=== PATIENT | female | born 1965 | race Caucasian/White ===

== ENCOUNTER 2017-07-31 09:18 | Outpatient (CLI) | payer MEDICARE, OTHER | END 2017-07-31 09:19 | disposition home or self-care (01) | LOC: DI 09:18 | PROVIDERS: ATTEND Psychiatry & Neurology Neurology | DX: I66.01 Occlusion and stenosis of right middle cerebral artery (principal); I69.30 Unspecified sequelae of cerebral infarction; E78.01 Familial hypercholesterolemia; F17.200 Nicotine dependence, unspecified, uncomplicated | CPT/HCPCS: 93306 ==

== ENCOUNTER 2017-12-26 09:10 | Outpatient (CLI) | payer MEDICARE, OTHER | END 2017-12-26 09:11 | disposition critical access hospital (66) | LOC: EMS 09:10 | PROVIDERS: ATTEND Surgery | DX: R53.1 Weakness (principal); R51 Headache; R29.810 Facial weakness; R47.81 Slurred speech | CPT/HCPCS: A0425; A0427 ==

== ENCOUNTER 2017-12-26 09:18 | Emergency (ER) | payer MEDICARE, OTHER ==
[2017-12-26] MEDS ORDERED: IOPAMIDOL-300 100 ML VIAL IVP ONE ×2 (09:19→11:39)
--- NOTE | 2017-12-26 09:29 | ED Physician Documentation ---
PD HPI FOCAL NEURO - Stated complaint Stated Complaint: CVA - Chief complaint Chief Complaint: Neuro - History obtained from History obtained from: Patient, EMS - History of Present Illness Timing - onset: Unknown Timing - details: Abrupt onset Time of symptom onset unknown: Time of onset unknown Severity of deficit: Severe Weakness: Face, Arm, Hand, Leg, Foot, Left Associated symptoms: Headache Contributing factors: positive: Anticoagulated Baseline status: positive: A&OX3, ambulatory, indep Similar symptoms before: Diagnosis (CVA) Recently seen: Not recently seen - Additional information Additional information: 52 y/o female with prior history of CVA and CAD with [address] awoke this morning unable to use her left side. She was found with left sided facial droop, left sided motor weakness upper and lower and slurred speech. She was able to call out to her family who called 911. The patient is on blood thinners and thinks she may have hit her head on a fall this morning. It is unclear if symptoms preceded the fall. Review of Systems Constitutional: denies: Fever Eyes: denies: Decreased vision Ears: denies: Ear pain Nose: denies: Congestion Throat: denies: Sore throat Cardiac: denies: Chest pain / pressure, Palpitations Respiratory: denies: Dyspnea, Cough GI: denies: Vomiting : denies: Dysuria Skin: denies: Rash Neurologic: reports: Focal weakness. denies: Generalized weakness, Numbness PD PAST MEDICAL HISTORY - Present Medications Home Medications: Ambulatory Orders Medication Instructions Recorded Confirmed Aspirin 12/26/17 Metoprolol Succinate 12/26/17 Omeprazole Magnesium [Prilosec] 12/26/17 Ticagrelor [Brilinta] 12/26/17 - Allergies Allergies/Adverse Reactions: Allergies Allergy/AdvReac Type Severity Reaction Status Date / Time Iodinated Contrast- Oral and Allergy Rash Verified 12/26/17 09:51 IV Dye morphine Allergy Rash Verified 12/26/17 09:51 PD ED PE NORMAL - Vitals Vital signs reviewed: Yes (hypertensive mild) - General General: Alert and oriented X 3, No acute distress, Well developed/nourished, Other (The patient talks and answers questions appropriately with her head deviated to the right as well as the gaze. ) - HEENT HEENT: PERRL, Other (There is forced deviation of the eyes to the right. ) - Neck Neck: Supple, no meningeal sign, No bony TTP - Cardiac Cardiac: RRR, No murmur - Respiratory Respiratory: No respiratory distress, Clear bilaterally - Abdomen Abdomen: Soft, Non tender - Back Back: No CVA TTP, No spinal TTP - Derm Derm: Normal color, Warm and dry, No rash - Extremities Extremities: No deformity, No edema - Neuro Neuro: Alert and oriented X 3, Other (The patient is ) NIHSS - Time Time: 09:22 - Level of Consciousness Level of consciousness: (0) Alert, Keenly responsive LOC Questions: (0) Answers both Q's correct LOC Commands: (1) Performs one correctly - Gaze Best Gaze: (2) Forced deviation - Visual Visual: (1) Partial hemianopia - Facial Palsy Facial Palsy: (1) Minor paralysis - Motor Arms (both separate) Motor Arm (right): (0) No drift Motor Arm (left): (3) No effort against gravity - Motor Legs (both separate) Motor Leg (right): (0) No drift Motor Leg (left): (4) No movement - Limb Ataxia Limb Ataxia: (1) Present in 1 limb - Sensory Sensory: (1) Unwo-jw-byncrndm loss - Best Language Best Language: (0) No aphasia - Dysarthria Dysarthria: (1) Pmki-sd-cpubivus dysarthria - Extinction and Inattention (formally neg Extinction and inattention: (1) Visual,tactile,auditory,spatial, or personal inattention - Total Score/Results Total Score/Result: 16 Results - Vitals Vitals: Vital Signs - 24 hr 12/26/17 12/26/17 12/26/17 09:18 09:30 09:47 Temperature 36.6 C Heart Rate 77 75 75 Respiratory 18 20 22 Rate Blood Pressure 132/77 H 127/79 158/78 H O2 Saturation 96 97 95 12/26/17 12/26/17 10:05 10:54 Temperature Heart Rate 89 88 Respiratory 17 15 Rate Blood Pressure 155/71 H 137/67 H O2 Saturation 97 96 Oxygen O2 Source Room air - EKG (time done) 1029 Rate: Rate (enter#) (92) Intervals: Prolonged QT QRS: Low voltage Ischemia: Non specific changes Compare to prior EKG: Old EKG unavailable Computer interpretation: Disagree with computer (I am unable to see ST elevations ) - Labs Labs: Laboratory Tests 12/26/17 12/26/17 12/26/17 09:45 09:45 09:45 WBC 8.9 RBC 5.05 Hgb 15.5 Hct 45.0 MCV 89.0 MCH 30.7 MCHC 34.4 RDW 13.5 Plt Count 226 MPV 9.5 Neut # (Auto) 5.8 Lymph # (Auto) 2.4 [place] # (Auto) 0.5 Eos # (Auto) 0.1 Baso # (Auto) 0.1 Absolute Nucleated RBC 0.00 Nucleated RBC % 0.0 PT 12.6 INR 1.1 APTT 28.6 Sodium 140 Potassium 4.0 Chloride 106 Carbon Dioxide 25 Anion Gap 9.0 BUN 25 H Creatinine 0.8 Estimated GFR (MDRD) 75 L Glucose 129 H Calcium 8.8 Total Bilirubin 0.7 AST 17 ALT 13 Alkaline Phosphatase 57 Troponin I Total Protein 7.5 Albumin 4.0 Globulin 3.5 Albumin/Globulin Ratio 1.1 Lipase 40 Urine Color Urine Clarity Urine pH Ur Specific [place] Urine Protein Urine Glucose (UA) Urine Ketones Urine Occult Blood Urine Nitrite Urine Bilirubin Urine Urobilinogen Ur Leukocyte Esterase Urine RBC Urine WBC Ur Squamous Epith Cells Urine Bacteria Ur Microscopic Review Urine Culture Comments 12/26/17 12/26/17 09:45 10:20 WBC RBC Hgb Hct MCV MCH MCHC RDW Plt Count MPV Neut # (Auto) Lymph # (Auto) [place] # (Auto) Eos # (Auto) Baso # (Auto) Absolute Nucleated RBC Nucleated RBC % PT INR APTT Sodium Potassium Chloride Carbon Dioxide Anion Gap BUN Creatinine Estimated GFR (MDRD) Glucose Calcium Total Bilirubin AST ALT Alkaline Phosphatase Troponin I < 0.04 Total Protein Albumin Globulin Albumin/Globulin Ratio Lipase Urine Color YELLOW Urine Clarity CLEAR Urine pH 6.0 Ur Specific [place] 1.020 Urine Protein NEGATIVE Urine Glucose (UA) NEGATIVE Urine Ketones NEGATIVE Urine Occult Blood SMALL H Urine Nitrite NEGATIVE Urine Bilirubin NEGATIVE Urine Urobilinogen 0.2 (NORMAL) Ur Leukocyte Esterase NEGATIVE Urine RBC 0-5 Urine WBC 0-3 Ur Squamous Epith Cells RARE Squamous Urine Bacteria Rare Ur Microscopic Review INDICATED Urine Culture Comments NOT INDICATED - Rads (name of study) CT head without Radiology: Prelim report reviewed (Impression: 1. Findings suggestive of hyperdense right MCA sign, suggestive of thrombus embolic material. Recommend CTA for confirmation. 2. Findings of old right MCA territory infarct.), EMP read indepedently, See rad report Procedures - IVC sono (time) 9659 Bedside IVC sono: IVC measures (cm) (0.97), IVC collapsed c insp (cm) (complete), Dehydration (est 1-2 liter deficit) PD MEDICAL DECISION MAKING - ED course Complexity details: reviewed results, re-evaluated patient, considered differential, d/w patient, d/w family, d/w jewelry consultant (09:12 Dr. Ree Mustafa recommends CTA head and neck and will review for appropriateness of intervention .) ED course: 52 y/o female with dense left ever and neglect has unknown onset of symptoms overnight. She has RMCA hyperdensity and is a candidate for thrombectomy Dr. Ree Mustafa is consulted in the case and requests urgent transfer to [facility]. [facility] is unable to fly secondary to fog and stat ground transport is arranged. The patient is dehydrated and IV saline is administered. Departure - Departure Disposition: 02 Transfer Acute Care Hosp Clinical Impression: Cerebrovascular accident (CVA) Qualifiers: CVA mechanism: thrombosis Precerebral and cerebral artery: middle cerebral artery Laterality of affected vessel: right Qualified Code(s): I63.311 - Cerebral infarction due to thrombosis of right middle cerebral artery Condition: Serious
--- NOTE | 2017-12-26 09:43 | CT Report ---
Reason: Left ever Procedure Date: 12/26/2017 Accession Number: [id number] / [id number] Procedure: CT - Head W/O Stroke Protocol CPT Code: FULL RESULT: EXAM: CT HEAD EXAM DATE: 12/26/2017 09:33 AM. CLINICAL HISTORY: Left side weakness. COMPARISON: None. TECHNIQUE: Multiaxial CT images were obtained from the foramen magnum to the vertex. Reformats: Sagittal and coronal. IV contrast: None. In accordance with CT protocol optimization, one or more of the following dose reduction techniques were utilized for this exam: automated exposure control, adjustment of mA and/or KV based on patient size, or use of iterative reconstructive technique. FINDINGS: Parenchyma: There are areas of encephalomalacia in the right frontal, parietal, and temporal lobes, compatible with previous MCA territory infarct. Elsewhere, the castañeda-white matter differentiation appears preserved. No intracranial hemorrhage demonstrated. No evidence of mass or mass-effect. Extraaxial Spaces: Mild diffuse prominence, compatible with central atrophy. No subdural or epidural collections identified. Ventricles: Size and position are within normal limits. Basal cisterns are patent. Sinuses and Orbits: The visualized portions of the paranasal sinuses and mastoid air cells are clear. Orbits are unremarkable. Bones: No evidence of fracture or calvarial defect. Other: There appears to be increased density of the M1 segment of the right middle cerebral artery (series 3, image 13). IMPRESSION: 1. Findings suggestive of hyperdense right MCA sign, suggestive of thromboembolic material. Recommend CTA for confirmation. 2. Findings of old right MCA territory infarct. RADIA The above findings were discussed with Dr. Gonzalo Lawrence by Dr. Mychal Gongora at approximately 09:35 hrs on 12/26/17.
[2017-12-26] MEDS ORDERED: IOPAMIDOL-300 100 ML VIAL ONE (09:46)
[2017-12-26 09:50] LABS: BASOPHILS # (AUTO) 0.1 10^3/uL (0.0-0.1); BASOPHILS % (AUTO) 0.7 %; EOSINOPHILS # (AUTO) 0.1 10^3/uL (0.0-0.7); EOSINOPHILS % (AUTO) 0.6 %; HGB - HEMOGLOBIN 15.5 g/dL (12.0-16.0); LYMPHOCYTES # (AUTO) 2.4 10^3/uL (1.5-3.5); LYMPHOCYTES % (AUTO) 27.3 %; MEAN CORPUSCULAR HEMOGLOBIN 30.7 pg (27.0-31.0); MEAN CORPUSCULAR HGB CONC 34.4 g/dL (32.0-36.0); MEAN PLATELET VOLUME 9.5 fL (7.9-10.8); MONOCYTES # (AUTO) 0.5 10^3/uL (0.0-1.0); MONOCYTES % (AUTO) 6.1 %; NEUTROPHILS # (AUTO) 5.8 10^3/uL (1.5-6.6); NEUTROPHILS % (AUTO) 65.3 %; PLT - PLATELET COUNT 226 10^3/uL (130-450); RED BLOOD COUNT 5.05 10^6/uL (4.20-5.40); RED CELL DISTRIBUTION WIDTH 13.5 % (12.0-15.0); WHITE BLOOD COUNT 8.9 x10^3/uL (4.8-10.8)
[2017-12-26] MEDS ORDERED: diphenhydrAMINE INJ 50 MG/ML VIAL IVP STA (09:50)
[2017-12-26] MEDS ORDERED: SODIUM CHLORIDE 0.9% 1,000 ML IV ONE (09:50)
[2017-12-26] MEDS ORDERED: methylPREDNISolone SUCCINATE 125 MG/2 ML VIAL IVP STA (09:50)
[2017-12-26 10:03] LABS: ALBUMIN/GLOBULIN RATIO 1.1 (1.0-2.2); BILIRUBIN,TOTAL 0.7 mg/dL (0.2-1.0); CALCIUM 8.8 mg/dL (8.5-10.3); CREATININE 0.8 mg/dL (0.4-1.0); TOTAL PROTEIN 7.5 g/dL (6.7-8.2)
[2017-12-26 10:37] LABS: INR 1.1 (0.8-1.2); PT - PROTHROMBIN TIME 12.6 secs (9.9-12.6)
[2017-12-26 10:44] LABS: BILIRUBIN,URINE NEGATIVE (NEGATIVE); GLUCOSE, URINE (UA) NEGATIVE (NEGATIVE); KETONES,URINE (UA) NEGATIVE (NEGATIVE); LEUKOCYTE ESTERASE, URINE NEGATIVE (NEGATIVE); NITRITE,URINE NEGATIVE (NEGATIVE); OCCULT BLOOD,URINE SMALL (NEGATIVE); PROTEIN,URINE NEGATIVE (NEGATIVE); UROBILINOGEN,URINE 0.2 (NORMAL) E.U./dL (NORMAL)
[2017-12-26 10:47] LABS: CLARITY,URINE CLEAR (CLEAR)
[2017-12-26 11:04] LABS: BACTERIA,URINE Rare /HPF (None Seen); RBC,URINE 0-5 /HPF (0-5); SQUAMOUS EPITHELIAL CELL,UR RARE Squamous (<= Few)
[2017-12-26 11:30] VITALS: BP 138/82
--- NOTE | 2017-12-26 12:00 | CT Report ---
Reason: Left ever Procedure Date: 12/26/2017 Accession Number: [id number] / [id number] Procedure: CT - Neck Angio CPT Code: FULL RESULT: EXAM: CT ANGIOGRAM HEAD AND NECK. CT SCAN HEAD WITH CONTRAST. EXAM DATE:12/26/2017 10:13 AM. CLINICAL HISTORY:Left ever. Left-sided weakness. COMPARISON:CT scan of the head without contrast same time 12/26/2017. TECHNIQUE: Routine axial helical CTA imaging was performed from the aortic arch through the [place]. Routine axial CT imaging of the head was performed following contrast administration. Reconstructions: Routine multiplanar 3D MIP reconstructions. IV contrast: ISOVUE 300 80mL. NASCET Criteria are used for stenosis measurements. In accordance with CT protocol optimization, one or more of the following dose reduction techniques were utilized for this exam: automated exposure control, adjustment of mA and/or KV based on patient size, or use of iterative reconstructive technique. FINDINGS: CT SCAN HEAD POSTCONTRAST: (See report of noncontrast CT scan of the head performed same time.) No abnormal intracranial enhancement. Diffuse cortical hypodensity and deep nuclear hypodensity is seen in the right MCA vascular territory. No hemorrhage. On postcontrast CT images (which are after the dynamic CT angiogram images) contrast opacification of right MCA branches within the Sylvian fissure is evident. CT ANGIOGRAM EXTRACRANIAL CIRCULATION: Mild atherosclerotic calcification is seen in the aortic arch and great vessels off the arch. Normal three-vessel branching is identified. Great vessels are patent and unremarkable. Right Carotid: The CCA is patent and unremarkable. Occlusion of the ICA is seen shortly after its origin. Tapering of the proximal bulbar segment is seen. Appearance is suggestive of dissection. The ECA is patent and unremarkable. Left Carotid: The common carotid, internal carotid, and external carotid arteries are widely patent. No dissection, significant atherosclerotic plaque, or calcification identified. Vertebrals: The vertebrobasilar system shows no stenosis, dissection, aneurysm, or significant atherosclerotic disease. CT ANGIOGRAM INTRACRANIAL CIRCULATION: Right Carotid Circulation: Markedly abnormal. Nonopacification of intracranial ICA to the bifurcation is seen. Nonopacification of M1 and candelabra M2 branches within the Sylvian fissure is seen. Nonopacification of the proximal A1 segment of the EMANUEL is evident. Distal A1 segment as well as A2 and distal branches of the EMANUEL are opacified. This is consistent with collateral flow through a small caliber A-comm. Additionally, there is opacification of the right P-comm extending to the level of the posterior margin of the supracavernous ICA, without luminal opacification of the ICA appreciated. Left carotid Circulation: Patent and unremarkable. The MCA and EMANUEL are unremarkable. The left P-comm is small in caliber. Vertebrobasilar System: Patent and unremarkable. Bilateral superior cerebellar and [employer] are patent and unremarkable. The dural venous sinuses are patent. Other: Moderate interstitial bullous change is seen in the visualized upper lung zone bilaterally. No consolidation. Heterogeneous enlargement of the thyroid gland is seen, greater on the left. An irregular peripherally enhancing 20 mm nodule is seen in the left lobe. This could be further evaluated with thyroid ultrasound. No lytic or blastic bony lesions are seen. Mild spondylosis is noted in the lower cervical spine. Dextroscoliosis of the upper thoracic spine is appreciated. IMPRESSION: CT SCAN HEAD POSTCONTRAST: (See report of noncontrast CT scan of the head performed same time.) 1. No abnormal intracranial enhancement. 2. Parenchymal hypodensity is noted in right MCA vascular territory. This gives an ASPECTS score of 0-[address] ANGIOGRAM NECK: 1. Occlusion of the right ICA just after its origin. The appearance suggests dissection. Nonopacification of the cervical and intracranial segments is seen. 2. The left carotid and bilateral vertebral arteries are unremarkable. CT ANGIOGRAM HEAD: 1. Occlusion of intracranial right ICA. This extends to the ICA terminus. Nonopacification of M1 and M2 branches of the MCA is seen. Nonopacification of the proximal A1 segment of the EMANUEL is noted. -Opacification of the right P-comm is seen extending from the [employer]. This does not opacify the lumen of the ICA. -Right EMANUEL is supplied through the left EMANUEL through a patent small A-comm. 2. The left carotid and vertebrobasilar system is unremarkable. Critical Test: Findings are discussed with referring treating physician on 12/26/2017 at 1134 hours. RADIA
--- NOTE | 2017-12-26 12:00 | CT Report ---
Reason: left ever Procedure Date: 12/26/2017 Accession Number: [id number] / [id number] Procedure: CT - Head Angio CPT Code: FULL RESULT: EXAM: CT ANGIOGRAM HEAD AND NECK. CT SCAN HEAD WITH CONTRAST. EXAM DATE:12/26/2017 10:13 AM. CLINICAL HISTORY:Left ever. Left-sided weakness. COMPARISON:CT scan of the head without contrast same time 12/26/2017. TECHNIQUE: Routine axial helical CTA imaging was performed from the aortic arch through the [place]. Routine axial CT imaging of the head was performed following contrast administration. Reconstructions: Routine multiplanar 3D MIP reconstructions. IV contrast: ISOVUE 300 80mL. NASCET Criteria are used for stenosis measurements. In accordance with CT protocol optimization, one or more of the following dose reduction techniques were utilized for this exam: automated exposure control, adjustment of mA and/or KV based on patient size, or use of iterative reconstructive technique. FINDINGS: CT SCAN HEAD POSTCONTRAST: (See report of noncontrast CT scan of the head performed same time.) No abnormal intracranial enhancement. Diffuse cortical hypodensity and deep nuclear hypodensity is seen in the right MCA vascular territory. No hemorrhage. On postcontrast CT images (which are after the dynamic CT angiogram images) contrast opacification of right MCA branches within the Sylvian fissure is evident. CT ANGIOGRAM EXTRACRANIAL CIRCULATION: Mild atherosclerotic calcification is seen in the aortic arch and great vessels off the arch. Normal three-vessel branching is identified. Great vessels are patent and unremarkable. Right Carotid: The CCA is patent and unremarkable. Occlusion of the ICA is seen shortly after its origin. Tapering of the proximal bulbar segment is seen. Appearance is suggestive of dissection. The ECA is patent and unremarkable. Left Carotid: The common carotid, internal carotid, and external carotid arteries are widely patent. No dissection, significant atherosclerotic plaque, or calcification identified. Vertebrals: The vertebrobasilar system shows no stenosis, dissection, aneurysm, or significant atherosclerotic disease. CT ANGIOGRAM INTRACRANIAL CIRCULATION: Right Carotid Circulation: Markedly abnormal. Nonopacification of intracranial ICA to the bifurcation is seen. Nonopacification of M1 and candelabra M2 branches within the Sylvian fissure is seen. Nonopacification of the proximal A1 segment of the EMANUEL is evident. Distal A1 segment as well as A2 and distal branches of the EMANUEL are opacified. This is consistent with collateral flow through a small caliber A-comm. Additionally, there is opacification of the right P-comm extending to the level of the posterior margin of the supracavernous ICA, without luminal opacification of the ICA appreciated. Left carotid Circulation: Patent and unremarkable. The MCA and EMANUEL are unremarkable. The left P-comm is small in caliber. Vertebrobasilar System: Patent and unremarkable. Bilateral superior cerebellar and [employer] are patent and unremarkable. The dural venous sinuses are patent. Other: Moderate interstitial bullous change is seen in the visualized upper lung zone bilaterally. No consolidation. Heterogeneous enlargement of the thyroid gland is seen, greater on the left. An irregular peripherally enhancing 20 mm nodule is seen in the left lobe. This could be further evaluated with thyroid ultrasound. No lytic or blastic bony lesions are seen. Mild spondylosis is noted in the lower cervical spine. Dextroscoliosis of the upper thoracic spine is appreciated. IMPRESSION: CT SCAN HEAD POSTCONTRAST: (See report of noncontrast CT scan of the head performed same time.) 1. No abnormal intracranial enhancement. 2. Parenchymal hypodensity is noted in right MCA vascular territory. This gives an ASPECTS score of 0-[address] ANGIOGRAM NECK: 1. Occlusion of the right ICA just after its origin. The appearance suggests dissection. Nonopacification of the cervical and intracranial segments is seen. 2. The left carotid and bilateral vertebral arteries are unremarkable. CT ANGIOGRAM HEAD: 1. Occlusion of intracranial right ICA. This extends to the ICA terminus. Nonopacification of M1 and M2 branches of the MCA is seen. Nonopacification of the proximal A1 segment of the EMANUEL is noted. -Opacification of the right P-comm is seen extending from the [employer]. This does not opacify the lumen of the ICA. -Right EMANUEL is supplied through the left EMANUEL through a patent small A-comm. 2. The left carotid and vertebrobasilar system is unremarkable. Critical Test: Findings are discussed with referring treating physician on 12/26/2017 at 1134 hours. RADIA
== END 2017-12-26 11:34 | disposition short-term general hospital (02) ==
LOC: EDUNIT# → ED 09:18
DX: I63.311 Cerebral infarction due to thrombosis of right middle cerebral artery (principal); E86.0 Dehydration; I45.81 Long QT syndrome; I25.10 Atherosclerotic heart disease of native coronary artery without angina pectoris; Z95.5 Presence of coronary angioplasty implant and graft; R47.1 Dysarthria and anarthria
CPT/HCPCS: 36415; 51702; 70450; 70496; 70498; 80053; 81001; 83690; 84484; 85025; 85610; 85730; 93005; 96361; 96374; 99284; 99285; J1200; Q9967; 81003; 87086

== ENCOUNTER 2017-12-26 11:33 | Outpatient (CLI) | payer MEDICARE, OTHER | END 2017-12-26 11:34 | disposition short-term general hospital (02) | LOC: EMS 11:33 | PROVIDERS: ATTEND Surgery | DX: I63.9 Cerebral infarction, unspecified (principal) | CPT/HCPCS: A0425; A0426 ==

== ENCOUNTER 2018-01-17 18:31 | Outpatient (CLI) | payer MEDICARE, OTHER | END 2018-01-17 18:32 | disposition critical access hospital (66) | LOC: EMS 18:31 | PROVIDERS: ATTEND Surgery | DX: R56.9 Unspecified convulsions (principal) | CPT/HCPCS: A0425; A0429 ==

== ENCOUNTER 2018-01-17 18:35 | Emergency (ER) | payer MEDICARE, OTHER ==
[2018-01-17] MEDS ORDERED: SODIUM CHLORIDE 0.9% 1,000 ML IV ONE (20:31)
[2018-01-17 20:45] LABS: BASOPHILS # (AUTO) 0.1 10^3/uL (0.0-0.1); BASOPHILS % (AUTO) 0.9 %; EOSINOPHILS % (AUTO) 0.5 %; HGB - HEMOGLOBIN 12.3 g/dL (12.0-16.0); LYMPHOCYTES # (AUTO) 2.1 10^3/uL (1.5-3.5); LYMPHOCYTES % (AUTO) 23.3 %; MEAN CORPUSCULAR HEMOGLOBIN 30.9 pg (27.0-31.0); MEAN CORPUSCULAR HGB CONC 34.9 g/dL (32.0-36.0); MEAN CORPUSCULAR VOLUME 88.7 fL (81.0-99.0); MEAN PLATELET VOLUME 8.5 fL (7.9-10.8); MONOCYTES # (AUTO) 0.8 10^3/uL (0.0-1.0); MONOCYTES % (AUTO) 8.7 %; NEUTROPHILS # (AUTO) 5.9 10^3/uL (1.5-6.6); NEUTROPHILS % (AUTO) 66.6 %; PLT - PLATELET COUNT 429 10^3/uL (130-450); RED BLOOD COUNT 3.97 10^6/uL (4.20-5.40); RED CELL DISTRIBUTION WIDTH 14.1 % (12.0-15.0); WHITE BLOOD COUNT 8.8 x10^3/uL (4.8-10.8)
[2018-01-17 20:56] LABS: ALBUMIN 3.6 g/dL (3.2-5.5); BILIRUBIN,TOTAL 0.7 mg/dL (0.2-1.0); CALCIUM 9.1 mg/dL (8.5-10.3); CREATININE 0.8 mg/dL (0.4-1.0); TOTAL PROTEIN 7.2 g/dL (6.7-8.2)
--- NOTE | 2018-01-17 21:39 | CT Report ---
Reason: seizure, post craniotomy Procedure Date: 01/17/2018 Accession Number: [id number] / [id number] Procedure: CT - Head W/O CPT Code: FULL RESULT: EXAM: CT HEAD EXAM DATE: 01/17/2018 08:51 PM. CLINICAL HISTORY: 52-year-old female. Seizure, post craniotomy. COMPARISON: CT HEAD WITHOUT CONTRAST 01/01/2018 5:56 AM. TECHNIQUE: Multiaxial CT images were obtained from the foramen magnum to the vertex. Reformats: Sagittal and coronal. IV contrast: None. In accordance with CT protocol optimization, one or more of the following dose reduction techniques were utilized for this exam: automated exposure control, adjustment of mA and/or KV based on patient size, or use of iterative reconstructive technique. FINDINGS: The patient is again noted to be status post right frontoparietal craniectomy. Redemonstration right MCA territory infarction as evidenced by diffusely hypodense and edematous right MCA territory parenchyma, with interval decrease in edema when compared to the prior study from 01/01/2018. Interval decrease in herniation of the brain parenchyma through the craniectomy defect. No midline shift. Decreased mass-effect on the supratentorial ventricles. No CT evidence of interval development of new/increased intracranial hemorrhage. No definite CT findings of interval development of additional infarctions. The visualized orbits are unremarkable. The paranasal sinuses and mastoid air cells are clear. IMPRESSION: 1. The patient is again noted to be status post right frontoparietal craniectomy. Redemonstration large right MCA territory infarction as evidenced by diffusely hypodense and edematous right MCA territory parenchyma, with interval decrease in edema when compared to the prior study from 01/01/2018. 2. Interval decrease in herniation of the brain parenchyma through the craniectomy defect. No midline shift. Decreased mass-effect on the supratentorial ventricles. 3. No CT evidence of interval development of new/increased intracranial hemorrhage. No definite CT findings of interval development of additional infarctions. RADIA
--- NOTE | 2018-01-17 21:52 | ED Physician Documentation ---
PD HPI SEIZURE - Stated complaint Stated Complaint: SZ - Chief complaint Chief Complaint: Neuro - History obtained from History obtained from: Patient, Family () - History of Present Illness Timing - onset: How many hours ago (Just prior to arrival.) Witnessed: Witnessed (Witnessed by staff at [facility].) Number of seizures: Single, Lasted minutes Description of seizure activity: Generalized, Postictal Injury during seizure: None Recently seen: Surgery (2 weeks status post decompressive craniectomy for malignant cerebral edema following massive stroke with hemorrhagic transformation.) - Additional information Additional information: The patient is a 52-year-old female who arrives via ambulance after generalized seizure that occurred at [facility] just prior to arrival. The seizure reportedly lasted about 2 minutes before resolving spontaneously. She was postictal when medics arrived. There was no apparent injury sustained during the seizure. 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 She was discharged from [facility] 5 days ago with persistent left hemiparesis and left-sided neglect. There is no report in her medical record indicating previous seizure. She is not taking seizure medication currently. History is obtained from the patient's and from staff at [facility]. The patient was nonverbal at the time of arrival in the emergency department. Review of Systems Constitutional: denies: Fever Throat: denies: Sore throat Cardiac: denies: Chest pain / pressure Respiratory: denies: Dyspnea, Cough GI: denies: Abdominal Pain, Nausea, Vomiting : denies: Dysuria Musculoskeletal: denies: Neck pain, Extremity pain Neurologic: reports: Focal weakness (left hemiplegia), Difficulty speaking, Seizure. denies: Headache PD PAST MEDICAL HISTORY - Past Medical History Past Medical History: Yes Cardiovascular: Hypertension, High cholesterol, [place] Neuro: CVA, Other Other Past Medical History: Intracerebral hemorrhage - Past Surgical History Past Surgical History: Yes Cardiovascular: Coronary stent, Cardiac catheterization Neuro: Craniotomy - Present Medications Home Medications: Ambulatory Orders Medication Instructions Recorded Confirmed Aspirin 12/26/17 Metoprolol Succinate 12/26/17 Omeprazole Magnesium [Prilosec] 12/26/17 Ticagrelor [Brilinta] 12/26/17 Levetiracetam [Keppra] 750 mg PO BID #30 tablet 11/11/18 - Allergies Allergies/Adverse Reactions: Allergies Allergy/AdvReac Type Severity Reaction Status Date / Time Iodinated Contrast- Oral and Allergy Rash Verified 12/26/17 09:51 IV Dye morphine Allergy Rash Verified 12/26/17 09:51 - Living Situation Living Arrangement: reports: detention - Social History Does the pt smoke?: No Smoking Status: Former smoker Does the pt drink ETOH?: No Does the pt have substance abuse?: No - POLST Patient has POLST: Yes PD ED PE NORMAL - Vitals Vital signs reviewed: Yes (normal) - General General: Other (Alert but nonverbal; responds to questions and commands.) - HEENT HEENT: Other (Right craniectomy wound is intact with sutures.) - Neck Neck: Supple, no meningeal sign, No adenopathy, No JVD - Cardiac Cardiac: RRR - Respiratory Respiratory: No respiratory distress, Clear bilaterally - Abdomen Abdomen: Soft, Non tender - Back Back: No spinal TTP - Derm Derm: No rash - Extremities Extremities: No edema, No calf tenderness / cord - Neuro Neuro: Other (Alert and responds to questions and commands. Nonverbal except for a few single word responses. Right preferential gaze. Left hemiplegia.) Eye Opening: Spontaneous Motor: Obeys Commands Verbal: Oriented GCS Score: 15 Results - Vitals Vitals: Vital Signs - 24 hr 01/17/18 01/17/18 01/17/18 18:40 20:00 21:38 Temperature 36.6 C Heart Rate 82 73 79 Respiratory 20 16 16 Rate Blood Pressure 103/74 112/79 149/107 H O2 Saturation 99 100 100 01/17/18 01/17/18 01/18/18 22:19 23:05 00:10 Temperature Heart Rate 87 91 82 Respiratory 18 16 16 Rate Blood Pressure 142/77 H 120/50 L 100/85 H O2 Saturation 96 98 96 Oxygen O2 Source Room air - Labs Labs: Laboratory Tests 01/17/18 01/17/18 20:40 20:40 WBC 8.8 RBC 3.97 L Hgb 12.3 Hct 35.2 L MCV 88.7 MCH 30.9 MCHC 34.9 RDW 14.1 Plt Count 429 MPV 8.5 Neut # (Auto) 5.9 Lymph # (Auto) 2.1 [place] # (Auto) 0.8 Eos # (Auto) 0.0 Baso # (Auto) 0.1 Absolute Nucleated RBC 0.00 Nucleated RBC % 0.0 Sodium 137 Potassium 3.4 L Chloride 99 L Carbon Dioxide 29 Anion Gap 9.0 BUN 15 Creatinine 0.8 Estimated GFR (MDRD) 75 L Glucose 122 H Calcium 9.1 Total Bilirubin 0.7 AST 27 ALT 32 Alkaline Phosphatase 66 Total Protein 7.2 Albumin 3.6 Globulin 3.6 Albumin/Globulin Ratio 1.0 Lipase 39 - Rads (name of study) Head CT Radiology: Prelim report reviewed, EMP read contemporaneously, See rad report ( 1) The patient is again noted to be status post right frontoparietal craniectomy. Redemonstration of a large right MCA territory infarction as evidenced by diffusely hypodense and edematous right MCA territory parenchyma, with interval decrease in edema when compared to the prior study from 01/01/2018. 2) Interval decrease in herniation of the brain parenchyma through the craniectomy defect. No midline shift. Decrease mass-effect on the supratentorial ventricles. 3) No CT evidence of interval development of new/increased intracranial hemorrhage. No definite CT findings of interval d evelopment of additional infarctions.) PD MEDICAL DECISION MAKING - ED course Complexity details: reviewed old records, reviewed results, re-evaluated patient, considered differential, d/w patient, d/w family, d/w software developer consultant ED course: The patient's presentation is significant for seizure 2 weeks status post decompressive craniectomy. Head CT reveals improvement from her previous CT scan, showing no evidence of acute hemorrhage or recurrent cerebral edema. Other than decreased verbal ability, there is no evidence of new neurologic deficit on physical exam. While in the emergency department her ability to speak gradually improved. I discussed her condition with Dr. Shah, on-call for neurosurgery at [facility]. He advised starting her on Keppra at 750 mg twice daily. The first dose was administered while in the emergency department. I discussed with her and with staff at [facility] the results of her workup. She was discharged back to the care home via ambulance, and will follow up with neurology and neurosurgery at [facility] as planned. Departure - Departure Disposition: 01 Home, Self Care Clinical Impression: Seizure, Status post craniectomy Condition: Stable Instructions: ED Seizure New Onset Unk Cause Follow-Up: JAVID PORTER DO [Physician No Access] - Prescriptions: Levetiracetam [Keppra] 750 mg PO BID #30 tablet Comments: Take Keppra twice daily as prescribed. Follow-up with the neurology and neurosurgery services at [facility] as planned. Return to the emergency department if recurrent seizures or otherwise worsening symptoms. Discharge Date/Time: 01/18/18 00:35
[2018-01-17] MEDS ORDERED: levETIRAcetam 250 MG TABLET PO STA (23:36)
[2018-01-18 00:11] VITALS: BP 100/85
== END 2018-01-18 00:35 | disposition home or self-care (01) ==
LOC: EDUNIT# → ED 18:35
DX: R56.9 Unspecified convulsions (principal); Z98.890 Other specified postprocedural states; I10 Essential (primary) hypertension; I69.354 Hemiplegia and hemiparesis following cerebral infarction affecting left non-dominant side; I69.320 Aphasia following cerebral infarction; Z79.82 Long term (current) use of aspirin; Z87.891 Personal history of nicotine dependence
CPT/HCPCS: 36415; 70450; 80053; 83690; 85025; 99284; A9270

== ENCOUNTER 2018-01-18 00:35 | Outpatient (CLI) | payer MEDICARE, OTHER | END 2018-01-18 00:36 | disposition home or self-care (01) | LOC: EMS 00:35 | PROVIDERS: ATTEND Surgery | DX: R56.9 Unspecified convulsions (principal) ==

== ENCOUNTER 2018-01-18 19:36 | Outpatient (CLI) | payer MEDICARE, OTHER | END 2018-01-18 19:37 | disposition critical access hospital (66) | LOC: EMS 19:36 | PROVIDERS: ATTEND Surgery | DX: R13.10 Dysphagia, unspecified (principal); R56.9 Unspecified convulsions | CPT/HCPCS: A0425; A0428; A0429 ==

== ENCOUNTER 2018-01-18 19:40 | Inpatient (IN) | payer MEDICARE, OTHER ==
--- NOTE | 2018-01-18 20:05 | ED Physician Documentation ---
History of Present Illness - Stated complaint Stated Complaint: DIFF SWALLOWING - Chief complaint Chief Complaint: General - History obtained from History obtained from: Family (spouse) - History of Present Illness Timing: Today - Additonal information Additional information: LIMITED HPI/ROS DUE TO PATIENT IS APHASIC. From [facility]; she had CVA 12/26, transferred to [facility] where she had craniotomy to treat the cerebral hemorrhage. She was T+R yesterday from this ED ([facility]) for new-onset seizure; notes reflect that ED MD spoke with neurosurgery at [facility], was advised to start Keppra. She was then transferred back to [facility]. She was sent to another facility earlier today from [facility] for removal of the scalp aime, and she was then sent back to [facility] where she underwent speech therapy. Speech therapist informed the MD (Kleber Lara) that patient apparently is having difficulty swallowing and has not eaten nor drank anything all day today. Nurses' notes indicate she has not taken any of her medications today, either. Additionally, it is noted that she is aphasic (nonverbal). This started yesterday after the seizures, but ED notes reflect that it was already resolving prior to discharge from ED (she started to verbalize). 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 CEREBRAL EDEMA...ENCEPHALOPATHY UNSPECIFIED... ATHEROSCLEROTIC HEART DISEASE/CAD...CHEST PAIN... ASSISTANCE W/ MOBILITY/AMBULATION...DYSPHAGIA... - Past Surgical History Past Surgical History: Yes General: Other Cardiovascular: Coronary stent, Cardiac catheterization Neuro: Craniotomy - Present Medications Home Medications: Ambulatory Orders Medication Instructions Recorded Confirmed Aspirin 12/26/17 Metoprolol Succinate 12/26/17 Omeprazole Magnesium [Prilosec] 12/26/17 Ticagrelor [Brilinta] 12/26/17 Levetiracetam [Keppra] 750 mg PO BID #30 tablet 01/17/18 - Allergies Allergies/Adverse Reactions: Allergies Allergy/AdvReac Type Severity Reaction Status Date / Time Iodinated Contrast- Oral and Allergy Rash Verified 01/18/18 19:54 IV Dye morphine Allergy Rash Verified 01/18/18 19:54 - Social History Does the pt smoke?: No Smoking Status: Never smoker Does the pt drink ETOH?: No Does the pt have substance abuse?: No - Immunizations Immunizations are current?: Yes - POLST Patient has POLST: Yes PD ED PE NORMAL - Vitals Vital signs reviewed: Yes - General General: No acute distress, Well developed/nourished, Other (drowsy but awakens to voice; she follows most commands. answers some questions with thumbs up/down or nodding head, but not all questions. ) - HEENT HEENT: PERRL, Other (dry mucous membranes). No: EOMI (eyes do not cross left of midline) - Neck Neck: Supple, no meningeal sign - Cardiac Cardiac: RRR, No murmur - Respiratory Respiratory: No respiratory distress, Clear bilaterally - Abdomen Abdomen: Soft, Non tender - Derm Derm: No rash - Extremities Extremities: No edema - Neuro Eye Opening: To Voice Motor: Obeys Commands Verbal: None GCS Score: 10 PD ED PE EXPANDED - Neuro Neuro: LUE (1/5 ), LLE (1/5), Other (uses right leg to move LLE and, before asked, then uses right arm to move RUE (obviously used to this routine)) Results - Vitals Vitals: Vital Signs - 24 hr 01/18/18 01/18/18 01/18/18 19:42 20:05 20:36 Temperature 36.8 C Heart Rate 76 83 78 Respiratory 16 16 16 Rate Blood Pressure 134/50 H 126/77 138/55 H O2 Saturation 99 99 98 01/18/18 01/18/18 01/18/18 21:22 21:38 22:04 Temperature Heart Rate 78 86 79 Respiratory 16 16 16 Rate Blood Pressure 148/88 H 97/66 112/75 O2 Saturation 97 96 96 Oxygen O2 Source Room air - Labs Labs: Laboratory Tests 01/18/18 01/18/18 01/18/18 20:35 20:35 20:35 WBC 8.2 RBC 4.63 Hgb 13.7 Hct 41.5 MCV 89.7 MCH 29.6 MCHC 33.0 RDW 13.9 Plt Count 473 H MPV 9.5 Neut # (Auto) 4.4 Lymph # (Auto) 2.8 [place] # (Auto) 0.9 Eos # (Auto) 0.0 Baso # (Auto) 0.1 Absolute Nucleated RBC 0.00 Nucleated RBC % 0.1 PT 12.9 H INR 1.1 Sodium 140 Potassium 4.6 Chloride 103 Carbon Dioxide 28 Anion Gap 9.0 BUN 13 Creatinine 0.7 Estimated GFR (MDRD) 87 L Glucose 107 H Calcium 10.1 - Rads (name of study) CT head Radiology: Prelim report reviewed, See rad report PD MEDICAL DECISION MAKING - ED course Complexity details: reviewed old records, reviewed results, re-evaluated patient, considered differential, d/w patient, d/w family, d/w cruise consultant ED course: D/W Dr. Lara as noted in HPI. D/W Dr. Palacios (hospitalist), requests CTH before considering admit to [facility] (patient has worsened since last here; returned to nonverbal whereas she was starting to phonate last night prior to discharge). CTH shows new, small left CVA. D/W Dr. Lowery (neurology at [facility]); no specific treatment indicated for this new CVA, can admit to [facility] to address the PO issue. Departure - Departure Disposition: 66 [facility] DC/Xfer Clinical Impression: Not taking fluids Cerebrovascular accident (CVA) Qualifiers: CVA mechanism: occlusion Precerebral and cerebral artery: middle cerebral artery Laterality of affected vessel: left Qualified Code(s): I63.512 - Cerebral infarction due to unspecified occlusion or stenosis of left middle cerebral artery Condition: Stable Discharge Date/Time: 01/18/18 23:35
[2018-01-18] MEDS ORDERED: SODIUM CHLORIDE 0.9% 500 ML IV STA ×2 (20:53→22:47)
[2018-01-18 21:02] LABS: BASOPHILS # (AUTO) 0.1 10^3/uL (0.0-0.1); BASOPHILS % (AUTO) 1.3 %; EOSINOPHILS % (AUTO) 0.3 %; HGB - HEMOGLOBIN 13.7 g/dL (12.0-16.0); LYMPHOCYTES # (AUTO) 2.8 10^3/uL (1.5-3.5); LYMPHOCYTES % (AUTO) 33.9 %; MEAN CORPUSCULAR HEMOGLOBIN 29.6 pg (27.0-31.0); MEAN CORPUSCULAR VOLUME 89.7 fL (81.0-99.0); MEAN PLATELET VOLUME 9.5 fL (7.9-10.8); MONOCYTES # (AUTO) 0.9 10^3/uL (0.0-1.0); MONOCYTES % (AUTO) 10.4 %; NEUTROPHILS # (AUTO) 4.4 10^3/uL (1.5-6.6); NEUTROPHILS % (AUTO) 54.1 %; PLT - PLATELET COUNT 473 10^3/uL (130-450); RED BLOOD COUNT 4.63 10^6/uL (4.20-5.40); RED CELL DISTRIBUTION WIDTH 13.9 % (12.0-15.0); WHITE BLOOD COUNT 8.2 x10^3/uL (4.8-10.8)
[2018-01-18 21:09] LABS: INR 1.1 (0.8-1.2); PT - PROTHROMBIN TIME 12.9 secs (9.9-12.6)
[2018-01-18 21:11] LABS: CALCIUM 10.1 mg/dL (8.5-10.3); CREATININE 0.7 mg/dL (0.4-1.0)
--- NOTE | 2018-01-18 21:44 | CT Report ---
Reason: AMS (aphasia) Procedure Date: 01/18/2018 Accession Number: [id number] / [id number] Procedure: CT - Head W/O CPT Code: FULL RESULT: EXAM: CT HEAD EXAM DATE: 01/18/2018 09:10 PM. CLINICAL HISTORY: AMS (aphasia). COMPARISON: HEAD W/O 01/17/2018 8:[address] HEAD WITHOUT CONTRAST 01/01/2018 5:56 AM. TECHNIQUE: Multiaxial CT images were obtained from the foramen magnum to the vertex. Reformats: Sagittal and coronal. IV contrast: None. In accordance with CT protocol optimization, one or more of the following dose reduction techniques were utilized for this exam: automated exposure control, adjustment of mA and/or KV based on patient size, or use of iterative reconstructive technique. FINDINGS: Parenchyma: Previous large right-sided infarction is unchanged. Mass-effect upon the frontal horn of the right lateral ventricle is unchanged. There is a new focal hypodensity in the left posterior frontal subcortical white matter, compatible with a new infarction, just superior to the sylvian fissure (axial image 18). No hemorrhage is identified. Extraaxial Spaces: Normal for age. No subdural or epidural collections identified. Ventricles: Stable mass-effect upon the frontal horn of the right lateral ventricle. Sinuses and Orbits: Imaged paranasal sinuses, orbits, and mastoids show no significant abnormality. Bones: Stable craniectomy defect. Other: None. IMPRESSION: New small infarction in the left posterior frontal lobe (axial image 18). Stable large right-sided infarction, with associated craniectomy. Critical result: Results called to Dr. Garcia on 01/18/2018 at 9:40 PM. [facility]
[2018-01-18] MEDS ORDERED: ONDANSETRON 4 MG/2 ML VIAL IVP PRN (22:46)
[2018-01-18] MEDS ORDERED: DEXTROSE 5%-0.9% NACL 1,000 ML IV SCH (23:00)
--- NOTE | 2018-01-19 00:09 | HISTORY & PHYSICAL EXAMINATION ---
Chief Complaint - Chief Complaint Chief Complaint: Dysphasia, aphonia History of Present Illness - Admitted From Admitted From:: Emergency department - History Obtained From Records Reviewed: Emergency department, previous ER visit, hospital discharge summary from History obtained from: Medical records, and ED physician. Patient is nonverbal. Exam Limitations: Patient is nonverbal - History of Present Illness HPI Comment/Other: Patient is a 52-year-old female who appears older than her stated age who has a past medical history of CAD, tobacco abuse, hypertension, CVA who presents with possible new developments of seizure disorder and recent development of dysphagia and aphonia related to recent stroke. Patient was seen in this facility in December 2017 where she presented with left- sided hemiparesis and weakness who at that time had verbal capacity to provide history. Workup in our facility revealed an acute stroke and she was transferred to [facility] after having demonstrated a right M1 occl usion on a CT angiogram. She had a mechanical thrombectomy for right ICA occlusion, after which she developed malignant cerebral edema, brain compression requiring a decompressive hemicraniectomy and a prolonged hospital stay and was eventually [facility]. She was discharged to this facility on January 12, 2018 and apparently had been having a progressively improved course up until 2 days ago when she was noted to have developed new onset of seizures, and hit her head and was brought to the emergency room for evaluation. CT scan at that time did not demonstrate any acute findings, and [facility] neurology was consulted by telephone and they provided the advice of gissel Malone but did not recommend any other intervention or transfer to their facility at that time. She was also having expressive a aphasia and aphonia at the time of presentation and this was also a concern of the medical provider at the nursing facility however by the time the patient was discharged from the ER 2 days ago this had began to improve. She was brought to the emergency room today because this a aphasia has started worsening again and she has now become completely nonverbal and intolerance to any oral intake at all due to significant dysphagia. She also has intermittent ability to comprehend verbal commands. Prior to my accepting the patient on admission to our service I did request that the patient had a stat head CT to evaluate any possible evolution of stroke between the ER visit 2 days ago and this evening and unfortunately in fact the patient does now have a new infarct of the left posterior frontal lobe. Dr. Garcia did reach out to [facility] who did not recommend any further intervention at this point, recommending only medical management, observation and I was again contacted to admit the patient. At the time of this examination patient was alone, had gone home, and she is completely nonverbal and unable to provide any history and all history was obtained from medical records and speaking to Dr. Garcia. History - Past Medical History Cardiovascular: reports: Hypertension, High cholesterol, Coronary artery disease (According to medical records she has had 15 stents), MD, Other. 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 CEREBRAL EDEMA...ENCEPHALOPATHY UNSPECIFIED... ATHEROSCLEROTIC HEART DISEASE/CAD...CHEST PAIN... ASSISTANCE W/ MOBILITY/AMBULATION...DYSPHAGIA... - Past Surgical History General: reports: Other Cardiovascular: reports: Coronary stent, Cardiac catheterization Neuro: reports: Craniotomy - POLST Patient has POLST: Yes Meds/Allgy - Home Medications Home Medications: Ambulatory Orders Medication Instructions Recorded Confirmed Aspirin 12/26/17 Metoprolol Succinate 12/26/17 Omeprazole Magnesium [Prilosec] 12/26/17 Ticagrelor [Brilinta] 12/26/17 Levetiracetam [Keppra] 750 mg PO BID #30 tablet 01/17/18 - Allergies Allergies/Adverse Reactions: Allergies Allergy/AdvReac Type Severity Reaction Status Date / Time Iodinated Contrast- Oral and Allergy Rash Verified 01/18/18 19:54 IV Dye morphine Allergy Rash Verified 01/18/18 19:54 Review of Systems - Constitutional Constitutional: reports: Other (Unable to obtain review of systems due to patient's current mental status) - Neurological Neurological: reports: Other (Per history, patient has developed seizures, a fascia and aphonia as well as dysphagia which is all progressed since the last hospital visit) Prior Level of Functionality: Prior to this admission patient still had sequelae from the previous stroke that includes left-sided weakness but was able to eat and verbalize Exam - Vital Signs Reviewed Vital Signs: Yes Vital Signs: Vital Signs x48h Temp Pulse Resp BP Pulse Ox 01/18/18 23:51 36.6 C 01/18/18 23:19 63 16 131/66 H 96 01/18/18 22:04 79 16 112/75 96 01/18/18 21:38 86 16 97/66 96 01/18/18 21:22 78 16 148/88 H 97 01/18/18 20:36 78 16 138/55 H 98 01/18/18 20:05 83 16 126/77 99 01/18/18 19:42 36.8 C 76 16 134/50 H 99 Vital Signs - 24 hr 01/18/18 01/18/18 01/18/18 19:42 20:05 20:36 Temperature 36.8 C Heart Rate 76 83 78 Respiratory 16 16 16 Rate Blood Pressure 134/50 H 126/77 138/55 H O2 Saturation 99 99 98 01/18/18 01/18/18 01/18/18 21:22 21:38 22:04 Temperature Heart Rate 78 86 79 Respiratory 16 16 16 Rate Blood Pressure 148/88 H 97/66 112/75 O2 Saturation 97 96 96 01/18/18 01/18/18 23:19 23:51 Temperature 36.6 C Heart Rate 63 Respiratory 16 Rate Blood Pressure 131/66 H O2 Saturation 96 - Physical Exam General Appearance: positive: Other (Patient is lying in gurney, reaching over to the right side of the bed. She is minimally responsive to simple questions with yes and no gestures however she is unable to verbalize at all) Eyes Bilateral: positive: Other (Limited ocular exam given patient's inability to follow commands but I do not appreciate any gross obvious deficits of extraocular movement) Neck: positive: Nml inspection Respiratory: positive: Chest non-tender, No respiratory distress, Breath sounds nml. negative: Wheezes, Rales, Rhonchi Cardiovascular: positive: Regular rate & rhythm, No murmur, No gallop Peripheral Pulses: positive: 2+ Abdomen: positive: Non-tender Skin: positive: Other (She has a large laceration from the craniectomy of the right side of the scalp with aime, there is crusted yellow discharge with a foul odor) Extremities: positive: Other (Right upper and right lower extremity strength is 4 out of 5 with patient able to spontaneously raise her right leg, right arm, and give a 4 out of 5 disc inspector strength with the right hand. Left leg is a 2 out of 5 with trace movements on intention at verbal command, with 0 movement on the left upper extremity on verbal command) Neurologic/Psychiatric: positive: Facial droop, Slurred/abnml speech, Other (Patient has left-sided hemiparesis and is unable to follow most verbal commands but is able to answer some questions with a head nod or shake to yes or no such as arguing pain or are you cold) Conclusion/Plan - Problem List (1) Cerebrovascular accident (CVA) Conclusion/Plan: New infarcts demonstrated on CT scan today. Not hemorrhagic. Her blood pressure is normal, and given the extensive hospitalization she just had, there is no indication at this point to perform CT angiogram of the head and neck or echocardiogram as this information has recently been obtained. Neurology was consulted at [facility] and limited intervention can be offered at this point other than anticoagulation which would be best started after 24-48 hours to confirm that the patient does not converting to a hemorrhagic stroke. Otherwise, we will have to monitor for improvements with PT and OT and ultimately patient may have a very poor outcome and may be a candidate for palliative care consult. Of note, generous amount of medical records from [facility] were sent to be scanned into the chart Qualifiers: CVA mechanism: occlusion Precerebral and cerebral artery: middle cerebral artery Laterality of affected vessel: left Qualified Code(s): I63.512 - Cerebral infarction due to unspecified occlusion or stenosis of left middle cerebral artery (2) Dysphagia as late effect of cerebrovascular accident (CVA) Conclusion/Plan: As above, patient has a new stroke and it is unclear if this dysphagia was present prior to the stroke but in either case she is unable to tolerate anything by mouth including medications. Ultimately she may need a PEG tube if she does not pass a swallow evaluation tomorrow, and I would recommend a palliat nohemi care consult. (3) CAD (coronary artery disease) Conclusion/Plan: Patient has extensive history of coronary artery disease with more than 15 stents. He will be difficult to manage her medically if she is unable to take p.o. medications, and as above a PEG tube may eventually be necessary. Also, as above consider palliative care consult. Qualifiers: Coronary Disease-Associated Artery/Lesion type: douglas artery [place] vs. transplanted heart: douglas heart Associated angina: without angina Qualified Code(s): I25.10 - Atherosclerotic heart disease of douglas coronary artery without angina pectoris (4) Infection of scalp Conclusion/Plan: Patient has large scalp wound from the craniectomy closed with aime. Apparently the provider at the [facility] was concerned about infection and started the patient on Keflex which she cannot take now so I will switch the patient to IV Unasyn for now. (5) Seizure Conclusion/Plan: Apparently new seizures related to the strokes, neurology has recommended Keppra. I will continue her on this medication. - Lab Results Fish Bones: 01/18/18 20:35 01/18/18 20:35 - Diagnostic Imaging Results Diagnostic Imaging Results: positive: Final report reviewed
[2018-01-19 04:03] LABS: BILIRUBIN,URINE NEGATIVE (NEGATIVE); GLUCOSE, URINE (UA) NEGATIVE (NEGATIVE); KETONES,URINE (UA) TRACE mg/dL (NEGATIVE); LEUKOCYTE ESTERASE, URINE NEGATIVE (NEGATIVE); NITRITE,URINE NEGATIVE (NEGATIVE); OCCULT BLOOD,URINE TRACE-LYSE (NEGATIVE); PROTEIN,URINE NEGATIVE (NEGATIVE); UROBILINOGEN,URINE 0.2 (NORMAL) E.U./dL (NORMAL)
[2018-01-19 04:04] LABS: CLARITY,URINE CLEAR (CLEAR)
[2018-01-19] MEDS: AMPICILLIN/SULBACTAM 1.5 GM in SODIUM CHLORIDE 0.9% MINIBAG 100 ML IV SCH ×5 (04:57→23:52)
[2018-01-19] MEDS ORDERED: DEXTROSE GEL 37.5 GM TUBE PO ONE (06:20)
[2018-01-19] MEDS: SODIUM CHLORIDE FLUSH 0.9% 10 ML SYRINGE IVP SCH ×3 (07:32→18:10)
[2018-01-19] MEDS: PANTOPRAZOLE 40 MG VIAL IVP SCH (07:59)
[2018-01-19] MEDS: levETIRAcetam INJ 750 MG in SODIUM CHLORIDE 0.9% 100ML 100 ML IV SCH ×2 (09:24→21:41)
[2018-01-19] MEDS: POLYETHYLENE GLYCOL 3350 17 GM PACKET PO SCH (09:25)
[2018-01-19] MEDS ORDERED: DEXTROSE 5%-0.9% NACL 1,000 ML IV SCH (10:20)
--- NOTE | 2018-01-19 13:42 | CONSULTATION NOTE ---
Palliative Care Consultation - Referral Referring Provider: Darleen CHOE Time of Visit: 8196-5815 Referral setting: Hospitalized patient Referral Reason: Stroke/Goals of Care - Information Sources Records reviewed: RN notes reviewed, Previous records reviewed History/Review of Systems obtained from: Family ( provided history) Exam limitations: Clinical condition (patient none verbal; can "thumbs up/down" in answer to some questions; is not consistent in all answers) Medical/Surgical History - Past Medical History Cardiovascular: reports: Hypertension, High cholesterol, Coronary artery disease, Peripheral Vascular Disease, PA (times 8), Other (cardiomyopathy;) Respiratory: reports: None Neuro: CVA (previous history of stroke 2015; followed by two more without residual; now acute CVA with left heimparesis 12/26; now acutely with new infarct left posterior frontal lobe), Seizure disorder Endocrine/Autoimmune: reports: None GI: reports: GERD 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 CEREBRAL EDEMA...ENCEPHALOPATHY UNSPECIFIED... ATHEROSCLEROTIC HEART DISEASE/CAD...CHEST PAIN... ASSISTANCE W/ MOBILITY/AMBULATION...DYSPHAGIA... - Past Surgical History General: reports: Other Cardiovascular: reports: Coronary stent (reported 15 stents), Cardiac catheterization Neuro: reports: Craniotomy - Substance History Use: Uses substance without health or social issues: Tobacco (was smoking few cigerettes a day previous to indecember admit) Social History - Living Situation Living arrangement: At home Living Situation: With spouse/s.o., With family (son and 11 year old grand daughter live with them) Support System: patient has been on SSI disabililty for cardiac dx. She has been to [place] for 28 years; she was in the [place] for 6 years; they have 5 children between them; describes her as head strong; they have a little dog Family History - Family History Family History: Mother: , CAD, Father: , CAD, Sister: Alive and Well, Brother: Alive and Well Medications/Allergies - Medications Active Medication List: Active Medications Levetiracetam 750 mg/ Sodium (Chloride) 107.5 mls @ 400 mls/hr IV BID TANYA Last Infusion: 01/19/18 09:59 Dose: Infused Ampicillin Sodium/Sulbactam (Sodium 1.5 gm/ Sodium Chloride) 100 mls @ 200 mls/hr IV Q6HR [facility] Stop: 01/26/18 00:00 Last Infusion: 01/19/18 12:34 Dose: Infused Dextrose/Sodium Chloride (D5ns) 1,000 mls @ 85 mls/hr IV .[id number] [facility] Last Admin: 01/19/18 11:38 Dose: 85 mls/hr Ondansetron HCl (Zofran Inj) 4 mg IVP Q6HR PRN PRN Reason: Nausea / Vomiting Pantoprazole Sodium (Protonix) 40 mg IVP QDAC [facility] Last Admin: 01/19/18 07:59 Dose: 40 mg Polyethylene Glycol (Miralax) 17 gm PO DAILY [facility] Last Admin: 01/19/18 09:25 Dose: Not Given Sodium Chloride (Normal Saline Flush 0.9%) 10 ml IVP PRN PRN PRN Reason: NEEDED PER PROVIDER ORDERS Sodium Chloride (Normal Saline Flush 0.9%) 10 ml IVP 0100,0900,1700 [facility] Last Admin: 01/19/18 09:24 Dose: Not Given Aspirin 12/26/17 Metoprolol Succinate 12/26/17 Omeprazole Magnesium [Prilosec] 12/26/17 Ticagrelor [Brilinta] 12/26/17 - Allergies Allergies/Adverse Reactions: Allergies Allergy/AdvReac Type Severity Reaction Status Date / Time Iodinated Contrast- Oral and Allergy Rash Verified 01/18/18 19:54 IV Dye morphine Allergy Rash Verified 01/18/18 19:54 Review of Systems - Constitutional Constitutional: reports: Weight loss (patient on arrival at [facility] was 124.8;) - Ears, Nose & Throat Ears, Nose & Throat: reports: Other (poor dentition) - Respiratory Respiratory: reports: Cough (with acute stroke has developed cough; difficulty managing oral secretions needing to use suction) - Musculoskeletal Musculoskeletal: reports: Other (left sided weakness; tapping and fidgeting of right side of arm and leg) - Integumentary Integumentary: reports: Dryness - Neurological Neurological: reports: Seizures - All Other Systems All Other Systems: reports: Other (limited) Physical Exam - Vital Signs Vital Signs: Vital Signs x48h Temp Pulse Resp BP BP Pulse Ox 01/19/18 13:17 36.4 C L 65 18 116/97 H 99 01/19/18 08:00 36.8 C 74 18 130/101 H 92 - Physical Exam General Appearance: positive: Mild distress (with cough and managing secretions;), Anxious (appears anxious; frustrated with communication) Eyes Bilateral: positive: Normal inspection ENT: positive: Other (poor dentition) Neck: positive: Trachea midline Cardiovascular: positive: Regular rate & rhythm Respiratory: positive: Rhonchi (upper airway; clear some with cough effort) Abdomen: positive: Soft Skin: positive: Pallor, Dryness Extremities: positive: No pedal edema Neurologic/Psychiatric: positive: Other (unable to evaluate baseline understanding of current situation; does not appear to have decision making capacity though does engage when spoken to; makes eye contact; holds / squeezes hand but difficult to assess understanding of TF question) Palliative Care Pain: No pain (patient denies) - Palliative Care Discussion: Attempted to engage patient in acknowledging difficult situation, asked if she is worried, difficult to put intake yes/no questions regarding understanding of current situation. She does understand her stroke is worsened, has been has made the decision to move forward with tube feedings, reassured her there was no tube down her nose that came through her stomach. And able to read an emotional response regarding this or understanding. Met with separately, he is of course devastated as the situation was already overwhelming. The goal originally had been to return back home, thinking they could have managed with the wheelchair and patient previous level of functioning. He does not see that as a possibility at this point, does recognize loss of her swallow, her choking, and high risk for pneumonia is impacting her overall ability to survive this latest insult. He reports to have had situations in the past, where they have talked over goals, not specific to the situation as this came on fairly acutely but does feel given her current situation and decline she would not want to be resuscitated. He does understand she does not present at this time with being able to weigh benefits and burdens of this decision, he feels it is in alignment with what she would have wanted. This was communicated to the hospitalist. We did discuss in the context of the tube feeding, this too comes with great risk, does not take the risk away as far as her choking, risk for pneumonia, and risk for ongoing decline. Reports he had 22 years in the , his experience with end of life is mostly informed by his experience with his father whom he saw for the last couple weeks of his life. He does recognize that she is in a very precarious situation.We discussed who else might be of support to him in this difficult time, he has been talking with his various children, but has not really shared the emotional journey regarding this, and is finding it quite difficult. He has multiple responsibilities, has struggled particularly in stay at [facility] finding a balance of support and attending to these. Results - Lab Results Lab results reviewed: Yes Fish Bones: 01/18/18 20:35 01/18/18 20:35 Lab and Imaging Results: Lab Results x24hrs 01/19/18 01/18/18 01/18/18 Range/Units 03:45 20:35 20:35 WBC (4.8-10.8) x10^3/uL RBC (4.20-5.40) 10^6/uL Hgb (12.0-16.0) g/dL Hct (37.0-47.0) % MCV (81.0-99.0) fL MCH (27.0-31.0) pg MCHC (32.0-36.0) g/dL RDW (12.0-15.0) % Plt Count (130-450) 10^3/uL MPV (7.9-10.8) fL Neut # (Auto) (1.5-6.6) 10^3/uL Lymph # (Auto) (1.5-3.5) 10^3/uL [place] # (Auto) (0.0-1.0) 10^3/uL Eos # (Auto) (0.0-0.7) 10^3/uL Baso # (Auto) (0.0-0.1) 10^3/uL Absolute Nucleated RBC x10^3/uL Nucleated RBC % /100WBC PT 12.9 H (9.9-12.6) secs INR 1.1 (0.8-1.2) Sodium 140 (135-145) mmol/L Potassium 4.6 (3.5-5.0) mmol/L Chloride 103 (101-111) mmol/L Carbon Dioxide 28 (21-32) mmol/L Anion Gap 9.0 (6-13) BUN 13 (6-20) mg/dL Creatinine 0.7 (0.4-1.0) mg/dL Estimated GFR (MDRD) 87 L (>89) Glucose 107 H (70-100) mg/dL Calcium 10.1 (8.5-10.3) mg/dL Urine Color YELLOW Urine Clarity CLEAR (CLEAR) Urine pH 6.0 (5.0-7.5) PH Ur Specific [place] 1.025 (1.002-1.030) Urine Protein NEGATIVE (NEGATIVE) mg/dL Urine Glucose (UA) NEGATIVE (NEGATIVE) mg/dL Urine Ketones TRACE (NEGATIVE) mg/dL Urine Occult Blood TRACE-LYSE (NEGATIVE) Urine Nitrite NEGATIVE (NEGATIVE) Urine Bilirubin NEGATIVE (NEGATIVE) Urine Urobilinogen 0.2 (NORMAL) (NORMAL) E.U./dL Ur Leukocyte Esterase NEGATIVE (NEGATIVE) Ur Microscopic Review NOT INDICATED Urine Culture Comments NOT INDICATED 01/18/18 Range/Units 20:35 WBC 8.2 (4.8-10.8) x10^3/uL RBC 4.63 (4.20-5.40) 10^6/uL Hgb 13.7 (12.0-16.0) g/dL Hct 41.5 (37.0-47.0) % MCV 89.7 (81.0-99.0) fL MCH 29.6 (27.0-31.0) pg MCHC 33.0 (32.0-36.0) g/dL RDW 13.9 (12.0-15.0) % Plt Count 473 H (130-450) 10^3/uL MPV 9.5 (7.9-10.8) fL Neut # (Auto) 4.4 (1.5-6.6) 10^3/uL Lymph # (Auto) 2.8 (1.5-3.5) 10^3/uL [place] # (Auto) 0.9 (0.0-1.0) 10^3/uL Eos # (Auto) 0.0 (0.0-0.7) 10^3/uL Baso # (Auto) 0.1 (0.0-0.1) 10^3/uL Absolute Nucleated RBC 0.00 x10^3/uL Nucleated RBC % 0.1 /100WBC PT (9.9-12.6) secs INR (0.8-1.2) Sodium (135-145) mmol/L Potassium (3.5-5.0) mmol/L Chloride (101-111) mmol/L Carbon Dioxide (21-32) mmol/L Anion Gap (6-13) BUN (6-20) mg/dL Creatinine (0.4-1.0) mg/dL Estimated GFR (MDRD) (>89) Glucose (70-100) mg/dL Calcium (8.5-10.3) mg/dL Urine Color Urine Clarity (CLEAR) Urine pH (5.0-7.5) PH Ur Specific [place] (1.002-1.030) Urine Protein (NEGATIVE) mg/dL Urine Glucose (UA) (NEGATIVE) mg/dL Urine Ketones (NEGATIVE) mg/dL Urine Occult Blood (NEGATIVE) Urine Nitrite (NEGATIVE) Urine Bilirubin (NEGATIVE) Urine Urobilinogen (NORMAL) E.U./dL Ur Leukocyte Esterase (NEGATIVE) Ur Microscopic Review Urine Culture Comments Impression and Recommendations - Palliative Care Impression: This is an unfortunate 52-year-old woman who originally presented with left hemiparesis, underwent a mechanical thrombectomy for her right ICA occlusion, and a right decompression hemicraniotomy related to malignant cerebral edema. She now presents with a history of a seizure, and progressive stroke with a new infarct of her left posterior frontal lobe, severe disc fascia, expressive aphasia and aphonia, faced with decision for need for nutritional support. Given patient's severe deficits, decision making does fall to the , at this point in time though he recognizes the seriousness of her illness, is proceeding with PEG tube feeding option. Is still awaiting to meet with a surgeon. Recommendations/Counseling Done: 1. Dysphagia. Patient unable to take oral intake, this is a sequela of her most recently acute stroke. Patient and able to communicate weighing benefits and b urdens of decision making regarding this, has decided to proceed with PEG tube, though does understand in the context of does not take away aspiration risk, patient will continue to struggle with oral secretions, and remains at high risk for pneumonia. 2. Advanced care planning. Patient and have no documents in the context of advanced care planning., Reports they have talked over the years regarding resuscitation, feels like in current situation she would choose do not attempt resuscitation. We did discuss as she moves forward and prior to discharge, we would complete a SUSAN as T. Provided "hard choices for loving People", given patient's expected ongoing decline and challenges in the future. He does not perceive he is going to be able to care for her long-term, but is currently the plan to return back to group home facility care on discharge. He is able to acknowledge his concern for her ongoing decline. Counseling provided regarding the role of palliative care versus hospice, the continuum of care, and difficulty with decision-making given patient's difficulty in participating at this point. Time Spent: 60 minutes spent rater than 50% of this in counseling regarding goals of care, exploration of continuum of care, counseling regarding benefits and burdens of tube feedings in the face of acute stroke, as well as anticipatory guidance. Plan to continue to follow
--- NOTE | 2018-01-19 15:22 | CONSULTATION NOTE ---
Referring Provider Consult Date: 01/19/18 Chief Complaint - Chief Complaint Chief Complaint: Stroke History of Present Illness - History of Present Illness HPI Comment/Other: 52 yo woman who was admitted after suffering a major stroke. She has not been able to eat and failed a swallow study. Her primary team is requesting feeding tube evaluation. 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 CEREBRAL EDEMA...ENCEPHALOPATHY UNSPECIFIED... ATHEROSCLEROTIC HEART DISEASE/CAD...CHEST PAIN... ASSISTANCE W/ MOBILITY/AMBULATION...DYSPHAGIA... - Past Surgical History General: reports: Other Cardiovascular: reports: Coronary stent (reported 15 stents), Cardiac catheterization Neuro: reports: Craniotomy - Family & Social History Family History: Mother: , CAD, Father: , CAD, Sister: Alive and Well, Brother: Alive and Well Living Situation: With spouse/s.o., With family (son and 11 year old granddaughter live with them) - Substance History Use: Uses substance without health or social issues: Tobacco (was smoking few cigerettes a day previous to indecember admit) - POLST Patient has POLST: Yes Meds/Allgy - Home Medications Home Medications: Ambulatory Orders Medication Instructions Recorded Confirmed Aspirin 12/26/17 Metoprolol Succinate 12/26/17 Omeprazole Magnesium [Prilosec] 12/26/17 Ticagrelor [Brilinta] 12/26/17 Levetiracetam [Keppra] 750 mg PO BID #30 tablet 01/17/18 - Allergies Allergies/Adverse Reactions: Allergies Allergy/AdvReac Type Severity Reaction Status Date / Time Iodinated Contrast- Oral and Allergy Rash Verified 01/18/18 19:54 IV Dye morphine Allergy Rash Verified 01/18/18 19:54 Review of Systems - Other Findings Other Findings: unable to assess Exam - Vital Signs Vital Signs: Vital Signs x48h Temp Pulse Pulse Resp BP BP BP 01/19/18 13:17 36.4 C L 65 18 116/97 H 01/19/18 13:05 65 116/97 H 01/19/18 08:00 36.8 C 74 18 130/101 H Pulse Ox 01/19/18 13:17 99 01/19/18 13:05 01/19/18 08:00 92 - Physical Exam General Appearance: positive: No acute distress Eyes Bilateral: positive: Normal inspection ENT: positive: ENT inspection nml Neck: positive: Nml inspection Respiratory: positive: Chest non-tender Cardiovascular: positive: Regular rate & rhythm Abdomen: positive: Non-tender Back: positive: Nml inspection Skin: positive: Color nml Extremities: positive: Non-tender Conclusion/Plan - Diagnosis Diagnosis: stroke - Plan Plan: Generally, I do not place PEGs in acute CVAs because their is usually some functional return over the ensuing weeks. She may not need the tube, ultimately. Pt is not able to converse. I will track down the family to determine their wishes. - Lab Results Lab results reviewed: Yes Fish Bones: 01/18/18 20:35 01/18/18 20:35
--- NOTE | 2018-01-19 16:41 | PROVIDER PROGRESS NOTE ---
Subjective - Prog Note Date Prog Note Date: 01/19/18 - Subjective Pt reports feeling: No change Subjective: unfortunately pt is aphasia now. Pt did understand and followup the command. ST report pt fail the ST study. pt's requested PEG tube. Surgeon was consulted for PEG tube. Current Medications - Current Medications Current Medications: Active Medications Levetiracetam 750 mg/ Sodium (Chloride) 107.5 mls @ 400 mls/hr IV BID [facility] Last Infusion: 01/19/18 09:59 Dose: Infused Ampicillin Sodium/Sulbactam (Sodium 1.5 gm/ Sodium Chloride) 100 mls @ 200 mls/hr IV Q6HR [facility] Stop: 01/26/18 00:00 Last Infusion: 01/19/18 12:34 Dose: Infused Dextrose/Sodium Chloride (D5ns) 1,000 mls @ 100 mls/hr IV .Q10H TANYA Ondansetron HCl (Zofran Inj) 4 mg IVP Q6HR PRN PRN Reason: Nausea / Vomiting Pantoprazole Sodium (Protonix) 40 mg IVP QDAC [facility] Last Admin: 01/19/18 07:59 Dose: 40 mg Polyethylene Glycol (Miralax) 17 gm PO DAILY [facility] Last Admin: 01/19/18 09:25 Dose: Not Given Sodium Chloride (Normal Saline Flush 0.9%) 10 ml IVP PRN PRN PRN Reason: NEEDED PER PROVIDER ORDERS Sodium Chloride (Normal Saline Flush 0.9%) 10 ml IVP 0100,0900,1700 [facility] Last Admin: 01/19/18 09:24 Dose: Not Given Aspirin 12/26/17 Metoprolol Succinate 12/26/17 Omeprazole Magnesium [Prilosec] 12/26/17 Ticagrelor [Brilinta] 12/26/17 Objective - Vital Signs/Intake & Output Reviewed Vital Signs: Yes Vital Signs: Vital Signs x48h Temp Pulse Pulse Resp BP BP BP 01/19/18 15:43 67 18 114/44 L 01/19/18 13:17 36.4 C L 65 18 116/97 H 01/19/18 13:05 65 116/97 H Pulse Ox 01/19/18 15:43 100 01/19/18 13:17 99 01/19/18 13:05 Intake & Output: Intake & Output 01/16/18 01/17/18 01/18/18 01/19/18 23:59 23:59 23:59 23:59 Intake Total 500 1195.50 Balance 500 1195.50 - Objective General Appearance: positive: Alert, Mild distress. negative: Lethargic Eyes Bilateral: positive: Normal inspection, PERRL, No lid inflammation, Conjunctivae nml ENT: positive: ENT inspection nml, Pharynx nml, No signs of dehydration. negative: Purulent nasal drainage, Pharyngeal erythema, Oral lesions Neck: positive: Nml inspection, Thyroid nml, No JVD, Trachea midline. negative: Thyromegaly, Lymphadenopathy (R), Lymphadenopathy (L), Stiff neck, Swelling/bruising, Tracheal deviation Respiratory: positive: Chest non-tender, No respiratory distress, Breath sounds nml. negative: Wheezes, Rales, Rhonchi Cardiovascular: positive: Regular rate & rhythm, No murmur, No gallop. negative: Irregularly irregular, Extrasystoles, Tachycardia, Bradycardia, JVD present, Systolic murmur, Diastolic murmur Peripheral Pulses: 2+ Radial (R), 2+ Radial (L), 2+ Dorsalis pedis (R), 2+ Dorsalis pedis (L) Abdomen: positive: Non-tender, No organomegaly, Nml bowel sounds, No distention. negative: Tenderness, Guarding, Rebound Back: positive: Nml inspection. negative: CVA tenderness (R), CVA tenderness (L) Skin: positive: Color nml, No rash, Warm, Dry. negative: Cyanosis, Diaphoresis, Pallor Extremities: positive: Non-tender, Nml appearance. negative: Calf tenderness, Joint swelling, Gregory's sign/cords Neurologic/Psychiatric: positive: Weakness, Sensory loss, Slurred/abnml speech. negative: Facial droop - Lab Results Fish Bones: 01/18/18 20:35 01/18/18 20:35 Other Labs: Lab Results x24hrs 01/19/18 01/18/18 01/18/18 Range/Units 03:45 20:35 20:35 WBC (4.8-10.8) x10^3/uL RBC (4.20-5.40) 10^6/uL Hgb (12.0-16.0) g/dL Hct (37.0-47.0) % MCV (81.0-99.0) fL MCH (27.0-31.0) pg MCHC (32.0-36.0) g/dL RDW (12.0-15.0) % Plt Count (130-450) 10^3/uL MPV (7.9-10.8) fL Neut # (Auto) (1.5-6.6) 10^3/uL Lymph # (Auto) (1.5-3.5) 10^3/uL [place] # (Auto) (0.0-1.0) 10^3/uL Eos # (Auto) (0.0-0.7) 10^3/uL Baso # (Auto) (0.0-0.1) 10^3/uL Absolute Nucleated RBC x10^3/uL Nucleated RBC % /100WBC PT 12.9 H (9.9-12.6) secs INR 1.1 (0.8-1.2) Sodium 140 (135-145) mmol/L Potassium 4.6 (3.5-5.0) mmol/L Chloride 103 (101-111) mmol/L Carbon Dioxide 28 (21-32) mmol/L Anion Gap 9.0 (6-13) BUN 13 (6-20) mg/dL Creatinine 0.7 (0.4-1.0) mg/dL Estimated GFR (MDRD) 87 L (>89) Glucose 107 H (70-100) mg/dL Calcium 10.1 (8.5-10.3) mg/dL Urine Color YELLOW Urine Clarity CLEAR (CLEAR) Urine pH 6.0 (5.0-7.5) PH Ur Specific [place] 1.025 (1.002-1.030) Urine Protein NEGATIVE (NEGATIVE) mg/dL Urine Glucose (UA) NEGATIVE (NEGATIVE) mg/dL Urine Ketones TRACE (NEGATIVE) mg/dL Urine Occult Blood TRACE-LYSE (NEGATIVE) Urine Nitrite NEGATIVE (NEGATIVE) Urine Bilirubin NEGATIVE (NEGATIVE) Urine Urobilinogen 0.2 (NORMAL) (NORMAL) E.U./dL Ur Leukocyte Esterase NEGATIVE (NEGATIVE) Ur Microscopic Review NOT INDICATED Urine Culture Comments NOT INDICATED 01/18/18 Range/Units 20:35 WBC 8.2 (4.8-10.8) x10^3/uL RBC 4.63 (4.20-5.40) 10^6/uL Hgb 13.7 (12.0-16.0) g/dL Hct 41.5 (37.0-47.0) % MCV 89.7 (81.0-99.0) fL MCH 29.6 (27.0-31.0) pg MCHC 33.0 (32.0-36.0) g/dL RDW 13.9 (12.0-15.0) % Plt Count 473 H (130-450) 10^3/uL MPV 9.5 (7.9-10.8) fL Neut # (Auto) 4.4 (1.5-6.6) 10^3/uL Lymph # (Auto) 2.8 (1.5-3.5) 10^3/uL [place] # (Auto) 0.9 (0.0-1.0) 10^3/uL Eos # (Auto) 0.0 (0.0-0.7) 10^3/uL Baso # (Auto) 0.1 (0.0-0.1) 10^3/uL Absolute Nucleated RBC 0.00 x10^3/uL Nucleated RBC % 0.1 /100WBC PT (9.9-12.6) secs INR (0.8-1.2) Sodium (135-145) mmol/L Potassium (3.5-5.0) mmol/L Chloride (101-111) mmol/L Carbon Dioxide (21-32) mmol/L Anion Gap (6-13) BUN (6-20) mg/dL Creatinine (0.4-1.0) mg/dL Estimated GFR (MDRD) (>89) Glucose (70-100) mg/dL Calcium (8.5-10.3) mg/dL Urine Color Urine Clarity (CLEAR) Urine pH (5.0-7.5) PH Ur Specific [place] (1.002-1.030) Urine Protein (NEGATIVE) mg/dL Urine Glucose (UA) (NEGATIVE) mg/dL Urine Ketones (NEGATIVE) mg/dL Urine Occult Blood (NEGATIVE) Urine Nitrite (NEGATIVE) Urine Bilirubin (NEGATIVE) Urine Urobilinogen (NORMAL) E.U./dL Ur Leukocyte Esterase (NEGATIVE) Ur Microscopic Review Urine Culture Comments ABX Reporting Has patient been on IV antibiotics over the past 48 hours?: Yes Sepsis Event Note (H) - Evaluation Current Stage of Sepsis: Ruled out Assessment/Plan - Problem List (1) Cerebrovascular accident (CVA) Impression: (1) Cerebrovascular accident (CVA) per recommendation from neurologist from [facility], limited intervention can be offered to pt. anticoagulation/anti-platlet which would be best started after 24-48 hours to confirm that the patient does not converting to a hemorrhagic stroke. will order CT of brain tomorrow. consult with palliative care continue neuro check continue IVF with D5 NS. pt failed ST evaluation. continue NPO consult with surgeon for PEG tube, will follow up. will reconcile home meds after PEG continue PT/OT continue tele and vital monitor (2) Dysphagia as late effect of cerebrovascular accident (CVA) pt failed ST evaluation, will remain NPO now consult with surgeon for PEG tube, will followup IVF of D5 (3) CAD (coronary artery disease) Conclusion/Plan: Pt's vital is stable. Patient has extensive history of coronary artery disease with more than 15 stents. will reconcile home meds after pt had PEG, it is difficult without PEG tube continue tele and vital, EKG PRN (4) Infection of scalp No fever, WBC is normal now. Patient has large scalp wound from the craniectomy. concerned about infection continue IV Unasyn order Lactic acid vital monitor (5) Seizure Apparently new seizures related to the strokes, [facility] neurology recommended Keppra. continue this medication. Seizure precaution. (6) advance care discuss with pt's about palliative care. The agree to have palliative, possible hospice care if pt continue to deteriorate. at this stage, her recognize the limitation of intervention, but still request PEG tube to continue support pt consult with palliative care, will follow up Qualifiers: CVA mechanism: occlusion Precerebral and cerebral artery: middle cerebral artery Laterality of affected vessel: left Qualified Code(s): I63.512 - Cerebral infarction due to unspecified occlusion or stenosis of left middle cerebral artery
[2018-01-19] MEDS: DEXTROSE 5%-0.9% NACL 1,000 ML IV SCH (19:25)
[2018-01-20] MEDS ORDERED: BISACODYL 10 MG SUPP PR SCH (03:06)
[2018-01-20] MEDS: SODIUM CHLORIDE FLUSH 0.9% 10 ML SYRINGE IVP SCH ×3 (03:07→17:35)
[2018-01-20 05:37] LABS: BASOPHILS # (AUTO) 0.1 10^3/uL (0.0-0.1); BASOPHILS % (AUTO) 1.2 %; EOSINOPHILS # (AUTO) 0.1 10^3/uL (0.0-0.7); HGB - HEMOGLOBIN 12.5 g/dL (12.0-16.0); LYMPHOCYTES # (AUTO) 2.6 10^3/uL (1.5-3.5); LYMPHOCYTES % (AUTO) 29.9 %; MEAN CORPUSCULAR HEMOGLOBIN 29.8 pg (27.0-31.0); MEAN CORPUSCULAR HGB CONC 32.3 g/dL (32.0-36.0); MEAN CORPUSCULAR VOLUME 92.1 fL (81.0-99.0); MEAN PLATELET VOLUME 9.9 fL (7.9-10.8); MONOCYTES # (AUTO) 0.8 10^3/uL (0.0-1.0); MONOCYTES % (AUTO) 9.2 %; NEUTROPHILS % (AUTO) 58.7 %; PLT - PLATELET COUNT 326 10^3/uL (130-450); RED CELL DISTRIBUTION WIDTH 13.7 % (12.0-15.0); WHITE BLOOD COUNT 8.5 x10^3/uL (4.8-10.8)
[2018-01-20 05:41] LABS: ALBUMIN 3.4 g/dL (3.2-5.5); ALBUMIN/GLOBULIN RATIO 1.1 (1.0-2.2); CALCIUM 8.8 mg/dL (8.5-10.3); CREATININE 0.6 mg/dL (0.4-1.0); MAGNESIUM 1.8 mg/dL (1.7-2.8); TOTAL PROTEIN 6.4 g/dL (6.7-8.2)
[2018-01-20] MEDS: SODIUM CHLORIDE FLUSH 0.9% 10 ML SYRINGE IVP PRN (06:12)
[2018-01-20] MEDS: PANTOPRAZOLE 40 MG VIAL IVP SCH (06:13)
[2018-01-20] MEDS: AMPICILLIN/SULBACTAM 1.5 GM in SODIUM CHLORIDE 0.9% MINIBAG 100 ML IV SCH ×3 (06:13→19:41)
[2018-01-20 06:23] LABS: PLATELET ESTIMATE, MANUAL NORMAL (130-450,000) (NORMAL); PLATELET MORPHOLOGY 1+ GIANT PLATELETS (NORMAL)
[2018-01-20] MEDS: DEXTROSE 5%-0.9% NACL 1,000 ML IV SCH ×3 (06:58→21:07)
[2018-01-20] MEDS ORDERED: POTASSIUM CHLOR 10 MEQ/100 ML 10 MEQ/100 ML BAG IV ONE (08:41)
--- NOTE | 2018-01-20 09:16 | PROVIDER PROGRESS NOTE ---
Subjective - Prog Note Date Prog Note Date: 01/20/18 Prog Note Time: 09:12 - Subjective Pt reports feeling: Improved ( at bedside. Pt much more alert and responsive today.) Objective - Vital Signs/Intake & Output Vital Signs: Vital Signs x48h Temp Pulse Resp BP Pulse Ox 01/20/18 08:02 37.1 C 62 18 148/58 H 100 01/20/18 05:00 36.3 C L 70 18 151/71 H 100 Intake & Output: Intake & Output 01/17/18 01/18/18 01/19/18 01/20/18 23:59 23:59 23:59 23:59 Intake Total 500 2552.500 753.333 Balance 500 2552.500 753.333 - Objective General Appearance: positive: No acute distress Eyes Bilateral: positive: Normal inspection ENT: positive: ENT inspection nml Neck: positive: Nml inspection Respiratory: positive: Chest non-tender Cardiovascular: positive: Regular rate & rhythm Abdomen: positive: Non-tender Back: positive: Nml inspection Skin: positive: Color nml Extremities: positive: Non-tender Neurologic/Psychiatric: positive: Oriented x3 - Lab Results Fish Bones: 01/20/18 04:42 01/20/18 04:42 Other Labs: Lab Results x24hrs 01/20/18 01/20/18 01/19/18 Range/Units 04:42 04:42 16:55 WBC 8.5 (4.8-10.8) x10^3/uL RBC 4.20 (4.20-5.40) 10^6/uL Hgb 12.5 (12.0-16.0) g/dL Hct 38.7 (37.0-47.0) % MCV 92.1 (81.0-99.0) fL MCH 29.8 (27.0-31.0) pg MCHC 32.3 (32.0-36.0) g/dL RDW 13.7 (12.0-15.0) % Plt Count 326 (130-450) 10^3/uL MPV 9.9 (7.9-10.8) fL Neut # (Auto) 5.0 (1.5-6.6) 10^3/uL Lymph # (Auto) 2.6 (1.5-3.5) 10^3/uL [place] # (Auto) 0.8 (0.0-1.0) 10^3/uL Eos # (Auto) 0.1 (0.0-0.7) 10^3/uL Baso # (Auto) 0.1 (0.0-0.1) 10^3/uL Absolute Nucleated RBC 0.01 x10^3/uL Nucleated RBC % 0.1 /100WBC Platelet Estimate NORMAL (130-450,000) (NORMAL) Platelet Morphology 1+ GIANT PLATELETS (NORMAL) Sodium 138 (135-145) mmol/L Potassium 3.4 L (3.5-5.0) mmol/L Chloride 108 (101-111) mmol/L Carbon Dioxide 24 (21-32) mmol/L Anion Gap 6.0 (6-13) BUN 7 (6-20) mg/dL Creatinine 0.6 (0.4-1.0) mg/dL Estimated GFR (MDRD) 104 (>89) Glucose 120 H (70-100) mg/dL Lactic Acid 0.6 (0.5-2.2) mmol/L Calcium 8.8 (8.5-10.3) mg/dL Magnesium 1.8 (1.7-2.8) mg/dL Total Bilirubin 1.0 (0.2-1.0) mg/dL AST 32 (10-42) IU/L ALT 30 (10-60) IU/L Alkaline Phosphatase 59 (42-121) IU/L Total Protein 6.4 L (6.7-8.2) g/dL Albumin 3.4 (3.2-5.5) g/dL Globulin 3.0 (2.1-4.2) g/dL Albumin/Globulin Ratio 1.1 (1.0-2.2) Sepsis Event Note (H) - Evaluation Current Stage of Sepsis: Ruled out Assessment/Plan - Problem List (1) Not taking fluids Impression: Discussed the pt and her options at length with the . Since the stroke is very recent and she already has improved so much, it is very likely she will not need skilled nursing feeding access. The would like to wait a this point and simply give her IVF or place a nasal feeding tube if necessary. Can re-evaluate in 2-3 weeks for a PEG, if desired, although at her current pace of improvement, I do not think it will be necessary.
[2018-01-20] MEDS: levETIRAcetam INJ 750 MG in SODIUM CHLORIDE 0.9% 100ML 100 ML IV SCH (10:33)
[2018-01-20] MEDS: POLYETHYLENE GLYCOL 3350 17 GM PACKET PO SCH (10:39)
--- NOTE | 2018-01-20 11:36 | ADVANCE CARE PLANNING NOTE ---
Advance Care Planning - Date/Time Date: 01/19/18 Time: 09:30 - Purpose of encounter Text: advance care for pt - Parties in attendance Parties in attendance: pt, pt's - Decisional capacity Decisional capacity of: pt is aphasia, pt's made the decision - Subjective/Patient's story Subjective/Patient's story: pt's request advance care for pt - Objective/Medical story Objective/Medical Story: pt develop new stroke after pt had status post of craniotomy with major mariana, and extensive CAD with 14 stents. pt became aphasia and dysphagia now. - Goals of Care Goals of care determinations: advance care for pt - Plan Plan: pt and her agree to have DNR and palliative care for pt. - Code Status Code Status: Do Not Attempt Resuscitation - Time Spent on Advance Care Planning Time spent on advance care plannin
[2018-01-20] MEDS ORDERED: ACETAMINOPHEN 650 MG SUPP PR PRN (12:32)
--- NOTE | 2018-01-20 12:53 | CONSULTATION NOTE ---
Palliative Care Follow Up - Referral Referring Provider: Al CHOE Time of Visit: [phone] Referral setting: Hospitalized patient Referral Reason: Stroke - Information Sources Records reviewed: Previous records reviewed History/Review of Systems obtained from: Patient, Family ( at bedside) Exam limitations: Clinical condition (patient with improved communication few sentences/yes no) - History of Present Illness Update Brief HPI Update: This is a 52-year-old woman who has a significant past history of CAD, multiple MIs, and upwards of 15 stents. She had an acute stroke December, with left-sided hemiparesis and weakness, was transferred to [facility] where she had a [place] a right ICA occlusion. She did have malignant cerebral edema and required a craniotomy. She was transitioned to carrier clinic, where she was being seen by rehab, was making some process, but had dense left hemiplegia. She presented with a seizure, and 2 days later presented with an extended stroke of left posterior frontal lobe, with presentation of aphasia and dysphonia. Patient was difficulty responding yesterday, increasing difficulty with choking and secretions, and unable to swallow. Today she presents is much more clear, she was able to say a few words, she is able to write when asked questions, she does admit to confusion. She does point to her head when asked if she understands her current situation. She is coughing less, but is he still using suction for her oral secretions. She is able to follow commands, she is quite tearful. Met with , his understanding from surgeon, plan is to wait and see since patient is already improved fairly dramatically, if will need alternative feedings. The current plan is to rechallenge her with speech therapy, the patient unable to meet caloric needs, consider NG tube and placement for short- term, and if needs permanently revisit the question of PEG tube feedings. Patient did have NG tube during hospitalization at [facility], has reports she did not like that, but I suspect as patient is improving may be able to participate in that conversation. He still is aware of her situation is precarious. He is feeling better and less overwhelmed today. Social History - Living Situation Living arrangement: At home Living Situation: With spouse/s.o., With family (son and grandaughter live with them; has other children from previous marrige;) Medications/Allergies - Medications Active Medication List: Active Medications Acetaminophen (Tylenol) 650 mg MS Q6HR PRN PRN Reason: Pain or Fever > 38C (100.4F) Levetiracetam 750 mg/ Sodium (Chloride) 107.5 mls @ 400 mls/hr IV BID [facility] Last Infusion: 01/20/18 11:51 Dose: Infused Ampicillin Sodium/Sulbactam (Sodium 1.5 gm/ Sodium Chloride) 100 mls @ 200 mls/hr IV Q6HR [facility] Stop: 01/26/18 00:00 Last Admin: 01/20/18 12:34 Dose: 200 mls/hr Dextrose/Sodium Chloride (D5ns) 1,000 mls @ 100 mls/hr IV .Q10H [facility] Last Admin: 01/20/18 11:03 Dose: 100 mls/hr Ondansetron HCl (Zofran Inj) 4 mg IVP Q6HR PRN PRN Reason: Nausea / Vomiting Pantoprazole Sodium (Protonix) 40 mg IVP QDAC [facility] Last Admin: 01/20/18 06:13 Dose: 40 mg Polyethylene Glycol (Miralax) 17 gm PO DAILY [facility] Last Admin: 01/20/18 10:39 Dose: Not Given Sodium Chloride (Normal Saline Flush 0.9%) 10 ml IVP PRN PRN PRN Reason: NEEDED PER PROVIDER ORDERS Last Admin: 01/20/18 06:12 Dose: 10 ml Sodium Chloride (Normal Saline Flush 0.9%) 10 ml IVP 0100,0900,1700 [facility] Last Admin: 01/20/18 10:39 Dose: 10 ml Aspirin 81 mg PO DAILY 12/26/17 Acetaminophen [Tylenol] 650 mg PO Q4H PRN 01/20/18 Bisacodyl Supp [Dulcolax Supp] 10 mg MS DAILY PRN 01/20/18 Ergocalciferol [Vitamin D2] 50,000 unit PO Q7D 01/20/18 Melatonin 5 mg PO QPM PRN 01/20/18 Metoprolol Tartrate [Lopressor] 12.5 mg PO BID 01/20/18 Nitroglycerin [Nitrostat] 0.4 mg SL Q5MIN PRN 01/20/18 Omeprazole 20 mg PO BID 01/20/18 Ondansetron [Zofran Odt] 4 mg PO Q8H PRN 01/20/18 Polyethylene Glycol 3350 [Miralax] 17 gm PO DAILY PRN 01/20/18 Scopolamine 1 patch TD Q3D 01/20/18 Senna [Senokot] 17.2 mg PO QPM PRN 01/20/18 oxyCODONE [Roxicodone] 5 mg PO Q4H PRN 01/20/18 - Allergies Allergies/Adverse Reactions: Allergies Allergy/AdvReac Type Severity Reaction Status Date / Time Iodinated Contrast- Oral and Allergy Rash Verified 01/18/18 19:54 IV Dye morphine Allergy Rash Verified 01/18/18 19:54 Review of Systems - Eyes Eyes: reports: Vision loss, Corrective lenses ( to waste picker glasses), Othe r (patient with left field cut; need to approach from right) - Ears, Nose & Throat Ears, Nose & Throat: reports: Dry mouth - Cardiovascular Cardiovascular: denies: Chest pain - Respiratory Respiratory: reports: Cough (less distress with coughing) - Gastrointestinal Gastrointestinal: denies: Constipation (bowels moved), Nausea - Musculoskeletal Musculoskeletal: reports: Limited range of motion (left hemiplegia), Muscle weakness, Other (has been in bed since admit; anxious to get up) - Integumentary Integumentary: reports: Dryness - Neurological Neurological: reports: General weakness, Memory problems (patient admits to c onfusion; difficulty with questions) - Psychiatric Psychiatric: reports: Depression (tearful through visit) - Endocrine Endocrine: reports: Intolerance to cold - All Other Systems All Other Systems: reports: Reviewed and negative Physical Exam - Vital Signs Vital Signs: Vital Signs x48h Temp Pulse Resp BP Pulse Ox 01/20/18 08:02 37.1 C 62 18 148/58 H 100 01/20/18 05:00 36.3 C L 70 18 151/71 H 100 - Physical Exam General Appearance: positive: Moderate distress, Anxious ENT: positive: Other (poor dental). negative: Oral lesions Neck: positive: Trachea midline Cardiovascular: positive: Regular rate & rhythm Respiratory: positive: Diminished in bases, Rhonchi (scattered upper airway) Abdomen: positive: Soft, Nml bowel sounds Skin: positive: Pallor, Bruising Extremities: positive: No pedal edema Neurologic/Psychiatric: positive: Disoriented to place, Disoriented to time, Unintelligible speech (few sentences were discernable; unable to initiate questions) Palliative Care - POLST Patient has POLST: No Pain: No pain Constipation: Intermittent constipation - Palliative Care Discussion: Patient expressed that when she has "had her heart attacks, she is always b ounced back". She is quite tearful recognizing that though she is improved, and this is reinforced, she does nod when asked if she is worried about how much better she is going to get. She was part of the original conversation with the surgeon, at this point in time things are a [id number], but would be recommended to include her in further conversations regarding tube feedings. Patient anxious to get "going" and admits to being bored. Unable to express current questions or concerns, nods when asked if frustrating. feeling much better today, continues to see her as quite fragile, they are better able to communicate at this time. Grateful to have been able to meet with surgeon, worrying about custodial implications overall. Plan at this time to return to SNF for ongoing rehab. Results - Lab Results Lab results reviewed: Yes Fish Bones: 01/20/18 04:42 01/20/18 04:42 Lab and Imaging Results: Lab Results x24hrs 01/20/18 01/20/18 01/19/18 Range/Units 04:42 04:42 16:55 WBC 8.5 (4.8-10.8) x10^3/uL RBC 4.20 (4.20-5.40) 10^6/uL Hgb 12.5 (12.0-16.0) g/dL Hct 38.7 (37.0-47.0) % MCV 92.1 (81.0-99.0) fL MCH 29.8 (27.0-31.0) pg MCHC 32.3 (32.0-36.0) g/dL RDW 13.7 (12.0-15.0) % Plt Count 326 (130-450) 10^3/uL MPV 9.9 (7.9-10.8) fL Neut # (Auto) 5.0 (1.5-6.6) 10^3/uL Lymph # (Auto) 2.6 (1.5-3.5) 10^3/uL [place] # (Auto) 0.8 (0.0-1.0) 10^3/uL Eos # (Auto) 0.1 (0.0-0.7) 10^3/uL Baso # (Auto) 0.1 (0.0-0.1) 10^3/uL Absolute Nucleated RBC 0.01 x10^3/uL Nucleated RBC % 0.1 /100WBC Platelet Estimate NORMAL (130-450,000) (NORMAL) Platelet Morphology 1+ GIANT PLATELETS (NORMAL) Sodium 138 (135-145) mmol/L Potassium 3.4 L (3.5-5.0) mmol/L Chloride 108 (101-111) mmol/L Carbon Dioxide 24 (21-32) mmol/L Anion Gap 6.0 (6-13) BUN 7 (6-20) mg/dL Creatinine 0.6 (0.4-1.0) mg/dL Estimated GFR (MDRD) 104 (>89) Glucose 120 H (70-100) mg/dL Lactic Acid 0.6 (0.5-2.2) mmol/L Calcium 8.8 (8.5-10.3) mg/dL Magnesium 1.8 (1.7-2.8) mg/dL Total Bilirubin 1.0 (0.2-1.0) mg/dL AST 32 (10-42) IU/L ALT 30 (10-60) IU/L Alkaline Phosphatase 59 (42-121) IU/L Total Protein 6.4 L (6.7-8.2) g/dL Albumin 3.4 (3.2-5.5) g/dL Globulin 3.0 (2.1-4.2) g/dL Albumin/Globulin Ratio 1.1 (1.0-2.2) Impression and Recommendations - Palliative Care Impression: This is a 52-year-old woman with left hemiparesis, recent seizure, and now with a new infarct of her left posterior frontal lobe. She presents with severe dysphagia, expressive aphasia, and concern regarding long-term implications regarding nutritional support. Patient is more interactive today, though does admit confusion, can participate at some level and communication. Palliative care to provide ongoing support regarding goals of care. Recommendations/Counseling Done: 1. Dysphagia. Patient still having some concerns regarding management of oral secretions, though is able to independently manipulate suction at this point. Her cough is stronger, she does have some scattered rhonchi. She is to get a re-eval by speech therapy. They have met with the surgeon, with recommendation to continue to wait and reevaluate regarding function, as she is continuing to improve, if patient unable to meet her nutritional needs consider NG tube for temporary, and in 2-3 weeks reevaluate if peg tube appropriate and/or meets g oals. Complexity regarding this decision, regarding unknown if SNF will accept nasogastric tube for feeding, may impact timing. 2. Acute CVA. This is in addition to stroke back in December, with increased deficits. Patient expressing tearfulness regarding her current deficits, and lack of ability to communicate. Patient does show some improvement with able to verbalize some words, following cueing and commands, as well as more appropriate answers yes and no and able to write a few responses. Patient anxious to get "going", recommend continue rehab therapies in current setting. 3. Advanced care planning. Will need to revisit [facility], does have one at [facility] [facility]. Given her new situation, will need to evaluate if patient has decision- making capacity, and complete and to define goals of care. Will revisit tomorrow with information available from therapies. Time Spent: 45 minutes with greater than 50% of this done in counseling regarding goals of care, and anticipatory guidance
--- NOTE | 2018-01-20 13:53 | CT Report ---
Reason: CVA, [place] RECOMMENDATION Procedure Date: 01/20/2018 Accession Number: [id number] / [id number] Procedure: CT - Head W/O CPT Code: FULL RESULT: EXAM: CT HEAD EXAM DATE: 01/20/2018 12:15 PM. CLINICAL HISTORY: CVA, [place] RECOMMENDATION. COMPARISON: Head CT 12/26/2017. TECHNIQUE: Multiaxial CT images were obtained from the foramen magnum to the vertex. Reformats: Sagittal and coronal. IV contrast: None. In accordance with CT protocol optimization, one or more of the following dose reduction techniques were utilized for this exam: automated exposure control, adjustment of mA and/or KV based on patient size, or use of iterative reconstructive technique. FINDINGS: Parenchyma: There is extensive right frontotemporoparietal edema and gross loss of the castañeda-white differentiation in this large regional right MCA area.There is involvement of the right lentiform nuclei as well as part of the right caudate head. The right thalamus appears spared. There is a small amount of associated subarachnoid hemorrhage A right frontotemporal decompression craniectomy has been performed. There is mild to moderate mass-effect upon the right lateral ventricular system. No appreciable midline shift. Sinuses and Orbits: Imaged paranasal sinuses, orbits, and mastoids show no significant abnormality. Bones: No evidence of fracture or calvarial defect. Other: None. IMPRESSION: Extensive right frontotemporoparietal ischemia and edema with a small amount of hemorrhagic transformation. Decompression craniectomy has been performed. Follow-up is recommended. Note: These findings were discussed with the ordering provider Dr. Barry on the day of the examination 01/20/2018 at 1:40 PM, who expressed understanding. RADIA
--- NOTE | 2018-01-20 15:38 | PROVIDER PROGRESS NOTE ---
Subjective - Prog Note Date Prog Note Date: 01/20/18 - Subjective Pt reports feeling: Worse Subjective: pt complain of headache. Pt is still aphasia, and dysphagia. St is on the way to evaluate pt, According to [place] neurologist recommended to have follow up CT in 24-[address] reveals extensive right frontotemporopariental ischemia and edema with as small amount of associated subarachnoid hemorrhage. CT of two days ago, which revealed new small infarction in the left posterior frontal lobe, Stable large right-sided infarction, with associated craniectomy. I called Dr. Collins, Neurologist in [place]. He asked push the image study, and he will call me back. Dr. Collins actually call me back and tells me pt's new image study today show it is better than before. pt had multiple small amount hemorrhage showed in the [place] image study before. he recommend it is reasonable pt can have NG tube or PEG tube at this point. Pt still fail ST study. NG order for pt now. Current Medications - Current Medications Current Medications: Active Medications Acetaminophen (Tylenol) [address] Q6HR PRN PRN Reason: Pain or Fever > 38C (100.4F) Last Admin: 01/20/18 12:45 Dose: 650 mg Levetiracetam 750 mg/ Sodium (Chloride) 107.5 mls @ 400 mls/hr IV BID [facility] Last Infusion: 01/20/18 11:51 Dose: Infused Ampicillin Sodium/Sulbactam (Sodium 1.5 gm/ Sodium Chloride) 100 mls @ 200 mls/hr IV Q6HR [facility] Stop: 01/26/18 00:00 Last Infusion: 01/20/18 14:13 Dose: Infused Dextrose/Sodium Chloride (D5ns) 1,000 mls @ 100 mls/hr IV .Q10H [facility] Last Admin: 01/20/18 11:03 Dose: 100 mls/hr Ondansetron HCl (Zofran Inj) 4 mg IVP Q6HR PRN PRN Reason: Nausea / Vomiting Pantoprazole Sodium (Protonix) 40 mg IVP QDAC [facility] Last Admin: 01/20/18 06:13 Dose: 40 mg Polyethylene Glycol (Miralax) 17 gm PO DAILY [facility] Last Admin: 01/20/18 10:39 Dose: Not Given Sodium Chloride (Normal Saline Flush 0.9%) 10 ml IVP PRN PRN PRN Reason: NEEDED PER PROVIDER ORDERS Last Admin: 01/20/18 06:12 Dose: 10 ml Sodium Chloride (Normal Saline Flush 0.9%) 10 ml IVP 0100,0900,1700 [facility] Last Admin: 01/20/18 10:39 Dose: 10 ml Aspirin 81 mg PO DAILY 12/26/17 Acetaminophen [Tylenol] 650 mg PO Q4H PRN 01/20/18 Bisacodyl Supp [Dulcolax Supp] [address] DAILY PRN 01/20/18 Ergocalciferol [Vitamin D2] 50,000 unit PO Q7D 01/20/18 Melatonin 5 mg PO QPM PRN 01/20/18 Metoprolol Tartrate [Lopressor] 12.5 mg PO BID 01/20/18 Nitroglycerin [Nitrostat] 0.4 mg SL Q5MIN PRN 01/20/18 Omeprazole 20 mg PO BID 01/20/18 Ondansetron [Zofran Odt] 4 mg PO Q8H PRN 01/20/18 Polyethylene Glycol 3350 [Miralax] 17 gm PO DAILY PRN 01/20/18 Scopolamine 1 patch TD Q3D 01/20/18 Senna [Senokot] 17.2 mg PO QPM PRN 01/20/18 oxyCODONE [Roxicodone] 5 mg PO Q4H PRN 01/20/18 Objective - Vital Signs/Intake & Output Reviewed Vital Signs: Yes Vital Signs: Vital Signs x48h Temp Pulse Resp BP BP Pulse Ox 01/20/18 13:00 36.3 C L 60 18 92/77 95 01/20/18 08:02 37.1 C 62 18 148/58 H 100 Intake & Output: Intake & Output 01/17/18 01/18/18 01/19/18 01/20/18 23:59 23:59 23:59 23:59 Intake Total 500 2552.500 1766.333 Balance 500 2552.500 1766.333 - Objective General Appearance: positive: No acute distress, Mild distress. negative: Lethargic Eyes Bilateral: positive: Normal inspection, PERRL, No lid inflammation, Conjunctivae nml ENT: positive: ENT inspection nml, Pharynx nml, No signs of dehydration. negative: Purulent nasal drainage, Pharyngeal erythema, Oral lesions Neck: positive: Nml inspection, Thyroid nml, No JVD, Trachea midline. negative: Thyromegaly, Lymphadenopathy (R), Lymphadenopathy (L), Stiff neck, Swelling/bruising, Tracheal deviation Respiratory: positive: Chest non-tender, No respiratory distress, Breath sounds nml. negative: Wheezes, Rales, Rhonchi Cardiovascular: positive: Regular rate & rhythm, No murmur, No gallop. negative: Irregularly irregular, Extrasystoles, Tachycardia, Bradycardia, JVD present, Systolic murmur, Diastolic murmur Peripheral Pulses: 2+ Radial (R), 2+ Radial (L), 2+ Dorsalis pedis (R), 2+ Dorsalis pedis (L) Abdomen: positive: Non-tender, No organomegaly, Nml bowel sounds, No distention. negative: Tenderness, Guarding, Rebound Back: positive: Nml inspection. negative: CVA tenderness (R), CVA tenderness (L) Skin: positive: Color nml, No rash, Warm, Dry. negative: Cyanosis, Diaphoresis, Pallor Extremities: positive: Non-tender. negative: Calf tenderness, Joint swelling, Gregory's sign/cords Neurologic/Psychiatric: positive: Weakness, Sensory loss, Facial droop, Slurred/abnml speech - Lab Results Fish Bones: 01/20/18 04:42 01/20/18 04:42 Other Labs: Lab Results x24hrs 01/20/18 01/20/18 01/19/18 Range/Units 04:42 04:42 16:55 WBC 8.5 (4.8-10.8) x10^3/uL RBC 4.20 (4.20-5.40) 10^6/uL Hgb 12.5 (12.0-16.0) g/dL Hct 38.7 (37.0-47.0) % MCV 92.1 (81.0-99.0) fL MCH 29.8 (27.0-31.0) pg MCHC 32.3 (32.0-36.0) g/dL RDW 13.7 (12.0-15.0) % Plt Count 326 (130-450) 10^3/uL MPV 9.9 (7.9-10.8) fL Neut # (Auto) 5.0 (1.5-6.6) 10^3/uL Lymph # (Auto) 2.6 (1.5-3.5) 10^3/uL [place] # (Auto) 0.8 (0.0-1.0) 10^3/uL Eos # (Auto) 0.1 (0.0-0.7) 10^3/uL Baso # (Auto) 0.1 (0.0-0.1) 10^3/uL Absolute Nucleated RBC 0.01 x10^3/uL Nucleated RBC % 0.1 /100WBC Platelet Estimate NORMAL (130-450,000) (NORMAL) Platelet Morphology 1+ GIANT PLATELETS (NORMAL) Sodium 138 (135-145) mmol/L Potassium 3.4 L (3.5-5.0) mmol/L Chloride 108 (101-111) mmol/L Carbon Dioxide 24 (21-32) mmol/L Anion Gap 6.0 (6-13) BUN 7 (6-20) mg/dL Creatinine 0.6 (0.4-1.0) mg/dL Estimated GFR (MDRD) 104 (>89) Glucose 120 H (70-100) mg/dL Lactic Acid 0.6 (0.5-2.2) mmol/L Calcium 8.8 (8.5-10.3) mg/dL Magnesium 1.8 (1.7-2.8) mg/dL Total Bilirubin 1.0 (0.2-1.0) mg/dL AST 32 (10-42) IU/L ALT 30 (10-60) IU/L Alkaline Phosphatase 59 (42-121) IU/L Total Protein 6.4 L (6.7-8.2) g/dL Albumin 3.4 (3.2-5.5) g/dL Globulin 3.0 (2.1-4.2) g/dL Albumin/Globulin Ratio 1.1 (1.0-2.2) ABX Reporting Has patient been on IV antibiotics over the past 48 hours?: Yes Sepsis Event Note (H) - Evaluation Current Stage of Sepsis: Ruled out Assessment/Plan - Problem List (1) Status post craniectomy Impression: 01/20 I called neurologist in [place] for pt's new CT of head study, as document in the front. 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 pt failed ST evaluation today. continue NPO consult with surgeon continue PT/OT continue tele and vital monitor according to "Dr. Garcia did reach out to [place] neurology who did not recommend any further intervention at this point, recommending only medical management", will reconcile home meds per recommendation from neurologist from [place], limited intervention can be offered to pt. anticoagulation/anti-platlet which would be best started after 24-48 hours to confirm that the patient does not converting to a hemorrhagic stroke. will order CT of brain tomorrow. consult with palliative care continue neuro check continue IVF with D5 NS. pt failed ST evaluation. continue NPO consult with surgeon for PEG tube, will follow up. will reconcile home meds after PEG continue PT/OT continue tele and vital monitor (2) Dysphagia as late effect of cerebrovascular accident (CVA) 01/[address] evaluation, will remain NPO start NG, consult with grain oilseed or pasture farm manager, start nutrition. pt failed ST evaluation, will remain NPO now consult with surgeon for PEG tube, will followup IVF of D5 (3) CAD (coronary artery disease) Conclusion/Plan: 01/20 will continue home meds continue tele, vital Pt's vital is stable. Patient has extensive history of coronary artery disease with more than 15 stents. will reconcile home meds after pt had PEG, it is difficult without PEG tube continue tele and vital, EKG PRN (4) Infection of scalp stable, continue IV Unasyn No fever, WBC is normal now. Patient has large scalp wound from the craniectomy. concerned about infection continue IV Unasyn order Lactic acid vital monitor (5) Seizure 01/20 stable, no seizure, will continue home meds Apparently new seizures related to the strokes, [place] neurology recommended Keppra. continue this medication. Seizure precaution. (6) advance care 01/20 continue support pt and her family, continue inform pt and her , discuss with them next step care for pt continue palliative care discuss with pt's about palliative care. The agree to have palliative, possible hospice care if pt continue to deteriorate. at this stage, her recognize the limitation of intervention, but still request PEG tube to continue support pt consult with palliative care, will follow up (2) Cerebrovascular accident (CVA) Qualifiers: CVA mechanism: occlusion Precerebral and cerebral artery: middle cerebral artery Laterality of affected vessel: left Qualified Code(s): I63.512 - Cerebral infarction due to unspecified occlusion or stenosis of left middle cerebral artery (4) CAD (coronary artery disease) Qualifiers: Coronary Disease-Associated Artery/Lesion type: [place] artery [place] vs. transplanted heart: [place] heart Associated angina: without angina Qualified Code(s): I25.10 - Atherosclerotic heart disease of [place] coronary artery without angina pectoris
[2018-01-20] MEDS ORDERED: NITROGLYCERIN SL 0.4 MG TABLET SL PRN (16:19)
[2018-01-20] MEDS ORDERED: ACETAMINOPHEN 325 MG TABLET PO PRN (16:19)
[2018-01-20] MEDS ORDERED: levETIRAcetam 250 MG TABLET PO SCH (21:00)
[2018-01-20] MEDS ORDERED: METOPROLOL TARTRATE 25 MG TABLET PO SCH (21:00)
[2018-01-20] MEDS ORDERED: SODIUM CHLORIDE 0.9% 100ML 100 ML IV ONE (21:01)
[2018-01-20] MEDS: levETIRAcetam INJ 500 MG in SODIUM CHLORIDE 0.9% 100ML 100 ML IV SCH (21:22)
[2018-01-21] MEDS: AMPICILLIN/SULBACTAM 1.5 GM in SODIUM CHLORIDE 0.9% MINIBAG 100 ML IV SCH ×4 (00:45→18:38)
[2018-01-21] MEDS: ACETAMINOPHEN 1,000 MG/100 ML 100 ML IV PRN ×2 (00:53→19:44)
[2018-01-21] MEDS: SODIUM CHLORIDE FLUSH 0.9% 10 ML SYRINGE IVP SCH ×3 (04:13→15:55)
[2018-01-21 04:46] LABS: BASOPHILS # (AUTO) 0.1 10^3/uL (0.0-0.1); EOSINOPHILS # (AUTO) 0.1 10^3/uL (0.0-0.7); EOSINOPHILS % (AUTO) 0.6 %; HGB - HEMOGLOBIN 12.4 g/dL (12.0-16.0); LYMPHOCYTES % (AUTO) 30.4 %; MEAN CORPUSCULAR HEMOGLOBIN 29.3 pg (27.0-31.0); MEAN CORPUSCULAR HGB CONC 32.5 g/dL (32.0-36.0); MEAN CORPUSCULAR VOLUME 90.3 fL (81.0-99.0); MEAN PLATELET VOLUME 9.6 fL (7.9-10.8); MONOCYTES # (AUTO) 0.9 10^3/uL (0.0-1.0); MONOCYTES % (AUTO) 8.7 %; NEUTROPHILS # (AUTO) 5.9 10^3/uL (1.5-6.6); NEUTROPHILS % (AUTO) 59.3 %; PLT - PLATELET COUNT 328 10^3/uL (130-450); RED BLOOD COUNT 4.23 10^6/uL (4.20-5.40)
[2018-01-21 05:18] LABS: ALBUMIN 3.3 g/dL (3.2-5.5); ALKALINE PHOSPHATASE 59 IU/L (42-121); ALT ALANINE AMINOTRANSFERASE 25 IU/L (10-60); AST ASPARTATE AMINOTRANSFERASE 23 IU/L (10-42); BILIRUBIN,TOTAL 0.8 mg/dL (0.2-1.0); BUN - BLOOD UREA NITROGEN < 5 mg/dL (6-20); CARBON DIOXIDE - CO2 25 mmol/L (21-32); CHLORIDE 108 mmol/L (101-111); CREATININE 0.5 mg/dL (0.4-1.0); GFR - MDRD 129 (>89); GLUCOSE 116 mg/dL (70-100); SODIUM 142 mmol/L (135-145); TOTAL PROTEIN 6.6 g/dL (6.7-8.2)
[2018-01-21] MEDS: PANTOPRAZOLE 40 MG VIAL IVP SCH (06:01)
[2018-01-21] MEDS: SODIUM CHLORIDE FLUSH 0.9% 10 ML SYRINGE IVP PRN (06:01)
[2018-01-21] MEDS: DEXTROSE 5%-0.9% NACL 1,000 ML IV SCH ×2 (06:40→15:54)
[2018-01-21] MEDS: POLYETHYLENE GLYCOL 3350 17 GM PACKET PO SCH (07:22)
[2018-01-21] MEDS ORDERED: POTASSIUM CHLOR 20 MEQ/100 ML 20 MEQ/100 ML BAG IV ONE (07:38)
[2018-01-21] MEDS: levETIRAcetam INJ 500 MG in SODIUM CHLORIDE 0.9% 100ML 100 ML IV SCH ×2 (08:39→20:16)
[2018-01-21] MEDS ORDERED: ASPIRIN CHEW 81 MG TABLET PO SCH (09:00)
[2018-01-21] MEDS ORDERED: BENZOCAINE/TETRACAINE/BUTAMBEN 20 GM ONE (13:07)
--- NOTE | 2018-01-21 13:48 | ANESTHESIA ---
Pre-Anesthesia VS, & Labs - Diagnosis Diagnosis stroke - Procedure PEG tube placement Vital Signs: Temp Pulse Resp BP Pulse Ox 36.9 C 85 18 120/41 L 96 01/21/18 13:00 01/21/18 13:00 01/21/18 13:00 01/21/18 13:00 01/21/18 13:00 Height 5 ft 7 in Weight (kg) 54 kg Body Mass Index 18.6 - NPO >8 hours - Is Patient ?: No - Lab Results Current Lab Results: Laboratory Tests 01/21/18 04:15: Sodium 142, Potassium 3.4 L, Chloride 108, Carbon Dioxide 25, Anion Gap 9.0, BUN < 5 L, Creatinine 0.5, Estimated GFR (MDRD) 129, Glucose 116 H, Calcium 9.0, Total Bilirubin 0.8, AST 23, ALT 25, Alkaline Phosphatase 59, Total Protein 6.6 L, Albumin 3.3, Globulin 3.3, Albumin/Globulin Ratio 1.0 01/21/18 04:15: WBC 10.0, RBC 4.23, Hgb 12.4, Hct 38.2, MCV 90.3, MCH 29.3, MCHC 32.5, RDW 14.0, Plt Count 328, MPV 9.6, Neut # (Auto) 5.9, Lymph # (Auto) 3.0, [place] # (Auto) 0.9, Eos # (Auto) 0.1, Baso # (Auto) 0.1, Absolute Nucleated RBC 0.00, Nucleated RBC % 0.0 01/20/18 04:42: WBC 8.5, RBC 4.20, Hgb 12.5, Hct 38.7, MCV 92.1, MCH 29.8, MCHC 32.3, RDW 13.7, Plt Count 326, MPV 9.9, Neut # (Auto) 5.0, Lymph # (Auto) 2.6, [place] # (Auto) 0.8, Eos # (Auto) 0.1, Baso # (Auto) 0.1, Absolute Nucleated RBC 0.01, Nucleated RBC % 0.1, Platelet Estimate NORMAL (130-450,000), Platelet Morphology 1+ GIANT PLATELETS 01/20/18 04:42: Sodium 138, Potassium 3.4 L, Chloride 108, Carbon Dioxide 24, Anion Gap 6.0, BUN 7, Creatinine 0.6, Estimated GFR (MDRD) 104, Glucose 120 H, Calcium 8.8, Magnesium 1.8, Total Bilirubin 1.0, AST 32, ALT 30, Alkaline Phosphatase 59, Total Protein 6.4 L, Albumin 3.4, Globulin 3.0, Albumin/Globulin Ratio 1.1 01/19/18 16:55: Lactic Acid 0.6 01/18/18 20:35: Sodium 140, Potassium 4.6, Chloride 103, Carbon Dioxide 28, Anion Gap 9.0, BUN 13, Creatinine 0.7, Estimated GFR (MDRD) 87 L, Glucose 107 H, Calcium 10.1 01/18/18 20:35: PT 12.9 H, INR 1.1 01/18/18 20:35: WBC 8.2, RBC 4.63, Hgb 13.7, Hct 41.5, MCV 89.7, MCH 29.6, MCHC 33.0, RDW 13.9, Plt Count 473 H, MPV 9.5, Neut # (Auto) 4.4, Lymph # (Auto) 2.8, [place] # (Auto) 0.9, Eos # (Auto) 0.0, Baso # (Auto) 0.1, Absolute Nucleated RBC 0.00, Nucleated RBC % 0.1 Lab results reviewed: Yes Fish Bones: 01/21/18 04:15 01/21/18 04:15 Home Medications and Allergies Home Medications: Ambulatory Orders Acetaminophen [Tylenol] 650 mg PO Q4H PRN 01/20/18 Bisacodyl Supp [Dulcolax Supp] [address] DAILY PRN 01/20/18 Ergocalciferol [Vitamin D2] 50,000 unit PO Q7D 01/20/18 Melatonin 5 mg PO QPM PRN 01/20/18 Metoprolol Tartrate [Lopressor] 12.5 mg PO BID 01/20/18 Nitroglycerin [Nitrostat] 0.4 mg SL Q5MIN PRN 01/20/18 Omeprazole 20 mg PO BID 01/20/18 Ondansetron [Zofran Odt] 4 mg PO Q8H PRN 01/20/18 Polyethylene Glycol 3350 [Miralax] 17 gm PO DAILY PRN 01/20/18 Scopolamine 1 patch TD Q3D 01/20/18 Senna [Senokot] 17.2 mg PO QPM PRN 01/20/18 oxyCODONE [Roxicodone] 5 mg PO Q4H PRN 01/20/18 Active Medications Acetaminophen (Tylenol) [address] Q6HR PRN PRN Reason: Pain or Fever > 38C (100.4F) Last Admin: 01/20/18 12:45 Dose: 650 mg Acetaminophen (Tylenol) 650 mg PO Q4H PRN PRN Reason: PRN PAIN &/OR FEVER Ampicillin Sodium/Sulbactam (Sodium 1.5 gm/ Sodium Chloride) 100 mls @ 200 mls/hr IV Q6HR [facility] Stop: 01/26/18 00:00 Last Infusion: 01/21/18 13:25 Dose: Infused Dextrose/Sodium Chloride (D5ns) 1,000 mls @ 100 mls/hr IV .Q10H [facility] Last Infusion: 01/21/18 12:55 Dose: 100 mls/hr Levetiracetam 500 mg/ Sodium (Chloride) 105 mls @ 400 mls/hr IV BID [facility] Last Infusion: 01/21/18 09:24 Dose: Infused Acetaminophen (Ofirmev) 100 mls @ 400 mls/hr IV Q6HR PRN PRN Reason: PAIN Last Infusion: 01/21/18 01:28 Dose: Infused Nitroglycerin (Nitrostat) 0.4 mg SL Q5MIN PRN PRN Reason: Chest Pain Ondansetron HCl (Zofran Inj) 4 mg IVP Q6HR PRN PRN Reason: Nausea / Vomiting Oxycodone HCl (Roxicodone) 5 mg PO Q4H PRN PRN Reason: PAIN Pantoprazole Sodium (Protonix) 40 mg IVP QDAC [facility] Last Admin: 01/21/18 06:01 Dose: 40 mg Sodium Chloride (Normal Saline Flush 0.9%) 10 ml IVP PRN PRN PRN Reason: NEEDED PER PROVIDER ORDERS Last Admin: 01/21/18 06:01 Dose: 10 ml Sodium Chloride (Normal Saline Flush 0.9%) 10 ml IVP 0100,0900,1700 [facility] Last Admin: 01/21/18 08:27 Dose: Not Given Aspirin 81 mg PO DAILY 12/26/17 Acetaminophen [Tylenol] 650 mg PO Q4H PRN 01/20/18 Bisacodyl Supp [Dulcolax Supp] [address] DAILY PRN 01/20/18 Ergocalciferol [Vitamin D2] 50,000 unit PO Q7D 01/20/18 Melatonin 5 mg PO QPM PRN 01/20/18 Metoprolol Tartrate [Lopressor] 12.5 mg PO BID 01/20/18 Nitroglycerin [Nitrostat] 0.4 mg SL Q5MIN PRN 01/20/18 Omeprazole 20 mg PO BID 01/20/18 Ondansetron [Zofran Odt] 4 mg PO Q8H PRN 01/20/18 Polyethylene Glycol 3350 [Miralax] 17 gm PO DAILY PRN 01/20/18 Scopolamine 1 patch TD Q3D 01/20/18 Senna [Senokot] 17.2 mg PO QPM PRN 01/20/18 oxyCODONE [Roxicodone] 5 mg PO Q4H PRN 01/20/18 Allergies/Adverse Reactions: Allergies Allergy/AdvReac Type Severity Reaction Status Date / Time Iodinated Contrast- Oral and Allergy Rash Verified 01/18/18 19:54 IV Dye morphine Allergy Rash Verified 01/18/18 19:54 Anes History & Medical History - Medical History Cardiovascular: reports: High cholesterol, Coronary artery disease, [place] Pulmonary: reports: None Gastrointestinal: reports: GERD Urinary: reports: None Neuro: reports: CVA (previous history of stroke 2015; followed by two more without residual; 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 CEREBRAL EDEMA...ENCEPHALOPATHY UNSPECIFIED... ATHEROSCLEROTIC HEART DISEASE/CAD...CHEST PAIN... ASSISTANCE W/ MOBILITY/AMBULATION...DYSPHAGIA... - Surgical History General: Other Cardiothoracic: Coronary stent Neurologic: Craniotomy Exam General: Alert, Oriented x3, Cooperative Dental: Loose/Frag Mouth Openin Fingerbreadth Neck Mobility: Normal Mallampati classification: III Thyromental Distance: 4-6 cm Respiratory: Lungs clear Cardiovascular: Regular rate Mental/Cognitive Status: Alert/Oriented X3 Plan Anesthesia Type: MAC Consent for Procedure(s) Verified and Reviewed: Yes Code Status: Attempt Resuscitation ASA classification: 3-Severe systemic disease Is this case an emergency?: No
[2018-01-21] MEDS ORDERED: SODIUM CHLORIDE 0.9% 1,000 ML IV ONE (13:53)
[2018-01-21] MEDS ORDERED: BENZOCAINE/TETRACAINE/BUTAMBEN 20 GM TOP ONE (14:20)
[2018-01-21] MEDS ORDERED: LIDOCAINE-MPF 1% 2 ML AMP SUBQ ONE (14:27)
[2018-01-21] MEDS ORDERED: MIDAZOLAM 2 MG/2 ML VIAL IVP ONE (14:40)
[2018-01-21] MEDS ORDERED: KETAMINE 500 MG/10 ML VIAL IVP ONE (14:40)
[2018-01-21] MEDS ORDERED: GLYCOPYRROLATE 1 MG/5 ML VIAL IVP ONE (14:40)
[2018-01-21] MEDS ORDERED: NEOSTIGMINE 1 MG/1 ML 10 ML MDV IVP ONE (14:40)
[2018-01-21] MEDS ORDERED: ONDANSETRON 4 MG/2 ML VIAL IVP ONE (14:40)
[2018-01-21] MEDS ORDERED: ROCURONIUM 50 MG/5 ML VIAL IVP ONE (14:40)
[2018-01-21] MEDS ORDERED: LACTATED RINGERS 1,000 ML IV ONE (14:42)
--- NOTE | 2018-01-21 14:49 | IMMEDIATE POSTOPERATIVE NOTE ---
Immediate Postoperative Note - Procedure Note Procedure Date: 01/21/18 Pre-Op Diagnosis: dysphagia Procedure: PEG placement Post-Op Diagnosis: same Primary Surgeon: phan Anesthesia Type: General ET tube Complications: No complications Plan of Care: leave PEG clamped for 24 hours before initiating feeds.
--- NOTE | 2018-01-21 16:49 | PROVIDER PROGRESS NOTE ---
Subjective - Prog Note Date Prog Note Date: 01/21/18 - Subjective Pt reports feeling: No change Subjective: pt is still aphasia. ST reported pt still failed swallow study. Pt refused to have NG Called neurologist Dr. Caicedo in [place] today. He state pt could never recovery from dysphagia, or recovery some in 6 months, or a few weeks, it is difficult to predicate. per forensic social worker report, as far no SN[facility] will [facility]. Discussed with , he state he will put PEG tube for pt. Current Medications - Current Medications Current Medications: Active Medications Acetaminophen (Tylenol) 650 mg CA Q6HR PRN PRN Reason: Pain or Fever > 38C (100.4F) Last Admin: 01/20/18 12:45 Dose: 650 mg Acetaminophen (Tylenol) 650 mg PO Q4H PRN PRN Reason: PRN PAIN &/OR FEVER Ampicillin Sodium/Sulbactam (Sodium 1.5 gm/ Sodium Chloride) 100 mls @ 200 mls/hr IV Q6HR [facility] Stop: 01/26/18 00:00 Last Infusion: 01/21/18 13:25 Dose: Infused Dextrose/Sodium Chloride (D5ns) 1,000 mls @ 100 mls/hr IV .Q10H [facility] Last Admin: 01/21/18 15:54 Dose: 100 mls/hr Levetiracetam 500 mg/ Sodium (Chloride) 105 mls @ 400 mls/hr IV BID [facility] Last Infusion: 01/21/18 09:24 Dose: Infused Acetaminophen (Ofirmev) 100 mls @ 400 mls/hr IV Q6HR PRN PRN Reason: PAIN Last Infusion: 01/21/18 01:28 Dose: Infused Nitroglycerin (Nitrostat) 0.4 mg SL Q5MIN PRN PRN Reason: Chest Pain Ondansetron HCl (Zofran Inj) 4 mg IVP Q6HR PRN PRN Reason: Nausea / Vomiting Oxycodone HCl (Roxicodone) 5 mg PO Q4H PRN PRN Reason: PAIN Pantoprazole Sodium (Protonix) 40 mg IVP QDAC [facility] Last Admin: 01/21/18 06:01 Dose: 40 mg Sodium Chloride (Normal Saline Flush 0.9%) 10 ml IVP PRN PRN PRN Reason: NEEDED PER PROVIDER ORDERS Last Admin: 01/21/18 06:01 Dose: 10 ml Sodium Chloride (Normal Saline Flush 0.9%) 10 ml IVP 0100,0900,1700 [facility] Last Admin: 01/21/18 15:55 Dose: Not Given Aspirin 81 mg PO DAILY 12/26/17 Acetaminophen [Tylenol] 650 mg PO Q4H PRN 01/20/18 Bisacodyl Supp [Dulcolax Supp] 10 mg [place] DAILY PRN 01/20/18 Ergocalciferol [Vitamin D2] 50,000 unit PO Q7D 01/20/18 Melatonin 5 mg PO QPM PRN 01/20/18 Metoprolol Tartrate [Lopressor] 12.5 mg PO BID 01/20/18 Nitroglycerin [Nitrostat] 0.4 mg SL Q5MIN PRN 01/20/18 Omeprazole 20 mg PO BID 01/20/18 Ondansetron [Zofran Odt] 4 mg PO Q8H PRN 01/20/18 Polyethylene Glycol 3350 [Miralax] 17 gm PO DAILY PRN 01/20/18 Scopolamine 1 patch TD Q3D 01/20/18 Senna [Senokot] 17.2 mg PO QPM PRN 01/20/18 oxyCODONE [Roxicodone] 5 mg PO Q4H PRN 01/20/18 Objective - Vital Signs/Intake & Output Reviewed Vital Signs: Yes Vital Signs: Vital Signs x48h Temp Pulse Pulse Resp BP BP BP 01/21/18 16:19 36.9 C 74 16 121/54 L 01/21/18 15:49 36.4 C L 86 14 132/66 H 01/21/18 15:30 36.2 C L 82 14 123/82 H 01/21/18 15:25 36.4 C L 87 12 123/72 01/21/18 15:20 36.5 C 87 14 128/81 H 01/21/18 15:15 36.6 C 99 19 130/72 01/21/18 15:10 36.5 C 95 15 131/105 H 01/21/18 15:05 36.4 C L 96 18 128/94 H 01/21/18 15:00 36.4 C L 98 18 123/84 H 01/21/18 13:00 36.9 C 85 18 120/41 L Pulse Ox 01/21/18 16:19 100 01/21/18 15:49 100 01/21/18 15:30 98 01/21/18 15:25 100 01/21/18 15:20 99 01/21/18 15:15 98 01/21/18 15:10 99 01/21/18 15:05 99 01/21/18 15:00 99 01/21/18 13:00 96 Intake & Output: Intake & Output 01/18/18 01/19/18 01/20/18 01/21/18 23:59 23:59 23:59 23:59 Intake Total 500 2552.500 3071.333 2066.666 Output Total 540 Balance 500 2552.500 2531.333 2066.666 - Objective General Appearance: positive: No acute distress, Alert. negative: Lethargic Eyes Bilateral: positive: Normal inspection, PERRL, No lid inflammation, Conjunctivae nml ENT: positive: ENT inspection nml, Pharynx nml, No signs of dehydration. negative: Purulent nasal drainage, Pharyngeal erythema, Oral lesions Neck: positive: Nml inspection, Thyroid nml, No JVD, Trachea midline. negative: Thyromegaly, Lymphadenopathy (R), Lymphadenopathy (L), Stiff neck, Swelling/bruising, Tracheal deviation Respiratory: positive: Chest non-tender, No respiratory distress, Breath sounds nml. negative: Wheezes, Rales, Rhonchi Cardiovascular: positive: Regular rate & rhythm, No murmur, No gallop. negative: Irregularly irregular, Extrasystoles, Tachycardia, Bradycardia, JVD present, Systolic murmur, Diastolic murmur Peripheral Pulses: 2+ Radial (R), 2+ Radial (L), 2+ Dorsalis pedis (R), 2+ Dorsalis pedis (L) Abdomen: positive: Non-tender, No organomegaly, Nml bowel sounds, No distention. negative: Tenderness, Guarding, Rebound Back: positive: Nml inspection. negative: CVA tenderness (R), CVA tenderness (L) Skin: positive: Color nml, No rash, Warm, Dry. negative: Cyanosis, Diaphoresis, Pallor Extremities: positive: Non-tender, Nml appearance. negative: Calf tenderness, Joint swelling, Gregory's sign/cords Neurologic/Psychiatric: positive: Mood/affect nml, Weakness, Sensory loss, Facial droop, Slurred/abnml speech - Lab Results Fish Bones: 01/21/18 04:15 01/21/18 04:15 Other Labs: Lab Results x24hrs 01/21/18 01/21/18 Range/Units 04:15 04:15 WBC 10.0 (4.8-10.8) x10^3/uL RBC 4.23 (4.20-5.40) 10^6/uL Hgb 12.4 (12.0-16.0) g/dL Hct 38.2 (37.0-47.0) % MCV 90.3 (81.0-99.0) fL MCH 29.3 (27.0-31.0) pg MCHC 32.5 (32.0-36.0) g/dL RDW 14.0 (12.0-15.0) % Plt Count 328 (130-450) 10^3/uL MPV 9.6 (7.9-10.8) fL Neut # (Auto) 5.9 (1.5-6.6) 10^3/uL Lymph # (Auto) 3.0 (1.5-3.5) 10^3/uL [place] # (Auto) 0.9 (0.0-1.0) 10^3/uL Eos # (Auto) 0.1 (0.0-0.7) 10^3/uL Baso # (Auto) 0.1 (0.0-0.1) 10^3/uL Absolute Nucleated RBC 0.00 x10^3/uL Nucleated RBC % 0.0 /100WBC Sodium 142 (135-145) mmol/L Potassium 3.4 L (3.5-5.0) mmol/L Chloride 108 (101-111) mmol/L Carbon Dioxide 25 (21-32) mmol/L Anion Gap 9.0 (6-13) BUN < 5 L (6-20) mg/dL Creatinine 0.5 (0.4-1.0) mg/dL Estimated GFR (MDRD) 129 (>89) Glucose 116 H (70-100) mg/dL Calcium 9.0 (8.5-10.3) mg/dL Total Bilirubin 0.8 (0.2-1.0) mg/dL AST 23 (10-42) IU/L ALT 25 (10-60) IU/L Alkaline Phosphatase 59 (42-121) IU/L Total Protein 6.6 L (6.7-8.2) g/dL Albumin 3.3 (3.2-5.5) g/dL Globulin 3.3 (2.1-4.2) g/dL Albumin/Globulin Ratio 1.0 (1.0-2.2) ABX Reporting Has patient been on IV antibiotics over the past 48 hours?: Yes Sepsis Event Note (H) - Evaluation Current Stage of Sepsis: Ruled out Assessment/Plan - Problem List (1) Status post craniectomy Impression: (1) Status post craniectomy Impression: 01/21, surgeon will put NG tube for pt, will followup Neurologist in [place] agree hold Aspirin at least for one week, continue to have seizure medication 01/20 I called neurologist in [place] for pt's new CT of head study, as document in the front. according to neurologist recommendation, start NG tube, eye dropper assembler consulted continue neuro check continue IVF with D5 NS. pt failed ST evaluation today. continue NPO consult with surgeon continue PT/OT continue tele and vital monitor according to "Dr. Garcia did reach out to [place] neurology who did not recommend any further intervention at this point, recommending only medical man agement", will reconcile home meds per recommendation from neurologist from [place], limited intervention can be offered to pt. anticoagulation/anti-platlet which would be best started after 24-48 hours to confirm that the patient does not converting to a hemorrhagic stroke. will order CT of brain tomorrow. consult with palliative care continue neuro check continue IVF with D5 NS. pt failed ST evaluation. continue NPO consult with surgeon for PEG tube, will follow up. will reconcile home meds a fter PEG continue PT/OT continue tele and vital monitor (2) Dysphagia as late effect of cerebrovascular accident (CVA) 01/21, surgeon will put NG tube for pt, will followup 01/[address] evaluation, will remain NPO start NG, consult with eye dropper assembler, start nutrition. pt failed ST evaluation, will remain NPO now consult with surgeon for PEG tube, will followup IVF of D5 (3) CAD (coronary artery disease) Conclusion/Plan: 01/21 stable, continue tele, vital monitor, and home meds 01/20 will continue home meds continue tele, vital Pt's vital is stable. Patient has extensive history of coronary artery disease with more than 15 stents. will reconcile home meds after pt had PEG, it is diffi cult without PEG tube continue tele and vital, EKG PRN (4) Infection of scalp stable, continue IV Unasyn No fever, WBC is normal now. Patient has large scalp wound from the craniectomy. concerned about infection continue IV Unasyn order Lactic acid vital monitor (5) Seizure 01/21, no seizure, continue keppra 01/20 stable, no seizure, will continue home meds Apparently new seizures related to the strokes, [place] neurology recommended Keppra. continue this medication. Seizure precaution. (6) advance care 01/21 continue palliative care, continue support 01/20 continue support pt and her family, continue inform pt and her , discuss with them next step care for pt continue palliative care discuss with pt's about palliative care. The agree to have palliative, possible hospice care if pt continue to deteriorate. at this stage, her recognize the limitation of intervention, but still request PEG tube to continue support pt consult with palliative care, will follow up (2) Cerebrovascular accident (CVA) Qualifiers: CVA mechanism: occlusion Precerebral and cerebral artery: middle cerebral artery Laterality of affected vessel: left Qualified Code(s): I63.512 - Cerebral infarction due to unspecified occlusion or stenosis of left middle cerebral artery (4) CAD (coronary artery disease) Qualifiers: Coronary Disease-Associated Artery/Lesion type: [place] artery [place] vs. transplanted heart: [place] heart Associated angina: without angina Qualified Code(s): I25.10 - Atherosclerotic heart disease of [place] coronary artery without angina pectoris
--- NOTE | 2018-01-21 17:27 | PROCEDURE REPORT ---
DATE OF SERVICE: 01/21/2018 Physician: Mychal Lopez MD PREOPERATIVE DIAGNOSIS: Dysphagia. POSTOPERATIVE DIAGNOSIS: Dysphagia. SURGEON: Mychal Lopez MD PROCEDURE PERFORMED: Percutaneous endoscopic gastrostomy tube placement. INDICATIONS FOR PROCEDURE: The patient is a 52-year-old woman who has had multiple strokes and has been unable to swallow since her latest one. The family is requesting a feeding tube as well as the patient. PROCEDURE IN DETAIL: The risks and benefits were explained to the patient and her , they agreed to the procedure. She was taken to the operating room, given sedation and a bite block was inserted and secured in place. An attempt was made to pass the endoscope into the stomach; however, it appeared to occlude her airway whenever it was passed into the pharynx. Therefore, she was converted to a general anesthetic and she was intubated. At that point, the endoscope was passed through the oral cavity down into the stomach, the head of the bed was raised 30 degrees and the lights were turned off in the room to allow for easy visualization and transillumination along the fundus of the stomach. An excellent point of transillumination was seen approximately 3 fingerbreadths below the left costal margin. Palpation of that spot showed easy 1:1 indention suggestive of no tissue between the stomach and the anterior abdominal wall. Lidocaine was infused in that spot and the needle was inserted in that spot and into the stomach. A wire was inserted through the needle into the stomach, and a wire loop was inserted through the endoscope and used to grasp the wire from the skin. Then the scope was pulled out with the wire. The needle hole on the anterior abdomen was opened approximately 1-2 cm using a knife and then the gastrostomy was inserted over the wire coming out of the mouth and brought out through the opening the anterior abdominal wall. The endoscope was then passed down through the mouth back in the stomach and placement was confirmed with the tube flush against the stomach wall. The tube was then constructed outside the body and a stitch was used to secure it to the skin. This was the end of the procedure, the patient was extubated in the operating room and was taken to recovery stable condition. She tolerated it well. BLOOD LOSS: 5 mL COMPLICATIONS: None. SPECIMENS: None. Plan for this patient is to wait 24 hours and then begin using the tube. TD: 01/21/2018 15:01 MTDD
[2018-01-22] MEDS: AMPICILLIN/SULBACTAM 1.5 GM in SODIUM CHLORIDE 0.9% MINIBAG 100 ML IV SCH ×5 (01:25→23:44)
[2018-01-22] MEDS: SODIUM CHLORIDE FLUSH 0.9% 10 ML SYRINGE IVP SCH ×4 (01:28→23:55)
[2018-01-22] MEDS: SODIUM CHLORIDE FLUSH 0.9% 10 ML SYRINGE IVP PRN ×9 (02:09→21:16)
[2018-01-22] MEDS: DEXTROSE 5%-0.9% NACL 1,000 ML IV SCH ×2 (03:16→15:42)
[2018-01-22 05:10] LABS: BASOPHILS % (AUTO) 0.3 %; HGB - HEMOGLOBIN 11.9 g/dL (12.0-16.0); LYMPHOCYTES # (AUTO) 2.2 10^3/uL (1.5-3.5); LYMPHOCYTES % (AUTO) 17.2 %; MEAN CORPUSCULAR HEMOGLOBIN 29.2 pg (27.0-31.0); MEAN CORPUSCULAR VOLUME 91.4 fL (81.0-99.0); MEAN PLATELET VOLUME 9.5 fL (7.9-10.8); MONOCYTES # (AUTO) 0.9 10^3/uL (0.0-1.0); MONOCYTES % (AUTO) 6.8 %; NEUTROPHILS # (AUTO) 9.6 10^3/uL (1.5-6.6); NEUTROPHILS % (AUTO) 75.7 %; PLT - PLATELET COUNT 280 10^3/uL (130-450); RED BLOOD COUNT 4.06 10^6/uL (4.20-5.40); RED CELL DISTRIBUTION WIDTH 13.6 % (12.0-15.0); WHITE BLOOD COUNT 12.6 x10^3/uL (4.8-10.8)
[2018-01-22 05:19] LABS: ALBUMIN 2.8 g/dL (3.2-5.5); ALBUMIN/GLOBULIN RATIO 0.8 (1.0-2.2); BILIRUBIN,TOTAL 0.7 mg/dL (0.2-1.0); CALCIUM 8.6 mg/dL (8.5-10.3); CREATININE 0.6 mg/dL (0.4-1.0); TOTAL PROTEIN 6.1 g/dL (6.7-8.2)
[2018-01-22] MEDS: ACETAMINOPHEN 1,000 MG/100 ML 100 ML IV PRN ×3 (05:51→20:25)
[2018-01-22] MEDS: PANTOPRAZOLE 40 MG VIAL IVP SCH (06:46)
[2018-01-22] MEDS: levETIRAcetam INJ 500 MG in SODIUM CHLORIDE 0.9% 100ML 100 ML IV SCH ×2 (09:17→20:57)
[2018-01-22] MEDS ORDERED: METOCLOPRAMIDE 10 MG/2 ML VIAL IVP PRN (12:19)
--- NOTE | 2018-01-22 12:46 | PROVIDER PROGRESS NOTE ---
Subjective - Prog Note Date Prog Note Date: 01/22/18 Prog Note Time: 12:43 - Subjective Pt reports feeling: Improved (Sitting in bed alert. Denies pain when asked.) Objective - Vital Signs/Intake & Output Vital Signs: Vital Signs x48h Temp Pulse Resp BP BP Pulse Ox 01/22/18 07:44 36.2 C L 69 19 89/61 L 98 01/22/18 05:56 73 18 127/60 99 Intake & Output: Intake & Output 01/19/18 01/20/18 01/21/18 01/22/18 23:59 23:59 23:59 23:59 Intake Total 2552.500 3071.333 2754.999 855.000 Output Total 540 Balance 2552.500 2531.333 2754.999 855.000 - Objective General Appearance: positive: No acute distress Eyes Bilateral: positive: Normal inspection ENT: positive: ENT inspection nml Neck: positive: Nml inspection Respiratory: positive: Chest non-tender Cardiovascular: positive: Regular rate & rhythm Abdomen: positive: Non-tender Back: positive: Nml inspection Skin: positive: Color nml Extremities: positive: Non-tender Neurologic/Psychiatric: positive: Oriented x3 - Lab Results Fish Bones: 01/22/18 04:25 01/22/18 04:25 Other Labs: Lab Results x24hrs 01/22/18 01/22/18 Range/Units 04:25 04:25 WBC 12.6 H (4.8-10.8) x10^3/uL RBC 4.06 L (4.20-5.40) 10^6/uL Hgb 11.9 L (12.0-16.0) g/dL Hct 37.1 (37.0-47.0) % MCV 91.4 (81.0-99.0) fL MCH 29.2 (27.0-31.0) pg MCHC 32.0 (32.0-36.0) g/dL RDW 13.6 (12.0-15.0) % Plt Count 280 (130-450) 10^3/uL MPV 9.5 (7.9-10.8) fL Neut # (Auto) 9.6 H (1.5-6.6) 10^3/uL Lymph # (Auto) 2.2 (1.5-3.5) 10^3/uL [place] # (Auto) 0.9 (0.0-1.0) 10^3/uL Eos # (Auto) 0.0 (0.0-0.7) 10^3/uL Baso # (Auto) 0.0 (0.0-0.1) 10^3/uL Absolute Nucleated RBC 0.00 x10^3/uL Nucleated RBC % 0.0 /100WBC Sodium 141 (135-145) mmol/L Potassium 3.6 (3.5-5.0) mmol/L Chloride 107 (101-111) mmol/L Carbon Dioxide 24 (21-32) mmol/L Anion Gap 10.0 (6-13) BUN 5 L (6-20) mg/dL Creatinine 0.6 (0.4-1.0) mg/dL Estimated GFR (MDRD) 104 (>89) Glucose 154 H (70-100) mg/dL Calcium 8.6 (8.5-10.3) mg/dL Total Bilirubin 0.7 (0.2-1.0) mg/dL AST 17 (10-42) IU/L ALT 19 (10-60) IU/L Alkaline Phosphatase 54 (42-121) IU/L Total Protein 6.1 L (6.7-8.2) g/dL Albumin 2.8 L (3.2-5.5) g/dL Globulin 3.3 (2.1-4.2) g/dL Albumin/Globulin Ratio 0.8 L (1.0-2.2) Sepsis Event Note (H) - Evaluation Current Stage of Sepsis: Ruled out Assessment/Plan - Problem List (2) Cerebrovascular accident (CVA) Qualifiers: CVA mechanism: occlusion Precerebral and cerebral artery: middle cerebral a rtery Laterality of affected vessel: left Qualified Code(s): I63.512 - Cerebral infarction due to unspecified occlusion or stenosis of left middle cerebral artery (3) Dysphagia as late effect of cerebrovascular accident (CVA) Impression: Pt has recovered from PEG placement. Tube feedings were initiated earlier today and she had a coughing episode. Recommend waiting the full 24 hrs prior to initiating feeds and starting at a low rate.
--- NOTE | 2018-01-22 13:57 | XRAY Report ---
Reason: new PEG in location? Procedure Date: 01/22/2018 Accession Number: [id number] / [id number] Procedure: XR - Abdomen 1 View X-Ray CPT Code: 70375 FULL RESULT: EXAM: ABDOMEN RADIOGRAPHY EXAM DATE: 01/22/2018 01:40 PM. CLINICAL HISTORY: New PEG in location?. COMPARISON: ABDOMEN PORT ([facility]) 01/03/2018 7:25 PM. TECHNIQUE: 1 view. FINDINGS: Bowel Gas Pattern: Overall paucity of bowel gas. Other: A percutaneous enteric tube is seen projecting over the left midabdomen. IMPRESSION: Enteric tube over the left midabdomen. If this film is to confirm the location of the enteric tube, recommend injection of contrast. RADIA
--- NOTE | 2018-01-22 14:56 | PROVIDER PROGRESS NOTE ---
Subjective - Prog Note Date Prog Note Date: 01/22/18 - Subjective Pt reports feeling: No change Subjective: pt has PEG tube, consulted with stopperer assembler, will feed pt per surgeon. pt is still aphasia, and hemodynamic stable. Still hold Aspirin per neurologist's recommendation from [place] because of small hemorrhagic in brain Current Medications - Current Medications Current Medications: Active Medications Acetaminophen (Tylenol) 650 mg UT Q6HR PRN PRN Reason: Pain or Fever > 38C (100.4F) Last Admin: 01/20/18 12:45 Dose: 650 mg Acetaminophen (Tylenol) 650 mg PO Q4H PRN PRN Reason: PRN PAIN &/OR FEVER Ampicillin Sodium/Sulbactam (Sodium 1.5 gm/ Sodium Chloride) 100 mls @ 200 mls/hr IV Q6HR [facility] Stop: 01/26/18 00:00 Last Infusion: 01/22/18 18:40 Dose: Infused Dextrose/Sodium Chloride (D5ns) 1,000 mls @ 100 mls/hr IV .Q10H [facility] Last Admin: 01/22/18 15:42 Dose: 100 mls/hr Levetiracetam 500 mg/ Sodium (Chloride) 105 mls @ 400 mls/hr IV BID [facility] Last Infusion: 01/22/18 09:47 Dose: Infused Acetaminophen (Ofirmev) 100 mls @ 400 mls/hr IV Q6HR PRN PRN Reason: PAIN Last Infusion: 01/22/18 13:28 Dose: Infused Metoclopramide HCl (Reglan Inj) 5 mg IVP Q6HR PRN PRN Reason: Nausea / Vomiting Last Admin: 01/22/18 13:13 Dose: 5 mg Nitroglycerin (Nitrostat) 0.4 mg SL Q5MIN PRN PRN Reason: Chest Pain Ondansetron HCl (Zofran Inj) 4 mg IVP Q6HR PRN PRN Reason: Nausea / Vomiting Oxycodone HCl (Roxicodone) 5 mg PO Q4H PRN PRN Reason: PAIN Pantoprazole Sodium (Protonix) 40 mg IVP QDAC [facility] Last Admin: 01/22/18 06:46 Dose: 40 mg Sodium Chloride (Normal Saline Flush 0.9%) 10 ml IVP PRN PRN PRN Reason: NEEDED PER PROVIDER ORDERS Last Admin: 01/22/18 18:38 Dose: 10 ml Sodium Chloride (Normal Saline Flush 0.9%) 10 ml IVP 0100,0900,1700 TANYA Last Admin: 01/22/18 18:02 Dose: 10 ml Aspirin 81 mg PO DAILY 12/26/17 Acetaminophen [Tylenol] 650 mg PO Q4H PRN 01/20/18 Bisacodyl Supp [Dulcolax Supp] 10 mg UT DAILY PRN 01/20/18 Ergocalciferol [Vitamin D2] 50,000 unit PO Q7D 01/20/18 Melatonin 5 mg PO QPM PRN 01/20/18 Metoprolol Tartrate [Lopressor] 12.5 mg PO BID 01/20/18 Nitroglycerin [Nitrostat] 0.4 mg SL Q5MIN PRN 01/20/18 Omeprazole 20 mg PO BID 01/20/18 Ondansetron [Zofran Odt] 4 mg PO Q8H PRN 01/20/18 Polyethylene Glycol 3350 [Miralax] 17 gm PO DAILY PRN 01/20/18 Scopolamine 1 patch TD Q3D 01/20/18 Senna [Senokot] 17.2 mg PO QPM PRN 01/20/18 oxyCODONE [Roxicodone] 5 mg PO Q4H PRN 01/20/18 Objective - Vital Signs/Intake & Output Reviewed Vital Signs: Yes Vital Signs: Vital Signs x48h Temp Pulse Resp BP Pulse Ox 01/22/18 07:44 36.2 C L 69 19 89/61 L 98 Intake & Output: Intake & Output 01/19/18 01/20/18 01/21/18 01/22/18 23:59 23:59 23:59 23:59 Intake Total 2552.500 3071.333 2754.999 2145.000 Output Total 540 Balance 2552.500 2531.333 2754.999 2145.000 - Objective General Appearance: positive: No acute distress, Alert. negative: Lethargic Eyes Bilateral: positive: Normal inspection, PERRL, No lid inflammation, Conjunctivae nml ENT: positive: ENT inspection nml, Pharynx nml, No signs of dehydration. negative: Purulent nasal drainage, Pharyngeal erythema, Oral lesions Neck: positive: Nml inspection, Thyroid nml, No JVD, Trachea midline. negative: Thyromegaly, Lymphadenopathy (R), Lymphadenopathy (L), Stiff neck, Swelling/bruising, Tracheal deviation Respiratory: positive: Chest non-tender, No respiratory distress, Breath sounds nml. negative: Wheezes, Rales, Rhonchi Cardiovascular: positive: Regular rate & rhythm, No murmur, No gallop. negative: Irregularly irregular, Extrasystoles, Tachycardia, Bradycardia, JVD present, Systolic murmur, Diastolic murmur Peripheral Pulses: 2+ Radial (R), 2+ Radial (L), 2+ Dorsalis pedis (R), 2+ Dorsalis pedis (L) Abdomen: positive: Non-tender, No organomegaly, Nml bowel sounds, No distention. negative: Tenderness, Guarding, Rebound Back: positive: Nml inspection. negative: CVA tenderness (R), CVA tenderness (L) Skin: positive: Color nml, No rash, Warm, Dry. negative: Cyanosis, Diaphoresis, Pallor Extremities: positive: Non-tender, Nml appearance. negative: Calf tenderness, Gregory's sign/cords Neurologic/Psychiatric: positive: Mood/affect nml, Weakness, Sensory loss, Facial droop, Slurred/abnml speech - Lab Results Fish Bones: 01/23/18 04:50 01/23/18 04:50 Other Labs: Lab Results x24hrs 01/22/18 01/22/18 Range/Units 04:25 04:25 WBC 12.6 H (4.8-10.8) x10^3/uL RBC 4.06 L (4.20-5.40) 10^6/uL Hgb 11.9 L (12.0-16.0) g/dL Hct 37.1 (37.0-47.0) % MCV 91.4 (81.0-99.0) fL MCH 29.2 (27.0-31.0) pg MCHC 32.0 (32.0-36.0) g/dL RDW 13.6 (12.0-15.0) % Plt Count 280 (130-450) 10^3/uL MPV 9.5 (7.9-10.8) fL Neut # (Auto) 9.6 H (1.5-6.6) 10^3/uL Lymph # (Auto) 2.2 (1.5-3.5) 10^3/uL Cross # (Auto) 0.9 (0.0-1.0) 10^3/uL Eos # (Auto) 0.0 (0.0-0.7) 10^3/uL Baso # (Auto) 0.0 (0.0-0.1) 10^3/uL Absolute Nucleated RBC 0.00 x10^3/uL Nucleated RBC % 0.0 /100WBC Sodium 141 (135-145) mmol/L Potassium 3.6 (3.5-5.0) mmol/L Chloride 107 (101-111) mmol/L Carbon Dioxide 24 (21-32) mmol/L Anion Gap 10.0 (6-13) BUN 5 L (6-20) mg/dL Creatinine 0.6 (0.4-1.0) mg/dL Estimated GFR (MDRD) 104 (>89) Glucose 154 H (70-100) mg/dL Calcium 8.6 (8.5-10.3) mg/dL Total Bilirubin 0.7 (0.2-1.0) mg/dL AST 17 (10-42) IU/L ALT 19 (10-60) IU/L Alkaline Phosphatase 54 (42-121) IU/L Total Protein 6.1 L (6.7-8.2) g/dL Albumin 2.8 L (3.2-5.5) g/dL Globulin 3.3 (2.1-4.2) g/dL Albumin/Globulin Ratio 0.8 L (1.0-2.2) ABX Reporting Has patient been on IV antibiotics over the past 48 hours?: Yes Sepsis Event Note (H) - Evaluation Current Stage of Sepsis: Ruled out Assessment/Plan - Problem List (1) Status post craniectomy Impression: 01/22 pt has PEG, will order KUB, start tube feeding per surgeon 01/21, surgeon will put NG tube for pt, will followup Neurologist in [place] agree hold Aspirin at least for one week, continue to have seizure medication 01/20 I called neurologist in [place] for pt's new CT of head study, as document in the front. according to neurologist recommendation, start NG tube, stopperer assembler consulted continue neuro check continue IVF with D5 NS. pt failed ST evaluation today. continue NPO consult with surgeon continue PT/OT continue tele and vital monitor according to "Dr. Garcia did reach out to [place] neurology who did not recommend any further intervention at this point, recommending only medical management", will reconcile home meds per recommendation from neurologist from [place], limited intervention can be offered to pt. anticoagulation/anti-platlet which would be best started after 24-48 hours to confirm that the patient does not converting to a hemorrhagic stroke. will order CT of brain tomorrow. consult with palliative care continue neuro check continue IVF with D5 NS. pt failed ST evaluation. continue NPO consult with surgeon for PEG tube, will follow up. will reconcile home meds after PEG continue PT/OT continue tele and vital monitor (2) Dysphagia as late effect of cerebrovascular accident (CVA) 01/22, pt still can not eat, will start tube feeding per surgeon 01/21, surgeon will put NG tube for pt, will followup 01/[address] evaluation, will remain NPO start NG, consult with stopperer assembler, start nutrition. pt failed ST evaluation, will remain NPO now consult with surgeon for PEG tube, will followup IVF of D5 (3) CAD (coronary artery disease) Conclusion/Plan: 01/22 stable, continue tele, vital monitor 01/21 stable, continue tele, vital monitor, and home meds 01/20 will continue home meds continue tele, vital Pt's vital is stable. Patient has extensive history of coronary artery disease with more than 15 stents. will reconcile home meds after pt had PEG, it is difficult without PEG tube continue tele and vital, EKG PRN (4) Infection of scalp 01/22, pt has slight elevated WBC but no fever, chill. unknown etiology but pt has scalp infection from previous surgery, will order CXR and UA, continue antibiotics. continue lab and vital monitor stable, continue IV Unasyn No fever, WBC is normal now. Patient has large scalp wound from the craniectomy. concerned about infection continue IV Unasyn order Lactic acid vital monitor (5) Seizure 01/22 stable, no seizure 01/21, no seizure, continue keppra 01/20 stable, no seizure, will continue home meds Apparently new seizures related to the strokes, [place] neurology recommended Keppra. continue this medication. Seizure precaution. (6) advance care 01/22 continue support and palliative care. 01/21 continue palliative care, continue support 01/20 continue support pt and her family, continue inform pt and her , discuss with them next step care for pt continue palliative care discuss with pt's about palliative care. The agree to have pa lliative, possible hospice care if pt continue to deteriorate. at this stage, her recognize the limitation of intervention, but still request PEG tube to continue support pt consult with palliative care, will follow up (2) Cerebrovascular accident (CVA) Qualifiers: CVA mechanism: occlusion Precerebral and cerebral artery: middle cerebral artery Laterality of affected vessel: left Qualified Code(s): I63.512 - Cerebral infarction due to unspecified occlusion or stenosis of left middle cerebral artery (4) CAD (coronary artery disease) Qualifiers: Coronary Disease-Associated Artery/Lesion type: [place] artery [place] vs. transplanted heart: [place] heart Associated angina: without angina Qualified Code(s): I25.10 - Atherosclerotic heart disease of [place] coronary artery without angina pectoris
--- NOTE | 2018-01-22 19:43 | XRAY Report ---
Reason: SOB Procedure Date: 01/22/2018 Accession Number: [id number] / [id number] Procedure: XR - Chest 1 View X-Ray CPT Code: 55430 FULL RESULT: EXAM: CHEST RADIOGRAPHY EXAM DATE: 01/22/2018 07:18 PM. CLINICAL HISTORY: SOB. COMPARISON: CHEST AP () 01/10/2018 9:55 PM from [facility]. TECHNIQUE: 1 view. FINDINGS: Lungs/Pleura: No focal opacities evident. No pleural effusion. No pneumothorax. Mediastinum: No cardiomegaly. Stable coronary stents. Other: None. IMPRESSION: No evidence of acute cardiopulmonary disease. RADIA
[2018-01-22] MEDS ORDERED: SCOPOLAMINE PATCH TOP SCH (21:00)
[2018-01-22 21:58] LABS: BILIRUBIN,URINE NEGATIVE (NEGATIVE); GLUCOSE, URINE (UA) NEGATIVE (NEGATIVE); KETONES,URINE (UA) NEGATIVE (NEGATIVE); LEUKOCYTE ESTERASE, URINE NEGATIVE (NEGATIVE); NITRITE,URINE NEGATIVE (NEGATIVE); OCCULT BLOOD,URINE NEGATIVE (NEGATIVE); PH,URINE 6.5 PH (5.0-7.5); PROTEIN,URINE NEGATIVE (NEGATIVE); UROBILINOGEN,URINE 0.2 (NORMAL) E.U./dL (NORMAL)
[2018-01-22 22:07] LABS: BACTERIA,URINE None Seen /HPF (None Seen); CLARITY,URINE CLOUDY (CLEAR); RBC,URINE 0-5 /HPF (0-5); SQUAMOUS EPITHELIAL CELL,UR FEW Squamous (<= Few)
[2018-01-23] MEDS: oxyCODONE 5 MG TABLET PO PRN ×3 (02:55→21:31)
[2018-01-23] MEDS: DEXTROSE 5%-0.9% NACL 1,000 ML IV SCH (03:22)
[2018-01-23 05:21] LABS: BASOPHILS # (AUTO) 0.1 10^3/uL (0.0-0.1); BASOPHILS % (AUTO) 0.5 %; EOSINOPHILS # (AUTO) 0.1 10^3/uL (0.0-0.7); EOSINOPHILS % (AUTO) 0.5 %; LYMPHOCYTES % (AUTO) 26.5 %; MEAN CORPUSCULAR HEMOGLOBIN 29.3 pg (27.0-31.0); MEAN CORPUSCULAR HGB CONC 32.6 g/dL (32.0-36.0); MEAN CORPUSCULAR VOLUME 89.9 fL (81.0-99.0); MEAN PLATELET VOLUME 9.6 fL (7.9-10.8); MONOCYTES # (AUTO) 0.8 10^3/uL (0.0-1.0); MONOCYTES % (AUTO) 6.9 %; NEUTROPHILS # (AUTO) 7.4 10^3/uL (1.5-6.6); NEUTROPHILS % (AUTO) 65.6 %; PLT - PLATELET COUNT 275 10^3/uL (130-450); RED CELL DISTRIBUTION WIDTH 13.7 % (12.0-15.0); WHITE BLOOD COUNT 11.3 x10^3/uL (4.8-10.8)
[2018-01-23] MEDS: AMPICILLIN/SULBACTAM 1.5 GM in SODIUM CHLORIDE 0.9% MINIBAG 100 ML IV SCH ×3 (05:23→18:27)
[2018-01-23] MEDS: PANTOPRAZOLE 40 MG VIAL IVP SCH (05:24)
[2018-01-23] MEDS: SODIUM CHLORIDE FLUSH 0.9% 10 ML SYRINGE IVP SCH ×3 (05:24→18:28)
[2018-01-23 05:32] LABS: ALBUMIN 3.1 g/dL (3.2-5.5); ALBUMIN/GLOBULIN RATIO 0.9 (1.0-2.2); ALKALINE PHOSPHATASE 58 IU/L (42-121); ALT ALANINE AMINOTRANSFERASE 17 IU/L (10-60); AST ASPARTATE AMINOTRANSFERASE 17 IU/L (10-42); BILIRUBIN,TOTAL 0.6 mg/dL (0.2-1.0); BUN - BLOOD UREA NITROGEN < 5 mg/dL (6-20); CALCIUM 8.6 mg/dL (8.5-10.3); CARBON DIOXIDE - CO2 25 mmol/L (21-32); CHLORIDE 109 mmol/L (101-111); CREATININE 0.4 mg/dL (0.4-1.0); GFR - MDRD 166 (>89); GLUCOSE 117 mg/dL (70-100); MAGNESIUM 1.8 mg/dL (1.7-2.8); PHOSPHORUS 3.6 mg/dL (2.5-4.6); SODIUM 144 mmol/L (135-145); TOTAL PROTEIN 6.6 g/dL (6.7-8.2)
[2018-01-23] MEDS ORDERED: POTASSIUM CHLORIDE INJ 40 MEQ in SODIUM CHLORIDE 0.9% 480 ML IV ONE (07:19)
[2018-01-23] MEDS ORDERED: POTASSIUM CHLORIDE INJ 40 MEQ in DEXTROSE 5%-0.45% NACL 980 ML IV SCH (08:00)
[2018-01-23] MEDS: levETIRAcetam INJ 500 MG in SODIUM CHLORIDE 0.9% 100ML 100 ML IV SCH ×2 (08:20→21:31)
--- NOTE | 2018-01-23 08:37 | PROVIDER PROGRESS NOTE ---
Subjective - Prog Note Date Prog Note Date: 01/23/18 Prog Note Time: 08:34 - Subjective Pt reports feeling: Improved Objective - Vital Signs/Intake & Output Vital Signs: Vital Signs x48h Temp Pulse Resp BP Pulse Ox 01/23/18 05:20 36.1 C L 83 20 142/67 H 97 Intake & Output: Intake & Output 01/20/18 01/21/18 01/22/18 01/23/18 23:59 23:59 23:59 23:59 Intake Total 3071.333 2754.999 3296.667 796.249 Output Total 540 310 Balance 2531.333 2754.999 2986.667 796.249 - Objective General Appearance: positive: No acute distress Eyes Bilateral: positive: Normal inspection ENT: positive: ENT inspection nml Neck: positive: Nml inspection Respiratory: positive: Chest non-tender Cardiovascular: positive: Regular rate & rhythm Abdomen: positive: Non-tender Back: positive: Nml inspection Skin: positive: Color nml Extremities: positive: Non-tender Neurologic/Psychiatric: positive: Slurred/abnml speech - Lab Results Fish Bones: 01/23/18 04:50 01/23/18 04:50 Other Labs: Lab Results x24hrs 01/23/18 01/23/18 01/23/18 Range/Units 04:50 04:50 04:50 WBC 11.3 H (4.8-10.8) x10^3/uL RBC 4.10 L (4.20-5.40) 10^6/uL Hgb 12.0 (12.0-16.0) g/dL Hct 36.9 L (37.0-47.0) % MCV 89.9 (81.0-99.0) fL MCH 29.3 (27.0-31.0) pg MCHC 32.6 (32.0-36.0) g/dL RDW 13.7 (12.0-15.0) % Plt Count 275 (130-450) 10^3/uL MPV 9.6 (7.9-10.8) fL Neut # (Auto) 7.4 H (1.5-6.6) 10^3/uL Lymph # (Auto) 3.0 (1.5-3.5) 10^3/uL [place] # (Auto) 0.8 (0.0-1.0) 10^3/uL Eos # (Auto) 0.1 (0.0-0.7) 10^3/uL Baso # (Auto) 0.1 (0.0-0.1) 10^3/uL Absolute Nucleated RBC 0.00 x10^3/uL Nucleated RBC % 0.0 /100WBC Sodium 144 (135-145) mmol/L Potassium 2.9 L (3.5-5.0) mmol/L Chloride 109 (101-111) mmol/L Carbon Dioxide 25 (21-32) mmol/L Anion Gap 10.0 (6-13) BUN < 5 L (6-20) mg/dL Creatinine 0.4 (0.4-1.0) mg/dL Estimated GFR (MDRD) 166 (>89) Glucose 117 H (70-100) mg/dL Calcium 8.6 (8.5-10.3) mg/dL Phosphorus 3.6 (2.5-4.6) mg/dL Magnesium 1.8 (1.7-2.8) mg/dL Total Bilirubin 0.6 (0.2-1.0) mg/dL AST 17 (10-42) IU/L ALT 17 (10-60) IU/L Alkaline Phosphatase 58 (42-121) IU/L Total Protein 6.6 L (6.7-8.2) g/dL Albumin 3.1 L (3.2-5.5) g/dL Globulin 3.5 (2.1-4.2) g/dL Albumin/Globulin Ratio 0.9 L (1.0-2.2) Prealbumin 13 L (18-45) mg/dL Urine Color Urine Clarity (CLEAR) Urine pH (5.0-7.5) PH Ur Specific [place] (1.002-1.030) Urine Protein (NEGATIVE) mg/dL Urine Glucose (UA) (NEGATIVE) mg/dL Urine Ketones (NEGATIVE) mg/dL Urine Occult Blood (NEGATIVE) Urine Nitrite (NEGATIVE) Urine Bilirubin (NEGATIVE) Urine Urobilinogen (NORMAL) E.U./dL Ur Leukocyte Esterase (NEGATIVE) Urine RBC (0-5) /HPF Urine WBC (0-5) /HPF Ur Squamous Epith Cells (<= Few) Urine Bacteria (None Seen) /HPF Urine Culture Comments 01/22/18 Range/Units 21:45 WBC (4.8-10.8) x10^3/uL RBC (4.20-5.40) 10^6/uL Hgb (12.0-16.0) g/dL Hct (37.0-47.0) % MCV (81.0-99.0) fL MCH (27.0-31.0) pg MCHC (32.0-36.0) g/dL RDW (12.0-15.0) % Plt Count (130-450) 10^3/uL MPV (7.9-10.8) fL Neut # (Auto) (1.5-6.6) 10^3/uL Lymph # (Auto) (1.5-3.5) 10^3/uL [place] # (Auto) (0.0-1.0) 10^3/uL Eos # (Auto) (0.0-0.7) 10^3/uL Baso # (Auto) (0.0-0.1) 10^3/uL Absolute Nucleated RBC x10^3/uL Nucleated RBC % /100WBC Sodium (135-145) mmol/L Potassium (3.5-5.0) mmol/L Chloride (101-111) mmol/L Carbon Dioxide (21-32) mmol/L Anion Gap (6-13) BUN (6-20) mg/dL Creatinine (0.4-1.0) mg/dL Estimated GFR (MDRD) (>89) Glucose (70-100) mg/dL Calcium (8.5-10.3) mg/dL Phosphorus (2.5-4.6) mg/dL Magnesium (1.7-2.8) mg/dL Total Bilirubin (0.2-1.0) mg/dL AST (10-42) IU/L ALT (10-60) IU/L Alkaline Phosphatase (42-121) IU/L Total Protein (6.7-8.2) g/dL Albumin (3.2-5.5) g/dL Globulin (2.1-4.2) g/dL Albumin/Globulin Ratio (1.0-2.2) Prealbumin (18-45) mg/dL Urine Color YELLOW Urine Clarity CLOUDY (CLEAR) Urine pH 6.5 (5.0-7.5) PH Ur Specific [place] 1.015 (1.002-1.030) Urine Protein NEGATIVE (NEGATIVE) mg/dL Urine Glucose (UA) NEGATIVE (NEGATIVE) mg/dL Urine Ketones NEGATIVE (NEGATIVE) mg/dL Urine Occult Blood NEGATIVE (NEGATIVE) Urine Nitrite NEGATIVE (NEGATIVE) Urine Bilirubin NEGATIVE (NEGATIVE) Urine Urobilinogen 0.2 (NORMAL) (NORMAL) E.U./dL Ur Leukocyte Esterase NEGATIVE (NEGATIVE) Urine RBC 0-5 (0-5) /HPF Urine WBC 0-3 (0-5) /HPF Ur Squamous Epith Cells FEW Squamous (<= Few) Urine Bacteria None Seen (None Seen) /HPF Urine Culture Comments NOT INDICATED Sepsis Event Note (H) - Evaluation Current Stage of Sepsis: Ruled out Assessment/Plan - Problem List (2) Cerebrovascular accident (CVA) Qualifiers: CVA mechanism: occlusion Precerebral and cerebral artery: middle cerebral artery Laterality of affected vessel: left Qualified Code(s): I63.512 - Ce rebral infarction due to unspecified occlusion or stenosis of left middle cerebral artery (3) Dysphagia as late effect of cerebrovascular accident (CVA) Impression: PEG tube in place with no abdominal complaint or distension. Recommend initiating feeds on a pump at low rate - 10-20 ml/hr and increasing to goal from there before transitioning to bolus feeds.
--- NOTE | 2018-01-23 11:42 | PROVIDER PROGRESS NOTE ---
Subjective - Prog Note Date Prog Note Date: 01/23/18 - Subjective Pt reports feeling: No change Subjective: pt still has aphasia, dysphagia. pt also complain mild to moderate left lower quadrant abdominal pain, order CT to check for. start PEG tube feeding for pt, no complaint for PEG feeding as far. Current Medications - Current Medications Current Medications: Active Medications Acetaminophen (Tylenol) 650 mg NC Q6HR PRN PRN Reason: Pain or Fever > 38C (100.4F) Last Admin: 01/20/18 12:45 Dose: 650 mg Acetaminophen (Tylenol) 650 mg PO Q4H PRN PRN Reason: PRN PAIN &/OR FEVER Ampicillin Sodium/Sulbactam (Sodium 1.5 gm/ Sodium Chloride) 100 mls @ 200 mls/hr IV Q6HR TANYA Stop: 01/26/18 00:00 Last Infusion: 01/23/18 06:00 Dose: Infused Levetiracetam 500 mg/ Sodium (Chloride) 105 mls @ 400 mls/hr IV BID TANYA Last Infusion: 01/23/18 08:36 Dose: Infused Acetaminophen (Ofirmev) 100 mls @ 400 mls/hr IV Q6HR PRN PRN Reason: PAIN Last Infusion: 01/22/18 20:45 Dose: Infused Potassium Chloride 40 meq/ (Dextrose/Sodium Chloride) 1,000 mls @ 100 mls/hr IV .Q10H TANYA Stop: 01/23/18 17:59 Metoclopramide HCl (Reglan Inj) 5 mg IVP Q6HR PRN PRN Reason: Nausea / Vomiting Last Admin: 01/22/18 13:13 Dose: 5 mg Nitroglycerin (Nitrostat) 0.4 mg SL Q5MIN PRN PRN Reason: Chest Pain Ondansetron HCl (Zofran Inj) 4 mg IVP Q6HR PRN PRN Reason: Nausea / Vomiting Oxycodone HCl (Roxicodone) 5 mg PO Q4H PRN PRN Reason: PAIN Last Admin: 01/23/18 02:55 Dose: 5 mg Pantoprazole Sodium (Protonix) 40 mg IVP QDAC TANYA Last Admin: 01/23/18 05:24 Dose: 40 mg Scopolamine HBr (Transderm-Scop) 1 patch TOP Q3D TANYA Last Admin: 01/22/18 21:54 Dose: 1 patch Sodium Chloride (Normal Saline Flush 0.9%) 10 ml IVP PRN PRN PRN Reason: NEEDED PER PROVIDER ORDERS Last Admin: 01/22/18 21:16 Dose: 10 ml Sodium Chloride (Normal Saline Flush 0.9%) 10 ml IVP 0100,0900,1700 TANYA Last Admin: 01/23/18 08:23 Dose: 10 ml Aspirin 81 mg PO DAILY 12/26/17 Acetaminophen [Tylenol] 650 mg PO Q4H PRN 01/20/18 Bisacodyl Supp [Dulcolax Supp] 10 mg NC DAILY PRN 01/20/18 Ergocalciferol [Vitamin D2] 50,000 unit PO Q7D 01/20/18 Melatonin 5 mg PO QPM PRN 01/20/18 Metoprolol Tartrate [Lopressor] 12.5 mg PO BID 01/20/18 Nitroglycerin [Nitrostat] 0.4 mg SL Q5MIN PRN 01/20/18 Omeprazole 20 mg PO BID 01/20/18 Ondansetron [Zofran Odt] 4 mg PO Q8H PRN 01/20/18 Polyethylene Glycol 3350 [Miralax] 17 gm PO DAILY PRN 01/20/18 Scopolamine 1 patch TD Q3D 01/20/18 Senna [Senokot] 17.2 mg PO QPM PRN 01/20/18 oxyCODONE [Roxicodone] 5 mg PO Q4H PRN 01/20/18 Objective - Vital Signs/Intake & Output Reviewed Vital Signs: Yes Vital Signs: Vital Signs x48h Temp Pulse Resp BP Pulse Ox 01/23/18 08:49 36.7 C 72 22 124/77 100 01/23/18 05:20 36.1 C L 83 20 142/67 H 97 Intake & Output: Intake & Output 01/20/18 01/21/18 01/22/18 01/23/18 23:59 23:59 23:59 23:59 Intake Total 3071.333 2754.999 3296.667 956.249 Output Total 540 310 5 Balance 2531.333 2754.999 2986.667 951.249 - Objective General Appearance: positive: No acute distress, Alert. negative: Lethargic Eyes Bilateral: positive: Normal inspection, PERRL, No lid inflammation, Conjunctivae nml ENT: positive: ENT inspection nml, Pharynx nml, No signs of dehydration. negative: Purulent nasal drainage, Pharyngeal erythema, Oral lesions Neck: positive: Nml inspection, Thyroid nml, No JVD, Trachea midline. negative: Thyromegaly, Lymphadenopathy (R), Lymphadenopathy (L), Stiff neck, Swelling/bruising, Tracheal deviation Respiratory: positive: Chest non-tender, No respiratory distress, Breath sounds nml. negative: Wheezes, Rales, Rhonchi Cardiovascular: positive: Regular rate & rhythm, No murmur, No gallop. negative: Irregularly irregular, Extrasystoles, Tachycardia, Bradycardia, JVD present, Systolic murmur, Diastolic murmur Peripheral Pulses: 2+ Radial (R), 2+ Radial (L), 2+ Dorsalis pedis (R), 2+ Dorsalis pedis (L) Abdomen: positive: Non-tender, No organomegaly, Nml bowel sounds, No distention. negative: Tenderness, Guarding, Rebound Back: positive: Nml inspection. negative: CVA tenderness (R), CVA tenderness (L) Skin: positive: Color nml, No rash, Warm, Dry. negative: Cyanosis, Diaphoresis, Pallor Extremities: positive: Non-tender, Nml appearance. negative: Full ROM, Calf tenderness, Joint swelling, Gregory's sign/cords Neurologic/Psychiatric: positive: Weakness, Sensory loss, Facial droop, [place] d/abnml speech. negative: Motor nml, Sensation nml - Lab Results Fish Bones: 01/23/18 04:50 01/23/18 04:50 Other Labs: Lab Results x24hrs 01/23/18 01/23/18 01/23/18 Range/Units 04:50 04:50 04:50 WBC 11.3 H (4.8-10.8) x10^3/uL RBC 4.10 L (4.20-5.40) 10^6/uL Hgb 12.0 (12.0-16.0) g/dL Hct 36.9 L (37.0-47.0) % MCV 89.9 (81.0-99.0) fL MCH 29.3 (27.0-31.0) pg MCHC 32.6 (32.0-36.0) g/dL RDW 13.7 (12.0-15.0) % Plt Count 275 (130-450) 10^3/uL MPV 9.6 (7.9-10.8) fL Neut # (Auto) 7.4 H (1.5-6.6) 10^3/uL Lymph # (Auto) 3.0 (1.5-3.5) 10^3/uL [place] # (Auto) 0.8 (0.0-1.0) 10^3/uL Eos # (Auto) 0.1 (0.0-0.7) 10^3/uL Baso # (Auto) 0.1 (0.0-0.1) 10^3/uL Absolute Nucleated RBC 0.00 x10^3/uL Nucleated RBC % 0.0 /100WBC Sodium 144 (135-145) mmol/L Potassium 2.9 L (3.5-5.0) mmol/L Chloride 109 (101-111) mmol/L Carbon Dioxide 25 (21-32) mmol/L Anion Gap 10.0 (6-13) BUN < 5 L (6-20) mg/dL Creatinine 0.4 (0.4-1.0) mg/dL Estimated GFR (MDRD) 166 (>89) Glucose 117 H (70-100) mg/dL Calcium 8.6 (8.5-10.3) mg/dL Phosphorus 3.6 (2.5-4.6) mg/dL Magnesium 1.8 (1.7-2.8) mg/dL Total Bilirubin 0.6 (0.2-1.0) mg/dL AST 17 (10-42) IU/L ALT 17 (10-60) IU/L Alkaline Phosphatase 58 (42-121) IU/L Total Protein 6.6 L (6.7-8.2) g/dL Albumin 3.1 L (3.2-5.5) g/dL Globulin 3.5 (2.1-4.2) g/dL Albumin/Globulin Ratio 0.9 L (1.0-2.2) Prealbumin 13 L (18-45) mg/dL Urine Color Urine Clarity (CLEAR) Urine pH (5.0-7.5) PH Ur Specific [place] (1.002-1.030) Urine Protein (NEGATIVE) mg/dL Urine Glucose (UA) (NEGATIVE) mg/dL Urine Ketones (NEGATIVE) mg/dL Urine Occult Blood (NEGATIVE) Urine Nitrite (NEGATIVE) Urine Bilirubin (NEGATIVE) Urine Urobilinogen (NORMAL) E.U./dL Ur Leukocyte Esterase (NEGATIVE) Urine RBC (0-5) /HPF Urine WBC (0-5) /HPF Ur Squamous Epith Cells (<= Few) Urine Bacteria (None Seen) /HPF Urine Culture Comments 01/22/18 Range/Units 21:45 WBC (4.8-10.8) x10^3/uL RBC (4.20-5.40) 10^6/uL Hgb (12.0-16.0) g/dL Hct (37.0-47.0) % MCV (81.0-99.0) fL MCH (27.0-31.0) pg MCHC (32.0-36.0) g/dL RDW (12.0-15.0) % Plt Count (130-450) 10^3/uL MPV (7.9-10.8) fL Neut # (Auto) (1.5-6.6) 10^3/uL Lymph # (Auto) (1.5-3.5) 10^3/uL [place] # (Auto) (0.0-1.0) 10^3/uL Eos # (Auto) (0.0-0.7) 10^3/uL Baso # (Auto) (0.0-0.1) 10^3/uL Absolute Nucleated RBC x10^3/uL Nucleated RBC % /100WBC Sodium (135-145) mmol/L Potassium (3.5-5.0) mmol/L Chloride (101-111) mmol/L Carbon Dioxide (21-32) mmol/L Anion Gap (6-13) BUN (6-20) mg/dL Creatinine (0.4-1.0) mg/dL Estimated GFR (MDRD) (>89) Glucose (70-100) mg/dL Calcium (8.5-10.3) mg/dL Phosphorus (2.5-4.6) mg/dL Magnesium (1.7-2.8) mg/dL Total Bilirubin (0.2-1.0) mg/dL AST (10-42) IU/L ALT (10-60) IU/L Alkaline Phosphatase (42-121) IU/L Total Protein (6.7-8.2) g/dL Albumin (3.2-5.5) g/dL Globulin (2.1-4.2) g/dL Albumin/Globulin Ratio (1.0-2.2) Prealbumin (18-45) mg/dL Urine Color YELLOW Urine Clarity CLOUDY (CLEAR) Urine pH 6.5 (5.0-7.5) PH Ur Specific [place] 1.015 (1.002-1.030) Urine Protein NEGATIVE (NEGATIVE) mg/dL Urine Glucose (UA) NEGATIVE (NEGATIVE) mg/dL Urine Ketones NEGATIVE (NEGATIVE) mg/dL Urine Occult Blood NEGATIVE (NEGATIVE) Urine Nitrite NEGATIVE (NEGATIVE) Urine Bilirubin NEGATIVE (NEGATIVE) Urine Urobilinogen 0.2 (NORMAL) (NORMAL) E.U./dL Ur Leukocyte Esterase NEGATIVE (NEGATIVE) Urine RBC 0-5 (0-5) /HPF Urine WBC 0-3 (0-5) /HPF Ur Squamous Epith Cells FEW Squamous (<= Few) Urine Bacteria None Seen (None Seen) /HPF Urine Culture Comments NOT INDICATED ABX Reporting Has patient been on IV antibiotics over the past 48 hours?: Yes Sepsis Event Note (H) - Evaluation Current Stage of Sepsis: Ruled out Assessment/Plan - Problem List (1) Status post craniectomy Impression: Impression: 01/23 left side still is paralysis, still aphasia, and dysphagia start PEG at low rate per surgeon and body shop manager today, keep hydration, will hold IVF after replaced potassium 01/22 pt has PEG, will order KUB, start tube feeding per surgeon 01/21, surgeon will put NG tube for pt, will followup Neurologist in [place] agree hold Aspirin at least for one week, continue to have seizure medication 01/20 I called neurologist in [place] for pt's new CT of head study, as document in the front. according to neurologist recommendation, start NG tube, body shop manager consulted continue neuro check continue IVF with D5 NS. pt failed ST evaluation today. continue NPO consult with surgeon continue PT/OT continue tele and vital monitor according to "Dr. Garcia did reach out to [place] neurology who did not recommend any further intervention at this point, recommending only medical management", will reconcile home meds per recommendation from neurologist from [place], limited intervention can be offered to pt. anticoagulation/anti-platlet which would be best started after 24-48 hours to confirm that the patient does not converting to a hemorrhagic stroke. will order CT of brain tomorrow. consult with palliative care continue neuro check continue IVF with D5 NS. pt failed ST evaluation. continue NPO consult with surgeon for PEG tube, will follow up. will reconcile home meds after PEG continue PT/OT continue tele and vital monitor (2) Dysphagia as late effect of cerebrovascular accident (CVA) 01/23 start PEG at low rate per surgeon and body shop manager today, keep hydration lab monitor 01/22, pt still can not eat, will start tube feeding per surgeon 01/21, surgeon will put NG tube for pt, will followup 01/[address] evaluation, will remain NPO start NG, consult with body shop manager, start nutrition. pt failed ST evaluation, will remain NPO now consult with surgeon for PEG tube, will followup IVF of D5 (3) CAD (coronary artery disease) Conclusion/Plan: 01/22 stable, continue tele, vital monitor 01/21 stable, continue tele, vital monitor, and home meds 01/20 will continue home meds continue tele, vital Pt's vital is stable. Patient has extensive history of coronary artery disease with more than 15 stents. will reconcile home meds after pt had PEG, it is difficult without PEG tube continue tele and vital, EKG PRN (4) Infection of scalp 01/22, pt has slight elevated WBC but no fever, chill. unknown etiology but pt has scalp infection from previous surgery, will order CXR and UA, continue antibiotics. continue lab and vital monitor stable, continue IV Unasyn No fever, WBC is normal now. Patient has large scalp wound from the craniectomy. concerned about infection continue IV Unasyn order Lactic acid vital monitor (5) Seizure 01/22 stable, no seizure 01/21, no seizure, continue keppra 01/20 stable, no seizure, will continue home meds Apparently new seizures related to the strokes, [place] neurology recommended Keppra. continue this medication. Seizure precaution. (6) advance care 01/22 continue support and palliative care. 01/21 continue palliative care, continue support 01/20 continue support pt and her family, continue inform pt and her , discuss with them next step care for pt continue palliative care discuss with pt's about palliative care. The agree to have palliative, possible hospice care if pt continue to deteriorate. at this stage, her recognize the limitation of intervention, but still request PEG tube to continue support pt consult with palliative care, will follow up (7) abdominal pain pt complain mild right lower quadrant pain, CT of abdomen, will followup (8) hypokalemia K is 2.9, no chest pain, palpitation. replace with IV of potassium lab monitor (2) Cerebrovascular accident (CVA) Qualifiers: CVA mechanism: occlusion Precerebral and cerebral artery: middle cerebral artery Laterality of affected vessel: left Qualified Code(s): I63.512 - Cerebral infarction due to unspecified occlusion or stenosis of left middle cerebral artery (4) CAD (coronary artery disease) Qualifiers: Coronary Disease-Associated Artery/Lesion type: [place] artery [place] vs. transplanted heart: [place] heart Associated angina: without angina Qualified Code(s): I25.10 - Atherosclerotic heart disease of [place] coronary artery without angina pectoris
--- NOTE | 2018-01-23 16:43 | CT Report ---
Reason: abdominal pain Procedure Date: 01/23/2018 Accession Number: [id number] / [id number] Procedure: CT - Abdomen/Pelvis W/O CPT Code: FULL RESULT: EXAM: CT ABDOMEN AND PELVIS EXAM DATE: 01/23/2018 12:24 PM. CLINICAL HISTORY: Right lower quadrant pain. 2. COMPARISONS: None. TECHNIQUE: Routine helical CT imaging was performed through the abdomen and pelvis. IV contrast: None. Enteric contrast: No. Reconstructions: Coronal and sagittal. In accordance with CT protocol optimization, one or more of the following dose reduction techniques were utilized for this exam: automated exposure control, adjustment of mA and/or KV based on patient size, or use of iterative reconstructive technique. FINDINGS: Lung bases: Emphysema. Dependent atelectasis on the left. Mild aortic and coronary artery calcification. Liver: Normal. No masses. Gallbladder/Bile Ducts: Unremarkable. Spleen: Normal. Pancreas: Normal. Adrenal Glands: Normal. Kidneys: Normal. No masses or hydronephrosis. Peritoneal Cavity/Bowel: PEG tube in place, with mild associated fat stranding. No associated fluid collections or air. No free fluid, free air or adenopathy. No masses or acute inflammatory process. Nonvisualized appendix. Pelvic Organs: Hysterectomy. Unremarkable bladder. Vasculature: No aortic aneurysm. Mild atherosclerotic calcification. Bones: No significant abnormality. Other: None. IMPRESSION: 1. No bowel abnormality, with nonvisualized appendix and no secondary signs. 2. PEG tube in place without complication. 3. Hysterectomy noted. RADIA
[2018-01-23] MEDS: ACETAMINOPHEN 1,000 MG/100 ML 100 ML IV PRN (17:04)
[2018-01-23] MEDS: SODIUM CHLORIDE FLUSH 0.9% 10 ML SYRINGE IVP PRN (18:28)
[2018-01-23] MEDS ORDERED: TEMAZEPAM 7.5 MG CAPSULE PO PRN (20:39)
[2018-01-24] MEDS: AMPICILLIN/SULBACTAM 1.5 GM in SODIUM CHLORIDE 0.9% MINIBAG 100 ML IV SCH ×4 (00:33→18:20)
[2018-01-24] MEDS: SODIUM CHLORIDE FLUSH 0.9% 10 ML SYRINGE IVP SCH ×3 (01:12→19:24)
[2018-01-24 05:30] LABS: BASOPHILS # (AUTO) 0.1 10^3/uL (0.0-0.1); BASOPHILS % (AUTO) 0.9 %; EOSINOPHILS # (AUTO) 0.2 10^3/uL (0.0-0.7); EOSINOPHILS % (AUTO) 2.4 %; HGB - HEMOGLOBIN 11.6 g/dL (12.0-16.0); LYMPHOCYTES % (AUTO) 39.9 %; MEAN CORPUSCULAR HEMOGLOBIN 29.1 pg (27.0-31.0); MEAN CORPUSCULAR HGB CONC 31.9 g/dL (32.0-36.0); MEAN CORPUSCULAR VOLUME 91.1 fL (81.0-99.0); MEAN PLATELET VOLUME 9.3 fL (7.9-10.8); MONOCYTES # (AUTO) 0.6 10^3/uL (0.0-1.0); MONOCYTES % (AUTO) 8.6 %; NEUTROPHILS # (AUTO) 3.6 10^3/uL (1.5-6.6); NEUTROPHILS % (AUTO) 48.2 %; PLT - PLATELET COUNT 234 10^3/uL (130-450); RED CELL DISTRIBUTION WIDTH 13.9 % (12.0-15.0); WHITE BLOOD COUNT 7.4 x10^3/uL (4.8-10.8)
[2018-01-24 05:45] LABS: ALBUMIN 2.9 g/dL (3.2-5.5); BILIRUBIN,TOTAL 0.6 mg/dL (0.2-1.0); CALCIUM 8.8 mg/dL (8.5-10.3); CREATININE 0.5 mg/dL (0.4-1.0); TOTAL PROTEIN 5.8 g/dL (6.7-8.2)
[2018-01-24] MEDS: SODIUM CHLORIDE FLUSH 0.9% 10 ML SYRINGE IVP PRN (06:38)
[2018-01-24] MEDS: PANTOPRAZOLE 40 MG VIAL IVP SCH (06:44)
[2018-01-24] MEDS: levETIRAcetam INJ 500 MG in SODIUM CHLORIDE 0.9% 100ML 100 ML IV SCH ×2 (09:17→21:44)
[2018-01-24] MEDS ORDERED: SODIUM CHLORIDE 0.9% 1,000 ML IV SCH (10:00)
[2018-01-24] MEDS: SODIUM CHLORIDE 0.9% 1,000 ML IV SCH ×2 (10:19→23:59)
--- NOTE | 2018-01-24 14:13 | PROVIDER PROGRESS NOTE ---
Subjective - Prog Note Date Prog Note Date: 01/24/18 - Subjective Pt reports feeling: Improved Subjective: pt has great improvement. she can speak! pt state she feel better, abdominal pain is better. discuss pt about her CT of abdomen is unremarkable PT recommend pt has inpt acute rehab, notified with social media content specialist about inpt acute rehab needs for pt by PT Current Medications - Current Medications Current Medications: Active Medications Acetaminophen (Tylenol) 650 mg WI Q6HR PRN PRN Reason: Pain or Fever > 38C (100.4F) Last Admin: 01/20/18 12:45 Dose: 650 mg Acetaminophen (Tylenol) 650 mg PO Q4H PRN PRN Reason: PRN PAIN &/OR FEVER Ampicillin Sodium/Sulbactam (Sodium 1.5 gm/ Sodium Chloride) 100 mls @ 200 mls/hr IV Q6HR [facility] Stop: 01/26/18 00:00 Last Admin: 01/24/18 13:06 Dose: 200 mls/hr Levetiracetam 500 mg/ Sodium (Chloride) 105 mls @ 400 mls/hr IV BID TANYA Last Infusion: 01/24/18 09:33 Dose: Infused Acetaminophen (Ofirmev) 100 mls @ 400 mls/hr IV Q6HR PRN PRN Reason: PAIN Last Infusion: 01/23/18 17:20 Dose: Infused Sodium Chloride (Normal Saline 0.9%) 1,000 mls @ 75 mls/hr IV .[id number] [facility] Last Admin: 01/24/18 10:19 Dose: 75 mls/hr Metoclopramide HCl (Reglan Inj) 5 mg IVP Q6HR PRN PRN Reason: Nausea / Vomiting Last Admin: 01/22/18 13:13 Dose: 5 mg Nitroglycerin (Nitrostat) 0.4 mg SL Q5MIN PRN PRN Reason: Chest Pain Ondansetron HCl (Zofran Inj) 4 mg IVP Q6HR PRN PRN Reason: Nausea / Vomiting Oxycodone HCl (Roxicodone) 5 mg PO Q4H PRN PRN Reason: PAIN Last Admin: 01/23/18 21:31 Dose: 5 mg Pantoprazole Sodium (Protonix) 40 mg IVP QDAC TANYA Last Admin: 01/24/18 06:44 Dose: 40 mg Scopolamine HBr (Transderm-Scop) 1 patch TOP Q3D [facility] Last Admin: 01/22/18 21:54 Dose: 1 patch Sodium Chloride (Normal Saline Flush 0.9%) 10 ml IVP PRN PRN PRN Reason: NEEDED PER PROVIDER ORDERS Last Admin: 01/24/18 06:38 Dose: 10 ml Sodium Chloride (Normal Saline Flush 0.9%) 10 ml IVP 0100,0900,1700 [facility] Last Admin: 01/24/18 06:44 Dose: 10 ml Temazepam (Restoril) 7.5 mg PO QPM PRN PRN Reason: Insomnia Aspirin 81 mg PO DAILY 12/26/17 Acetaminophen [Tylenol] 650 mg PO Q4H PRN 01/20/18 Bisacodyl Supp [Dulcolax Supp] 10 mg [place] DAILY PRN 01/20/18 Ergocalciferol [Vitamin D2] 50,000 unit PO Q7D 01/20/18 Melatonin 5 mg PO QPM PRN 01/20/18 Metoprolol Tartrate [Lopressor] 12.5 mg PO BID 01/20/18 Nitroglycerin [Nitrostat] 0.4 mg SL Q5MIN PRN 01/20/18 Omeprazole 20 mg PO BID 01/20/18 Ondansetron [Zofran Odt] 4 mg PO Q8H PRN 01/20/18 Polyethylene Glycol 3350 [Miralax] 17 gm PO DAILY PRN 01/20/18 Scopolamine 1 patch TD Q3D 01/20/18 Senna [Senokot] 17.2 mg PO QPM PRN 01/20/18 oxyCODONE [Roxicodone] 5 mg PO Q4H PRN 01/20/18 Objective - Vital Signs/Intake & Output Reviewed Vital Signs: Yes Vital Signs: Vital Signs x48h Temp Pulse Resp BP BP Pulse Ox 01/24/18 07:36 36.2 C L 79 18 86/66 L 99/73 99 Intake & Output: Intake & Output 01/21/18 01/22/18 01/23/18 01/24/18 23:59 23:59 23:59 23:59 Intake Total 2754.999 3296.667 4028.327 881.666 Output Total 310 15 0 Balance 2754.999 2986.667 4013.327 881.666 - Objective General Appearance: positive: No acute distress, Alert. negative: Lethargic Eyes Bilateral: positive: Normal inspection, PERRL, No lid inflammation, Conjunctivae nml ENT: positive: ENT inspection nml, Pharynx nml, No signs of dehydration. negative: Purulent nasal drainage, Pharyngeal erythema, Oral lesions Neck: positive: Nml inspection, Thyroid nml, No JVD, Trachea midline. negative: Thyromegaly, Lymphadenopathy (R), Lymphadenopathy (L), Stiff neck, Swelling/bruising, Tracheal deviation Respiratory: positive: Chest non-tender, No respiratory distress, Breath sounds nml. negative: Wheezes, Rales, Rhonchi Cardiovascular: positive: Regular rate & rhythm, No murmur, No gallop. negative: Irregularly irregular, Extrasystoles, Tachycardia, Bradycardia, JVD present, Systolic murmur, Diastolic murmur Peripheral Pulses: 2+ Radial (R), 2+ Radial (L), 2+ Dorsalis pedis (R), 2+ Dorsalis pedis (L) Abdomen: positive: Non-tender, No organomegaly, Nml bowel sounds, No distention. negative: Tenderness, Guarding, Rebound Back: positive: Nml inspection. negative: CVA tenderness (R), CVA tenderness (L) Skin: positive: Color nml, No rash, Warm, Dry. negative: Cyanosis, Diaphoresis, Pallor Extremities: positive: Non-tender, Nml appearance. negative: Calf tenderness, Joint swelling, Gregory's sign/cords Neurologic/Psychiatric: positive: Mood/affect nml, Weakness, Sensory loss, Facial droop. negative: Slurred/abnml speech - Lab Results Fish Bones: 01/24/18 05:15 01/24/18 05:15 Other Labs: Lab Results x24hrs 01/24/18 01/24/18 Range/Units 05:15 05:15 WBC 7.4 (4.8-10.8) x10^3/uL RBC 4.00 L (4.20-5.40) 10^6/uL Hgb 11.6 L (12.0-16.0) g/dL Hct 36.5 L (37.0-47.0) % MCV 91.1 (81.0-99.0) fL MCH 29.1 (27.0-31.0) pg MCHC 31.9 L (32.0-36.0) g/dL RDW 13.9 (12.0-15.0) % Plt Count 234 (130-450) 10^3/uL MPV 9.3 (7.9-10.8) fL Neut # (Auto) 3.6 (1.5-6.6) 10^3/uL Lymph # (Auto) 3.0 (1.5-3.5) 10^3/uL Swisher # (Auto) 0.6 (0.0-1.0) 10^3/uL Eos # (Auto) 0.2 (0.0-0.7) 10^3/uL Baso # (Auto) 0.1 (0.0-0.1) 10^3/uL Absolute Nucleated RBC 0.00 x10^3/uL Nucleated RBC % 0.1 /100WBC Sodium 139 (135-145) mmol/L Potassium 3.8 (3.5-5.0) mmol/L Chloride 107 (101-111) mmol/L Carbon Dioxide 27 (21-32) mmol/L Anion Gap 5.0 L (6-13) BUN 5 L (6-20) mg/dL Creatinine 0.5 (0.4-1.0) mg/dL Estimated GFR (MDRD) 129 (>89) Glucose 105 H (70-100) mg/dL Calcium 8.8 (8.5-10.3) mg/dL Total Bilirubin 0.6 (0.2-1.0) mg/dL AST 17 (10-42) IU/L ALT 14 (10-60) IU/L Alkaline Phosphatase 56 (42-121) IU/L Total Protein 5.8 L (6.7-8.2) g/dL Albumin 2.9 L (3.2-5.5) g/dL Globulin 2.9 (2.1-4.2) g/dL Albumin/Globulin Ratio 1.0 (1.0-2.2) ABX Reporting Has patient been on IV antibiotics over the past 48 hours?: Yes Sepsis Event Note (H) - Evaluation Current Stage of Sepsis: Ruled out Assessment/Plan - Problem List (1) Status post craniectomy Impression: 01/24, great improvement, pt can speak! continue PEG tube, increase 40cc/h, hydration continue PT/OT, recommend to inpt acute rehab 01/23 left side still is paralysis, still aphasia, and dysphagia start PEG at low rate per surgeon and foil cutter today, keep hydration, will hold IVF after replaced potassium 01/22 pt has PEG, will order KUB, start tube feeding per surgeon 01/21, surgeon will put NG tube for pt, will followup Neurologist in [place] agree hold Aspirin at least for one week, continue to hav e seizure medication 01/20 I called neurologist in [place] for pt's new CT of head study, as document in the front. according to neurologist recommendation, start NG tube, foil cutter consulted continue neuro check continue IVF with D5 NS. pt failed ST evaluation today. continue NPO consult with surgeon continue PT/OT continue tele and vital monitor according to "Dr. Garcia did reach out to [place] neurology who did not recommend any further intervention at this point, recommending only medical management", will reconcile home meds per recommendation from neurologist from [place], limited intervention can be offered to pt. anticoagulation/anti-platlet which would be best started after 24-48 hours to confirm that the patient does not converting to a hemorrhagic stroke. will order CT of brain tomorrow. consult with palliative care continue neuro check continue IVF with D5 NS. pt failed ST evaluation. continue NPO consult with surgeon for PEG tube, will follow up. will reconcile home meds after PEG continue PT/OT continue tele and vital monitor (2) Dysphagia as late effect of cerebrovascular accident (CVA) 01/23 still dysphagia will request ST evaluation again to improvement 01/23 start PEG at low rate per surgeon and foil cutter today, keep hydration lab monitor 01/22, pt still can not eat, will start tube feeding per surgeon 01/21, surgeon will put NG tube for pt, will followup 01/[address] evaluation, will remain NPO start NG, consult with foil cutter, start nutrition. pt failed ST evaluation, will remain NPO now consult with surgeon for PEG tube, will followup IVF of D5 (3) CAD (coronary artery disease) Conclusion/Plan: 01/23 stable, continue tele, vital monitor, and home meds 01/22 stable, continue tele, vital monitor 01/21 stable, continue tele, vital monitor, and home meds 01/20 will continue home meds continue tele, vital Pt's vital is stable. Patient has extensive history of coronary artery disease with more than 15 stents. will reconcile home meds after pt had PEG, it is difficult without PEG tube continue tele and vital, EKG PRN (4) Infection of scalp will finish 7 days Unysn 01/22, pt has slight elevated WBC but no fever, chill. unknown etiology but pt has scalp infection from previous surgery, will order CXR and UA, continue antibiotics. continue lab and vital monitor stable, continue IV Unasyn No fever, WBC is normal now. Patient has large scalp wound from the craniectomy. concerned about infection continue IV Unasyn order Lactic acid vital monitor (5) Seizure 01/22 stable, no seizure 01/21, no seizure, continue keppra 01/20 stable, no seizure, will continue home meds Apparently new seizures related to the strokes, [place] neurology recommended Keppra. continue this medication. Seizure precaution. (6) advance care 01/22 continue support and palliative care. 01/21 continue palliative care, continue support 01/20 continue support pt and her family, continue inform pt and her , discuss with them next step care for pt continue palliative care discuss with pt's about palliative care. The agree to have palliative, possible hospice care if pt continue to deteriorate. at this stage, her recognize the limitation of intervention, but still request PEG tube to continue support pt consult with palliative care, will follow up (7) abdominal pain 01/24, better, CT of abdomen is unremarkable pt complain mild right lower quadrant pain, CT of abdomen, will followup (8) hypokalemia 01/24 resolved K is 2.9, no chest pain, palpitation. replace with IV of potassium lab monitor (2) Cerebrovascular accident (CVA) Qualifiers: CVA mechanism: occlusion Precerebral and cerebral artery: middle cerebral artery Laterality of affected vessel: left Qualified Code(s): I63.512 - Cerebral infarction due to unspecified occlusion or stenosis of left middle cerebral artery (4) CAD (coronary artery disease) Qualifiers: Coronary Disease-Associated Artery/Lesion type: [place] artery [place] vs. transplanted heart: [place] heart Associated angina: without angina Qualified Code(s): I25.10 - Atherosclerotic heart disease of [place] coronary artery without angina pectoris
[2018-01-24] MEDS ORDERED: BISACODYL 10 MG SUPP PR ONE (22:44)
[2018-01-25] MEDS: AMPICILLIN/SULBACTAM 1.5 GM in SODIUM CHLORIDE 0.9% MINIBAG 100 ML IV SCH ×3 (00:10→12:09)
[2018-01-25] MEDS: SODIUM CHLORIDE FLUSH 0.9% 10 ML SYRINGE IVP SCH ×2 (00:18→06:39)
[2018-01-25 05:07] LABS: BASOPHILS % (AUTO) 0.5 %; EOSINOPHILS # (AUTO) 0.2 10^3/uL (0.0-0.7); EOSINOPHILS % (AUTO) 2.3 %; HGB - HEMOGLOBIN 12.3 g/dL (12.0-16.0); LYMPHOCYTES # (AUTO) 2.7 10^3/uL (1.5-3.5); LYMPHOCYTES % (AUTO) 32.7 %; MEAN CORPUSCULAR HEMOGLOBIN 29.4 pg (27.0-31.0); MEAN CORPUSCULAR HGB CONC 32.2 g/dL (32.0-36.0); MEAN CORPUSCULAR VOLUME 91.4 fL (81.0-99.0); MEAN PLATELET VOLUME 9.7 fL (7.9-10.8); MONOCYTES # (AUTO) 0.6 10^3/uL (0.0-1.0); MONOCYTES % (AUTO) 6.8 %; NEUTROPHILS # (AUTO) 4.8 10^3/uL (1.5-6.6); NEUTROPHILS % (AUTO) 57.7 %; PLT - PLATELET COUNT 220 10^3/uL (130-450); RED BLOOD COUNT 4.17 10^6/uL (4.20-5.40); RED CELL DISTRIBUTION WIDTH 14.1 % (12.0-15.0); WHITE BLOOD COUNT 8.2 x10^3/uL (4.8-10.8)
[2018-01-25 05:21] LABS: ALBUMIN/GLOBULIN RATIO 0.9 (1.0-2.2); BILIRUBIN,TOTAL 0.5 mg/dL (0.2-1.0); CALCIUM 8.5 mg/dL (8.5-10.3); CREATININE 0.5 mg/dL (0.4-1.0); MAGNESIUM 1.9 mg/dL (1.7-2.8); PHOSPHORUS 4.2 mg/dL (2.5-4.6); TOTAL PROTEIN 6.2 g/dL (6.7-8.2)
[2018-01-25] MEDS: PANTOPRAZOLE 40 MG VIAL IVP SCH (06:39)
[2018-01-25 07:01] VITALS: BP 121/49
[2018-01-25] MEDS: levETIRAcetam INJ 500 MG in SODIUM CHLORIDE 0.9% 100ML 100 ML IV SCH (07:48)
[2018-01-25] MEDS ORDERED: POLYETHYLENE GLYCOL 3350 17 GM PACKET PO SCH (09:00)
[2018-01-25] MEDS ORDERED: SODIUM CHLORIDE 0.9% 1,000 ML IV SCH (09:05)
--- NOTE | 2018-01-25 12:08 | Discharge Plan ---
"Discharge Plan for SNF / [facility] - Discharge Plan And Transition Orders Disposition: 03 SNF DC/Xfer Condition: Poor Allergies and Adverse Reactions: Allergies Allergy/AdvReac Type Severity Reaction Status Date / Time Iodinated Contrast- Oral and Allergy Rash Verified 01/18/18 19:54 IV Dye morphine Allergy Rash Verified 01/18/18 19:54 - SNF / [facility] Transition Orders Admit to (Facility): [facility] Under the care of (Name): Kiersten Patricio Discharge Diagnosis: CVA, dysphagia, aphasia improved, hx of CAD Medicare Certification Statement: I certify that Post Hospital detention care is medically necessary on a continuing basis for any of the conditions for which she/he is receiving care during hospitalization. Notify PCP of admission and forward orders to primary provider for signature. Weight on admission and: Daily Call PCP immediately if weight increases by: 2 kg Other Notification Orders: Call PCP immediately if patient develops dyspnea, chest pain/tightness or edema. House Bowel Program: Yes Additional Bowel Program Orders: If no BM after 2 days, nurse may give M.O.M. 30ml PO PRN and/or ducolax Supp 1 NJ and/or ARNOLDO 250mg P.O., and/or senna 1-2 tabs PO. On day 3 nurse may give repeat above order until residents constipation is resolved. Annual Influenza Vaccine (between Nov 07 and June 06): Yes Two-step PPD per [facility] [phone] or approved exception documents: Yes Treatments & Other Orders: Pt may followup PCP, Kiersten Patricio, as pt is arrival to [facility], continue tube feeding 55ml/h of Jevit 1.2, 1584 kcal 71 grams protein 1102 ml free water 480 ml free water 1582 ml total water, adjust as SNF needs, may continue PT/OT/ST. Medication Orders: PLEASE REFER TO THE DISCHARGE MEDICATION LIST. Insulin Orders?: No - Therapies | Activity Therapy: Evaluation | Treat if indicated: Speech, PT, OT, Swallowing / ST Rehabilitation Potential: Maximize functional status Activity: Activity as Tolerated"
--- NOTE | 2018-01-25 12:29 | DISCHARGE SUMMARY ---
Discharge Summary Discharge Date: 01/25/18 Discharging Provider: WHITE Primary Care Provider: Kiersten Patricio Condition at Discharge: Poor Discharge Disposition: 03 SNF DC/Xfer Discharge Facility Name: [facility] - DIAGNOSES Admission Diagnoses: (1) Cerebrovascular accident (CVA) (2) Dysphagia as late effect of cerebrovascular accident (CVA) (3) CAD (coronary artery disease) (4) Infection of scalp (5) Seizure Discharge Diagnoses with Status of Each Condition: (1) new CVA with Status post craniectomy Impression: great improvement, pt can speak. continue PEG tube, adjust feed rate as SNF needs. Pt and her request to d/c to [facility]. continue PT/OT. Consulted with neurologist in , and keep pt's home medication regimen. followup PCP and neurologist (2) Dysphagia as late effect of cerebrovascular accident (CVA) pt has PEG tube done by surgeon. pt tolerate tube feeding. consulted with Light Rail Signal Technician for tube feeding. Feed rate is 55cc/h with Jevit 1.2. adjust feed rate is as SNF needs (3) CAD (coronary artery disease) stable, continue home meds regimen, follow up PCP and her plan checker (4) Infection of scalp stable, healing with scar tissue. pt finished the antibiotics course, no further antibiotics is indicated at this point. followup PCP (5) Seizure no seizure in hospital. continue home Keppra, followup neurologist (6) advance care pt and her request palliative care, followup palliative care provider (7) abdominal pain resolved. CT of abdomen is unremarkable (8) hypokalemia resolved - HPI History of Present Illness: refer from Dr. Palacios's HPI on 01/19 for pt as the following: Patient is a 52-year-old female who appears older than her stated age who has a past medical history of CAD, tobacco abuse, hypertension, CVA who presents with possible new developments of seizure disorder and recent development of dysphagia and aphonia related to recent stroke. Patient was seen in this facility in December 2017 where she presented with left- sided hemiparesis and weakness who at that time had verbal capacity to provide history. Workup in our facility revealed an acute stroke and she was transferred to [facility] after having demonstrated a right M1 occlusion on a CT angiogram. She had a mechanical thrombectomy for right ICA occlusion, after which she developed malignant cerebral edema, brain compression requiring a decompressive hemicraniectomy and a prolonged hospital stay and [facility]. She was discharged to this facility on January 12, 2018 and apparently had been having a progressively improved course up until 2 days ago when she was noted to have developed new onset of seizures, and hit her head and was brought to the emergency room for evaluation. CT scan at that time did not demonstrate any acute findings, and [facility] neurology was consulted by telephone and they provided the advice of starting Keppra but did not recommend any other intervention or transfer to their facility at that time. She was also having expressive a aphasia and aphonia at the time of presentation and this was also a concern of the medical provider at the nursing facility however by the time the patient was discharged from the ER 2 days ago this had began to improve. She was brought to the emergency room today because this a aphasia has started worsening again and she has now become completely nonverbal and intolerance to any oral intake at all due to significant dysphagia. She also has intermittent ability to comprehend verbal commands. Prior to my accepting the patient on admission to our service I did request that the patient had a stat head CT to ev aluate any possible evolution of stroke between the ER visit 2 days ago and this evening and unfortunately in fact the patient does now have a new infarct of the left posterior frontal lobe. Dr. Garcia did reach out to [facility] neurology who did not recommend any further intervention at this point, recommending only medical management, observation and I was again contacted to admit the patient. At the time of this examination patient was alone, had gone home, and she is completely nonverbal and unable to provide any history and all history was obtained from medical records and speaking to Dr. Garcia. - HOSPITAL COURSE Hospital Course: pt was admitted for new onset CVA. Pt had major complicate CVA around 3 weeks. pt developed dysphagia, aphasia. Pt had PEG feeding tube done by surgeon. Light Rail Signal Technician was consulted. pt tolerated the tube feeding. Neurologist in was consulted. According to the consult of neurologist, pt is d/c to [facility] with home medication regimen. pt request to be d/c to [facility]. Pt is advised to follow up PCP and neurologist. - ALLERGIES Allergies/Adverse Reactions: Allergies Allergy/AdvReac Type Severity Reaction Status Date / Time Iodinated Contrast- Oral and Allergy Rash Verified 01/18/18 19:54 IV Dye morphine Allergy Rash Verified 01/18/18 19:54 - MEDICATIONS Home Medications: Ambulatory Orders Medication Instructions Recorded Confirmed Aspirin 81 mg PO DAILY 12/26/17 01/20/18 Levetiracetam [Keppra] 750 mg PO BID #30 tablet 01/17/18 01/20/18 Acetaminophen [Tylenol] 650 mg PO Q4H PRN 01/20/18 01/20/18 Bisacodyl Supp [Dulcolax Supp] 10 mg [place] DAILY PRN 01/20/18 01/20/18 Ergocalciferol [Vitamin D2] 50,000 unit PO Q7D 01/20/18 01/20/18 Melatonin 5 mg PO QPM PRN 01/20/18 01/20/18 Metoprolol Tartrate [Lopressor] 12.5 mg PO BID 01/20/18 01/20/18 Nitroglycerin [Nitrostat] 0.4 mg SL Q5MIN PRN 01/20/18 01/20/18 Omeprazole 20 mg PO BID 01/20/18 01/20/18 Ondansetron [Zofran Odt] 4 mg PO Q8H PRN 01/20/18 01/20/18 Polyethylene Glycol 3350 [Miralax] 17 gm PO DAILY PRN 01/20/18 01/20/18 Scopolamine 1 patch TD Q3D 01/20/18 01/20/18 Senna [Senokot] 17.2 mg PO QPM PRN 01/20/18 01/20/18 oxyCODONE [Roxicodone] 5 mg PO Q4H PRN 01/20/18 01/20/18 - PHYSICAL EXAM AT DISCHARGE General Appearance: positive: No acute distress, Alert. negative: Lethargic Eyes Bilateral: positive: Normal inspection, PERRL, No lid inflammation, Conjunctivae nml ENT: positive: ENT inspection nml, Pharynx nml, No signs of dehydration. negative: Purulent nasal drainage, Pharyngeal erythema, Oral lesions Neck: positive: Nml inspection, Thyroid nml, No JVD, Trachea midline. negative: Thyromegaly, Lymphadenopathy (R), Lymphadenopathy (L), Stiff neck, Swelling/bruising, Tracheal deviation Respiratory: positive: Chest non-tender, No respiratory distress, Breath sounds nml. negative: Wheezes, Rales, Rhonchi Cardiovascular: positive: Regular rate & rhythm, No murmur, No gallop. negative: Irregularly irregular, Extrasystoles, Tachycardia, Bradycardia, JVD present, Systolic murmur, Diastolic murmur Peripheral Pulses: positive: 2+ Abdomen: positive: Non-tender, No organomegaly, Nml bowel sounds, No distention. negative: Tenderness, Guarding, Rebound Back: positive: Nml inspection. negative: CVA tenderness (R), CVA tenderness (L) Skin: positive: Color nml, No rash, Warm, Dry. negative: Cyanosis, Diaphoresis, Pallor Extremities: positive: Non-tender, Nml appearance. negative: Full ROM, Pedal edema, Calf tenderness, Gregory's sign/cords Neurologic/Psychiatric: positive: Oriented x3, Mood/affect nml, Weakness, Sensory loss, Facial droop, Slurred/abnml speech. negative: Depressed mood/affect - LABS Result Diagrams: 01/25/18 04:37 01/25/18 04:37 - SEPSIS Current Stage of Sepsis: Ruled out - FOLLOW UP Follow Up: Pt may followup PCP, Kiersten Patricio, as pt is arrival to [facility], continue tube feeding 55ml/h of Jevit 1.2, 1584 kcal 71 grams protein 1102 ml free water 480 ml free water 1582 ml total water, adjust as SNF needs, may continue PT/OT/ST, may followup your neurologist as your schedule. - TIME SPENT Time Spent in Discharge (Minutes): 60
== END 2018-01-25 14:00 | DRG 64 ==
LOC: EDUNIT# → ED 19:40 → MS3 22:46
PROVIDERS: ADMIT Family Medicine Sports Medicine; ATTEND Nurse Practitioner Gerontology
PROC: 0DH64UZ Insertion of Feeding Device into Stomach, Percutaneous Endoscopic Approach (ICD-10-PCS; principal; 2018-01-21 13:30)
DX: I63.9 Cerebral infarction, unspecified (principal); G93.6 Cerebral edema; I60.9 Nontraumatic subarachnoid hemorrhage, unspecified; T81.49XA Infection following a procedure, other surgical site, initial encounter; I69.354 Hemiplegia and hemiparesis following cerebral infarction affecting left non-dominant side; R13.11 Dysphagia, oral phase; R47.01 Aphasia; R56.9 Unspecified convulsions; Z98.890 Other specified postprocedural states; R49.1 Aphonia; I10 Essential (primary) hypertension; L08.9 Local infection of the skin and subcutaneous tissue, unspecified; Y83.8 Other surgical procedures as the cause of abnormal reaction of the patient, or of later complication, without mention of misadventure at the time of the procedure; I25.10 Atherosclerotic heart disease of native coronary artery without angina pectoris; R10.32 Left lower quadrant pain; R10.31 Right lower quadrant pain; E87.6 Hypokalemia; I67.82 Cerebral ischemia; I73.9 Peripheral vascular disease, unspecified; K21.9 Gastro-esophageal reflux disease without esophagitis; E78.00 Pure hypercholesterolemia, unspecified; Z51.5 Encounter for palliative care; Z66 Do not resuscitate; I25.2 Old myocardial infarction; Z95.5 Presence of coronary angioplasty implant and graft; Z79.899 Other long term (current) drug therapy; Z79.82 Long term (current) use of aspirin; Z87.891 Personal history of nicotine dependence
CPT/HCPCS: 36415; 70450; 71045; 74018; 74176; 80048; 80053; 81001; 81003; 82040; 83605; 83690; 83735; 84100; 84134; 85025; 85610; 87086; 96360; 99222; 99233; 99284; 99285

== ENCOUNTER 2018-01-25 14:13 | Outpatient (CLI) | payer MEDICARE, OTHER | END 2018-01-25 14:14 | disposition home or self-care (01) | LOC: EMS 14:13 | PROVIDERS: ATTEND Surgery | DX: I63.9 Cerebral infarction, unspecified (principal); Z74.01 Bed confinement status ==

== ENCOUNTER 2018-01-27 21:45 | Outpatient (CLI) | payer MEDICARE, OTHER | END 2018-01-27 21:46 | disposition home or self-care (01) | LOC: LAB.R 21:45 | DX: E55.9 Vitamin D deficiency, unspecified (principal) | CPT/HCPCS: 82306 ==

== ENCOUNTER 2018-02-04 08:00 | Outpatient (CLI) | payer MEDICARE, OTHER ==
[2018-02-04 16:54] LABS: BASOPHILS # (AUTO) 0.1 10^3/uL (0.0-0.1); BASOPHILS % (AUTO) 0.7 %; EOSINOPHILS # (AUTO) 0.1 10^3/uL (0.0-0.7); EOSINOPHILS % (AUTO) 0.7 %; HGB - HEMOGLOBIN 13.7 g/dL (12.0-16.0); LYMPHOCYTES # (AUTO) 2.8 10^3/uL (1.5-3.5); LYMPHOCYTES % (AUTO) 31.8 %; MEAN CORPUSCULAR HEMOGLOBIN 29.6 pg (27.0-31.0); MEAN CORPUSCULAR HGB CONC 33.2 g/dL (32.0-36.0); MEAN CORPUSCULAR VOLUME 89.2 fL (81.0-99.0); MEAN PLATELET VOLUME 10.8 fL (7.9-10.8); MONOCYTES # (AUTO) 0.6 10^3/uL (0.0-1.0); MONOCYTES % (AUTO) 6.3 %; NEUTROPHILS # (AUTO) 5.3 10^3/uL (1.5-6.6); NEUTROPHILS % (AUTO) 60.5 %; PLT - PLATELET COUNT 363 10^3/uL (130-450); RED BLOOD COUNT 4.62 10^6/uL (4.20-5.40); RED CELL DISTRIBUTION WIDTH 14.6 % (12.0-15.0); WHITE BLOOD COUNT 8.7 x10^3/uL (4.8-10.8)
[2018-02-04 17:07] LABS: BILIRUBIN,TOTAL 0.6 mg/dL (0.2-1.0); CALCIUM 9.9 mg/dL (8.5-10.3); CREATININE 0.5 mg/dL (0.4-1.0); TOTAL PROTEIN 7.9 g/dL (6.7-8.2)
[2018-02-04 17:19] LABS: INR 1.1 (0.8-1.2); PT - PROTHROMBIN TIME 12.8 secs (9.9-12.6)
== END 2018-02-04 23:59 | disposition home or self-care (01) ==
LOC: LAB.R 08:00
PROVIDERS: ATTEND Family Medicine
DX: I63.511 Cerebral infarction due to unspecified occlusion or stenosis of right middle cerebral artery (principal); I25.10 Atherosclerotic heart disease of native coronary artery without angina pectoris; G93.40 Encephalopathy, unspecified
CPT/HCPCS: 80053; 85025; 85610; 85730

== ENCOUNTER 2018-02-05 08:00 | Outpatient (CLI) | payer MEDICARE, OTHER ==
[2018-02-05 00:34] LABS: BILIRUBIN,URINE NEGATIVE (NEGATIVE); CLARITY,URINE CLEAR (CLEAR); GLUCOSE, URINE (UA) NEGATIVE (NEGATIVE); KETONES,URINE (UA) NEGATIVE (NEGATIVE); LEUKOCYTE ESTERASE, URINE TRACE (NEGATIVE); NITRITE,URINE NEGATIVE (NEGATIVE); OCCULT BLOOD,URINE NEGATIVE (NEGATIVE); PH,URINE 6.5 PH (5.0-7.5); PROTEIN,URINE NEGATIVE (NEGATIVE); UROBILINOGEN,URINE 0.2 (NORMAL) E.U./dL (NORMAL)
[2018-02-05 00:45] LABS: BACTERIA,URINE Few /HPF (None Seen); RBC,URINE 0-5 /HPF (0-5); SQUAMOUS EPITHELIAL CELL,UR MOD Squamous (<= Few)
== END 2018-02-05 23:59 | disposition home or self-care (01) ==
LOC: LAB.R 08:00
DX: N39.0 Urinary tract infection, site not specified (principal)
CPT/HCPCS: 81001; 81003; 87086

== ENCOUNTER 2018-02-14 22:20 | Outpatient (CLI) | payer MEDICARE, OTHER | END 2018-02-14 22:21 | disposition critical access hospital (66) | LOC: EMS 22:20 | PROVIDERS: ATTEND Surgery | DX: R07.9 Chest pain, unspecified (principal) | CPT/HCPCS: A0425; A0427 ==

== ENCOUNTER 2018-02-14 22:24 | Emergency (ER) | payer MEDICARE, OTHER ==
[2018-02-14] MEDS ORDERED: MAG HYDROX/AL HYDROX/SIMETH 30 ML UDC PO STA (22:57)
[2018-02-14 23:14] LABS: BASOPHILS # (AUTO) 0.1 10^3/uL (0.0-0.1); EOSINOPHILS # (AUTO) 0.1 10^3/uL (0.0-0.7); EOSINOPHILS % (AUTO) 0.9 %; HGB - HEMOGLOBIN 12.6 g/dL (12.0-16.0); LYMPHOCYTES # (AUTO) 2.4 10^3/uL (1.5-3.5); LYMPHOCYTES % (AUTO) 29.3 %; MEAN CORPUSCULAR HEMOGLOBIN 30.1 pg (27.0-31.0); MEAN CORPUSCULAR HGB CONC 34.1 g/dL (32.0-36.0); MEAN CORPUSCULAR VOLUME 88.4 fL (81.0-99.0); MEAN PLATELET VOLUME 10.2 fL (7.9-10.8); MONOCYTES # (AUTO) 0.7 10^3/uL (0.0-1.0); MONOCYTES % (AUTO) 8.9 %; NEUTROPHILS # (AUTO) 4.8 10^3/uL (1.5-6.6); NEUTROPHILS % (AUTO) 59.9 %; PLT - PLATELET COUNT 281 10^3/uL (130-450); RED BLOOD COUNT 4.18 10^6/uL (4.20-5.40); RED CELL DISTRIBUTION WIDTH 14.1 % (12.0-15.0)
[2018-02-14 23:27] LABS: ALBUMIN 3.6 g/dL (3.2-5.5); ALBUMIN/GLOBULIN RATIO 1.1 (1.0-2.2); BILIRUBIN,TOTAL 0.5 mg/dL (0.2-1.0); CALCIUM 9.2 mg/dL (8.5-10.3); CREATININE 0.6 mg/dL (0.4-1.0); TOTAL PROTEIN 6.8 g/dL (6.7-8.2)
--- NOTE | 2018-02-14 23:43 | XRAY Report ---
Reason: chest pain Procedure Date: 02/14/2018 Accession Number: [id number] / [id number] Procedure: XR - Chest 1 View X-Ray CPT Code: 86691 FULL RESULT: EXAM: CHEST RADIOGRAPHY EXAM DATE: 02/14/2018 11:33 PM. CLINICAL HISTORY: Chest pain. COMPARISON: CHEST 1 VIEW 01/22/2018 7:18 PM ABDOMEN/PELVIS W/O 01/23/2018 12:25 PM. TECHNIQUE: 1 view. FINDINGS: Lungs/Pleura: No focal opacities evident. No pleural effusion. No pneumothorax. Mediastinum: Given rotation, heart size normal limits. Coronary stent noted. Other: None. IMPRESSION: No acute process seen in the chest. RADIA
--- NOTE | 2018-02-14 23:48 | ED Physician Documentation ---
PD HPI CHEST PAIN - Stated complaint Stated Complaint: CP - Chief complaint Chief Complaint: Cardiac - History obtained from History obtained from: Patient, Family - History of Present Illness Timing - onset: How many minutes ago (45) Timing - onset during: Rest Timing - details: Still present Quality: Pain Location: Substernal Similar symptoms before: Diagnosis (Has history of both coronary artery disease and gastroesophageal reflux disease.) - Treatment prior to arrival Treatment prior to arrival: Prior to arrival the paramedics administered 3 sublingual nitroglycerin and 4 baby aspirin, without relief. - Additional information Additional information: The patient is a 52-year-old female who arrives via ambulance from [facility] with substernal chest pain that started about 45 minutes prior to arrival. While en route, paramedics administered 3 sublingual nitroglycerin and 4 baby aspirin, without relief of the patient's symptoms. She denies shortness of breath, nausea, vomiting, or diaphoresis. She does have history of similar symptoms in the past. She has history of coronary artery disease with previous IL and coronary stent placements, and also has history of gastroesophageal reflux disease, with similar symptoms. More recently she suffered massive CVA in December 2017, and underwent right ever-craniectomy. Review of Systems Constitutional: denies: Fever Nose: denies: Congestion Throat: denies: Sore throat Cardiac: reports: Chest pain / pressure Respiratory: denies: Dyspnea, Cough GI: denies: Abdominal Pain, Nausea, Vomiting : denies: Dysuria Skin: denies: Rash Musculoskeletal: denies: Back pain, Extremity swelling Neurologic: reports: Focal weakness (Left hemiparesis.). 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 : None Psych: None Musculoskeletal: None Derm: None - Past Surgical History Past Surgical History: Yes General: Other Cardiovascular: Coronary stent Neuro: Craniotomy - Present Medications Home Medications: Ambulatory Orders Medication Instructions Recorded Confirmed Aspirin 81 mg PO DAILY 12/26/17 01/20/18 Levetiracetam [Keppra] 750 mg PO BID #30 tablet 01/17/18 01/20/18 Acetaminophen [Tylenol] 650 mg PO Q4H PRN 01/20/18 01/20/18 Bisacodyl Supp [Dulcolax Supp] 10 mg [place] DAILY PRN 01/20/18 01/20/18 Ergocalciferol [Vitamin D2] 50,000 unit PO Q7D 01/20/18 01/20/18 Melatonin 5 mg PO QPM PRN 01/20/18 01/20/18 Metoprolol Tartrate [Lopressor] 12.5 mg PO BID 01/20/18 01/20/18 Nitroglycerin [Nitrostat] 0.4 mg SL Q5MIN PRN 01/20/18 01/20/18 Omeprazole 20 mg PO BID 01/20/18 01/20/18 Ondansetron [Zofran Odt] 4 mg PO Q8H PRN 01/20/18 01/20/18 Polyethylene Glycol 3350 [Miralax] 17 gm PO DAILY PRN 01/20/18 01/20/18 Scopolamine 1 patch TD Q3D 01/20/18 01/20/18 Senna [Senokot] 17.2 mg PO QPM PRN 01/20/18 01/20/18 oxyCODONE [Roxicodone] 5 mg PO Q4H PRN 01/20/18 01/20/18 - Allergies Allergies/Adverse Reactions: Allergies Allergy/AdvReac Type Severity Reaction Status Date / Time Iodinated Contrast- Oral and Allergy Rash Verified 01/18/18 19:54 IV Dye morphine Allergy Rash Verified 01/18/18 19:54 - Social History Does the pt smoke?: No Smoking Status: Never smoker Does the pt drink ETOH?: No Does the pt have substance abuse?: No - Immunizations Immunizations are current?: Yes - POLST Patient has POLST: No PD ED PE NORMAL - Vitals Vital signs reviewed: Yes (Borderline hypertension.) - General General: Alert and oriented X 3, Other (Wears a helmet to protect the right hemicraniectomy site.) - HEENT HEENT: EOMI, Other (Dry oral membranes.) - Neck Neck: No JVD - Cardiac Cardiac: RRR - Respiratory Respiratory: No respiratory distress, Clear bilaterally - Abdomen Abdomen: Normal bowel sounds, Soft, Non tender, Other (Gastric feeding tube in p lace.) - Back Back: No CVA TTP - Derm Derm: No rash - Extremities Extremities: No edema, No calf tenderness / cord - Neuro Neuro: Alert and oriented X 3, Other (Left hemiparesis.) Results - Vitals Vitals: Vital Signs - 24 hr 02/15/18 02/15/18 00:05 01:09 Heart Rate 80 84 Respiratory 18 20 Rate Blood Pressure 106/53 L 127/59 L O2 Saturation 96 95 Oxygen O2 Source Room air - EKG (time done) 22:33 Rate: Rate (enter#) (91) Rhythm: NSR, Other (PVC's) [place]: Normal Intervals: Normal [place] Ischemia: Q waves (in leads III and aVF, consistent with old inferior IL.) Compare to prior EKG: Unchanged from prior EKG (except for PVC's.) Computer interpretation: Agree with computer - Labs Labs: Laboratory Tests 02/14/18 02/14/18 02/14/18 23:08 23:08 23:08 WBC 8.0 RBC 4.18 L Hgb 12.6 Hct 36.9 L MCV 88.4 MCH 30.1 MCHC 34.1 RDW 14.1 Plt Count 281 MPV 10.2 Neut # (Auto) 4.8 Lymph # (Auto) 2.4 [place] # (Auto) 0.7 Eos # (Auto) 0.1 Baso # (Auto) 0.1 Absolute Nucleated RBC 0.00 Nucleated RBC % 0.0 Sodium 137 Potassium 3.7 Chloride 101 Carbon Dioxide 29 Anion Gap 7.0 BUN 17 Creatinine 0.6 Estimated GFR (MDRD) 104 Glucose 111 H Calcium 9.2 Total Bilirubin 0.5 AST 25 ALT 31 Alkaline Phosphatase 51 Troponin I < 0.04 Total Protein 6.8 Albumin 3.6 Globulin 3.2 Albumin/Globulin Ratio 1.1 Lipase 49 - Rads (name of study) 1-view CXR Radiology: Prelim report reviewed, EMP read contemporaneously, See rad report PD MEDICAL DECISION MAKING - ED course Complexity details: reviewed old records, reviewed results, re-evaluated patient, considered differential, d/w patient, d/w family ED course: The patient's presentation is most consistent with gastroesophageal reflux. Cardiac ischemia was considered, but is less likely. Her electrocardiogram reveals no ischemic abnormalities, and her troponin level is normal. Sublingual nitroglycerin has not relieved her symptoms. Treatment in the emergency department included administration of Maalox 60 mL through the gastric tube. Her symptoms resolved with the above treatment. Famotidine was ordered, but the patient declined having IV placed for administration of IV famotidine. I discussed with her and her the diagnosis, symptomatic treatment and outpatient follow-up, as well as potentially worrisome signs or symptoms that should prompt reevaluation in the emergency department. Departure - Departure Disposition: 01 Home, Self Care Clinical Impression: Status post craniectomy Gastroesophageal reflux disease Qualifiers: Esophagitis presence: esophagitis presence not specified Qualified Code(s): K21.9 - Gastro-esophageal reflux disease without esophagitis Condition: Stable Instructions: ED GERD Follow-Up: JAVID PORTER DO [Primary Care Provider] - Comments: Continue taking omeprazole as previously prescribed. You can use liquid antacid such as Maalox or Mylanta, via the gastric tube if you develop recurrent symptoms. Follow-up with your primary physician within 1-2 weeks. Call to schedule an appointment. Return to the emergency department if increasing pain, shortness of breath, or otherwise worsening symptoms. Discharge Date/Time: 02/15/18 01:35
[2018-02-15] MEDS ORDERED: FAMOTIDINE 20 MG/50 ML 50 ML IV ONE
[2018-02-15 01:11] VITALS: BP 127/59
== END 2018-02-15 01:35 | disposition home or self-care (01) ==
LOC: EDUNIT# → ED 22:24
DX: K21.9 Gastro-esophageal reflux disease without esophagitis (principal); Z98.890 Other specified postprocedural states; I25.10 Atherosclerotic heart disease of native coronary artery without angina pectoris; Z93.1 Gastrostomy status; Z79.82 Long term (current) use of aspirin; I25.2 Old myocardial infarction; I69.354 Hemiplegia and hemiparesis following cerebral infarction affecting left non-dominant side
CPT/HCPCS: 36415; 71045; 80053; 83690; 84484; 85025; 93005; 99283; 99284; A9270

== ENCOUNTER 2018-03-05 15:30 | Outpatient (CLI) | payer MEDICARE, OTHER ==
[2018-03-05 16:34] LABS: BILIRUBIN,URINE NEGATIVE (NEGATIVE); GLUCOSE, URINE (UA) NEGATIVE (NEGATIVE); KETONES,URINE (UA) NEGATIVE (NEGATIVE); LEUKOCYTE ESTERASE, URINE NEGATIVE (NEGATIVE); NITRITE,URINE NEGATIVE (NEGATIVE); OCCULT BLOOD,URINE NEGATIVE (NEGATIVE); PROTEIN,URINE NEGATIVE (NEGATIVE); UROBILINOGEN,URINE 0.2 (NORMAL) E.U./dL (NORMAL)
[2018-03-05 16:37] LABS: CLARITY,URINE CLOUDY (CLEAR)
[2018-03-05 16:55] LABS: AMORPHOUS SEDIMENT,UR Moderate /LPF; BACTERIA,URINE Few /HPF (None Seen); RBC,URINE 0-5 /HPF (0-5); SQUAMOUS EPITHELIAL CELL,UR FEW Squamous (<= Few)
== END 2018-03-05 23:59 | disposition home or self-care (01) ==
LOC: LAB.R 15:30
DX: N39.0 Urinary tract infection, site not specified (principal)
CPT/HCPCS: 81001; 87086

== ENCOUNTER 2018-03-05 16:00 | Outpatient (CLI) | payer MEDICARE, OTHER | END 2018-03-05 23:59 | disposition home or self-care (01) | LOC: LAB.R 16:00 | DX: I61.2 Nontraumatic intracerebral hemorrhage in hemisphere, unspecified (principal); T81.40XD Infection following a procedure, unspecified, subsequent encounter | CPT/HCPCS: 81001; 87070; 87205 ==

== ENCOUNTER 2018-03-08 08:00 | Outpatient (CLI) | payer MEDICARE, OTHER ==
[2018-03-08 16:42] LABS: BASOPHILS # (AUTO) 0.1 10^3/uL (0.0-0.1); BASOPHILS % (AUTO) 0.6 %; EOSINOPHILS # (AUTO) 0.1 10^3/uL (0.0-0.7); HGB - HEMOGLOBIN 13.2 g/dL (12.0-16.0); LYMPHOCYTES # (AUTO) 2.3 10^3/uL (1.5-3.5); LYMPHOCYTES % (AUTO) 26.3 %; MEAN CORPUSCULAR HEMOGLOBIN 28.6 pg (27.0-31.0); MEAN CORPUSCULAR HGB CONC 32.3 g/dL (32.0-36.0); MEAN CORPUSCULAR VOLUME 88.7 fL (81.0-99.0); MEAN PLATELET VOLUME 11.5 fL (7.9-10.8); MONOCYTES # (AUTO) 0.9 10^3/uL (0.0-1.0); MONOCYTES % (AUTO) 10.2 %; NEUTROPHILS # (AUTO) 5.4 10^3/uL (1.5-6.6); NEUTROPHILS % (AUTO) 61.9 %; PLT - PLATELET COUNT 251 10^3/uL (130-450); RED BLOOD COUNT 4.62 10^6/uL (4.20-5.40); WHITE BLOOD COUNT 8.8 x10^3/uL (4.8-10.8)
== END 2018-03-08 23:59 | disposition home or self-care (01) ==
LOC: LAB.R 08:00
DX: D64.9 Anemia, unspecified (principal)
CPT/HCPCS: 85025

== ENCOUNTER 2018-04-14 21:00 | Outpatient (CLI) | payer MEDICARE, OTHER ==
[2018-04-14 22:32] LABS: CALCIUM 9.3 mg/dL (8.5-10.3); CREATININE 0.5 mg/dL (0.4-1.0)
== END 2018-04-14 23:59 | disposition home or self-care (01) ==
LOC: LAB.R 21:00
DX: I10 Essential (primary) hypertension (principal)
CPT/HCPCS: 80048

== ENCOUNTER 2018-10-13 13:04 | Emergency (ER) | payer MEDICARE, OTHER ==
[2018-10-13] MEDS ORDERED: HEPARIN 25000UNITS/500ML (D5W) 25,000 UNIT/500 ML BAG IV STA (14:17)
--- NOTE | 2018-10-13 14:20 | ED Physician Documentation ---
History of Present Illness - Stated complaint Stated Complaint: LT FOOT SWELLING - Chief complaint Chief Complaint: Ext Problem - History obtained from History obtained from: Patient, Family - History of Present Illness Timing: How many days ago (several days) Pain level max: 6 Pain level now: 5 - Additonal information Additional information: 53-year-old female with left lower extremity swelling for the past few days. Noted the foot becoming purple last few days as well. Saw her PCP yesterday and an ultrasound was ordered. They came for the ultrasound today but it was not yet scheduled. They came here for increasing pain and discoloration. No chest pain. No shortness of breath. Nothing makes it better or worse. 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 : None Psych: None Musculoskeletal: None Derm: None - Past Surgical History Past Surgical History: Yes General: Other Cardiovascular: Coronary stent Neuro: Craniotomy - Present Medications Home Medications: Ambulatory Orders Medication Instructions Recorded Confirmed Aspirin 81 mg PO DAILY 12/26/17 01/20/18 Levetiracetam [Keppra] 750 mg PO BID #30 tablet 01/17/18 01/20/18 Acetaminophen [Tylenol] 650 mg PO Q4H PRN 01/20/18 01/20/18 Bisacodyl Supp [Dulcolax Supp] 10 mg OR DAILY PRN 01/20/18 01/20/18 Ergocalciferol [Vitamin D2] 50,000 unit PO Q7D 01/20/18 01/20/18 Melatonin 5 mg PO QPM PRN 01/20/18 01/20/18 Metoprolol Tartrate [Lopressor] 12.5 mg PO BID 01/20/18 01/20/18 Nitroglycerin [Nitrostat] 0.4 mg SL Q5MIN PRN 01/20/18 01/20/18 Omeprazole 20 mg PO BID 01/20/18 01/20/18 Ondansetron [Zofran Odt] 4 mg PO Q8H PRN 01/20/18 01/20/18 Polyethylene Glycol 3350 [Miralax] 17 gm PO DAILY PRN 01/20/18 01/20/18 Scopolamine 1 patch TD Q3D 01/20/18 01/20/18 Senna [Senokot] 17.2 mg PO QPM PRN 01/20/18 01/20/18 oxyCODONE [Roxicodone] 5 mg PO Q4H PRN 01/20/18 01/20/18 - Allergies Allergies/Adverse Reactions: Allergies Allergy/AdvReac Type Severity Reaction Status Date / Time Iodinated Contrast Media Allergy Rash Verified 01/18/18 19:54 [Iodinated Contrast- Oral and IV Dye] morphine Allergy Rash Verified 10/13/18 13:12 - Social History Does the pt smoke?: No Smoking Status: Never smoker Does the pt drink ETOH?: No Does the pt have substance abuse?: No - Immunizations Immunizations are current?: Yes - POLST Patient has POLST: No PD ED PE NORMAL - Vitals Vital signs reviewed: Yes - General General: Alert and oriented X 3, No acute distress, Well developed/nourished - HEENT HEENT: Moist mucous membranes - Neck Neck: Supple, no meningeal sign - Cardiac Cardiac: RRR, Strong equal pulses - Respiratory Respiratory: No respiratory distress, Clear bilaterally - Abdomen Abdomen: Soft, Non tender, Non distended - Derm Derm: Warm and dry - Extremities Extremities: Other (Cool left leg with a purple foot. Delayed cap refill. No palpable pulses.) - Neuro Neuro: Alert and oriented X 3 - Psych Psych: Normal mood, Normal affect Results - Vitals Vitals: Vital Signs - 24 hr 10/13/18 10/13/18 10/13/18 13:10 15:36 16:05 Temperature 36 C L Heart Rate 66 65 95 Respiratory 18 17 16 Rate Blood Pressure 128/77 133/75 H 122/76 O2 Saturation 100 100 98 10/13/18 19:49 Temperature Heart Rate 66 Respiratory 14 Rate Blood Pressure 142/64 H O2 Saturation 100 Oxygen O2 Source Room air - Labs Labs: Laboratory Tests 10/13/18 10/13/18 10/13/18 15:40 15:40 15:40 WBC 10.1 RBC 4.33 Hgb 12.2 Hct 40.3 MCV 93.1 MCH 28.2 MCHC 30.3 L RDW 13.3 Plt Count 253 MPV 11.6 H Neut # (Auto) 5.8 Lymph # (Auto) 3.2 [place] # (Auto) 1.0 Eos # (Auto) 0.1 Baso # (Auto) 0.1 Absolute Nucleated RBC 0.00 Nucleated RBC % 0.0 PT 12.9 H INR 1.1 APTT 217.0 H* Anti-Xa Level Sodium 138 Potassium 4.4 Chloride 102 Carbon Dioxide 26 Anion Gap 10.0 BUN 18 Creatinine 0.7 Estimated GFR (MDRD) 87 L Glucose 77 Calcium 9.2 Total Bilirubin 0.4 AST 20 ALT 22 Alkaline Phosphatase 63 Total Protein 7.1 Albumin 3.4 Globulin 3.7 Albumin/Globulin Ratio 0.9 L Lipase 44 10/13/18 15:40 WBC RBC Hgb Hct MCV MCH MCHC RDW Plt Count MPV Neut # (Auto) Lymph # (Auto) [place] # (Auto) Eos # (Auto) Baso # (Auto) Absolute Nucleated RBC Nucleated RBC % PT INR APTT Anti-Xa Level 0.9 H Sodium Potassium Chloride Carbon Dioxide Anion Gap BUN Creatinine Estimated GFR (MDRD) Glucose Calcium Total Bilirubin AST ALT Alkaline Phosphatase Total Protein Albumin Globulin Albumin/Globulin Ratio Lipase - Rads (name of study) Duplex ultrasound left lower extremity Radiology: Prelim report reviewed, EMP read contemporaneously, See rad report (no dvt) Arterial ultrasound left lower extremity Radiology: Prelim report reviewed, EMP read contemporaneously, See rad report PD MEDICAL DECISION MAKING - ED course Complexity details: reviewed results, re-evaluated patient, considered differential, d/w patient, d/w family ED course: 53-year-old female presents to the emergency department with what appears to be an ischemic left leg. Started on a heparin drip and ultrasounds were ordered. No DVT on venous ultrasound. Monophasic flow throughout the left leg on arterial ultrasound. The purple discoloration of the foot improved on the heparin drip. Discussed the case with Dr. Meyers, vascular surgery at [facility] in [place] who recommends admission to the hospitalist. Discussed the case with Dr. Abdi, hospitalist who graciously accepts in transfer. COBRA forms completed. This document was made in part using voice recognition software. While efforts are made to proofread this document, sound alike and grammatical errors may occur. FINDINGS: LEFT: PHYSICAL EDUCATION PROFESSOR: 92 cm/sec. Monophasic waveform. SFA Proximal: 37 cm/sec. Monophasic waveform. SFA Mid: 35 cm/sec. Monophasic waveform. SFA Distal: 43 cm/sec. Monophasic waveform. PFA: 57 cm/sec. Monophasic waveform. Pop: 24 cm/sec. Monophasic waveform. SUZETTE: 6.0 cm/sec. Monophasic waveform. OUTBOARD MOTOR TESTER: 9.8 cm/sec. Limited, monophasic waveform. Peroneal: 5 cm/sec. Monophasic waveform. IMPRESSION: No stenoses identified. Low velocity flow to the ankle, with no dorsalis pedis flow identified. Departure - Departure Disposition: 02 Transfer Acute Care Hosp Clinical Impression: Ischemic leg Condition: Stable
[2018-10-13 15:50] LABS: BASOPHILS # (AUTO) 0.1 10^3/uL (0.0-0.1); BASOPHILS % (AUTO) 0.5 %; EOSINOPHILS # (AUTO) 0.1 10^3/uL (0.0-0.7); EOSINOPHILS % (AUTO) 0.8 %; HGB - HEMOGLOBIN 12.2 g/dL (12.0-16.0); LYMPHOCYTES # (AUTO) 3.2 10^3/uL (1.5-3.5); LYMPHOCYTES % (AUTO) 31.7 %; MEAN CORPUSCULAR HEMOGLOBIN 28.2 pg (27.0-31.0); MEAN CORPUSCULAR HGB CONC 30.3 g/dL (32.0-36.0); MEAN CORPUSCULAR VOLUME 93.1 fL (81.0-99.0); MEAN PLATELET VOLUME 11.6 fL (7.9-10.8); MONOCYTES % (AUTO) 9.9 %; NEUTROPHILS # (AUTO) 5.8 10^3/uL (1.5-6.6); NEUTROPHILS % (AUTO) 56.8 %; PLT - PLATELET COUNT 253 10^3/uL (130-450); RED BLOOD COUNT 4.33 10^6/uL (4.20-5.40); RED CELL DISTRIBUTION WIDTH 13.3 % (12.0-15.0); WHITE BLOOD COUNT 10.1 x10^3/uL (4.8-10.8)
[2018-10-13 15:55] LABS: INR 1.1 (0.8-1.2); PT - PROTHROMBIN TIME 12.9 secs (9.9-12.6)
[2018-10-13 15:59] LABS: ALBUMIN 3.4 g/dL (3.2-5.5); ALBUMIN/GLOBULIN RATIO 0.9 (1.0-2.2); BILIRUBIN,TOTAL 0.4 mg/dL (0.2-1.0); CALCIUM 9.2 mg/dL (8.5-10.3); CREATININE 0.7 mg/dL (0.4-1.0); TOTAL PROTEIN 7.1 g/dL (6.7-8.2)
--- NOTE | 2018-10-13 16:20 | Ultrasound Report ---
Reason: LLE swelling, purple leg Procedure Date: 10/13/2018 Accession Number: [id number] / [id number] Procedure: US - Duplex Ext Veins Left CPT Code: FULL RESULT: EXAM: LEFT LOWER EXTREMITY VENOUS ULTRASOUND EXAM DATE: 10/13/2018 03:14 PM. CLINICAL HISTORY: LLE swelling, purple leg. COMPARISON: None. TECHNIQUE: Real-time sonographic vascular imaging was performed by the coding file clerk through the lower extremity utilizing both color-flow and Doppler spectral analysis. Multiple community relations representative static images were saved for review. FINDINGS: Common Femoral Vein (CFV): Normal. CFV-GSV Junction: Normal. Profunda Femoral Vein (PFV): Normal. Femoral Vein (FV) Prox: Normal. Femoral Vein (FV) Mid: Normal. Femoral Vein (FV) Dist: Normal. Popliteal Vein: Normal. Posterior Tibial Veins: Normal. Peroneal Veins: Normal. Contralateral Side CFV: Normal. Other: None. IMPRESSION: No evidence for deep venous thrombosis. RADIA
--- NOTE | 2018-10-13 17:54 | Ultrasound Report ---
Reason: LLE swelling, purple leg Procedure Date: 10/13/2018 Accession Number: [id number] / [id number] Procedure: US - Duplex Lwr Ext Arterial LT CPT Code: FULL RESULT: EXAM: LEFT LOWER EXTREMITY ARTERIAL DOPPLER ULTRASOUND EXAM DATE: 10/13/2018 03:35 PM. CLINICAL HISTORY: Left lower extremity swelling. Purple leg. COMPARISON: None. TECHNIQUE: Real-time sonographic vascular imaging was performed by the service center technician, utilizing color-flow, Doppler flow, and spectral analysis. Multiple artist's representative static images were saved for review. FINDINGS: LEFT: ROLLED HAM LACER: 92 cm/sec. Monophasic waveform. SFA Proximal: 37 cm/sec. Monophasic waveform. SFA Mid: 35 cm/sec. Monophasic waveform. SFA Distal: 43 cm/sec. Monophasic waveform. PFA: 57 cm/sec. Monophasic waveform. Pop: 24 cm/sec. Monophasic waveform. SUZETTE: 6.0 cm/sec. Monophasic waveform. GROMMET WORKER: 9.8 cm/sec. Limited, monophasic waveform. Peroneal: 5 cm/sec. Monophasic waveform. IMPRESSION: No stenoses identified. Low velocity flow to the ankle, with no dorsalis pedis flow identified. RADIA
[2018-10-13 19:50] VITALS: BP 142/64
== END 2018-10-13 23:03 | disposition short-term general hospital (02) ==
LOC: ED 13:04
DX: I99.8 Other disorder of circulatory system (principal)
CPT/HCPCS: 36415; 80053; 83690; 85025; 85520; 85610; 85730; 93005; 96365; 96366; 96375; 99284

== ENCOUNTER 2020-04-26 15:00 | Outpatient (CLI) | payer MEDICARE, OTHER | END 2020-04-26 15:01 | disposition short-term general hospital (02) | LOC: EMS 15:00 | DX: S40.022A Contusion of left upper arm, initial encounter (principal); W18.30XA Fall on same level, unspecified, initial encounter; Y93.89 Activity, other specified; Y92.003 Bedroom of unspecified non-institutional (private) residence as the place of occurrence of the external cause; M79.602 Pain in left arm | CPT/HCPCS: A0425; A0429; A0888 ==

== ENCOUNTER 2020-04-30 18:41 | Emergency (ER) | payer MEDICARE, OTHER ==
[2020-04-30 18:57] VITALS: BP 116/54
--- NOTE | 2020-04-30 19:18 | ED Physician Documentation ---
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 At that time declined analgesics except APAP. Presents to this ED at this time for ongoing pain that is no longer controlled with the APAP, and wants the area of injury reevaluated. Review of Systems Constitutional: denies: Fever Skin: reports: Other (LUE bruising, anterior aspect upper arm) Musculoskeletal: reports: Joint pain (left shoulder) Neurologic: reports: Focal weakness (left-sided (since CVA 2017; no new weakness)). 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 Psych: None Musculoskeletal: None Derm: None - Past Surgical History Past Surgical History: Yes General: Other Cardiovascular: Coronary stent Neuro: Craniotomy - Present Medications Home Medications: Ambulatory Orders Medication Instructions Recorded Confirmed Aspirin 81 mg PO DAILY 12/26/17 01/20/18 Acetaminophen [Tylenol] 650 mg PO Q4H PRN 01/20/18 01/20/18 Metoprolol Tartrate [Lopressor] 12.5 mg PO DAILY 01/20/18 01/20/18 Nitroglycerin [Nitrostat] 0.4 mg SL Q5MIN PRN 01/20/18 01/20/18 Alirocumab [Praluent Pen] 75 mg SQ ONCE 04/30/20 04/30/20 Amitriptyline [Elavil] 25 mg PO QPM 04/30/20 04/30/20 Atorvastatin Calcium [Lipitor] 80 mg PO DAILY 04/30/20 04/30/20 Clopidogrel [Plavix] 75 mg PO DAILY 04/30/20 04/30/20 Gabapentin [Neurontin] 100 mg PO 04/30/20 HYDROcod/ACETAM 5/325 [[place] 5/325] 1 - 2 ea PO Q6H PRN #15 04/30/20 Levothyroxine Sodium [Synthroid] 50 mcg PO DAILY 04/30/20 04/30/20 Mirtazapine [Remeron] 15 mg PO DAILY 04/30/20 04/30/20 Pantoprazole [Protonix] 40 mg PO DAILY 04/30/20 04/30/20 - Allergies Allergies/Adverse Reactions: Allergies Allergy/AdvReac Type Severity Reaction Status Date / Time Iodinated Contrast Media Allergy Rash Verified 04/30/20 18:52 [Iodinated Contrast- Oral and IV Dye] morphine Allergy Rash Verified 04/30/20 18:52 - Social History Does the pt smoke?: No Smoking Status: Never smoker Does the pt drink ETOH?: No Does the pt have substance abuse?: No - Immunizations Immunizations are current?: Yes - POLST Patient has POLST: No PD ED PE NORMAL - Vitals Vital signs reviewed: Yes - General General: Alert and oriented X 3, No acute distress, Well developed/nourished - Neck Neck: Supple, no meningeal sign, No bony TTP - Derm Derm: Warm and dry - Extremities Extremities: Other (echymosis LUE from proximal elbow to mid/upper bicep (anterior aspect of upper arm, left). The tissue is soft: there is no firm area of the entire LUE. the left fingers are warm and have brisk capillary refill. normal left radial pulse) - Neuro Neuro: Other (LUE weakness at fingers, wrist, elbow, shoulder (not new; these are same since CVA 2018 per patient)) Results - Vitals Vitals: Vital Signs - 24 hr 04/30/20 18:52 Temperature 36.6 C Heart Rate 83 Respiratory 16 Rate Blood Pressure 116/54 L O2 Saturation 94 Oxygen O2 Source Room air - Rads (name of study) left shoulder xrays Radiology: Prelim report reviewed, See rad report PD MEDICAL DECISION MAKING - ED course Complexity details: reviewed results, re-evaluated patient, considered different ial, d/w patient Departure - Departure Disposition: 01 Home, Self Care Clinical Impression: Fracture of humerus Condition: Good Instructions: ED Fx Upper Ext Follow-Up: Pernell Hawthorne MD [Provider Admit Priv/Credential] - JAVID PORTER DO [Primary Care Provider] - Prescriptions: HYDROcod/ACETAM 325 [[place] ] 1 - 2 ea PO Q6H PRN #15 PRN Reason: Pain
[2020-04-30] MEDS ORDERED: HYDROcod/ACET 5/325 Prepack 4 PO STA (19:44)
--- NOTE | 2020-04-30 19:53 | XRAY Report ---
PROCEDURE: Shoulder 3 View LT INDICATIONS: RECENT FRACTURE; REASSESS POSITION TECHNIQUE: 3 views of the shoulder were acquired. COMPARISON: None. FINDINGS: Bones: No fractures or dislocations. No suspicious bony lesions. Visualized ribs appear intact. Soft tissues: No suspicious soft tissue calcifications. IMPRESSION: Humeral head fracture, only faintly visible, in virtual anatomic alignment. Reviewed by: Nicolas Way MD on 04/30/2020 7:52 PM PST Approved by: Nicolas Way MD on 04/30/2020 7:52 PM PST Station ID: [id number]
== END 2020-04-30 20:16 | disposition home or self-care (01) ==
LOC: ED 18:41
DX: S42.292A Other displaced fracture of upper end of left humerus, initial encounter for closed fracture (principal); W01.0XXA Fall on same level from slipping, tripping and stumbling without subsequent striking against object, initial encounter; Y92.009 Unspecified place in unspecified non-institutional (private) residence as the place of occurrence of the external cause; I69.354 Hemiplegia and hemiparesis following cerebral infarction affecting left non-dominant side
CPT/HCPCS: 99283; 99284

== ENCOUNTER 2020-05-01 17:16 | Emergency (ER) | payer MEDICARE, OTHER ==
--- NOTE | 2020-05-01 17:52 | ED Physician Documentation ---
PD HPI UPPER EXT INJURY - Stated complaint Stated Complaint: LT ARM BLEEDING - Chief complaint Chief Complaint: Wound - History obtained from History obtained from: Patient - History of Present Illness Location: Left, Forearm Type of injury: Fall (she had fallen about 5 days ago with pain in shoulder and bruising /swelling forearm. Seen in ER overnight with xray showing humeral head fx and placed in sling. She states she has had abrasion/lac of forearm start bleeding this afternoon with dark blood out. No pus.), Other (she had lump on forearm open and drain dark blood and clot today.) Timing - onset: How many days ago (5) Associated symptoms: Swelling (had area of abrasion with local swelling of proximal forearm after the fall/injury that had persisted, and opened today with dark blood out.). 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 : None Psych: None Musculoskeletal: None Derm: None - Past Surgical History Past Surgical History: Yes General: Other Cardiovascular: Coronary stent Neuro: Craniotomy - Present Medications Home Medications: Ambulatory Orders Medication Instructions Recorded Confirmed Aspirin 81 mg PO DAILY 12/26/17 01/20/18 Acetaminophen [Tylenol] 650 mg PO Q4H PRN 01/20/18 01/20/18 Metoprolol Tartrate [Lopressor] 12.5 mg PO DAILY 01/20/18 01/20/18 Nitroglycerin [Nitrostat] 0.4 mg SL Q5MIN PRN 01/20/18 01/20/18 Alirocumab [Praluent Pen] 75 mg SQ ONCE 04/30/20 04/30/20 Amitriptyline [Elavil] 25 mg PO QPM 04/30/20 04/30/20 Atorvastatin Calcium [Lipitor] 80 mg PO DAILY 04/30/20 04/30/20 Clopidogrel [Plavix] 75 mg PO DAILY 04/30/20 04/30/20 Gabapentin [Neurontin] 100 mg PO 04/30/20 HYDROcod/ACETAM 5/325 [Sharon 5/325] 1 - 2 ea PO Q6H PRN #15 04/30/20 Levothyroxine Sodium [Synthroid] 50 mcg PO DAILY 04/30/20 04/30/20 Mirtazapine [Remeron] 15 mg PO DAILY 04/30/20 04/30/20 Pantoprazole [Protonix] 40 mg PO DAILY 04/30/20 04/30/20 - Allergies Allergies/Adverse Reactions: Allergies Allergy/AdvReac Type Severity Reaction Status Date / Time Iodinated Contrast Media Allergy Rash Verified 05/01/20 17:25 [Iodinated Contrast- Oral and IV Dye] morphine Allergy Rash Verified 05/01/20 17:25 - Social History Does the pt smoke?: No Smoking Status: Never smoker Does the pt drink ETOH?: No Does the pt have substance abuse?: No - Immunizations Immunizations are current?: Yes - POLST Patient has POLST: No PD ED PE NORMAL - Vitals Vital signs reviewed: Yes - General General: Alert and oriented X 3, Well developed/nourished - Derm Derm: Normal color, Warm and dry - Extremities Extremities: Other (arm in sling, limited ROM of the shoulder. left proximal forearm on ulnar side with bruising, small abrasion that is open about 1/2 cm, and some drainage of dark purple blood and I can squeeze out some dark clot. No purulence. ) - Neuro Neuro: No motor deficit, No sensory deficit Results - Vitals Vitals: Vital Signs - 24 hr 05/01/20 05/01/20 17:27 18:39 Temperature 36.1 C L 36.3 C L Heart Rate 76 78 Respiratory 18 16 Rate Blood Pressure 105/61 113/68 O2 Saturation 99 99 Oxygen O2 Source Room air PD MEDICAL DECISION MAKING - ED course Complexity details: considered differential (seems prior hematoma now opened and draining as blood is dark/purple with clots. It might have rubbed and opened more easily due to pressure of the sling placed overnight.), d/w patient Departure - Departure Disposition: 01 Home, Self Care Clinical Impression: Traumatic hematoma of left forearm Qualifiers: Encounter type: initial encounter Qualified Code(s): S50.12XA - Contusion of left forearm, initial encounter Condition: Stable Record reviewed to determine appropriate education?: Yes Instructions: ED Hematoma Follow-Up: JAVID PORTER, [Primary Care Provider] - Comments: This appears that there was a hematoma under the skin that came through the surface at the area of the abrasion. It is good that this is now draining the clots and blood. You can use some absorbent gauze with a wrap over it to contain the drainage. I would anticipate a little bit more drainage though it seems like most of it is out at this point. The wound itself should heal up in close over the next week or so. I would leave the wound open at this point to allow further drainage which would be the least likelihood that of infection. Suturing it closed would actually increase your chance of infection. Continue other care for the shoulder as previously directed. Discharge Date/Time: 05/01/20 18:39
[2020-05-01] MEDS ORDERED: ONDANSETRON 4 MG/2 ML VIAL IM STA (18:21)
[2020-05-01 18:40] VITALS: BP 113/68
== END 2020-05-01 18:39 | disposition home or self-care (01) ==
LOC: ED 17:16
DX: S50.12XA Contusion of left forearm, initial encounter (principal); S50.812A Abrasion of left forearm, initial encounter; W19.XXXA Unspecified fall, initial encounter; I25.10 Atherosclerotic heart disease of native coronary artery without angina pectoris; Z79.02 Long term (current) use of antithrombotics/antiplatelets; Z79.82 Long term (current) use of aspirin
CPT/HCPCS: 96372; 99283

== ENCOUNTER 2021-04-13 12:54 | Outpatient (CLI) | payer MEDICARE, OTHER | END 2021-04-13 12:55 | disposition critical access hospital (66) | LOC: EMS 12:54 | DX: S01.81XA Laceration without foreign body of other part of head, initial encounter (principal); W18.39XA Other fall on same level, initial encounter; Y93.01 Activity, walking, marching and hiking; Y92.009 Unspecified place in unspecified non-institutional (private) residence as the place of occurrence of the external cause; Z79.02 Long term (current) use of antithrombotics/antiplatelets; I69.354 Hemiplegia and hemiparesis following cerebral infarction affecting left non-dominant side | CPT/HCPCS: A0425; A0429 ==

== ENCOUNTER 2021-04-13 13:05 | Emergency (ER) | payer MEDICARE, OTHER ==
--- NOTE | 2021-04-13 13:32 | ED Physician Documentation ---
History of Present Illness - Stated complaint Stated Complaint: GLF/HEAD INJURY - Chief complaint Chief Complaint: Trauma Hd/Nk - History obtained from History obtained from: Patient, EMS - History of Present Illness Timing: Today Pain level max: 2 Pain level now: 1 - Additonal information Additional information: 55 year old female, residual L sided weakness from a hemorrhagic stroke, states that she had a ground level fall. Patient struck her head reportedly on a table. No loss of consciousness. She is on Plavix. No neck or back pain. No vomiting. Complains of a mild headache. Review of Systems Constitutional: denies: Fever Respiratory: denies: Cough GI: denies: Vomiting, Diarrhea Skin: denies: Rash Musculoskeletal: denies: Neck pain, Back pain Neurologic: reports: Focal weakness (Left-sided, chronic and unchanged). denies: Numbness, Confused, Altered mental status PD PAST MEDICAL HISTORY - Past Medical History Cardiovascular: High cholesterol, Coronary artery disease, [place] Respiratory: None Neuro: CVA, Seizure disorder Endocrine/Autoimmune: None GI: GERD [place] CONSTABLE: None : None Psych: None Musculoskeletal: None Derm: None - Past Surgical History Past Surgical History: Yes General: Other Cardiovascular: Coronary stent Neuro: Craniotomy - Present Medications Home Medications: Ambulatory Orders Medication Instructions Recorded Confirmed Aspirin 81 mg PO DAILY 12/26/17 04/13/21 Acetaminophen [Tylenol] 650 mg PO Q4H PRN 01/20/18 04/13/21 Nitroglycerin [Nitrostat] 0.4 mg SL Q5MIN PRN 01/20/18 04/13/21 Alirocumab [Praluent Pen] 75 mg SQ ONCE 04/30/20 04/13/21 Amitriptyline [Elavil] 25 mg PO QPM 04/30/20 04/13/21 Atorvastatin Calcium [Lipitor] 80 mg PO DAILY 04/30/20 04/13/21 Clopidogrel [Plavix] 75 mg PO DAILY 04/30/20 04/13/21 Gabapentin [Neurontin] 100 mg PO PRN PRN 04/30/20 04/13/21 Levothyroxine Sodium [Synthroid] 50 mcg PO DAILY 04/30/20 04/13/21 Mirtazapine [Remeron] 15 mg PO DAILY 04/30/20 04/13/21 Pantoprazole [Protonix] 40 mg PO DAILY 04/30/20 04/13/21 Metoprolol Succinate [Toprol Xl] 12.5 mg PO DAILY 04/13/21 04/13/21 - Allergies Allergies/Adverse Reactions: Allergies Allergy/AdvReac Type Severity Reaction Status Date / Time Iodinated Contrast Media Allergy Rash Verified 04/13/21 13:12 [Iodinated Contrast- Oral and IV Dye] morphine Allergy Rash Verified 04/13/21 13:12 - Social History Does the pt smoke?: No Smoking Status: Never smoker Does the pt drink ETOH?: No Does the pt have substance abuse?: No - Immunizations Immunizations are current?: Yes - POLST Patient has POLST: No PD ED PE NORMAL - Vitals Vital signs reviewed: Yes - General General: Alert and oriented X 3, No acute distress - HEENT HEENT: PERRL, Moist mucous membranes, Other (Left parieto-occipital hematoma with a small 1 cm V shaped laceration. No palpable skull fractures. Otherwise atraumatic skull exam) - Neck Neck: Supple, no meningeal sign, No bony TTP, C-Spine cleared by NEXUS criteria - Cardiac Cardiac: RRR, Strong equal pulses - Respiratory Respiratory: No respiratory distress, Clear bilaterally - Abdomen Abdomen: Soft, Non tender, Non distended - Derm Derm: Warm and dry - Neuro Neuro: Alert and oriented X 3 - Psych Psych: Normal mood, Normal affect Results - Vitals Vitals: Vital Signs - 24 hr 04/13/21 04/13/21 04/13/21 13:12 13:45 14:15 Temperature 36.0 C L Heart Rate 80 75 72 Respiratory 26 H 13 17 Rate Blood Pressure 107/64 113/59 L 101/59 L O2 Saturation 99 94 100 Oxygen O2 Source Room air - Rads (name of study) head CT Radiology: Final report received, EMP read contemporaneously, See rad report Procedures - Laceration (location) L parietooccipital area Length in cm: 1 Wound type: Curved Neurovascular status: Sensory intact, Motor intact, Vascular intact Wound preparation: Irrigated copiously NS Skin layer closure: [place] (2) Other: Patient tolerated well, No complications, Neurovascular intact, Dressing applied, Tetanus UTD PD MEDICAL DECISION MAKING - ED course Complexity details: reviewed results, re-evaluated patient, considered differential, d/w patient ED course: 55-year-old female status post ground-level fall. No acute findings on head CT. Laceration repaired with aime. Tolerated well. Tetanus up-to-date. No new neurological deficits. We will have her follow-up with her doctor for further care. Patient counseled regarding signs and symptoms for which I believe and urgent re-evaluation would be necessary. Patient with good understanding of and agreement to plan and is comfortable going home at this time This document was made in part using voice recognition software. While efforts are made to proofread this document, sound alike and grammatical errors may o ccur. Departure - Departure Disposition: 01 Home, Self Care Clinical Impression: Fall Qualifiers: Encounter type: initial encounter Qualified Code(s): W19.XXXA - Unspecified fall, initial encounter Head injury Qualifiers: Encounter type: initial encounter Qualified Code(s): S09.90XA - Unspecified injury of head, initial encounter Laceration of scalp Qualifiers: Encounter type: initial encounter Qualified Code(s): S01.01XA - Laceration without foreign body of scalp, initial encounter Condition: Good Instructions: ED Head Injury Closed, ED Laceration Scalp Stitch Or Stap Follow-Up: JAVID PORTER DO [Primary Care Provider] - Within 1 week Comments: Your head CT does not show any acute abnormalities. The aime can be removed by your doctor in about 10 days. You can use Tylenol as needed for pain.
--- NOTE | 2021-04-13 13:52 | CT Report ---
PROCEDURE: HEAD WO INDICATIONS: fall, head injury TECHNIQUE: Noncontrast 4.5 mm thick angled axial sections acquired from the foramen magnum to the vertex. For r adiation dose reduction, the following was used: automated exposure control, adjustment of mA and/or kV according to patient size. COMPARISON: CT abdomen 01/20/2018. FINDINGS: Image quality: Excellent. CSF spaces: Basal cisterns are patent. No extra-axial fluid collections. Ex vacuo dilatation of the right lateral ventricle is seen. Brain: Postsurgical changes are seen from right pterional craniotomy. Extensive encephalitis changes are seen in a right MCA territory distribution, consistent with old infarct. There is ex vacuo dilat ation of the right lateral ventricle. No midline shift. No no acute intracranial hemorrhage. No gambino stentorial or transforaminal herniation. Skull and face: Calvarium and visualized facial bones are intact, without suspicious lesions. Sinuses: Visualized sinuses and mastoids are clear. IMPRESSION: 1.No acute intracranial hemorrhage or mass effect. 2.Remote prior large right MCA territory infarct with chronic encephalomalacic changes. 3.Postsurgical changes from right sided craniotomy. Reviewed by: Peyman Luong MD on 04/13/2021 1:51 PM PST Approved by: Peyman Luong MD on 04/13/2021 1:51 PM PST Station ID: [id number]
[2021-04-13] MEDS ORDERED: ACETAMINOPHEN 325 MG TABLET PO STA (14:22)
[2021-04-13 14:44] VITALS: BP 102/60
== END 2021-04-13 14:50 | disposition home or self-care (01) ==
LOC: EDUNIT# → ED 13:05
DX: S09.90XA Unspecified injury of head, initial encounter (principal); S01.01XA Laceration without foreign body of scalp, initial encounter; W18.30XA Fall on same level, unspecified, initial encounter; W22.03XA Walked into furniture, initial encounter
CPT/HCPCS: 12011; 70450; 99283; A9270

== ENCOUNTER 2021-07-04 17:43 | Emergency (ER) | payer MEDICARE, OTHER ==
[2021-07-04 18:23] LABS: BASOPHILS % (AUTO) 0.5 %; EOSINOPHILS # (AUTO) 0.1 10^3/uL (0.0-0.7); EOSINOPHILS % (AUTO) 1.4 %; HCT - HEMATOCRIT 34.2 % (37.0-47.0); HGB - HEMOGLOBIN 10.5 g/dL (12.0-16.0); LYMPHOCYTES # (AUTO) 3.3 10^3/uL (1.5-3.5); LYMPHOCYTES % (AUTO) 41.1 %; MEAN CORPUSCULAR HEMOGLOBIN 25.7 pg (27.0-31.0); MEAN CORPUSCULAR HGB CONC 30.7 g/dL (32.0-36.0); MEAN CORPUSCULAR VOLUME 83.6 fL (81.0-99.0); MEAN PLATELET VOLUME 12.2 fL (7.9-10.8); MONOCYTES # (AUTO) 0.6 10^3/uL (0.0-1.0); MONOCYTES % (AUTO) 7.5 %; NEUTROPHILS % (AUTO) 49.4 %; PLT - PLATELET COUNT 269 10^3/uL (130-450); RED BLOOD COUNT 4.09 10^6/uL (4.20-5.40); RED CELL DISTRIBUTION WIDTH 16.2 % (12.0-15.0); WHITE BLOOD COUNT 8.1 x10^3/uL (4.8-10.8)
[2021-07-04 18:42] LABS: ALBUMIN 3.6 g/dL (3.2-5.5); ALBUMIN/GLOBULIN RATIO 0.9 (1.0-2.2); BILIRUBIN,TOTAL 0.5 mg/dL (0.2-1.0); CALCIUM 8.8 mg/dL (8.5-10.3); CREATININE 0.8 mg/dL (0.4-1.0); POTASSIUM 3.9 mmol/L (3.5-5.0); TOTAL PROTEIN 7.5 g/dL (6.7-8.2)
--- NOTE | 2021-07-04 18:47 | XRAY Report ---
PROCEDURE: Chest 1 View X-Ray INDICATIONS: Chest pain TECHNIQUE: One view of the chest was acquired. COMPARISON: FINDINGS: Surgical changes and devices: Coronary stent is stable. Lungs and pleura: No pleural effusions or pneumothorax. Lungs are clear. Mediastinum: Mediastinal contours appear normal. Heart size is normal. Bones and chest wall: No suspicious bony lesions. Overlying soft tissues appear unremarkable. IMPRESSION: No acute cardiopulmonary disease process. Reviewed by: Keisha Raines MD, PhD on 07/04/2021 6:46 PM PDT Approved by: Keisha Raines MD, PhD on 07/04/2021 6:46 PM PDT Station ID: [id number]
[2021-07-04] MEDS ORDERED: MAG HYDROX/AL HYDROX/SIMETH 30 ML UDC PO STA (18:53)
[2021-07-04] MEDS ORDERED: SUCRALFATE 1 GM/10 ML UDC PO STA (18:53)
--- NOTE | 2021-07-04 19:22 | ED Physician Documentation ---
PD HPI CHEST PAIN - Stated complaint Stated Complaint: CP - Chief complaint Chief Complaint: Cardiac - History obtained from History obtained from: Patient - History of Present Illness Timing - onset: Today, Yesterday Timing - onset during: Rest Timing - duration: Hours (24) Timing - details: Gradual onset, Constant Pain level max: 5 Pain level now: 5 Quality: Other (burning). No: Pressure, Tightness, Aching, Sharp, Tearing, Dull, Stabbing, Throbbing Location: Substernal Radiation: No: Jaw, Neck, Back, Abdominal, Left upper extremity, Right upper extremity Improved by: Nothing Worsened by: No: Exertion, Inspiration, Eating, Movement, Palpation, Position Associated symptoms: No: Shortness of air, Diaphoresis, Nausea, Vomiting, Feeling faint / dizzy, General Weakness, Palpitations, Cough Review of Systems Constitutional: denies: Fever, Chills Nose: denies: Rhinorrhea / runny nose, Congestion Throat: denies: Sore throat Cardiac: denies: Palpitations, Calf pain Respiratory: denies: Dyspnea, Cough, Wheezing GI: denies: Vomiting, Diarrhea Skin: denies: Rash Musculoskeletal: denies: Neck pain, Back pain Neurologic: denies: Headache PD PAST MEDICAL HISTORY - Past Medical History Cardiovascular: High cholesterol, Coronary artery disease, [place] Respiratory: None Neuro: CVA, Seizure disorder Endocrine/Autoimmune: None GI: 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 Psych: None Musculoskeletal: None Derm: None - Past Surgical History Past Surgical History: Yes General: Other Cardiovascular: Coronary stent Neuro: Craniotomy - Present Medications Home Medications: Ambulatory Orders Medication Instructions Recorded Confirmed Aspirin 81 mg PO DAILY 12/26/17 04/13/21 Acetaminophen [Tylenol] 650 mg PO Q4H PRN 01/20/18 04/13/21 Nitroglycerin [Nitrostat] 0.4 mg SL Q5MIN PRN 01/20/18 04/13/21 Alirocumab [Praluent Pen] 75 mg SQ ONCE 04/30/20 04/13/21 Amitriptyline [Elavil] 25 mg PO QPM 04/30/20 04/13/21 Atorvastatin Calcium [Lipitor] 80 mg PO DAILY 04/30/20 04/13/21 Clopidogrel [Plavix] 75 mg PO DAILY 04/30/20 04/13/21 Gabapentin [Neurontin] 100 mg PO PRN PRN 04/30/20 04/13/21 Levothyroxine Sodium [Synthroid] 50 mcg PO DAILY 04/30/20 04/13/21 Mirtazapine [Remeron] 15 mg PO DAILY 04/30/20 04/13/21 Pantoprazole [Protonix] 40 mg PO DAILY 04/30/20 04/13/21 Metoprolol Succinate [Toprol Xl] 12.5 mg PO DAILY 04/13/21 04/13/21 - Allergies Allergies/Adverse Reactions: Allergies Allergy/AdvReac Type Severity Reaction Status Date / Time Iodinated Contrast Media Allergy Rash Verified 07/04/21 17:53 [Iodinated Contrast- Oral and IV Dye] morphine Allergy Rash Verified 07/04/21 17:53 - Social History Does the pt smoke?: No Smoking Status: Never smoker Does the pt drink ETOH?: No Does the pt have substance abuse?: No - Immunizations Immunizations are current?: Yes - POLST Patient has POLST: No PD ED PE NORMAL - Vitals Vital signs reviewed: Yes - General General: Alert and oriented X 3, No acute distress, Well developed/nourished - HEENT HEENT: PERRL, Moist mucous membranes - Neck Neck: Supple, no meningeal sign - Cardiac Cardiac: RRR, Strong equal pulses - Respiratory Respiratory: No respiratory distress, Clear bilaterally - Abdomen Abdomen: Soft, Non tender, Non distended - Back Back: No CVA TTP, No spinal TTP - Derm Derm: Warm and dry - Extremities Extremities: No edema, No calf tenderness / cord - Neuro Neuro: Alert and oriented X 3 - Psych Psych: Normal mood, Normal affect Results - Vitals Vitals: Vital Signs - 24 hr 07/04/21 07/04/21 07/04/21 17:53 18:30 19:25 Temperature 36.5 C Heart Rate 64 72 69 Respiratory 16 22 19 Rate Blood Pressure 126/59 L 123/75 O2 Saturation 96 100 100 07/04/21 19:45 Temperature 37.2 C Heart Rate 62 Respiratory 15 Rate Blood Pressure 137/69 H O2 Saturation 100 Oxygen O2 Source Room air - EKG (time done) 1808 Rate: Rate (enter#) (66) Rhythm: NSR [place]: Normal Intervals: Normal [place] QRS: Normal Ischemia: Normal ST segments, Q waves (II, III, aVF) - Labs Labs: Laboratory Tests 07/04/21 07/04/21 07/04/21 18:17 18:17 18:17 WBC 8.1 RBC 4.09 L Hgb 10.5 L Hct 34.2 L MCV 83.6 MCH 25.7 L MCHC 30.7 L RDW 16.2 H Plt Count 269 MPV 12.2 H Neut # (Auto) 4.0 Lymph # (Auto) 3.3 [place] # (Auto) 0.6 Eos # (Auto) 0.1 Baso # (Auto) 0.0 Absolute Nucleated RBC 0.00 Nucleated RBC % 0.0 Sodium 137 Potassium 3.9 Chloride 103 Carbon Dioxide 25 Anion Gap 9.0 BUN 20 Creatinine 0.8 Estimated GFR (MDRD) 74 L Glucose 92 Calcium 8.8 Total Bilirubin 0.5 AST 26 ALT 24 Alkaline Phosphatase 61 Troponin I High Sens 3.4 Total Protein 7.5 Albumin 3.6 Globulin 3.9 Albumin/Globulin Ratio 0.9 L Lipase 73 H - Rads (name of study) Chest x-ray Radiology: Final report received, EMP read contemporaneously, See rad report (No acute abnormality) PD MEDICAL DECISION MAKING - ED course Complexity details: reviewed results, re-evaluated patient, considered differential (No ST elevation [place], no aortic dissection, no PE, no tension pneumothorax, no aortic aneurysm), d/w patient, d/w family ED course: Patient is a 55-year-old female with chest pain for the past 24 hours. This has been constant. Symptoms fully resolved with a GI cocktail. Negative high- sensitivity troponin. No acute findings on EKG, chest x-ray. Patient is currently asymptomatic. We will have her follow-up with her doctor for further care. Patient does have a history of GERD. Patient counseled regarding signs and symptoms for which I believe and urgent re-evaluation would be necessary. Patient with good understanding of and agreement to plan and is comfortable going home at this time This document was made in part using voice recognition software. While efforts are made to proofread this document, sound alike and grammatical errors may occur. Departure - Departure Disposition: 01 Home, Self Care Clinical Impression: Chest pain Qualifiers: Chest pain type: unspecified Qualified Code(s): R07.9 - Chest pain, unspecified Condition: Good Instructions: ED Chest Pain Atypical Unkn Cause Follow-Up: PORTER,JAVID M, [Primary Care Provider] - Within 1 week Comments: The cause of your pain is unclear today. Please follow-up with your doctor for further care. Return if you worsen. Your EKG and troponin do not show any acute abnormalities today. Please continue your current medications at home. Discharge Date/Time: 07/04/21 19:50
[2021-07-04 20:00] VITALS: BP 137/69
== END 2021-07-04 19:50 | disposition home or self-care (01) ==
LOC: ED 17:43
DX: R07.9 Chest pain, unspecified (principal)
CPT/HCPCS: 36415; 71045; 80053; 83690; 84484; 85025; 93005; 99284; A9270

== ENCOUNTER 2021-11-05 19:54 | Emergency (ER) | payer MEDICARE, OTHER ==
--- NOTE | 2021-11-05 20:06 | ED Physician Documentation ---
PD HPI CHEST PAIN - Stated complaint Stated Complaint: CHEST PX - Chief complaint Chief Complaint: Cardiac - History obtained from History obtained from: Patient - History of Present Illness Timing - onset: Enter time (18:00), Today Timing - onset during: Rest Timing - details: Abrupt onset Quality: Pain Location: Substernal Radiation: Other (no radiation) Improved by: Nothing Worsened by: Other (no exacerbating factors) Associated symptoms: No: Shortness of air, Diaphoresis, Nausea, Vomiting Recently seen: Not recently seen (most recent [facility] ED visit was 4 months ago for CP ,T+R) - Additional information Additional information: c/o chest pain , onset at home at rest at approximately 6 PM today. She took one SLNTG without improvement and driven to ED by family. h/o multiple coronary artery stents, SC, CVA, LLE vascular bypass. Review of Systems Constitutional: reports: Reviewed and negative Cardiac: reports: Chest pain / pressure. 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 : None Psych: None Musculoskeletal: None Derm: None - Past Surgical History Past Surgical History: Yes General: Other Cardiovascular: Coronary stent Neuro: Craniotomy - Present Medications Home Medications: Ambulatory Orders Medication Instructions Recorded Confirmed Aspirin 81 mg PO DAILY 12/26/17 04/13/21 Acetaminophen [Tylenol] 650 mg PO Q4H PRN 01/20/18 04/13/21 Nitroglycerin [Nitrostat] 0.4 mg SL Q5MIN PRN 01/20/18 04/13/21 Alirocumab [Praluent Pen] 75 mg SQ ONCE 04/30/20 04/13/21 Amitriptyline [Elavil] 25 mg PO QPM 04/30/20 04/13/21 Atorvastatin Calcium [Lipitor] 80 mg PO DAILY 04/30/20 04/13/21 Clopidogrel [Plavix] 75 mg PO DAILY 04/30/20 04/13/21 Gabapentin [Neurontin] 100 mg PO PRN PRN 04/30/20 04/13/21 Levothyroxine Sodium [Synthroid] 50 mcg PO DAILY 04/30/20 04/13/21 Mirtazapine [Remeron] 15 mg PO DAILY 04/30/20 04/13/21 Pantoprazole [Protonix] 40 mg PO DAILY 04/30/20 04/13/21 Metoprolol Succinate [Toprol Xl] 12.5 mg PO DAILY 04/13/21 04/13/21 - Allergies Allergies/Adverse Reactions: Allergies Allergy/AdvReac Type Severity Reaction Status Date / Time Iodinated Contrast Media Allergy Rash Verified 11/05/21 20:02 [Iodinated Contrast- Oral and IV Dye] morphine Allergy Rash Verified 11/05/21 20:02 - Social History Does the pt smoke?: No Smoking Status: Never smoker Does the pt drink ETOH?: No Does the pt have substance abuse?: No - Immunizations Immunizations are current?: Yes - POLST Patient has POLST: No PD ED PE NORMAL - Vitals Vital signs reviewed: Yes - General General: Alert and oriented X 3, No acute distress, Well developed/nourished - Cardiac Cardiac: RRR, No murmur - Respiratory Respiratory: No respiratory distress, Clear bilaterally - Abdomen Abdomen: Soft, Non tender - Derm Derm: Normal color, Warm and dry - Extremities Extremities: No edema PD ED PE EXPANDED - Neuro Neuro: Other (left hemiplegia (not new; due to previous CVA)) Results - Vitals Vitals: Oxygen O2 Source Room air - EKG (time done) No standard instances Rate: Rate (enter#) (80) Rhythm: NSR [place]: Normal Intervals: Normal [place] QRS: Normal Ischemia: Normal ST segments, T wave inversion (flat II, inverted III ,aVF) Compare to prior EKG: Unchanged from prior EKG (07/04/21) - Labs Labs: Laboratory Tests 11/05/21 11/05/21 11/05/21 20:23 20:23 20:23 WBC 8.7 RBC 3.79 L Hgb 9.6 L Hct 31.4 L MCV 82.8 MCH 25.3 L MCHC 30.6 L RDW 15.7 H Plt Count 290 MPV 11.9 H Neut # (Auto) 4.3 Lymph # (Auto) 3.6 H [place] # (Auto) 0.7 Eos # (Auto) 0.1 Baso # (Auto) 0.0 Absolute Nucleated RBC 0.00 Nucleated RBC % 0.0 Sodium 139 Potassium 2.9 L Chloride 103 Carbon Dioxide 28 Anion Gap 8.0 BUN 24 H Creatinine 0.9 Estimated GFR (MDRD) 64 L Glucose 109 H Calcium 8.9 Total Bilirubin 0.5 AST 21 ALT 18 Alkaline Phosphatase 60 Troponin I High Sens 4.8 Total Protein 7.5 Albumin 3.6 Globulin 3.9 Albumin/Globulin Ratio 0.9 L Lipase 51 - Rads (name of study) chest xray Radiology: Prelim report reviewed, See rad report PD MEDICAL DECISION MAKING - ED course Complexity details: reviewed old records, reviewed results, re-evaluated patient, considered differential, d/w patient Departure - Departure Disposition: 01 Home, Self Care Clinical Impression: Chest pain, Hypokalemia, Anemia Condition: Good Instructions: ED Chest Pain Atypical Unkn Cause, ED Potassium Deficiency Follow-Up: JAVID PORTER DO [Primary Care Provider] - Comments: The results of your tests tonight do not reveal or suggest a cause of your chest pain. The EKG , chest xray, and cardiac blood test were unremarkable. Incidentally noted are mildly low potassium and mildly low red blood cell level. These are not at dangerous/concerning levels, but you should follow up with your primary care provider regarding both of these findings as well as for reevaluation of the chest pain. Discharge Date/Time: 11/05/21 22:00
[2021-11-05 20:28] LABS: BASOPHILS % (AUTO) 0.5 %; EOSINOPHILS # (AUTO) 0.1 10^3/uL (0.0-0.7); EOSINOPHILS % (AUTO) 1.2 %; HCT - HEMATOCRIT 31.4 % (37.0-47.0); HGB - HEMOGLOBIN 9.6 g/dL (12.0-16.0); LYMPHOCYTES # (AUTO) 3.6 10^3/uL (1.5-3.5); MEAN CORPUSCULAR HEMOGLOBIN 25.3 pg (27.0-31.0); MEAN CORPUSCULAR HGB CONC 30.6 g/dL (32.0-36.0); MEAN CORPUSCULAR VOLUME 82.8 fL (81.0-99.0); MEAN PLATELET VOLUME 11.9 fL (7.9-10.8); MONOCYTES # (AUTO) 0.7 10^3/uL (0.0-1.0); MONOCYTES % (AUTO) 7.9 %; NEUTROPHILS # (AUTO) 4.3 10^3/uL (1.5-6.6); NEUTROPHILS % (AUTO) 49.2 %; PLT - PLATELET COUNT 290 10^3/uL (130-450); RED BLOOD COUNT 3.79 10^6/uL (4.20-5.40); RED CELL DISTRIBUTION WIDTH 15.7 % (12.0-15.0); WHITE BLOOD COUNT 8.7 x10^3/uL (4.8-10.8)
[2021-11-05 20:43] LABS: ALBUMIN 3.6 g/dL (3.2-5.5); ALBUMIN/GLOBULIN RATIO 0.9 (1.0-2.2); BILIRUBIN,TOTAL 0.5 mg/dL (0.2-1.0); CALCIUM 8.9 mg/dL (8.5-10.3); CREATININE 0.9 mg/dL (0.4-1.0); POTASSIUM 2.9 mmol/L (3.5-5.0); TOTAL PROTEIN 7.5 g/dL (6.7-8.2)
[2021-11-05] MEDS ORDERED: POTASSIUM CHLORIDE 20 MEQ TABLET PO STA (21:31)
[2021-11-05 21:45] VITALS: BP 124/82
--- NOTE | 2021-11-05 21:59 | XRAY Report ---
PROCEDURE: Chest 1 View X-Ray INDICATIONS: Chest pain TECHNIQUE: One view of the chest was acquired. COMPARISON: 07/04/2021. FINDINGS: Surgical changes and devices: None. Lungs and pleura: No pleural effusions or pneumothorax. Lungs are clear. There is increased asymmet juan elevation of the left hemidiaphragm. Mediastinum: Mediastinal contours appear normal. Heart size is normal. Bones and chest wall: No suspicious bony lesions. Overlying soft tissues appear unremarkable. IMPRESSION: 1. No acute cardiopulmonary disease. 2. Increased asymmetric elevation of the left hemidiaphragm is nonspecific but may reflect possible p hrenic nerve palsy. Reviewed by: Giacomo Wheeler MD on 11/05/2021 9:57 PM PDT Approved by: Giacomo Wheeler MD on 11/05/2021 9:57 PM PDT Station ID: [id number]
== END 2021-11-05 22:00 | disposition home or self-care (01) ==
LOC: ED 19:54
DX: R07.9 Chest pain, unspecified (principal); E87.6 Hypokalemia; D64.9 Anemia, unspecified
CPT/HCPCS: 36415; 71045; 80053; 83690; 84484; 85025; 93005; 99284; A9270

== ENCOUNTER 2022-02-12 14:44 | Outpatient (CLI) | payer MEDICARE, OTHER | END 2022-02-12 14:45 | disposition home or self-care (01) | LOC: DI 14:44 | PROVIDERS: ATTEND Family Medicine | DX: I25.10 Atherosclerotic heart disease of native coronary artery without angina pectoris (principal); I25.2 Old myocardial infarction; E78.5 Hyperlipidemia, unspecified; I73.9 Peripheral vascular disease, unspecified; I51.7 Cardiomegaly; I25.3 Aneurysm of heart; I51.89 Other ill-defined heart diseases; R93.1 Abnormal findings on diagnostic imaging of heart and coronary circulation | CPT/HCPCS: 93306 ==

== ENCOUNTER 2022-12-21 11:43 | Emergency (ER) | payer MEDICARE, OTHER ==
--- NOTE | 2022-12-21 12:34 | ED Physician Documentation ---
PD HPI FOCAL NEURO - Stated complaint Stated Complaint: DIZZINESS, CONFUSION - Chief complaint Chief Complaint: Neuro - History obtained from History obtained from: Patient, Family - Additional information Additional information: 57-year-old woman presents by private vehicle with family. She has a history of stroke causing left hemiplegia with craniectomy about 5 or 6 years ago. She did have seizures then. She was seen by me last week for cough, runny nose, feeling weak. Found to be positive for rhinovirus/enterovirus, and had a leukocytosis and mild hypotension. She was sent home on doxycycline after IV fluids and Rocephin here. She feels like that issue has resolved. She was in her usual state of health this morning when she got up but then she was walking to the bathroom and family says she went unresponsive but maintained postural tone. She was moving her left hand around. Then she developed a significant headache. States she is allergic to morphine but can take "the D drug." She feels back to normal now but family feels like she is weaker than normal. 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 : None Psych: None Musculoskeletal: None Derm: None - Past Surgical History Past Surgical History: Yes General: Other Cardiovascular: Coronary stent Neuro: Craniotomy - Present Medications Home Medications: Ambulatory Orders Medication Instructions Recorded Confirmed Aspirin 81 mg PO DAILY 12/26/17 04/13/21 Acetaminophen [Tylenol] 650 mg PO Q4H PRN 01/20/18 04/13/21 Nitroglycerin [Nitrostat] 0.4 mg SL Q5MIN PRN 01/20/18 04/13/21 Alirocumab [Praluent Pen] 75 mg SQ ONCE 04/30/20 04/13/21 Amitriptyline [Elavil] 25 mg PO QPM 04/30/20 04/13/21 Atorvastatin Calcium [Lipitor] 80 mg PO DAILY 04/30/20 04/13/21 Clopidogrel [Plavix] 75 mg PO DAILY 04/30/20 04/13/21 Gabapentin [Neurontin] 100 mg PO PRN PRN 04/30/20 04/13/21 Levothyroxine Sodium [Synthroid] 50 mcg PO DAILY 04/30/20 04/13/21 Mirtazapine [Remeron] 15 mg PO DAILY 04/30/20 04/13/21 Pantoprazole [Protonix] 40 mg PO DAILY 04/30/20 04/13/21 Metoprolol Succinate [Toprol Xl] 12.5 mg PO DAILY 04/13/21 04/13/21 Doxycycline [Vibramycin] 100 mg PO BID #14 tablet 12/03/22 Levetiracetam [Keppra] 500 mg PO BID #120 tablet 12/21/22 - Allergies Allergies/Adverse Reactions: Allergies Allergy/AdvReac Type Severity Reaction Status Date / Time Iodinated Contrast Media Allergy Rash Verified 12/03/22 12:12 [Iodinated Contrast- Oral and IV Dye] morphine Allergy Rash Verified 12/03/22 12:12 - Social History Does the pt smoke?: No Smoking Status: Never smoker Does the pt drink ETOH?: No Does the pt have substance abuse?: No - Immunizations Immunizations are current?: Yes - POLST Patient has POLST: No PD ED PE NORMAL - Vitals Vital signs reviewed: Yes - General General: Alert and oriented X 3, No acute distress - HEENT HEENT: PERRL, EOMI - Neck Neck: Supple, no meningeal sign, No bony TTP - Cardiac Cardiac: RRR, No murmur - Respiratory Respiratory: No respiratory distress, Clear bilaterally - Abdomen Abdomen: Normal bowel sounds, Soft, Non tender - Back Back: No CVA TTP, No spinal TTP - Derm Derm: Normal color, Warm and dry - Neuro Neuro: Alert and oriented X 3, Normal speech, Other (No motion of the left hand, chronic she has some effort against gravity with the left leg but family stating it is worse than usual.) Eye Opening: Spontaneous Motor: Obeys Commands Verbal: Oriented GCS Score: 15 NIHSS - Time Time: 12:25 - Level of Consciousness Level of consciousness: (0) Alert, Keenly responsive LOC Questions: (0) Answers both Q's correct LOC Commands: (0) Performs both correctly - Gaze Best Gaze: (0) Normal - Visual Visual: (0) No loss - Facial Palsy Facial Palsy: (0) Normal, symmetrical movement - Motor Arms (both separate) Motor Arm (right): (0) No drift Motor Arm (left): (4) No movement - Motor Legs (both separate) Motor Leg (right): (0) No drift Motor Leg (left): (2) Some effort against gravity - Limb Ataxia Limb Ataxia: (0) Absent - Sensory Sensory: (0) Normal - Best Language Best Language: (0) No aphasia - Dysarthria Dysarthria: (0) Normal - Extinction and Inattention (formally neg Extinction and inattention: (0) No abnormality - Total Score/Results Total Score/Result: 6 Results - Vitals Vitals: Vital Signs - 24 hr 12/21/22 12/21/22 12/21/22 12:21 14:08 14:47 Temperature 36 C L Heart Rate 87 56 L 66 Respiratory 16 16 17 Rate Blood Pressure 109/58 L 113/66 101/70 O2 Saturation 100 99 98 Oxygen O2 Source Room air - EKG (time done) 1341 EKG releavant findings:: EKG personally interpreted by author of this note. Relevant findings are: Rate: Rate (enter#) (61) Rhythm: NSR, LAE [place]: Normal Intervals: Normal [place] QRS: Normal Ischemia: Q waves (inferior). No: ST elevation c/w ischemia Computer interpretation: Agree with computer - Labs Labs: Laboratory Tests 12/21/22 12/21/22 12/21/22 12:45 12:45 12:45 WBC 7.4 RBC 4.78 Hgb 13.2 Hct 42.1 MCV 88.1 MCH 27.6 MCHC 31.4 L RDW 15.3 H Plt Count 424 MPV 11.4 H Neut # (Auto) 4.8 Lymph # (Auto) 1.9 Iron # (Auto) 0.5 Eos # (Auto) 0.0 Baso # (Auto) 0.1 Absolute Nucleated RBC 0.00 Nucleated RBC % 0.0 Sodium 136 Potassium 4.4 Chloride 101 Carbon Dioxide 29 Anion Gap 6.0 BUN 21 H Creatinine 0.9 Estimated GFR (MDRD) 64 L Glucose 89 Calcium 9.7 Magnesium 1.8 Total Bilirubin 0.7 AST 12 ALT 12 Alkaline Phosphatase 57 Total Protein 7.5 Albumin 4.2 Globulin 3.3 Albumin/Globulin Ratio 1.3 Prolactin 5.54 - Rads (name of study) CT of the head showing previous completed right MCA stroke, and craniotomy, no acute changes. Relevant Findings:: Final report received, EMP independent interpretation of test PD Medical Decision Making - ED course ED course: 57-year-old woman had an unresponsive episode and now has increased over normal left lower extremity weakness in the setting of prior right MCA stroke. Did not sound like syncope as she maintained postural tone during the episode. CT of the head is unremarkable. After a time her weakness in her left leg resolved back to her baseline. I presume this was a partial seizure activity with Saji's paralysis. We will start her on a low-dose of Keppra pending follow-up with her neurologist. Departure - Departure Disposition: 01 Home, Self Care Clinical Impression: Seizure Condition: Good Record reviewed to determine appropriate education?: Yes Instructions: ED Seizure New Onset Unk Cause Prescriptions: Levetiracetam [Keppra] 500 mg PO BID #120 tablet Comments: You were seen today for an episode of decreased responsiveness and left leg weakness over your baseline which resolved after a time. I presume this was a seizure related to your prior stroke and I am starting you on a low-dose of Keppra, I seizure medication. You should follow-up with your neurologist in [place], call tomorrow for the next available appointment. I am prescribing enough medication for 2 months just in case there is a delay getting in. I sent that prescription electronically to [facility] in [place]. Return if worse. Forms: PCP List Discharge Date/Time: 12/21/22 14:49
[2022-12-21 12:52] LABS: BASOPHILS # (AUTO) 0.1 10^3/uL (0.0-0.1); BASOPHILS % (AUTO) 0.8 %; EOSINOPHILS % (AUTO) 0.5 %; HCT - HEMATOCRIT 42.1 % (37.0-47.0); HGB - HEMOGLOBIN 13.2 g/dL (12.0-16.0); LYMPHOCYTES # (AUTO) 1.9 10^3/uL (1.5-3.5); LYMPHOCYTES % (AUTO) 25.8 %; MEAN CORPUSCULAR HEMOGLOBIN 27.6 pg (27.0-31.0); MEAN CORPUSCULAR HGB CONC 31.4 g/dL (32.0-36.0); MEAN CORPUSCULAR VOLUME 88.1 fL (81.0-99.0); MEAN PLATELET VOLUME 11.4 fL (7.9-10.8); MONOCYTES # (AUTO) 0.5 10^3/uL (0.0-1.0); MONOCYTES % (AUTO) 7.3 %; NEUTROPHILS # (AUTO) 4.8 10^3/uL (1.5-6.6); NEUTROPHILS % (AUTO) 65.3 %; PLT - PLATELET COUNT 424 10^3/uL (130-450); RED BLOOD COUNT 4.78 10^6/uL (4.20-5.40); RED CELL DISTRIBUTION WIDTH 15.3 % (12.0-15.0); WHITE BLOOD COUNT 7.4 x10^3/uL (4.8-10.8)
[2022-12-21 13:08] LABS: ALBUMIN 4.2 g/dL (3.2-5.5); ALBUMIN/GLOBULIN RATIO 1.3 (1.0-2.2); BILIRUBIN,TOTAL 0.7 mg/dL (0.2-1.0); CALCIUM 9.7 mg/dL (8.5-10.3); CREATININE 0.9 mg/dL (0.6-1.3); MAGNESIUM 1.8 mg/dL (1.7-2.3); POTASSIUM 4.4 mmol/L (3.5-4.5); TOTAL PROTEIN 7.5 g/dL (6.4-8.9)
--- NOTE | 2022-12-21 13:33 | CT Report ---
PROCEDURE: HEAD WO INDICATIONS: headache, syncope TECHNIQUE: Noncontrast 4.5 mm thick angled axial sections acquired from the foramen magnum to the vertex. For r adiation dose reduction, the following was used: automated exposure control, adjustment of mA and/or kV according to patient size. COMPARISON: 04/13/2021, 01/20/18 FINDINGS: Image quality: Excellent. CSF spaces: Basal cisterns are patent. No extra-axial fluid collections. Expect mild dilatation can be seen of the right lateral ventricle. Brain: No midline shift. No intracranial masses or hemorrhage. [place]-white matter interface is norm al. A very large remote right MCA distribution infarction is seen. Skull and face: Right-sided craniotomy change can be seen. Calvarium and visualized facial bones are intact, without suspicious lesions. Sinuses: Visualized sinuses and mastoids are clear. IMPRESSION: No acute intracranial pathology. Remote, completed right MCA territory infarction, stable from prior. Right-sided craniotomy change. Reviewed by: Sarthak Mendoza MD on 12/21/2022 12:32 PM GLADYS Approved by: Sarthak Mendoza MD on 12/21/2022 12:32 PM GLADYS Station ID: [id number]
[2022-12-21] MEDS ORDERED: HYDROmorphone 1 MG/ML CARPUJECT IM STA (13:47)
[2022-12-21 14:51] VITALS: BP 101/70; O2SAT 98
== END 2022-12-21 14:49 | disposition home or self-care (01) ==
LOC: ED 11:43
DX: R56.9 Unspecified convulsions (principal); I25.2 Old myocardial infarction
CPT/HCPCS: 36415; 80053; 83735; 84146; 85025; 93005; 96372; 99284

== ENCOUNTER 2022-12-21 15:24 | Inpatient (IN) | payer MEDICARE, OTHER ==
--- NOTE | 2022-12-21 15:55 | ED Physician Documentation ---
History of Present Illness - Stated complaint Stated Complaint: N/V,CONFUSION - Chief complaint Chief Complaint: General - Additonal information Additional information: 57-year-old female returns to the emergency department for evaluation of altered mental status. She had just been seen earlier this shift by my colleague for an episode of unresponsiveness where she maintained her postural tone but was moving her left hand around. She then developed a significant headache and was brought to to the emergency department. At the time my colleague evaluated her she states that she was feeling normal but her family felt she was weaker. CT scan completed earlier showed no acute intracranial pathology though it showed a remote complete right MCA territory infarction. There was concern that the patient's episode may have been related to a seizure thus she was started on Keflex and advised to follow closely with neurology. She did not receive a dose or loading dose here. Granddaughter states that when they were getting the patient into the car she reached for the handhold, suddenly vomited and then passed out into the passenger seat. Granddaughter reports that her mouth was agape but she was unresponsive. Reports her lip was quivering and she was moving her right arm back and forth. She came to after several seconds but has since then been lethargic. She does have a history of stroke causing left Hemaplegia and she had a craniotomy about 6 years ago. At that time of initial craniotomy she was having seizures. She was also seen last week for URI symptoms and found to have rhinovirus enterovirus. At that time of initial ED evaluation she did have some mild leukocytosis and hypotension. She was discharged on doxycycline and a dose of Rocephin. Her blood pressures improved with some IV fluids. on re-presentation to the emergency department her temperature is 35.9. Heart rate is 52. Initial blood pressure 89/51. Saturating 88% on room air. Review of Systems Unable to obtain: Other (lethargic; per grandaughter) Constitutional: denies: Fever Neurologic: reports: Headache, Head injury, LOC. denies: Seizure PD PAST MEDICAL HISTORY - Past Medical History Cardiovascular: High cholesterol, Coronary artery disease, [place] Respiratory: None Neuro: CVA, Seizure disorder Endocrine/Autoimmune: None GI: GERD QUALITY ASSURANCE CALIBRATOR: None : None Psych: None Musculoskeletal: None Derm: None - Past Surgical History Past Surgical History: Yes General: Other Cardiovascular: Coronary stent Neuro: Craniotomy - Present Medications Home Medications: Ambulatory Orders Medication Instructions Recorded Confirmed Aspirin 81 mg PO DAILY 12/26/17 04/13/21 Acetaminophen [Tylenol] 650 mg PO Q4H PRN 01/20/18 04/13/21 Nitroglycerin [Nitrostat] 0.4 mg SL Q5MIN PRN 01/20/18 04/13/21 Alirocumab [Praluent Pen] 75 mg SQ ONCE 04/30/20 04/13/21 Amitriptyline [Elavil] 25 mg PO QPM 04/30/20 04/13/21 Atorvastatin Calcium [Lipitor] 80 mg PO DAILY 04/30/20 04/13/21 Clopidogrel [Plavix] 75 mg PO DAILY 04/30/20 04/13/21 Gabapentin [Neurontin] 100 mg PO PRN PRN 04/30/20 04/13/21 Levothyroxine Sodium [Synthroid] 50 mcg PO DAILY 04/30/20 04/13/21 Mirtazapine [Remeron] 15 mg PO DAILY 04/30/20 04/13/21 Pantoprazole [Protonix] 40 mg PO DAILY 04/30/20 04/13/21 Metoprolol Succinate [Toprol Xl] 12.5 mg PO DAILY 04/13/21 04/13/21 Doxycycline [Vibramycin] 100 mg PO BID #14 tablet 12/03/22 Levetiracetam [Keppra] 500 mg PO BID #120 tablet 12/21/22 - Allergies Allergies/Adverse Reactions: Allergies Allergy/AdvReac Type Severity Reaction Status Date / Time Iodinated Contrast Media Allergy Rash Verified 12/03/22 12:12 [Iodinated Contrast- Oral and IV Dye] morphine Allergy Rash Verified 12/03/22 12:12 - Social History Does the pt smoke?: No Smoking Status: Never smoker Does the pt drink ETOH?: No Does the pt have substance abuse?: No - Immunizations Immunizations are current?: Yes - POLST Patient has POLST: No PD ED PE NORMAL - General General: Alert and oriented X 3, Well developed/nourished (thin, cachetic). No: No acute distress (Lethargic, pale appearing, diaphoretic.) - Cardiac Cardiac: RRR, No murmur - Respiratory Respiratory: No respiratory distress. No: Clear bilaterally (diminished right lung) - Abdomen Abdomen: Normal bowel sounds, Soft - Back Back: No CVA TTP, No spinal TTP - Derm Derm: Normal color, Warm and dry - Extremities Extremities: Other (Left arm is contracted. Left-sided hemiplegia) - Neuro Neuro: tactical debriefer 2-12 intact, Other (Lethargic, requires stimulation to remain awake and speak.). No: Alert and oriented X 3 Eye Opening: To Voice Motor: Obeys Commands Verbal: Oriented GCS Score: 14 Results - Vitals Vitals: Vital Signs - 24 hr 12/21/22 12/21/22 12/21/22 15:28 15:41 16:00 Temperature 35.9 C L Heart Rate 52 L 60 57 L Respiratory 12 15 Rate Blood Pressure 89/51 L 103/50 L 99/52 L O2 Saturation 88 L 93 If not protocol : Oxygen Flow, liters/minute 12/21/22 12/21/22 12/21/22 16:30 16:34 17:00 Temperature Heart Rate 63 64 62 Respiratory 13 16 18 Rate Blood Pressure 102/40 L 80/48 L 111/51 L O2 Saturation 100 95 73 L If not protocol : Oxygen Flow, liters/minute 12/21/22 12/21/22 12/21/22 17:26 17:30 18:00 Temperature Heart Rate 56 L 56 L 57 L Respiratory 14 14 14 Rate Blood Pressure 86/55 L 86/55 L 105/67 O2 Saturation 100 100 94 If not protocol 3 3 3 : Oxygen Flow, liters/minute 12/21/22 12/21/22 18:30 19:00 Temperature Heart Rate 55 L 62 Respiratory 13 12 Rate Blood Pressure 97/64 95/73 O2 Saturation 96 100 If not protocol 3 3 : Oxygen Flow, liters/minute Oxygen O2 Source Room air - EKG (time done) 1653 EKG releavant findings:: EKG personally interpreted by author of this note. Relevant findings are: Rate: Rate (enter#) (59) Rhythm: NSR Kevin: Normal Intervals: Prolonged QT QRS: Normal Ischemia: Q waves Compare to prior EKG: Unchanged from prior EKG Computer interpretation: Agree with computer - Labs Labs: Laboratory Tests 12/21/22 12/21/22 12/21/22 15:38 15:44 15:52 WBC 10.9 H RBC 4.60 Hgb 12.6 Hct 40.6 MCV 88.3 MCH 27.4 MCHC 31.0 L RDW 15.4 H Plt Count 470 H MPV 11.7 H Neut # (Auto) 6.1 Lymph # (Auto) 4.1 H [place] # (Auto) 0.5 Eos # (Auto) 0.1 Baso # (Auto) 0.1 Absolute Nucleated RBC 0.00 Nucleated RBC % 0.0 Sodium Potassium Chloride Carbon Dioxide Anion Gap BUN Creatinine Estimated GFR (MDRD) Glucose POC Whole Bld Glucose 126 H Lactic Acid Calcium Total Bilirubin AST ALT Alkaline Phosphatase Total Protein Albumin Globulin Albumin/Globulin Ratio TSH Free T4 Direct 1.11 Urine Color Urine Clarity Urine pH Ur Specific [place] Urine Protein Urine Glucose (UA) Urine Ketones Urine Occult Blood Urine Nitrite Urine Bilirubin Urine Urobilinogen Ur Leukocyte Esterase Urine RBC Urine WBC Ur Squamous Epith Cells Urine Bacteria Urine Culture Comments Urine Opiates Screen Ur Oxycodone Screen Urine Methadone Screen Ur Propoxyphene Screen Ur Barbiturates Screen Ur Tricyclics Screen Ur Phencyclidine Scrn Ur Amphetamine Screen U Methamphetamines Scrn U Benzodiazepines Scrn Urine Cocaine Screen U Cannabinoids Screen Ethyl Alcohol 12/21/22 12/21/22 12/21/22 15:52 15:52 16:04 WBC RBC Hgb Hct MCV MCH MCHC RDW Plt Count MPV Neut # (Auto) Lymph # (Auto) [place] # (Auto) Eos # (Auto) Baso # (Auto) Absolute Nucleated RBC Nucleated RBC % Sodium 134 L Potassium 4.4 Chloride 100 L Carbon Dioxide 28 Anion Gap 6.0 BUN 21 H Creatinine 1.0 Estimated GFR (MDRD) 57 L Glucose 151 H POC Whole Bld Glucose Lactic Acid 1.4 Calcium 9.6 Total Bilirubin 0.7 AST 14 ALT 11 Alkaline Phosphatase 56 Total Protein 7.4 Albumin 4.2 Globulin 3.2 Albumin/Globulin Ratio 1.3 TSH 5.96 H Free T4 Direct Urine Color Urine Clarity Urine pH Ur Specific [place] Urine Protein Urine Glucose (UA) Urine Ketones Urine Occult Blood Urine Nitrite Urine Bilirubin Urine Urobilinogen Ur Leukocyte Esterase Urine RBC Urine WBC Ur Squamous Epith Cells Urine Bacteria Urine Culture Comments Urine Opiates Screen Ur Oxycodone Screen Urine Methadone Screen Ur Propoxyphene Screen Ur Barbiturates Screen Ur Tricyclics Screen Ur Phencyclidine Scrn Ur Amphetamine Screen U Methamphetamines Scrn U Benzodiazepines Scrn Urine Cocaine Screen U Cannabinoids Screen Ethyl Alcohol < 10.0 12/21/22 16:53 WBC RBC Hgb Hct MCV MCH MCHC RDW Plt Count MPV Neut # (Auto) Lymph # (Auto) [place] # (Auto) Eos # (Auto) Baso # (Auto) Absolute Nucleated RBC Nucleated RBC % Sodium Potassium Chloride Carbon Dioxide Anion Gap BUN Creatinine Estimated GFR (MDRD) Glucose POC Whole Bld Glucose Lactic Acid Calcium Total Bilirubin AST ALT Alkaline Phosphatase Total Protein Albumin Globulin Albumin/Globulin Ratio TSH Free T4 Direct Urine Color YELLOW Urine Clarity CLEAR Urine pH 6.0 Ur Specific [place] <=1.005 Urine Protein NEGATIVE Urine Glucose (UA) NEGATIVE Urine Ketones NEGATIVE Urine Occult Blood NEGATIVE Urine Nitrite NEGATIVE Urine Bilirubin NEGATIVE Urine Urobilinogen 0.2 (NORMAL) Ur Leukocyte Esterase NEGATIVE Urine RBC 0-5 Urine WBC 0-3 Ur Squamous Epith Cells FEW Squamous Urine Bacteria Rare Urine Culture Comments NOT INDICATED Urine Opiates Screen POSITIVE H Ur Oxycodone Screen NEGATIVE Urine Methadone Screen NEGATIVE Ur Propoxyphene Screen NEGATIVE Ur Barbiturates Screen NEGATIVE Ur Tricyclics Screen POSITIVE H Ur Phencyclidine Scrn NEGATIVE Ur Amphetamine Screen NEGATIVE U Methamphetamines Scrn NEGATIVE U Benzodiazepines Scrn NEGATIVE Urine Cocaine Screen NEGATIVE U Cannabinoids Screen NEGATIVE Ethyl Alcohol - Rads (name of study) cxr Relevant Findings:: Final report received (no acute abnormality) Procedures - Central Line - Major Central Line Preparation: Unable to obtain consent, Time out completed, Ultrasound used, Sterile prep and drape Central line location: Right IJ Central line type: Triple lumen, Other (24 cm at skin) Central line aftercare: Chlorhexidine disc placed, Secured, Placement confirmed, No pneumothorax, No complications, Pt tolerated well PD Medical Decision Making - ED course Complexity details: reviewed results, re-evaluated patient, d/w patient ED course: 57-year-old female who has a history of remote right-sided CVA with associated left sided hemiplegia came to the emergency department today early this a.m. for an episode of brief unresponsiveness without loss of postural tone. She was walking, paused then began moving her left arm in a rhythmic manner. Her granddaughter described her as lethargic and not as responsive as normal. Seen in this ER had negative CT imaging for any acute findings with benign lab work- up. Provider thought that the episode in the a.m. likely represented seizure activity given history of seizures after her CVA though not currently on antiepileptics. She was discharged with a prescription for Keflex. When she was getting in the vehicle she had sudden vomiting, loss of postural tone and an episode where she was unresponsive though her eyes were opening and her mouth was agape. Granddaughter described a rhythmic movement of her right arm. Again suggesting seizure-like activity. She rhe presented to the ER however on reevaluation she was quite lethargic to required stimulation for conversation. She was also noted to have soft blood pressures with heart rates in the 50s and BP is typically 90/50. We again repeated labs including a sepsis work-up. Blood cultures are pending. Urine shows no signs of infection. Lactate was 1.4. Hemogram today shows hemoglobin of 12.6 essentially unchanged. White count was 10.9. Electrolytes without acute worrisome derangement. Urine drug screen positive for opiates and tricyclic's for which she does have prescriptions. With a soft blood pressures we did start IV fluids however her IVs quickly in filtrated. Given the lack of poor access and with mild hypotension a central venous line was placed by myself at the bedside. Clinically the patient presents as having altered mental status with lethargy but no confusion or new focal neurodeficits. Given the unremarkable CT of the head this morning it was not repeated during this ED visit. MRI is not available until tomorrow. 1829: I spoke with neurology Dr. Olguin at [facility] where patient receives her neuro care. In discussion with this doctor he feels that the events of this morning as well as this afternoon likely represent seizure-like activity and the ongoing lethargy may be a post ictal status. He recommends loading the patient with the 1000 g of Keppra. 500 had been given earlier so I will add another 500. Recommends MRI in the morning and continued observation for mental status. He does not feel the patient warrants transfer for other neuro evaluation such as EEG. 1929: Spoke with telehospitalist Bev Rene who will be admitting the patient to the hospital for further evaluation of her altered mental status, lethargy and suspected seizures. Departure - Departure Disposition: 66 [facility] DC/Xfer Clinical Impression: History of CVA (cerebrovascular accident), Seizure-like activity Altered mental status Qualifiers: Altered mental status type: unspecified Qualified Code(s): R41.82 - Altered mental status, unspecified Syncope Qualifiers: Syncope type: unspecified Qualified Code(s): R55 - Syncope and collapse Forms: PCP List
[2022-12-21] MEDS ORDERED: SODIUM CHLORIDE 0.9% 1,000 ML IV STA ×2 (15:59→19:13)
[2022-12-21 16:12] LABS: BASOPHILS # (AUTO) 0.1 10^3/uL (0.0-0.1); BASOPHILS % (AUTO) 0.8 %; EOSINOPHILS # (AUTO) 0.1 10^3/uL (0.0-0.7); EOSINOPHILS % (AUTO) 0.7 %; HCT - HEMATOCRIT 40.6 % (37.0-47.0); HGB - HEMOGLOBIN 12.6 g/dL (12.0-16.0); LYMPHOCYTES # (AUTO) 4.1 10^3/uL (1.5-3.5); LYMPHOCYTES % (AUTO) 37.9 %; MEAN CORPUSCULAR HEMOGLOBIN 27.4 pg (27.0-31.0); MEAN CORPUSCULAR VOLUME 88.3 fL (81.0-99.0); MEAN PLATELET VOLUME 11.7 fL (7.9-10.8); MONOCYTES # (AUTO) 0.5 10^3/uL (0.0-1.0); MONOCYTES % (AUTO) 4.5 %; NEUTROPHILS # (AUTO) 6.1 10^3/uL (1.5-6.6); NEUTROPHILS % (AUTO) 55.7 %; PLT - PLATELET COUNT 470 10^3/uL (130-450); RED CELL DISTRIBUTION WIDTH 15.4 % (12.0-15.0); WHITE BLOOD COUNT 10.9 x10^3/uL (4.8-10.8)
--- NOTE | 2022-12-21 16:14 | XRAY Report ---
PROCEDURE: Chest 1 View X-Ray INDICATIONS: Sepsis TECHNIQUE: One view of the chest was acquired. COMPARISON: 12/03/2022 FINDINGS: Surgical changes and devices: At least one coronary artery stent can be seen. Lungs and pleura: On the supine study, no large pneumothorax or large pleural effusions can be seen. No focal infiltrates are detected. Mediastinum: Mediastinal contours appear normal. Heart size is normal. Bones and chest wall: No suspicious bony lesions. Overlying soft tissues appear unremarkable. IMPRESSION: No acute abnormality can be seen on this supine portable chest study. Reviewed by: Sarthak Mendoza MD on 12/21/2022 3:12 PM AKCALLY Approved by: Sarthak Mendoza MD on 12/21/2022 3:12 PM AKCALLY Station ID: [id number]
[2022-12-21 16:27] LABS: ALBUMIN 4.2 g/dL (3.2-5.5); ALBUMIN/GLOBULIN RATIO 1.3 (1.0-2.2); BILIRUBIN,TOTAL 0.7 mg/dL (0.2-1.0); CALCIUM 9.6 mg/dL (8.5-10.3); POTASSIUM 4.4 mmol/L (3.5-4.5); TOTAL PROTEIN 7.4 g/dL (6.4-8.9)
[2022-12-21] MEDS ORDERED: levETIRAcetam INJ 500 MG in SODIUM CHLORIDE 0.9% 100ML 100 ML IV STA ×2 (16:56→18:28)
[2022-12-21 17:05] LABS: ETOH - ETHANOL < 10.0 mg/dL
[2022-12-21 17:06] LABS: BILIRUBIN,URINE NEGATIVE (NEGATIVE); GLUCOSE, URINE (UA) NEGATIVE (NEGATIVE); KETONES,URINE (UA) NEGATIVE (NEGATIVE); LEUKOCYTE ESTERASE, URINE NEGATIVE (NEGATIVE); MUDS CUTOFF CONCENTRATIONS CUTOFF CONC BELOW:; NITRITE,URINE NEGATIVE (NEGATIVE); OCCULT BLOOD,URINE NEGATIVE (NEGATIVE); PROTEIN,URINE NEGATIVE (NEGATIVE); UROBILINOGEN,URINE 0.2 (NORMAL) E.U./dL (NORMAL)
[2022-12-21 17:09] LABS: CLARITY,URINE CLEAR (CLEAR)
[2022-12-21 17:16] LABS: BACTERIA,URINE Rare /HPF (None Seen); RBC,URINE 0-5 /HPF (0-5); SQUAMOUS EPITHELIAL CELL,UR FEW Squamous (<= Few); WBC,URINE 0-3 /HPF (0-5)
[2022-12-21 17:17] LABS: AMPHETAMINE SCREEN,URINE NEGATIVE (NEGATIVE); BARBITURATE SCREEN,UR NEGATIVE (NEGATIVE); BENZODIAZEPINES SCREEN, URINE NEGATIVE (NEGATIVE); COCAINE SCREEN URINE NEGATIVE (NEGATIVE); METHADONE SCREEN, URINE NEGATIVE (NEGATIVE); METHAMPHETAMINES SCREEN, URINE NEGATIVE (NEGATIVE); OPIATE SCREEN, URINE POSITIVE (NEGATIVE); OXYCODONE SCREEN, URINE NEGATIVE (NEGATIVE); PROPOXYPHENE SCREEN, URINE NEGATIVE (NEGATIVE); THC CANNABINOID SCREEN, URINE NEGATIVE (NEGATIVE); TRICYCLIC ANTIDEPRESSANT,URINE POSITIVE (NEGATIVE)
[2022-12-21 17:18] LABS: THYROID STIMULATING HORMONE 5.96 uIU/mL (0.34-5.60)
[2022-12-21] MEDS ORDERED: ONDANSETRON 4 MG/2 ML VIAL IVP STA (17:34)
--- NOTE | 2022-12-21 18:44 | XRAY Report ---
PROCEDURE: Chest for Line Placement INDICATIONS: LINE PLACEMENT TECHNIQUE: One view of the chest was acquired. COMPARISON: Chest radiograph 12/21/2022 at 3:49 PM. FINDINGS: Surgical changes and devices: Interval placement of right internal jugular central venous line with distal tip overlying the right atrium.. Lungs and pleura: Mildly increased interstitial markings which may reflect mild pulmonary edema. Prob able small left pleural effusion. No pneumothorax. Mediastinum: Mediastinal contours appear normal. Heart size is normal. Aortic arch is calcified, indicating atherosclerosis. Coronary artery stent in place. Bones and chest wall: No suspicious bony lesions. Overlying soft tissues appear unremarkable. IMPRESSION: Interval placement of right central venous catheter with distal tip overlying the right atrium. No si gnificant interval change since prior radiograph at 3:49 PM Reviewed by: Melva Rivera MD on 12/21/2022 6:43 PM PDT Approved by: Melva Rivera MD on 12/21/2022 6:43 PM PDT Station ID: [id number]
--- NOTE | 2022-12-21 19:30 | HISTORY & PHYSICAL EXAMINATION ---
Chief Complaint - Chief Complaint Chief Complaint: AMS History of Present Illness - Admitted From Admitted From:: ER - History Obtained From Records Reviewed: Yes History obtained from: Patient, Pt's granddaughter, staff, chart Exam Limitations: Virtual exam - History of Present Illness HPI Comment/Other: H&P was conducted via video remotely, using Access Cart. [place] is in [place]. Physician is in [place]. Pt's granddaughter Soboone is at bedside. 57 yo F with PMH of R MCA CVA in 2018 with resulting edema requiring surgical brain decompression, L HP, Dysphagia and Sz D/o; HTN, HLD and CAD presented to the ER x 2 today s/p episodes x 2 of AMS. Pt was prescribed seizure medications after her CVA in 2018, but she had trouble getting it from the pharmacy, so never started on it. At baseline, pt can walk with a hemiwalker. She does not move her L side. Pt was seen in the ER last week for URI symptoms and was dx'd with rhinovirus/enterovirus, and had a leukocytosis and mild hypotension. She was sent home on doxycycline after IV fluids and Rocephin. These symptoms have since resolved. Pt says that she was feeling fine yesterday. This AM, when she woke up, she felt nauseated. She got up and went to the Bathroom, then asked her granddaughter for her potty chair. Her daughter heard a "thud" and realized it was patient's R hand hitting her walker. Pt was staring at the floor, still standing, but not moving and her RUE was reaching out, trying to grasp something. This lasted x about 3 minutes, then symptoms resolved and pt seemed back to normal, except for increased fatigue and mild H/A. Pt's granddaughter brought pt to the ER, full W/U was done. Pt was discharged on PO Keppra for presumed seizure and outpt F/U with Neurologist recommended. As pt was getting into the car, she continued to have nausea and had episode of vomiting, non-bloody. She then seemed to appear "out of it." Pt denies LOC this time or the prior time. She was not able to focus on what granddaughter was saying or to answer. She was not moving her hand this time. This lasted a few seconds, then pt seemed back to baseline, except with increased fatigue. Pts granddaughter brought her back into the ER. In the ER, HR 52, BP 89/51, SpO2 88% on RA, pt appeared more lethargic than previous exam per ER Provider. WBC 10.9, Na 134, Glc 151, UDS: Opiates, TCA, BC pending. CXR: NAD CT Head (done earlier): previous R MCA infarct, NAD Staff had difficulty placing and maintaining peripheral IVs, so Central IJ line placed. ER Provider: D/W "Neurology Dr. Olguin at [facility] where patient receives her neuro care. In discussion with this doctor he feels that the events of this morning as well as this afternoon likely represent seizure-like activity and the ongoing lethargy may be a post ictal status. He recommends loading the patient with the 1000 g of Keppra. 500 had been given earlier so I will add another 500. Recommends MRI in the morning and continued observation for mental status. He does not feel the patient warrants transfer for other neuro evaluation such as EEG." History - Past Medical History Cardiovascular: reports: High cholesterol, Coronary artery disease, [place] Respiratory: reports: None Neuro: reports: CVA, Seizure disorder Endocrine/Autoimmune: reports: None GI: reports: GERD TRANSITIONAL NURSE: reports: None : reports: None Psych: reports: None Musculoskeletal: reports: None Derm: reports: None MRSA Hx?: No - Past Surgical History General: reports: Other Cardiovascular: reports: Coronary stent Neuro: reports: Craniotomy - Family & Social History Family History: Mother: , CAD, Father: , CAD, Sister: Alive and Well, Brother: Alive and Well - Substance History Use: Uses substance without health or social issues: Tobacco (was smoking few cigerettes a day previous to indecember admit) - POLST Patient has POLST: No Meds/Allgy - Home Medications Home Medications: Ambulatory Orders Medication Instructions Recorded Confirmed Aspirin 81 mg PO DAILY 12/26/17 04/13/21 Acetaminophen [Tylenol] 650 mg PO Q4H PRN 01/20/18 04/13/21 Nitroglycerin [Nitrostat] 0.4 mg SL Q5MIN PRN 01/20/18 04/13/21 Alirocumab [Praluent Pen] 75 mg SQ ONCE 04/30/20 04/13/21 Amitriptyline [Elavil] 25 mg PO QPM 04/30/20 04/13/21 Atorvastatin Calcium [Lipitor] 80 mg PO DAILY 04/30/20 04/13/21 Clopidogrel [Plavix] 75 mg PO DAILY 04/30/20 04/13/21 Gabapentin [Neurontin] 100 mg PO PRN PRN 04/30/20 04/13/21 Levothyroxine Sodium [Synthroid] 50 mcg PO DAILY 04/30/20 04/13/21 Mirtazapine [Remeron] 15 mg PO DAILY 04/30/20 04/13/21 Pantoprazole [Protonix] 40 mg PO DAILY 04/30/20 04/13/21 Metoprolol Succinate [Toprol Xl] 12.5 mg PO DAILY 04/13/21 04/13/21 Doxycycline [Vibramycin] 100 mg PO BID #14 tablet 12/03/22 Levetiracetam [Keppra] 500 mg PO BID #120 tablet 12/21/22 - Allergies Allergies/Adverse Reactions: Allergies Allergy/AdvReac Type Severity Reaction Status Date / Time Iodinated Contrast Media Allergy Rash Verified 12/03/22 12:12 [Iodinated Contrast- Oral and IV Dye] morphine Allergy Rash Verified 12/03/22 12:12 Review of Systems - All Other Systems All Other Systems: reports: Reviewed and negative Exam - Vital Signs Reviewed Vital Signs: Yes Vital Signs: Vital Signs x48h Temp Pulse Resp BP Pulse Ox O2 Flow Rate 12/21/22 19:00 62 12 95/73 100 3 12/21/22 18:30 55 L 13 97/64 96 3 12/21/22 18:00 57 L 14 105/67 94 3 12/21/22 17:30 56 L 14 86/55 L 100 3 12/21/22 17:26 56 L 14 86/55 L 100 3 12/21/22 17:00 62 18 111/51 L 73 L 12/21/22 16:34 64 16 80/48 L 95 12/21/22 16:30 63 13 102/40 L 100 12/21/22 16:00 57 L 15 99/52 L 93 12/21/22 15:41 60 103/50 L 12/21/22 15:28 35.9 C L 52 L 12 89/51 L 88 L - Physical Exam General Appearance: positive: No acute distress, Alert Eyes Bilateral: positive: EOMI, No scleral icterus Respiratory: positive: Other (Access cart stethoscope not working; per ER Provider: CTA B/L) Cardiovascular: positive: Other (Access cart stethoscope not working; per ER Provider: RR, Bradycardia, no murmurs) Abdomen: positive: Other (per ER Provider: non-distended, NT, Soft) Extremities: positive: No pedal edema Neurologic/Psychiatric: positive: Oriented x3, CN's nml (2-12), Mood/affect nml, Other (Unable to move LUE, LLE; RUE, RLE FROM) Conclusion/Plan - Problem List (1) Altered mental status Conclusion/Plan: AMS H/o R MCA CVA in 2018 with resulting edema requiring surgical brain decompression, L HP, Dysphagia and Sz D/o -2 episodes of decreased alertness, lasting seconds to minutes -no longer has Gtube for feeds; able to eat PO -never started sz meds px'd in 2018 -2nd ER visit: pt appeared more lethargic than previous exam per ER Provider. -UDS: Opiates, TCA; as px'd. -CT Head (done earlier): previous R MCA infarct, NAD -ER Provider: D/W "Neurology Dr. Olguin at [facility] where patient receives her neuro care. In discussion with this doctor he feels that the events of this morning as well as this afternoon likely represent seizure-like activity and the ongoing lethargy may be a post ictal status. He recommends lo ading the patient with the 1000 g of Keppra. 500 had been given earlier so I will add another 500. Recommends MRI in the morning and continued observation for mental status. He does not feel the patient warrants transfer for other neuro evaluation such as EEG." -pt was given Keppra 1 gm IV in the ER. -admit to ICU -neuro checks -bedside swallow -NPO until bedside swallow done/passed -IVF -MRI ordered, Echo ordered -PT/OT/SW consulted -Keppra 500 mg IV BID -mgmt per Neurologist Hypotension Bradycardia, at baseline; on BB HTN HLD CAD -HR 52, BP 89/51 -Staff had difficulty placing and maintaining peripheral IVs, so Central IJ line placed. -continue IVF -hold home BP medications -if BP does not respond to IVF, will start pressors Hypoxia Former smoker Leukocytosis Recent URI Viral infection -SpO2 88% on RA, 100% 2L NC O2, WBC 10.9, BC pending -CXR: NAD -possibly d/t lethargy -pt at risk for aspiration PNA -repeat CXR in AM -continue O2 support -Duonebs PRN N/V Hyponatremia -Na 134 -IVF -NPO until passes bedside swallow -anti-emetics PRN Hyperglycemia -Glc 151 -check Hgba1c Hypothyroid -hold home medications until bedside swallow done/passed VTE Prophylaxis: Lovenox Code Status: D/W pt. She was previously DNR/DNI during hospitalization in 2018. She is now Full Code. ~Bev Rene MD Hospitalist Qualifiers: Altered mental status type: unspecified Qualified Code(s): R41.82 - Altered mental status, unspecified - Lab Results Fish Bones: 12/21/22 15:52 12/21/22 15:52
[2022-12-21] MEDS ORDERED: ONDANSETRON 4 MG/2 ML VIAL IVP PRN (19:52)
[2022-12-21] MEDS ORDERED: IPRATROPIUM/ALBUTEROL 3 ML NEB INH PRN (20:50)
[2022-12-21] MEDS: SODIUM CHLORIDE 0.9% 1,000 ML IV SCH (21:13)
[2022-12-21] MEDS: SODIUM CHLORIDE FLUSH 0.9% 10 ML SYRINGE IVP PRN (21:14)
[2022-12-21] MEDS: FAMOTIDINE 20 MG/2 ML VIAL IVP SCH (21:14)
[2022-12-22] MEDS: SODIUM CHLORIDE FLUSH 0.9% 10 ML SYRINGE IVP SCH ×3 (04:30→18:16)
[2022-12-22] MEDS: SODIUM CHLORIDE FLUSH 0.9% 10 ML SYRINGE IVP PRN (04:30)
[2022-12-22 05:30] LABS: CALCIUM, IONIZED 1.14 mmol/L (1.15-1.33); VBG PH 7.347 (7.31-7.41)
[2022-12-22 05:34] LABS: BASOPHILS % (AUTO) 0.4 %; EOSINOPHILS % (AUTO) 0.3 %; HCT - HEMATOCRIT 31.9 % (37.0-47.0); HGB - HEMOGLOBIN 9.8 g/dL (12.0-16.0); LYMPHOCYTES # (AUTO) 2.4 10^3/uL (1.5-3.5); LYMPHOCYTES % (AUTO) 32.2 %; MEAN CORPUSCULAR HEMOGLOBIN 27.4 pg (27.0-31.0); MEAN CORPUSCULAR HGB CONC 30.7 g/dL (32.0-36.0); MEAN CORPUSCULAR VOLUME 89.1 fL (81.0-99.0); MEAN PLATELET VOLUME 11.8 fL (7.9-10.8); MONOCYTES # (AUTO) 0.6 10^3/uL (0.0-1.0); MONOCYTES % (AUTO) 7.8 %; NEUTROPHILS # (AUTO) 4.3 10^3/uL (1.5-6.6); PLT - PLATELET COUNT 325 10^3/uL (130-450); RED BLOOD COUNT 3.58 10^6/uL (4.20-5.40); RED CELL DISTRIBUTION WIDTH 15.2 % (12.0-15.0); WHITE BLOOD COUNT 7.3 x10^3/uL (4.8-10.8)
[2022-12-22 05:50] LABS: CALCIUM 8.4 mg/dL (8.5-10.3); CREATININE 0.6 mg/dL (0.6-1.3); MAGNESIUM 1.6 mg/dL (1.7-2.3); POTASSIUM 3.9 mmol/L (3.5-4.5)
[2022-12-22] MEDS ORDERED: MAGNESIUM SULFATE 2 GRAM 2 GM/50 ML BAG IV ONE (05:56)
[2022-12-22] MEDS ORDERED: POTASSIUM CHLOR 20 MEQ/100 ML 20 MEQ/100 ML BAG IV ONE (07:30)
[2022-12-22] MEDS: SODIUM CHLORIDE 0.9% 1,000 ML IV SCH ×2 (07:52→18:16)
[2022-12-22] MEDS: ENOXAPARIN 40 MG/0.4 ML SYRINGE SUBQ SCH (08:40)
[2022-12-22] MEDS: FAMOTIDINE 20 MG/2 ML VIAL IVP SCH (08:40)
--- NOTE | 2022-12-22 08:58 | XRAY Report ---
PROCEDURE: Chest 1 View X-Ray INDICATIONS: Leukocytosis TECHNIQUE: One view of the chest was acquired. COMPARISON: Earlier study from the same day. FINDINGS: Surgical changes and devices: Right internal jugular central venous catheter tip is in SVC.. Lungs and pleura: No pleural effusions or pneumothorax. There is interval improvement in bilateral l ashwin aeration compared to earlier study. No definite focal infiltrate. Mediastinum: Mediastinal contours appear normal. Heart size is enlarged. Bones and chest wall: No suspicious bony lesions. Overlying soft tissues appear unremarkable. IMPRESSION: Right-sided central venous catheter tip is in SVC. Interval improvement in bilateral lung aeration. N o definite focal infiltrate. No pleural effusion or pneumothorax. Reviewed by: Srinivas Enamorado MD on 12/22/2022 8:56 AM PDT Approved by: Srinvias Enamorado MD on 12/22/2022 8:56 AM PDT Station ID: [id number]
[2022-12-22] MEDS ORDERED: levETIRAcetam INJ 500 MG in SODIUM CHLORIDE 0.9% 100ML 100 ML IV SCH ×4 (09:00)
[2022-12-22 09:32] LABS: ESTIMATED AVERAGE GLUCOSE 117 mg/dL (70-100); HEMOGLOBIN A1c% 5.7 % (4.27-6.07)
[2022-12-22 16:06] LABS: CALCIUM, IONIZED 1.17 mmol/L (1.15-1.33); VBG PH 7.358 (7.31-7.41)
[2022-12-22 16:30] LABS: MAGNESIUM 2.3 mg/dL (1.7-2.3); PHOSPHORUS 2.5 mg/dL (2.5-5.0); POTASSIUM 4.2 mmol/L (3.5-4.5)
--- NOTE | 2022-12-22 16:56 | MRI Report ---
PROCEDURE: BRAIN WO INDICATIONS: AMS TECHNIQUE: Noncontrast axial T1 spin echo, axial T2 fast spin echo, sagittal and axial FLAIR, coronal T2 fast sp in echo, axial gradient echo, axial diffusion and ADC through the brain. COMPARISON: CT head 12/21/2022 FINDINGS: Image quality: Excellent. CSF Spaces: Basal cisterns are patent. No extra-axial fluid collections. Ex vacuo dilatation of the right lateral ventricle. Brain: No intracranial masses or hemorrhage. Cruz/white matter interface is normal. Brainstem appe ars normal. Diffusion-weighted images demonstrate no acute ischemic insult. Large area of encephalom alacia and gliosis within the right MCA territory, consistent with chronic infarct. Small focus of ch ronic infarct within the left MCA territory. Age-related global volume loss within left cerebral ever sphere with mild chronic microvascular ischemic changes.. Normal intravascular flow voids are presen t. Skull and face: Postsurgical changes from right-sided craniotomy. Calvarium has normal marrow signal . Orbits appear normal. Sinuses: Sinuses and mastoids are clear. IMPRESSION: 1.No acute intracranial abnormalities. 2.Redemonstration of old large right MCA territory infarct. Reviewed by: Shivam Mosley MD on 12/22/2022 4:55 PM PDT Approved by: Shivam Mosley MD on 12/22/2022 4:55 PM PDT Station ID: [id number]
--- NOTE | 2022-12-22 17:56 | PROVIDER PROGRESS NOTE ---
Subjective - Prog Note Date Prog Note Date: 12/22/22 Prog Note Time: 17:47 - Subjective Pt reports feeling: Improved Subjective: She feels like she is back to baseline. She does not hurt anywhere. Denies any cough, fever, chills. Talks a little bit about the stress of her home life. When she had her stroke, her was there to help her. They had an entire routine that worked really well for them. She still is able to transfer herself using a trapeze, able to stand and pivot and walk as long as she has some help. Then her and her son moved in to help her. He brought in a second with 3 young children. And a 16-year-old from his first marriage. The 16-year-old and she share a bedroom. Current Medications - Current Medications Current Medications: Active Medications Albuterol/Ipratropium (Ipratropium/Albuterol 3 Ml Neb) 3 ml INH Q4HR PRN PRN Reason: Wheezing Enoxaparin Sodium (Enoxaparin 40 Mg/0.4 Ml Syringe) 40 mg SUBQ DAILY PENDING SALE TO [facility] Last Admin: 12/22/22 08:40 Dose: 40 mg Famotidine (Famotidine 20 Mg/2 Ml Vial) 20 mg IVP BID PENDING SALE TO [facility] Last Admin: 12/22/22 08:40 Dose: 20 mg Sodium Chloride (Normal Saline 0.9%) 1,000 mls @ 100 mls/hr IV .Q10H PENDING SALE TO [facility] Last Admin: 12/22/22 07:52 Dose: 100 mls/hr Levetiracetam 500 mg/ Sodium (Chloride) 105 mls @ 400 mls/hr IV BID PENDING SALE TO [facility] Last Infusion: 12/22/22 09:00 Dose: Infused Ondansetron HCl (Ondansetron 4 Mg/2 Ml Vial) 4 mg IVP Q6HR PRN PRN Reason: Nausea / Vomiting Last Admin: 12/21/22 21:14 Dose: 4 mg Sodium Chloride (Sodium Chloride Flush 0.9% 10 Ml Syringe) 10 ml IVP 0100,0900,1700 PENDING SALE TO [facility] Last Admin: 12/22/22 08:43 Dose: 10 ml Sodium Chloride (Sodium Chloride Flush 0.9% 10 Ml Syringe) 10 ml IVP PRN PRN PRN Reason: NEEDED PER PROVIDER ORDERS Last Admin: 12/22/22 04:30 Dose: 30 ml Aspirin 81 mg PO DAILY 12/26/17 Acetaminophen [Tylenol] 650 mg PO Q4H PRN 01/20/18 Nitroglycerin [Nitrostat] 0.4 mg SL Q5MIN PRN 01/20/18 Alirocumab [Praluent Pen] 75 mg SQ ONCE 04/30/20 Amitriptyline [Elavil] 25 mg PO QPM 04/30/20 Atorvastatin Calcium [Lipitor] 80 mg PO DAILY 04/30/20 Clopidogrel [Plavix] 75 mg PO DAILY 04/30/20 Gabapentin [Neurontin] 100 mg PO PRN PRN 04/30/20 Levothyroxine Sodium [Synthroid] 50 mcg PO DAILY 04/30/20 Mirtazapine [Remeron] 15 mg PO DAILY 04/30/20 Pantoprazole [Protonix] 40 mg PO DAILY 04/30/20 Metoprolol Succinate [Toprol Xl] 12.5 mg PO DAILY 04/13/21 Objective - Vital Signs/Intake & Output Reviewed Vital Signs: Yes Vital Signs: Vital Signs x48h Temp Pulse Pulse Resp BP BP Pulse Ox 12/22/22 17:00 81 18 101/55 L 98 12/22/22 16:00 36.4 C L 78 20 97 12/22/22 15:00 70 20 120/75 98 12/22/22 13:00 68 18 135/68 H 98 12/22/22 12:58 69 99/54 L 12/22/22 11:00 73 14 99/56 L 100 12/22/22 10:00 78 16 111/64 100 Pulse Ox 12/22/22 17:00 12/22/22 16:00 12/22/22 15:00 12/22/22 13:00 12/22/22 12:58 100 12/22/22 11:00 12/22/22 10:00 Intake & Output: Intake & Output 12/19/22 12/20/22 12/21/22 12/22/22 23:59 23:59 23:59 23:59 Intake Total 2210 1515 Output Total 1 700 Balance 2209 815 - Objective General Appearance: positive: Alert, Other (5 foot 1, 56 kg. Appears thin. Fatigue.) Eyes Bilateral: positive: PERRL, EOMI ENT: positive: No signs of dehydration Neck: positive: No JVD. negative: Stiff neck Respiratory: positive: No respiratory distress. negative: Wheezes, Rales, Rhonchi Cardiovascular: positive: Regular rate & rhythm Abdomen: positive: Non-tender, No organomegaly, Nml bowel sounds, No distention Skin: positive: Warm, Dry Extremities: positive: No pedal edema Neurologic/Psychiatric: positive: Oriented x3, Other (Excellent mobility considering she has a left hemiplegia. I watched her sit up, using a trapeze. She then used her right functional leg by hooking her right foot underneath her left knee to move her left leg over. Then sit up and stand. Pivoted on her right leg and sit on a bedside commode.). negative: CN's nml (2-12) (Left facia l droop, slightly dysarthric speech), Motor nml (Left hemiplegia. She can slightly move her left arm. She cannot move her left leg.) - Lab Results Fish Bones: 12/22/22 04:22 12/22/22 16:00 Other Labs: Lab Results x24hrs 12/22/22 12/22/22 12/22/22 Range/Units 16:00 16:00 04:22 WBC (4.8-10.8) x10^3/uL RBC (4.20-5.40) 10^6/uL Hgb (12.0-16.0) g/dL Hct (37.0-47.0) % MCV (81.0-99.0) fL MCH (27.0-31.0) pg MCHC (32.0-36.0) g/dL RDW (12.0-15.0) % Plt Count (130-450) 10^3/uL MPV (7.9-10.8) fL Neut # (Auto) (1.5-6.6) 10^3/uL Lymph # (Auto) (1.5-3.5) 10^3/uL Roberts # (Auto) (0.0-1.0) 10^3/uL Eos # (Auto) (0.0-0.7) 10^3/uL Baso # (Auto) (0.0-0.1) 10^3/uL Absolute Nucleated RBC x10^3/uL Nucleated RBC % /100WBC VBG pH 7.358 7.347 (7.31-7.41) Ionized Calcium 1.17 1.14 L (1.15-1.33) mmol/L Sodium (135-145) mmol/L Potassium 4.2 (3.5-4.5) mmol/L Chloride (101-111) mmol/L Carbon Dioxide (21-32) mmol/L Anion Gap (6-13) BUN (6-20) mg/dL Creatinine (0.6-1.3) mg/dL Estimated GFR (MDRD) (>89) Glucose (74-104) mg/dL Estimat Average Glucose (70-100) mg/dL Hemoglobin A1c % (4.27-6.07) % Calcium (8.5-10.3) mg/dL Phosphorus 2.5 (2.5-5.0) mg/dL Magnesium 2.3 (1.7-2.3) mg/dL Free T4 Direct (0.58-1.64) ng/dL Nasal Screen MRSA (PCR) (NEGATIVE) 12/22/22 12/22/22 12/22/22 Range/Units 04:22 04:22 04:22 WBC 7.3 (4.8-10.8) x10^3/uL RBC 3.58 L (4.20-5.40) 10^6/uL Hgb 9.8 L (12.0-16.0) g/dL Hct 31.9 L (37.0-47.0) % MCV 89.1 (81.0-99.0) fL MCH 27.4 (27.0-31.0) pg MCHC 30.7 L (32.0-36.0) g/dL RDW 15.2 H (12.0-15.0) % Plt Count 325 (130-450) 10^3/uL MPV 11.8 H (7.9-10.8) fL Neut # (Auto) 4.3 (1.5-6.6) 10^3/uL Lymph # (Auto) 2.4 (1.5-3.5) 10^3/uL Roberts # (Auto) 0.6 (0.0-1.0) 10^3/uL Eos # (Auto) 0.0 (0.0-0.7) 10^3/uL Baso # (Auto) 0.0 (0.0-0.1) 10^3/uL Absolute Nucleated RBC 0.00 x10^3/uL Nucleated RBC % 0.0 /100WBC VBG pH (7.31-7.41) Ionized Calcium (1.15-1.33) mmol/L Sodium 140 (135-145) mmol/L Potassium 3.9 (3.5-4.5) mmol/L Chloride 112 H (101-111) mmol/L Carbon Dioxide 24 (21-32) mmol/L Anion Gap 4.0 L (6-13) BUN 14 (6-20) mg/dL Creatinine 0.6 (0.6-1.3) mg/dL Estimated GFR (MDRD) 102 (>89) Glucose 85 (74-104) mg/dL Estimat Average Glucose 117 H (70-100) mg/dL Hemoglobin A1c % 5.7 (4.27-6.07) % Calcium 8.4 L (8.5-10.3) mg/dL Phosphorus 3.0 (2.5-5.0) mg/dL Magnesium 1.6 L (1.7-2.3) mg/dL Free T4 Direct (0.58-1.64) ng/dL Nasal Screen MRSA (PCR) (NEGATIVE) 12/21/22 12/21/22 Range/Units 21:12 15:38 WBC (4.8-10.8) x10^3/uL RBC (4.20-5.40) 10^6/uL Hgb (12.0-16.0) g/dL Hct (37.0-47.0) % MCV (81.0-99.0) fL MCH (27.0-31.0) pg MCHC (32.0-36.0) g/dL RDW (12.0-15.0) % Plt Count (130-450) 10^3/uL MPV (7.9-10.8) fL Neut # (Auto) (1.5-6.6) 10^3/uL Lymph # (Auto) (1.5-3.5) 10^3/uL Roberts # (Auto) (0.0-1.0) 10^3/uL Eos # (Auto) (0.0-0.7) 10^3/uL Baso # (Auto) (0.0-0.1) 10^3/uL Absolute Nucleated RBC x10^3/uL Nucleated RBC % /100WBC VBG pH (7.31-7.41) Ionized Calcium (1.15-1.33) mmol/L Sodium (135-145) mmol/L Potassium (3.5-4.5) mmol/L Chloride (101-111) mmol/L Carbon Dioxide (21-32) mmol/L Anion Gap (6-13) BUN (6-20) mg/dL Creatinine (0.6-1.3) mg/dL Estimated GFR (MDRD) (>89) Glucose (74-104) mg/dL Estimat Average Glucose (70-100) mg/dL Hemoglobin A1c % (4.27-6.07) % Calcium (8.5-10.3) mg/dL Phosphorus (2.5-5.0) mg/dL Magnesium (1.7-2.3) mg/dL Free T4 Direct 1.11 (0.58-1.64) ng/dL Nasal Screen MRSA (PCR) NEGATIVE (NEGATIVE) ABX Reporting Has patient been on IV antibiotics over the past 48 hours?: No Assessment/Plan - Problem List (1) Postictal confusion Impression: She was described as confused, lethargic. Concern was for possible infection. She was also hypotensive. I am meeting her for the first time this morning. And she is, according to her, back to baseline. Speech is normal. She is a very lucid historian. She continues to be hypotensive off and on. Sometimes 99 systolic. Sometimes 100 systolic. But I watch her sit up to get to the bedside commode and it is very impressive how much she is trained herself to recover from the previous neurologic event leaving her with left hemiplegia. At this time I think her postictal status has resolved. (2) Seizure as late effect of cerebrovascular accident (CVA) Impression: She was getting Keppra 500 mg twice daily. Now that she is awake, I will change that to p.o. The MRI to confirm no extension of the old stroke or a new stroke will not be done till this afternoon. If she has no further seizures between today and tomorrow morning, she can be discharged home. I would like PT to see her to make sure that she is back to her baseline and does not need any further help. (3) Leukocytosis Impression: This was part of her presentation. I think she may have had demargination with the seizure. Hypotension. White cell count is normal today. Blood culture is negative. Urinalysis without UTI. And chest x-ray is without infiltrate. She is a right central line in place that was placed in the emergency room. They were worried about sepsis and access. Qualifiers: Leukocytosis type: unspecified Qualified Code(s): D72.829 - Elevated white blood cell count, unspecified (4) Hypothyroid Impression: Subclinical low thyroid. She is on levothyroxine 50 mcg daily. The most I would do is make sure that she is on 50 mcg taken on an empty stomach. I would recommend 1 hour before breakfast or late at night before she goes to bed. Recheck the TSH in a month to see if she needs adjustment.
--- NOTE | 2022-12-22 18:29 | PHARMACY PROGRESS NOTE ---
- Best Possible Medication History Admit Date and Time: 12/21/221951 Processed by: Pharmacy Medication History completed: Yes Patient Interview: Completed Secondary Source(s): Insurance records As the person ultimately responsible for medication therapy, providers are able to order a medication from an existing home medication list in [facility] via the "Reconcile Routine" prior to Confirmation of that medication by field support specialist. Such practice is discouraged except when the physician, in their clinical judgment, deems that a medical need exists for a medication without regard to previous use.
[2022-12-22] MEDS ORDERED: levETIRAcetam 500 MG/5 ML UDC PO ONE (20:34)
[2022-12-22] MEDS: FAMOTIDINE 20 MG TABLET PO SCH (20:36)
[2022-12-22] MEDS ORDERED: levETIRAcetam 100 MG/ML 473ML BOTTLE PO SCH (21:00)
[2022-12-23] MEDS: SODIUM CHLORIDE FLUSH 0.9% 10 ML SYRINGE IVP SCH ×3 (04:24→18:36)
[2022-12-23] MEDS: SODIUM CHLORIDE FLUSH 0.9% 10 ML SYRINGE IVP PRN (04:24)
[2022-12-23 05:43] LABS: CALCIUM, IONIZED 1.16 mmol/L (1.15-1.33); VBG PH 7.365 (7.31-7.41)
[2022-12-23 05:54] LABS: MAGNESIUM 1.9 mg/dL (1.7-2.3); PHOSPHORUS 2.6 mg/dL (2.5-5.0)
[2022-12-23 06:11] LABS: POTASSIUM 3.7 mmol/L (3.5-4.5)
[2022-12-23] MEDS ORDERED: POTASSIUM CHLORIDE 20 MEQ TABLET PO ONE (08:00)
[2022-12-23] MEDS: MIRTAZAPINE 15 MG TABLET PO SCH (09:01)
[2022-12-23] MEDS: CLOPIDOGREL 75 MG TABLET PO SCH (09:01)
[2022-12-23] MEDS: ASPIRIN CHEW 81 MG TABLET PO SCH (09:01)
[2022-12-23] MEDS: levETIRAcetam 250 MG TABLET PO SCH ×2 (09:01→21:08)
[2022-12-23] MEDS: FAMOTIDINE 20 MG TABLET PO SCH ×2 (09:02→21:08)
[2022-12-23] MEDS: ENOXAPARIN 40 MG/0.4 ML SYRINGE SUBQ SCH (09:02)
[2022-12-23] MEDS: LEVOTHYROXINE 75 MCG TABLET PO SCH (09:14)
[2022-12-23] MEDS: METOPROLOL SUCCINATE 25 MG TABLET PO SCH (12:32)
--- NOTE | 2022-12-23 15:36 | PROVIDER PROGRESS NOTE ---
Assessment/Plan - Problem List (1) Orthostatic hypotension Assessment/Plan: Since the pt fell "with a thud" before admission, today I ordered orthostatic vital signs. Yesterday her HR was 52. Today the patient has a supine heart rate of 111. With standing heart rate katrin to 131. Partly this tachycardia is from being off of her metoprolol yesterday, per the RN. Metoprolol was resumed this morning however Plan: The patient is not yet ready for discharge due to orthostasis and resting tachycardia We will transfer the patient out of the ICU to [facility], on telemetry Resume all her usual meds for her heart rate Continue to monitor orthostatic vital signs every shift (2) Seizure as late effect of cerebrovascular accident (CVA) Impression: She was getting Keppra 500 mg twice daily. Now that she is awake, I will change that to p.o. The MRI to confirm no extension of the old stroke or a new stroke will not be done till this afternoon. 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 Plan: Cont Keppra po BID PT and OT advised Home Health PT and OT which I will order (3) Hypothyroid Impression: She is on levothyroxine 50 mcg daily. Her TSH came back elevated at 5.96. but her free T4 is WNL at 1.11 Plan: Continue present thyroid dose Recheck the TSH in a month to see if she needs adjustment. (4) Chronic systolic heart failure Impression: The pt is on B-heriberto and Spironolactone, and Lisinopril, no Lasix or Empagloflozin. 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 Plan: Her B-heriberto was resumed today and should continue We have held the Spironolactone and Lisinopril due to Hypotension at presentat ion and now due to orthostasis. (5) Hx of CVA with residual deficit Impression: As per Hx Plan: Cont ASA, Plavix and Statin PT and OT advised Home Health PT and OT which I will order (6) Postictal confusion Impression: RESOLVED She was described as confused, lethargic. Concern was for possible infection. She was also hypotensive. I am meeting her for the first time this morning. And she is, according to her, has been back to baseline. Speech is normal. She is a very lucid historian. But we watch her sit up to get to the bedside commode and it is very impressive how much she is trained herself to recover from the previous neurologic event leaving her with left hemiplegia. (7) Leukocytosis Impression: RESOLVED This was part of her presentation. I think she may have had demargination with the seizure and Hypotension. White cell count is normal today (all labs were reviweed). Blood culture remains negative. Urinalysis without UTI. And chest x-ray was without infiltrate. She is a right central line in place that was placed in the emergency room since they were worried about sepsis and access. Qualifiers: Leukocytosis type: unspecified Qualified Code(s): D72.829 - Elevated white blood cell count, unspecified - Current Meds Current Meds: Current Medications Generic Name Dose Route Start Last Admin Trade Name Freq PRN Reason Stop Dose Admin Aspirin 81 mg 12/23/22 09:00 12/23/22 09:01 Aspirin Chew 81 Mg Tablet PO 81 mg DAILY TANYA Administration Clopidogrel Bisulfate 75 mg 12/23/22 09:00 12/23/22 09:01 Clopidogrel 75 Mg Tablet PO 75 mg DAILY TANYA Administration Enoxaparin Sodium 40 mg 12/22/22 09:00 12/23/22 09:02 Enoxaparin 40 Mg/0.4 Ml Syringe SUBQ 40 mg DAILY TANYA Administration Famotidine 20 mg 12/22/22 21:00 12/23/22 09:02 Famotidine 20 Mg Tablet PO 20 mg BID TANYA Administration Levetiracetam 500 mg 12/23/22 09:00 12/23/22 09:01 Levetiracetam 250 Mg Tablet PO 500 mg BID TANYA Administration Levothyroxine Sodium 75 mcg 12/23/22 09:00 12/23/22 09:14 Levothyroxine 75 Mcg Tablet PO 75 mcg 0700 TANYA Administration Metoprolol Succinate 12.5 mg 12/23/22 11:00 12/23/22 12:32 Metoprolol Succinate 25 Mg Tablet PO 12.5 mg DAILY TANYA Administration Mirtazapine 15 mg 12/23/22 09:00 12/23/22 09:01 Mirtazapine 15 Mg Tablet PO 15 mg DAILY TANYA Administration Ondansetron HCl 4 mg 12/21/22 19:52 12/21/22 21:14 Ondansetron 4 Mg/2 Ml Vial IVP 4 mg Q6HR PRN Administration Nausea / Vomiting Sodium Chloride 10 ml 12/22/22 01:00 12/23/22 09:42 Sodium Chloride Flush 0.9% 10 Ml Syringe IVP 10 ml 0100,0900,1700 TANYA Administration Sodium Chloride 10 ml 12/21/22 19:52 12/23/22 04:24 Sodium Chloride Flush 0.9% 10 Ml Syringe IVP 30 ml PRN PRN Administration NEEDED PER PROVIDER ORDERS - Lab Result Fish Bone Diagrams: 12/22/22 04:22 12/24/22 05:11 - Additional Planning My Orders: My Active Orders 12/23/22 Home Health Referral [CONS] Routine 12/23/22 08:50 Orthostatic [Vital Signs - Orthostatic] [RC] QSHIFT 12/23/22 09:00 Aspirin Chewable [[facility] [place] Aspirin] 81 mg PO DAILY Clopidogrel [Plavix] 75 mg PO DAILY Levothyroxine [Synthroid] 75 mcg PO 0700 Mirtazapine [Remeron] 15 mg PO DAILY 12/23/22 10:17 Echo Complete w/Bubble Study [ECHO] Routine 12/23/22 11:00 Metoprolol Succinate [Toprol Xl] 12.5 mg PO DAILY 12/23/22 Dinner Regular Diet [DIET] 12/23/22 17:00 Multivitamin W/Minerals [Theragran M] 1 tab PO DAILYWM 12/23/22 21:00 Amitriptyline [Elavil] 25 mg PO QPM Atorvastatin [Lipitor] 80 mg PO QPM Gabapentin [Neurontin] 900 mg PO HS Subjective - Subjective Patient Reports: Feeling Better, Other (Wants to go home and "sleep in her own bed".) Objective Vital Signs: Vital Signs - 24 hr 12/22/22 12/22/22 12/22/22 16:00 17:00 19:00 Temperature 36.4 C L 36 C L Heart Rate [ 78 81 77 Monitoring electrodes] Respiratory 20 18 20 Rate Blood Pressure 101/55 L 114/74 [Right Brachial artery] O2 Saturation 97 98 100 12/22/22 12/22/22 12/23/22 21:00 23:00 00:00 Temperature 36.5 C Heart Rate [ 84 89 91 Monitoring electrodes] Respiratory 12 17 14 Rate Blood Pressure 91/52 L 96/83 H 115/69 [Right Brachial artery] O2 Saturation 97 96 96 12/23/22 12/23/22 12/23/22 01:00 02:35 04:55 Temperature Heart Rate [ 97 86 89 Monitoring electrodes] Respiratory 12 14 16 Rate Blood Pressure 115/69 92/72 97/72 [Right Brachial artery] O2 Saturation 95 95 93 12/23/22 12/23/22 12/23/22 08:00 09:00 11:00 Temperature 36.8 C Heart Rate [ 106 H 93 122 H Monitoring electrodes] Respiratory 18 15 14 Rate Blood Pressure 128/87 H 118/76 [Right Brachial artery] O2 Saturation 96 93 90 L 12/23/22 12/23/22 13:00 15:00 Temperature 36.6 C Heart Rate [ 120 H 94 Monitoring electrodes] Respiratory 20 21 Rate Blood Pressure 122/70 122/80 [Right Brachial artery] O2 Saturation 93 Oxygen O2 Source Room air I&O (Last 24 Hrs): Intake and Output Totals x24h 12/21/22 12/22/22 12/23/22 23:59 23:59 23:59 Intake Total 2210 3000 310 Output Total 1 900 425 Balance 2209 2100 -115 General: Alert, Oriented x3, No acute distress HEENT: Mucous membr. moist/pink, Other (Poor dentition, disheveled) Neck: Supple, No JVD Neuro: Alert, Other (L arm weak, L leg no motor strength) Cardiovascular: Regular rate, No murmurs Respiratory: No respiratory distress, Breath sounds nml Abdomen: Normal bowel sounds, Soft Extremities: No clubbing, No edema, No tenderness/swelling - Results Results: Laboratory Results WBC 7.3 x10^3/uL (4.8-10.8) 12/22/22 04:22 RBC 3.58 10^6/uL (4.20-5.40) L 12/22/22 04:22 Hgb 9.8 g/dL (12.0-16.0) L 12/22/22 04:22 Hct 31.9 % (37.0-47.0) L 12/22/22 04:22 MCV 89.1 fL (81.0-99.0) 12/22/22 04:22 MCH 27.4 pg (27.0-31.0) 12/22/22 04:22 MCHC 30.7 g/dL (32.0-36.0) L 12/22/22 04:22 RDW 15.2 % (12.0-15.0) H 12/22/22 04:22 Plt Count 325 10^3/uL (130-450) 12/22/22 04:22 MPV 11.8 fL (7.9-10.8) H 12/22/22 04:22 Neut # (Auto) 4.3 10^3/uL (1.5-6.6) 12/22/22 04:22 Lymph # (Auto) 2.4 10^3/uL (1.5-3.5) 12/22/22 04:22 [place] # (Auto) 0.6 10^3/uL (0.0-1.0) 12/22/22 04:22 Eos # (Auto) 0.0 10^3/uL (0.0-0.7) 12/22/22 04:22 Baso # (Auto) 0.0 10^3/uL (0.0-0.1) 12/22/22 04:22 Absolute Nucleated RBC 0.00 x10^3/uL 12/22/22 04:22 Nucleated RBC % 0.0 /100WBC 12/22/22 04:22 VBG pH 7.365 (7.31-7.41) 12/23/22 04:23 Ionized Calcium 1.16 mmol/L (1.15-1.33) 12/23/22 04:23 Sodium 140 mmol/L (135-145) 12/22/22 04:22 Potassium 3.7 mmol/L (3.5-4.5) 12/23/22 04:23 Chloride 112 mmol/L (101-111) H 12/22/22 04:22 Carbon Dioxide 24 mmol/L (21-32) 12/22/22 04:22 Anion Gap 4.0 (6-13) L 12/22/22 04:22 BUN 14 mg/dL (6-20) 12/22/22 04:22 Creatinine 0.6 mg/dL (0.6-1.3) 12/22/22 04:22 Estimated GFR (MDRD) 102 (>89) 12/22/22 04:22 Glucose 85 mg/dL (74-104) 12/22/22 04:22 POC Whole Bld Glucose 126 mg/dL (70 - 100) H 12/21/22 15:44 Estimat Average Glucose 117 mg/dL (70-100) H 12/22/22 04:22 Hemoglobin A1c % 5.7 % (4.27-6.07) 12/22/22 04:22 Lactic Acid 1.4 mmol/L (0.5-2.2) 12/21/22 16:04 Calcium 8.4 mg/dL (8.5-10.3) L 12/22/22 04:22 Phosphorus 2.6 mg/dL (2.5-5.0) 12/23/22 04:23 Magnesium 1.9 mg/dL (1.7-2.3) 12/23/22 04:23 Total Bilirubin 0.7 mg/dL (0.2-1.0) 12/21/22 15:52 AST 14 IU/L (10-42) 12/21/22 15:52 ALT 11 IU/L (10-60) 12/21/22 15:52 Alkaline Phosphatase 56 IU/L (42-121) 12/21/22 15:52 Total Protein 7.4 g/dL (6.4-8.9) 12/21/22 15:52 Albumin 4.2 g/dL (3.2-5.5) 12/21/22 15:52 Globulin 3.2 g/dL (2.1-4.2) 12/21/22 15:52 Albumin/Globulin Ratio 1.3 (1.0-2.2) 12/21/22 15:52 TSH 5.96 uIU/mL (0.34-5.60) H 12/21/22 15:52 Free T4 Direct 1.11 ng/dL (0.58-1.64) 12/21/22 15:38 Urine Color YELLOW 12/21/22 16:53 Urine Clarity CLEAR (CLEAR) 12/21/22 16:53 Urine pH 6.0 PH (5.0-7.5) 12/21/22 16:53 Ur Specific [place] <=1.005 (1.002-1.030) 12/21/22 16:53 Urine Protein NEGATIVE mg/dL (NEGATIVE) 12/21/22 16:53 Urine Glucose (UA) NEGATIVE mg/dL (NEGATIVE) 12/21/22 16:53 Urine Ketones NEGATIVE mg/dL (NEGATIVE) 12/21/22 16:53 Urine Occult Blood NEGATIVE (NEGATIVE) 12/21/22 16:53 Urine Nitrite NEGATIVE (NEGATIVE) 12/21/22 16:53 Urine Bilirubin NEGATIVE (NEGATIVE) 12/21/22 16:53 Urine Urobilinogen 0.2 (NORMAL) E.U./dL (NORMAL) 12/21/22 16:53 Ur Leukocyte Esterase NEGATIVE (NEGATIVE) 12/21/22 16:53 Urine RBC 0-5 /HPF (0-5) 12/21/22 16:53 Urine WBC 0-3 /HPF (0-5) 12/21/22 16:53 Ur Squamous Epith Cells FEW Squamous (<= Few) 12/21/22 16:53 Urine Bacteria Rare /HPF (None Seen) 12/21/22 16:53 Urine Culture Comments NOT INDICATED 12/21/22 16:53 Nasal Screen MRSA (PCR) NEGATIVE (NEGATIVE) 12/21/22 21:12 Urine Opiates Screen POSITIVE (NEGATIVE) H 12/21/22 16:53 Ur Oxycodone Screen NEGATIVE (NEGATIVE) 12/21/22 16:53 Urine Methadone Screen NEGATIVE (NEGATIVE) 12/21/22 16:53 Ur Propoxyphene Screen NEGATIVE (NEGATIVE) 12/21/22 16:53 Ur Barbiturates Screen NEGATIVE (NEGATIVE) 12/21/22 16:53 Ur Tricyclics Screen POSITIVE (NEGATIVE) H 12/21/22 16:53 Ur Phencyclidine Scrn NEGATIVE (NEGATIVE) 12/21/22 16:53 Ur Amphetamine Screen NEGATIVE (NEGATIVE) 12/21/22 16:53 U Methamphetamines Scrn NEGATIVE (NEGATIVE) 12/21/22 16:53 U Benzodiazepines Scrn NEGATIVE (NEGATIVE) 12/21/22 16:53 Urine Cocaine Screen NEGATIVE (NEGATIVE) 12/21/22 16:53 U Cannabinoids Screen NEGATIVE (NEGATIVE) 12/21/22 16:53 Ethyl Alcohol < 10.0 mg/dL 12/21/22 15:52 - Procedures Procedures: Procedures INSERTION OF FEEDING DEVICE INTO STOMACH, PERC ENDO APPROACH (01/18/18)
[2022-12-23] MEDS ORDERED: NITROGLYCERIN SL 0.4 MG TABLET SL PRN (15:37)
[2022-12-23] MEDS ORDERED: SODIUM CHLORIDE 0.9% 500 ML IV ONE (15:38)
[2022-12-23 17:48] LABS: CALCIUM 8.9 mg/dL (8.5-10.3); CREATININE 0.8 mg/dL (0.6-1.3)
[2022-12-23] MEDS ORDERED: GABAPENTIN 300 MG CAPSULE PO SCH (21:00)
[2022-12-23] MEDS ORDERED: AMITRIPTYLINE 25 MG TABLET PO SCH (21:00)
[2022-12-23] MEDS ORDERED: PRAVASTATIN 40 MG TABLET PO SCH (21:00)
[2022-12-23] MEDS ORDERED: ATORVASTATIN 40 MG TABLET PO SCH (21:00)
[2022-12-23] MEDS: MULTIVITAMIN W/MINERALS TABLET PO SCH (21:08)
[2022-12-24] MEDS: SODIUM CHLORIDE FLUSH 0.9% 10 ML SYRINGE IVP SCH ×2 (05:05→08:33)
[2022-12-24 05:21] LABS: CALCIUM, IONIZED 1.17 mmol/L (1.15-1.33); VBG PH 7.392 (7.31-7.41)
[2022-12-24 05:43] LABS: CALCIUM 8.7 mg/dL (8.5-10.3); CREATININE 0.7 mg/dL (0.6-1.3); MAGNESIUM 1.7 mg/dL (1.7-2.3); PHOSPHORUS 3.5 mg/dL (2.5-5.0); POTASSIUM 3.6 mmol/L (3.5-4.5)
[2022-12-24] MEDS: LEVOTHYROXINE 75 MCG TABLET PO SCH (06:18)
[2022-12-24] MEDS ORDERED: LEVOTHYROXINE 75 MCG TABLET PO SCH (07:00)
[2022-12-24] MEDS: METOPROLOL SUCCINATE 25 MG TABLET PO SCH (08:24)
[2022-12-24] MEDS: ASPIRIN CHEW 81 MG TABLET PO SCH (08:24)
[2022-12-24] MEDS: ENOXAPARIN 40 MG/0.4 ML SYRINGE SUBQ SCH (08:25)
[2022-12-24] MEDS: MULTIVITAMIN W/MINERALS TABLET PO SCH (08:25)
[2022-12-24] MEDS: CLOPIDOGREL 75 MG TABLET PO SCH (08:26)
[2022-12-24] MEDS: MIRTAZAPINE 15 MG TABLET PO SCH (08:26)
[2022-12-24] MEDS: levETIRAcetam 250 MG TABLET PO SCH (08:26)
[2022-12-24] MEDS ORDERED: CETIRIZINE 10 MG TABLET PO SCH (09:00)
[2022-12-24] MEDS ORDERED: PANTOPRAZOLE 40 MG TABLET PO SCH (09:00)
[2022-12-24] MEDS ORDERED: SODIUM CHLORIDE 0.9% 500 ML IV ONE (09:13)
--- NOTE | 2022-12-24 12:50 | Discharge Plan ---
Discharge Plan Problem Reviewed?: Yes Disposition: Home Health Service Condition: Fair Prescriptions: Levetiracetam [Keppra] 500 mg PO BID #60 tablet Diet: Low Sodium Activity Restrictions: Activity as Tolerated Shower Restrictions: No Driving Restrictions: Yes Assistance Devices: Walker, Cane Weight Bearing: Full Weight Instruction Topics: Heart Failure Meds Control, ED Hypotension Orthostatic Health Concerns: You were hospitalized because you were confused and sleepy, and the most likely explanation was that you had a seizure and then had the typical confusion and sleepiness which happens after a seizure. You had been ordered to take seizure medicines many months ago, but failed to rock picker the prescriptions, that is why you now had a seizure. You are being discharged home today and strongly advised to be compliant with taking your seizure medicine twice a day. The new prescription for Keppra was electronically sent to your [facility] pharmacy in [place]. While you were here, we found you to be dehydrated, therefore some of your medicines were put on hold. We checked your blood pressure, which dropped when you stood, and heart rate katrin excessively when you stood, which are signs of being dehydrated. There is a risk that you will black out and hurt yourself falling, if your blood pressure is too low when you are in the upright position. After discharge home, it would be advised for you to measure your blood pressure daily, you should not take that day's dose of Lisinopril and Spironolactone medicines, if your systolic blood pressure is below 100 (for the top number). A referral has been sent for a Home Health agency to provide you with in-home physical therapy and therapy to do activities of daily living. Please see your Primary Care Provider in the next 1 - 2 weeks for hospital follow-up visit. Please see your Insurance Claim Approver as previously scheduled. Plan of Treatment: As above. Care Goals: Improvement in symptoms and stabilization are the goals. Assessment: The patient understands and is agreeable with the plan. Additional Instructions or Follow Up instructions: If you have new or worsening symptoms, call your Primary Care Provider, or your Insurance Claim Approver for advice, or come to the ER. Follow-Up Care: Home Health - PT, Home Health - OT No Smoking: If you smoke, Please STOP! Call for help. Follow-up with: JAVID PORTER, [Physician No Access] -
--- NOTE | 2022-12-24 12:56 | DISCHARGE SUMMARY ---
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 Pt was prescribed seizure medications after her CVA in 2018, but she had trouble getting it from the pharmacy, so never started on it. At baseline, pt can walk with a hemiwalker. She does not move her L side. Pt was seen in the ER last week for URI symptoms and was dx'd with rhinovirus/enterovirus, and had a leukocytosis and mild hypotension. She was sent home on doxycycline after IV fluids and Rocephin. These symptoms have since resolved. Pt says that she was feeling fine yesterday. This AM, when she woke up, she felt nauseated. She got up and went to the Bathroom, then asked her granddaughter for her potty chair. Her daughter heard a "thud" and realized it was patient's R hand hitting her walker. Pt was staring at the floor, still standing, but not moving and her RUE was reaching out, trying to grasp something. This lasted x about 3 minutes, then symptoms resolved and pt seemed back to normal, except for increased fatigue and mild H/A. Pt's granddaughter brought pt to the ER, full W/U was done. Pt was discharged on PO Keppra for presumed seizure and outpt F/U with Neurologist recommended. As pt was getting into the car, she continued to have nausea and had episode of vomiting, non-bloody. She then seemed to appear "out of it." Pt denies LOC this time or the prior time. She was not able to focus on what granddaughter was saying or to answer. She was not moving her hand this time. This lasted a few seconds, then pt seemed back to baseline, except with increased fatigue. Pts granddaughter brought her back into the ER. In the ER, HR 52, BP 89/51, SpO2 88% on RA, pt appeared more lethargic than previous exam per ER Provider. WBC 10.9, Na 134, Glc 151, UDS: Opiates, TCA, BC pending. CXR: NAD CT Head (done earlier): previous R MCA infarct, NAD Staff had difficulty placing and maintaining peripheral IVs, so Central IJ line placed. ER Provider: D/W "Neurology Dr. Olguin at [facility] where patient receives her neuro care. In discussion with this doctor he feels that the events of this morning as well as this afternoon likely represent seizure-like activity and the ongoing lethargy may be a post ictal status. He recommends loading the patient with the 1000 g of Keppra. 500 had been given earlier so I will add another 500. Recommends MRI in the morning and continued observation for mental status. He does not feel the patient warrants transfer for other neuro evaluation such as EEG. - HOSPITAL COURSE Hospital Course: (1) Seizure as late effect of cerebrovascular accident (CVA) MRI confirmed there was no extension of the old stroke or any new stroke. Then she admitted she did not pharmacy picking tech the prescription for po Keppra when it was prescribed. We had her on iv then Keppra po BID. The importance of taking her anti-seizure meds was discussed with her. (2) Postictal confusion She was confused and lethargic. Eventually her mental status improved. (3) Orthostatic hypotension Since the pt "dropped with a thud" before admission, she had orthostatic vital signs checked and they were abnormal. (supine heart rate of 111, with standing her heart rate katrin to 131). This delayed her discharge. Metoprolol was eventually resumed, orthostatics were followed, and she stabilized to be safe for discharge (4) Hypothyroid She was on Levothyroxine 50 mcg daily. Her TSH came back elevated at 5.96. but her free T4 was WNL at 1.11, thus we continued the same dose. Recommend it be rechecked in several weeks to see if she needs adjustment. (5) Chronic systolic heart failure The pt was on B-heriberto, Spironolactone, and Lisinopril, no Lasix or Empagloflozin. 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 We had to temporarily hold the Spironolactone and Lisinopril due to Hypotension at presentation, and then due to orthostasis. (6) Hx of CVA with residual deficit We continued her ASA, Plavix and Statin. She worked with PT and OT, who advised Home Health PT and OT which I will order (7) Leukocytosis This was part of her presentation. It was likely from demargination with the seizure and Hypotension, since without starting empiric antibiotics here white cell count normalized and blood culture remained negative, her urinalysis was without UTI, and chest x-ray was without infiltrate. - ALLERGIES Allergies/Adverse Reactions: Allergies Allergy/AdvReac Type Severity Reaction Status Date / Time Iodinated Contrast Media Allergy Rash Verified 12/03/22 12:12 [Iodinated Contrast- Oral and IV Dye] morphine Allergy Rash Verified 12/03/22 12:12 - MEDICATIONS Home Medications: Ambulatory Orders Medication Instructions Recorded Confirmed Aspirin 81 mg PO DAILY 12/26/17 12/22/22 Acetaminophen [Tylenol] 650 mg PO Q4H PRN 01/20/18 12/22/22 Nitroglycerin [Nitrostat] 0.4 mg SL Q5MIN PRN 01/20/18 12/22/22 Amitriptyline [Elavil] 25 mg PO QPM 04/30/20 12/22/22 Atorvastatin Calcium [Lipitor] 80 mg PO DAILY 04/30/20 12/22/22 Clopidogrel [Plavix] 75 mg PO DAILY 04/30/20 12/22/22 Levothyroxine Sodium [Synthroid] 75 mcg PO DAILY 04/30/20 12/22/22 Mirtazapine [Remeron] 15 mg PO DAILY 04/30/20 12/22/22 Pantoprazole [Protonix] 40 mg PO DAILY 04/30/20 12/22/22 Metoprolol Succinate [Toprol Xl] 12.5 mg PO DAILY 04/13/21 12/22/22 Cetirizine [ZyrTEC] 10 mg PO DAILY 12/22/22 12/22/22 Gabapentin [Neurontin] 900 mg PO HS 12/22/22 12/22/22 Spironolactone [Aldactone] 25 mg PO DAILY 12/22/22 12/22/22 Lisinopril [Zestril] 2.5 mg PO DAILY 12/23/22 12/23/22 Levetiracetam [Keppra] 500 mg PO BID #60 tablet 12/24/22 - PHYSICAL EXAM AT DISCHARGE General Appearance: positive: No acute distress, Alert Eyes Bilateral: positive: Normal inspection, EOMI ENT: positive: ENT inspection nml, No signs of dehydration Neck: positive: Nml inspection, No JVD Respiratory: positive: No respiratory distress, Breath sounds nml Cardiovascular: positive: Regular rate & rhythm, No murmur Abdomen: positive: Non-tender, Nml bowel sounds, No distention Skin: positive: No rash, Warm, Dry Extremities: positive: Non-tender, No pedal edema Neurologic/Psychiatric: positive: Oriented x3, Other (Has facail droop L, and L arm and leg have severe weakness.) - LABS Result Diagrams: 12/22/22 04:22 12/24/22 05:11 - DIAGNOSTIC IMAGING Diagnostic Imaging Results: Final report reviewed - FOLLOW UP Follow Up: See PCP in 1-2 weeks for a hospital follow up visit. - TIME SPENT Time Spent in Discharge (Minutes): 45
[2022-12-24 14:04] VITALS: BP 110/70; O2SAT 99
== END 2022-12-24 14:52 | disposition home health service (06) | DRG 57 ==
LOC: ED 15:24 → ICU 19:52
PROVIDERS: ADMIT Internal Medicine; ATTEND Internal Medicine
DX: I69.398 Other sequelae of cerebral infarction (principal); G40.509 Epileptic seizures related to external causes, not intractable, without status epilepticus; R55 Syncope and collapse; I95.9 Hypotension, unspecified; R53.83 Other fatigue; R56.9 Unspecified convulsions; R42 Dizziness and giddiness; R51.9 Headache, unspecified; I69.354 Hemiplegia and hemiparesis following cerebral infarction affecting left non-dominant side; E87.1 Hypo-osmolality and hyponatremia; I50.22 Chronic systolic (congestive) heart failure; I69.391 Dysphagia following cerebral infarction; F17.210 Nicotine dependence, cigarettes, uncomplicated; R41.82 Altered mental status, unspecified; T42.6X6A Underdosing of other antiepileptic and sedative-hypnotic drugs, initial encounter; Z91.128 Patient's intentional underdosing of medication regimen for other reason; R00.1 Bradycardia, unspecified; I25.10 Atherosclerotic heart disease of native coronary artery without angina pectoris; R09.02 Hypoxemia; D72.829 Elevated white blood cell count, unspecified; E03.9 Hypothyroidism, unspecified; R73.9 Hyperglycemia, unspecified; I95.1 Orthostatic hypotension; I11.0 Hypertensive heart disease with heart failure; E78.00 Pure hypercholesterolemia, unspecified; I25.2 Old myocardial infarction; Z95.5 Presence of coronary angioplasty implant and graft; R53.1 Weakness; E86.0 Dehydration
CPT/HCPCS: 36415; 36556; 70450; 70551; 71045; 80048; 80053; 80306; 81001; 82330; 83036; 83605; 83735; 84100; 84132; 84146; 84439; 84443; 85025; 87040; 87150; 93005; 93306; 96365; 96372; 96375; 97116; 97162; 97166; 97530; 97535; 99284; 99285; A9270; G0480; J1170; J1650; 80320; 87086

== ENCOUNTER 2023-02-09 14:03 | Emergency (ER) | payer MEDICARE, OTHER ==
[2023-02-09] MEDS ORDERED: guaiFENesin/DEXTROMETHORPHAN 10 ML UDC PO STA (14:47)
--- NOTE | 2023-02-09 14:49 | ED Physician Documentation ---
PD HPI DYSPNEA - Stated complaint Stated Complaint: COUGH,DIZZY,WEAK - Chief complaint Chief Complaint: Resp - History obtained from History obtained from: Patient, Family - Additional information Additional information: 57-year-old woman with history of debilitating stroke necessitating craniotomy with left-sided deficits. Seizure disorder, hypertension, hyperlipidemia, CAD. She has been sick for 2 weeks with cough productive of yellow sputum. She is not short of breath but is feeling somewhat dizzy. Denies fevers. Her grandchildren have been sick with respiratory infections. 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 : None Psych: None Musculoskeletal: Hemiplegia Derm: None - Past Surgical History Past Surgical History: Yes General: Other Cardiovascular: Coronary stent Neuro: Craniotomy - Present Medications Home Medications: Ambulatory Orders Medication Instructions Recorded Confirmed Aspirin 81 mg PO DAILY 12/26/17 12/22/22 Acetaminophen [Tylenol] 650 mg PO Q4H PRN 01/20/18 12/22/22 Nitroglycerin [Nitrostat] 0.4 mg SL Q5MIN PRN 01/20/18 12/22/22 Amitriptyline [Elavil] 25 mg PO QPM 04/30/20 12/22/22 Atorvastatin Calcium [Lipitor] 80 mg PO DAILY 04/30/20 12/22/22 Clopidogrel [Plavix] 75 mg PO DAILY 04/30/20 12/22/22 Levothyroxine Sodium [Synthroid] 75 mcg PO DAILY 04/30/20 12/22/22 Mirtazapine [Remeron] 15 mg PO DAILY 04/30/20 12/22/22 Pantoprazole [Protonix] 40 mg PO DAILY 04/30/20 12/22/22 Metoprolol Succinate [Toprol Xl] 12.5 mg PO DAILY 04/13/21 12/22/22 Cetirizine [ZyrTEC] 10 mg PO DAILY 12/22/22 12/22/22 Gabapentin [Neurontin] 900 mg PO HS 12/22/22 12/22/22 Spironolactone [Aldactone] 25 mg PO DAILY 12/22/22 12/22/22 Lisinopril [Zestril] 2.5 mg PO DAILY 12/23/22 12/23/22 Levetiracetam [Keppra] 500 mg PO BID #60 tablet 12/24/22 Benzonatate [Tessalon] 200 mg PO TID PRN #10 cap 02/09/23 Doxycycline [Vibramycin] 100 mg PO BID #14 tablet 02/09/23 - Allergies Allergies/Adverse Reactions: Allergies Allergy/AdvReac Type Severity Reaction Status Date / Time Iodinated Contrast Media Allergy Rash Verified 02/09/23 14:28 [Iodinated Contrast- Oral and IV Dye] morphine Allergy Rash Verified 02/09/23 14:28 - Social History Does the pt smoke?: No Smoking Status: Never smoker Does the pt drink ETOH?: No Does the pt have substance abuse?: No - Immunizations Immunizations are current?: Yes - POLST Patient has POLST: No PD ED PE NORMAL - Vitals Vital signs reviewed: Yes - General General: Alert and oriented X 3, No acute distress - Respiratory Respiratory: No respiratory distress, Other (Occasional wet cough, diminished at both bases) - Neuro Neuro: Alert and oriented X 3, Other (Left-sided deficits from prior stroke) Results - Vitals Vitals: Vital Signs - 24 hr 02/09/23 02/09/23 14:21 15:16 Temperature 36.3 C L Heart Rate 69 63 Respiratory 16 20 Rate Blood Pressure 103/64 100/79 O2 Saturation 95 96 Oxygen O2 Source Room air - EKG (time done) 1439 EKG releavant findings:: EKG personally interpreted by author of this note. Relevant findings are: Rate: Rate (enter#) (61) Rhythm: NSR [place]: Normal Intervals: Normal [place] QRS: Normal Ischemia: Q waves, T wave inversion Compare to prior EKG: Unchanged from prior EKG (She has inferior Q waves and T wave inversions that are unknown changed from prior EKG dated 12/21/2022) Computer interpretation: Agree with computer PD Medical Decision Making - ED course ED course: 57-year-old woman with multiple comorbidities has Productive cough for 2 weeks with shortness of breath. Diminished breath sounds on exam but no focal findings, clear chest x-ray. Given the length of time and comorbidities seems reasonable to trial antibiotics. Departure - Departure Disposition: 01 Home, Self Care Clinical Impression: Bronchitis Condition: Good Record reviewed to determine appropriate education?: Yes Instructions: ED Upper Resp Infec Abx Tx Prescriptions: Benzonatate [Tessalon] 200 mg PO TID PRN #10 cap PRN Reason: Cough Doxycycline [Vibramycin] 100 mg PO BID #14 tablet Comments: I sent your prescription electronically to [facility] in [place]. X-rays looking good, but as discussed, given the length of time you have been sick as well as your underlying health issues seems reasonable to trial some antibiotics. Call your doctor to arrange a follow-up appointment, make the next available appointment. In the interim, return anytime if worse or if new symptoms develop. Forms: PCP List Discharge Date/Time: 02/09/23 15:34
--- NOTE | 2023-02-09 15:07 | XRAY Report ---
PROCEDURE: Chest 1 View X-Ray INDICATIONS: cough TECHNIQUE: One view of the chest was acquired. COMPARISON: None. FINDINGS: Surgical changes and devices: None. Lungs and pleura: No pleural effusions or pneumothorax. Lungs are clear. Mediastinum: Mediastinal contours appear normal. Heart size is normal. Bones and chest wall: No suspicious bony lesions. Overlying soft tissues appear unremarkable. IMPRESSION: No acute process. Reviewed by: Rodriguez Manuel MD on 02/09/2023 3:06 PM [facility] Approved by: Rodriguez Manuel MD on 02/09/2023 3:06 PM [facility] Station ID: [id number]
[2023-02-09 15:19] VITALS: BP 100/79; O2SAT 96
== END 2023-02-09 15:34 | disposition home or self-care (01) ==
LOC: ED 14:03
DX: J40 Bronchitis, not specified as acute or chronic (principal); Z79.01 Long term (current) use of anticoagulants; Z95.5 Presence of coronary angioplasty implant and graft
CPT/HCPCS: 71045; 93005; 99284; A9270

== ENCOUNTER 2023-02-12 15:43 | Emergency (ER) | payer MEDICARE, OTHER ==
[2023-02-12] MEDS ORDERED: ASPIRIN CHEW 81 MG TABLET PO STA (16:07)
--- NOTE | 2023-02-12 16:07 | ED Physician Documentation ---
PD HPI CHEST PAIN - Stated complaint Stated Complaint: CHEST PX - Chief complaint Chief Complaint: Cardiac - History obtained from History obtained from: Patient - Additional information Additional information: 57-year-old woman with history of coronary disease and stenting 3 years ago presents with chest tightness. She was recently seen for bronchitis and is on antibiotics. She says she is slightly better from that perspective. She was sitting on her wheelchair at rest today at 2:30 PM when she developed chest tightness. She says it is much milder than prior anginal pain. She is not more short of breath. Denies pedal edema or calf pain. No radiation of the pain to the back. 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 : None Psych: None Musculoskeletal: Hemiplegia Derm: None - Past Surgical History Past Surgical History: Yes General: Other Cardiovascular: Coronary stent Neuro: Craniotomy - Present Medications Home Medications: Ambulatory Orders Medication Instructions Recorded Confirmed Aspirin 81 mg PO DAILY 12/26/17 12/22/22 Acetaminophen [Tylenol] 650 mg PO Q4H PRN 01/20/18 12/22/22 Nitroglycerin [Nitrostat] 0.4 mg SL Q5MIN PRN 01/20/18 12/22/22 Amitriptyline [Elavil] 25 mg PO QPM 04/30/20 12/22/22 Atorvastatin Calcium [Lipitor] 80 mg PO DAILY 04/30/20 12/22/22 Clopidogrel [Plavix] 75 mg PO DAILY 04/30/20 12/22/22 Levothyroxine Sodium [Synthroid] 75 mcg PO DAILY 04/30/20 12/22/22 Mirtazapine [Remeron] 15 mg PO DAILY 04/30/20 12/22/22 Pantoprazole [Protonix] 40 mg PO DAILY 04/30/20 12/22/22 Metoprolol Succinate [Toprol Xl] 12.5 mg PO DAILY 04/13/21 12/22/22 Cetirizine [ZyrTEC] 10 mg PO DAILY 12/22/22 12/22/22 Gabapentin [Neurontin] 900 mg PO HS 12/22/22 12/22/22 Spironolactone [Aldactone] 25 mg PO DAILY 12/22/22 12/22/22 Lisinopril [Zestril] 2.5 mg PO DAILY 12/23/22 12/23/22 Levetiracetam [Keppra] 500 mg PO BID #60 tablet 12/24/22 Benzonatate [Tessalon] 200 mg PO TID PRN #10 cap 02/09/23 Doxycycline [Vibramycin] 100 mg PO BID #14 tablet 02/09/23 guaiFENesin/CODEINE [Robitussin AC] 5 - 10 ml PO Q6H PRN #120 ml 02/12/23 - Allergies Allergies/Adverse Reactions: Allergies Allergy/AdvReac Type Severity Reaction Status Date / Time Iodinated Contrast Media Allergy Rash Verified 02/12/23 15:47 [Iodinated Contrast- Oral and IV Dye] morphine Allergy Rash Verified 02/12/23 15:47 - Social History Does the pt smoke?: No Smoking Status: Never smoker Does the pt drink ETOH?: No Does the pt have substance abuse?: No - Immunizations Immunizations are current?: Yes - POLST Patient has POLST: No PD ED PE NORMAL - Vitals Vital signs reviewed: Yes - General General: Alert and oriented X 3, No acute distress - HEENT HEENT: PERRL, EOMI - Neck Neck: Supple, no meningeal sign, No bony TTP - Cardiac Cardiac: RRR, No murmur - Respiratory Respiratory: Other (Frequent bronchitic coughing but relatively clear lungs.) - Abdomen Abdomen: Non tender - Neuro Neuro: Alert and oriented X 3, Other (Left-sided deficits from prior stroke) Eye Opening: Spontaneous Motor: Obeys Commands Verbal: Oriented GCS Score: 15 Results - Vitals Vitals: Vital Signs - 24 hr 02/12/23 02/12/23 02/12/23 15:48 16:40 17:00 Temperature 36.8 C Heart Rate 64 57 L 58 L Respiratory 16 14 13 Rate Blood Pressure 108/55 L 100/56 L 104/64 O2 Saturation 98 100 96 02/12/23 02/12/23 18:00 19:00 Temperature Heart Rate 60 55 L Respiratory 18 12 Rate Blood Pressure 107/58 L 99/44 L O2 Saturation 98 97 Oxygen O2 Source Room air - EKG (time done) 1552 EKG releavant findings:: EKG personally interpreted by author of this note. Relevant findings are: Rate: Rate (enter#) (60) Rhythm: NSR [place]: Normal Intervals: Normal [place] Ischemia: T wave inversion. No: ST elevation c/w ischemia Compare to prior EKG: Changed from prior EKG (Inferior T wave inversion unchanged from EKG from 3 days ago which was also unchanged from prior EKG.) Computer interpretation: Agree with computer - Labs Labs: Laboratory Tests 02/12/23 02/12/23 02/12/23 16:23 16:23 18:35 WBC 10.7 RBC 4.32 Hgb 11.5 L Hct 38.9 MCV 90.0 MCH 26.6 L MCHC 29.6 L RDW 14.7 Plt Count 496 H MPV 11.7 H Neut # (Auto) Not Reportable Lymph # (Auto) Not Reportable [place] # (Auto) Not Reportable Eos # (Auto) Not Reportable Baso # (Auto) Not Reportable Absolute Nucleated RBC Not Reportable Total Counted 100 Band Neuts % (Manual) 0 Reactive Lymphs % (Man) 13 Abnorm Lymph % (Manual) 0 Nucleated RBC % Not Reportable Neutrophils # (Manual) 6.2 Lymphocytes # (Manual) 3.5 Monocytes # (Manual) 0.9 Eosinophils # (Manual) 0.0 Basophils # (Manual) 0.1 Differential Comment MANUAL DIFFERENTIAL Platelet Estimate INCREASED (>450,000) Platelet Morphology NORMAL APPEARANCE RBC Morph Micro Appear NORMAL APPEARANCE Sodium 140 Potassium 4.2 Chloride 106 Carbon Dioxide 26 Anion Gap 8.0 BUN 22 H Creatinine 0.8 Estimated GFR (MDRD) 73 L Glucose 94 Calcium 9.7 Total Bilirubin 0.4 AST 22 ALT 18 Alkaline Phosphatase 58 Troponin I High Sens 3.9 4.1 Total Protein 7.6 Albumin 3.7 Globulin 3.9 Albumin/Globulin Ratio 0.9 L Lipase 83 H PD Medical Decision Making - ED course ED course: 57-year-old woman with known coronary disease presents with atypical chest pain at rest in the setting of a known pulmonary infection being treated with antibiotics. Her EKG was nonischemic and initial troponin was negative. Given the short time course a repeat troponin was done approximately 2 hours later without any interval change. Departure - Departure Disposition: 01 Home, Self Care Clinical Impression: Chest pain Qualifiers: Chest pain type: unspecified Qualified Code(s): R07.9 - Chest pain, unspecified Instructions: ED Chest Pain Atypical Unkn Cause Prescriptions: guaiFENesin/CODEINE [Robitussin AC] 5 - 10 ml PO Q6H PRN #120 ml PRN Reason: Cough Comments: No evidence that the pain tonight is from your heart. Perhaps from the coughing? You should continue the antibiotics and complete the course. In addition I sent some codeine cough syrup to the [facility] in [place]. Call your doctor to arrange a follow-up appointment, make the next available appointment. In the interim, return anytime if worse or if new symptoms develop. Forms: PCP List
[2023-02-12 16:28] LABS: BASOPHILS % (AUTO) 0.6 %; EOSINOPHILS % (AUTO) 0.8 %; HCT - HEMATOCRIT 38.9 % (37.0-47.0); HGB - HEMOGLOBIN 11.5 g/dL (12.0-16.0); LYMPHOCYTES % (AUTO) 26.2 %; MEAN CORPUSCULAR HEMOGLOBIN 26.6 pg (27.0-31.0); MEAN CORPUSCULAR HGB CONC 29.6 g/dL (32.0-36.0); MEAN PLATELET VOLUME 11.7 fL (7.9-10.8); MONOCYTES % (AUTO) 7.1 %; NEUTROPHILS % (AUTO) 64.9 %; PLT - PLATELET COUNT 496 10^3/uL (130-450); RED BLOOD COUNT 4.32 10^6/uL (4.20-5.40); RED CELL DISTRIBUTION WIDTH 14.7 % (12.0-15.0); WHITE BLOOD COUNT 10.7 x10^3/uL (4.8-10.8)
[2023-02-12 16:30] LABS: ABNORMAL LYMPHS % (MANUAL) 0 %; BAND NEUTROPHILS % (MANUAL) 0 %
[2023-02-12 16:47] LABS: ALBUMIN 3.7 g/dL (3.2-5.5); ALBUMIN/GLOBULIN RATIO 0.9 (1.0-2.2); BASOPHILS # (MANUAL) 0.1 10^3/uL (0-0.1); BASOPHILS % (MANUAL) 1 %; BILIRUBIN,TOTAL 0.4 mg/dL (0.2-1.0); CALCIUM 9.7 mg/dL (8.5-10.3); CREATININE 0.8 mg/dL (0.6-1.3); LYMPHOCYTES # (MANUAL) 3.5 10^3/uL (1.5-3.5); LYMPHOCYTES % (MANUAL) 20 %; MONOCYTES # (MANUAL) 0.9 10^3/uL (0.0-1.0); NEUTROPHILS # (MANUAL) 6.2 10^3/uL (1.5-6.6); POTASSIUM 4.2 mmol/L (3.5-4.5); REACTIVE LYMPHS % (MANUAL) 13 %; TOTAL PROTEIN 7.6 g/dL (6.4-8.9)
[2023-02-12 16:48] LABS: DIFFERENTIAL COMMENT MANUAL DIFFERENTIAL; PLATELET ESTIMATE, MANUAL INCREASED (>450,000) (NORMAL); PLATELET MORPHOLOGY NORMAL APPEARANCE (NORMAL); RBC MORPHOLOGY (MULTIPLE) NORMAL APPEARANCE (NORMAL)
[2023-02-12 16:49] LABS: TROPONIN I HIGH SENSITIVITY 3.9 ng/L (2.3-14.8)
--- NOTE | 2023-02-12 16:55 | XRAY Report ---
PROCEDURE: Chest 1 View X-Ray INDICATIONS: Chest pain TECHNIQUE: One view of the chest was acquired. COMPARISON: 12/22/2022. FINDINGS: Surgical changes and devices: A right-sided catheter is present as before, which demonstrates a loop within the right inferior neck Lungs and pleura: No pleural effusions or pneumothorax. Lungs are clear. Mediastinum: Mediastinal contours appear normal. Heart size is normal. Bones and chest wall: No suspicious bony lesions. Overlying soft tissues appear unremarkable. IMPRESSION: 1. No acute process. 2. No change in right-sided catheter as above. Reviewed by: Rodriguez Manuel MD on 02/12/2023 4:54 PM PST Approved by: Rodriguez Manuel MD on 02/12/2023 4:54 PM PST Station ID: [id number]
[2023-02-12] MEDS ORDERED: guaiFENesin/CODEINE 5 ML UDC PO STA (18:25)
[2023-02-12 19:43] VITALS: BP 122/82; O2SAT 96
== END 2023-02-12 19:39 | disposition home or self-care (01) ==
LOC: ED 15:43
DX: R07.9 Chest pain, unspecified (principal)
CPT/HCPCS: 36415; 71045; 80053; 83690; 84484; 85025; 93005; 99284; A9270

== ENCOUNTER 2023-06-18 15:20 | Emergency (ER) | payer MEDICARE, OTHER ==
--- NOTE | 2023-06-18 16:07 | XRAY Report ---
PROCEDURE: Chest 1V INDICATIONS: Chest pain TECHNIQUE: One view of the chest was acquired. COMPARISON: 02/12/2023. FINDINGS: Surgical changes and devices: None. Lungs and pleura: No pleural effusions or pneumothorax. Lungs are clear. Mediastinum: Mediastinal contours appear normal. Heart size is normal. Bones and chest wall: No suspicious bony lesions. Overlying soft tissues appear unremarkable. IMPRESSION: No acute cardiopulmonary process. Reviewed by: Shivam Mosley MD on 06/18/2023 4:05 PM PDT Approved by: Shivam Mosley MD on 06/18/2023 4:05 PM PDT Station ID: [id number]
--- NOTE | 2023-06-18 16:33 | ED Physician Documentation ---
PD HPI ABD PAIN - Stated complaint Stated Complaint: chest pain - Chief complaint Chief Complaint: Cardiac - History obtained from History obtained from: Patient - Additional information Additional information: She has a history of debilitating stroke and coronary disease with stents. Takes Plavix and aspirin. She developed substernal chest pressure that is milder than previous angina at 1:45 PM while watching TV today. She is not short of breath, dizzy, nauseous, sweaty with this. She does state that she was cold with it, but her granddaughter states that she is always cold. 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 : None Psych: None Musculoskeletal: Hemiplegia Derm: None - Past Surgical History Past Surgical History: Yes General: Other Cardiovascular: Coronary stent Neuro: Craniotomy - Present Medications Home Medications: Ambulatory Orders Medication Instructions Recorded Confirmed Aspirin 81 mg PO DAILY 12/26/17 06/18/23 Acetaminophen [Tylenol] 650 mg PO Q4H PRN 01/20/18 06/18/23 Nitroglycerin [Nitrostat] 0.4 mg SL Q5MIN PRN 01/20/18 06/18/23 Amitriptyline [Elavil] 25 mg PO QPM 04/30/20 06/18/23 Atorvastatin Calcium [Lipitor] 80 mg PO DAILY 04/30/20 06/18/23 Clopidogrel [Plavix] 75 mg PO DAILY 04/30/20 06/18/23 Levothyroxine Sodium [Synthroid] 75 mcg PO DAILY 04/30/20 06/18/23 Mirtazapine [Remeron] 15 mg PO DAILY 04/30/20 06/18/23 Pantoprazole [Protonix] 40 mg PO DAILY 04/30/20 06/18/23 Metoprolol Succinate [Toprol Xl] 12.5 mg PO DAILY 04/13/21 06/18/23 Cetirizine [ZyrTEC] 10 mg PO DAILY 12/22/22 06/18/23 Gabapentin [Neurontin] 900 mg PO HS 12/22/22 06/18/23 Spironolactone [Aldactone] 25 mg PO DAILY 12/22/22 06/18/23 Lisinopril [Zestril] 2.5 mg PO DAILY 12/23/22 06/18/23 Levetiracetam [Keppra] 500 mg PO BID #60 tablet 12/24/22 06/18/23 Benzonatate [Tessalon] 200 mg PO TID PRN #10 cap 02/09/23 06/18/23 Doxycycline [Vibramycin] 100 mg PO BID #14 tablet 02/09/23 06/18/23 guaiFENesin/CODEINE [Robitussin AC] 5 - 10 ml PO Q6H PRN #120 ml 02/12/23 06/18/23 - Allergies Allergies/Adverse Reactions: Allergies Allergy/AdvReac Type Severity Reaction Status Date / Time Iodinated Contrast Media Allergy Rash Verified 06/18/23 17:12 [Iodinated Contrast- Oral and IV Dye] morphine Allergy Rash Verified 06/18/23 17:12 - Social History Does the pt smoke?: No Smoking Status: Never smoker Does the pt drink ETOH?: No Does the pt have substance abuse?: No - Immunizations Immunizations are current?: Yes - POLST Patient has POLST: No PD ED PE NORMAL - Vitals Vital signs reviewed: Yes - General General: Alert and oriented X 3, No acute distress - Neck Neck: Supple, no meningeal sign - Cardiac Cardiac: RRR, No murmur - Respiratory Respiratory: No respiratory distress, Clear bilaterally - Abdomen Abdomen: Non tender - Neuro Neuro: Alert and oriented X 3, Other (Significant left-sided deficits from prior stroke) Results - Vitals Vitals: Vital Signs - 24 hr 06/18/23 06/18/23 06/18/23 15:23 16:33 17:20 Temperature 36.5 C Heart Rate 62 56 L 52 L Respiratory 16 17 14 Rate Blood Pressure 129/74 125/65 125/63 O2 Saturation 100 100 97 06/18/23 06/18/23 06/18/23 18:00 19:30 19:50 Temperature Heart Rate 60 63 Respiratory 15 14 16 Rate Blood Pressure 112/68 99/63 O2 Saturation 98 98 95 Oxygen O2 Source Room air - EKG (time done) 1532 EKG releavant findings:: EKG personally interpreted by author of this note. Relevant findings are: Rate: Rate (enter#) (56) Rhythm: NSR [place]: Normal Intervals: Normal [place] QRS: Normal Ischemia: Non specific changes (T wave inversion inferiorly with Q waves there as well. No change from last EKG on the chart, February 12, 2023) - Labs Labs: Laboratory Tests 06/18/23 06/18/23 06/18/23 16:44 16:44 19:04 WBC 8.3 RBC 4.57 Hgb 13.1 Hct 41.5 MCV 90.8 MCH 28.7 MCHC 31.6 L RDW 16.3 H Plt Count 314 MPV 11.8 H Neut # (Auto) 4.9 Lymph # (Auto) 2.7 [place] # (Auto) 0.5 Eos # (Auto) 0.1 Baso # (Auto) 0.0 Absolute Nucleated RBC 0.00 Nucleated RBC % 0.0 Sodium 136 Potassium 4.0 Chloride 103 Carbon Dioxide 28 Anion Gap 5.0 L BUN 23 H Creatinine 0.6 Estimated GFR (MDRD) 102 Glucose 86 Calcium 9.6 Total Bilirubin 0.4 AST 12 ALT 17 Alkaline Phosphatase 48 Troponin I High Sens < 2.3 L 2.9 Total Protein 7.1 Albumin 4.2 Globulin 2.9 Albumin/Globulin Ratio 1.4 Lipase 82 PD Medical Decision Making - ED course ED course: She presents with chest pain. It went away after a small dose of fentanyl here. Her EKG did not show any acute findings. She has chronic inferior T wave inversion. Initial troponin was negative and she was kept around for a second given the timing and this was also negative. She was pain-free on discharge. Cardiology follow-up was advised. Departure - Departure Disposition: 01 Home, Self Care Clinical Impression: Chest pain Condition: Good Record reviewed to determine appropriate education?: Yes Instructions: ED Chest Pain Atypical Unkn Cause Comments: At this juncture there is no evidence of active heart attack. Please return if pain recurs or worsens. 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 Continue current medications. Forms: PCP List Discharge Date/Time: 06/18/23 19:50
[2023-06-18 16:50] LABS: BASOPHILS % (AUTO) 0.5 %; EOSINOPHILS # (AUTO) 0.1 10^3/uL (0.0-0.7); EOSINOPHILS % (AUTO) 1.3 %; HCT - HEMATOCRIT 41.5 % (37.0-47.0); HGB - HEMOGLOBIN 13.1 g/dL (12.0-16.0); LYMPHOCYTES # (AUTO) 2.7 10^3/uL (1.5-3.5); LYMPHOCYTES % (AUTO) 32.3 %; MEAN CORPUSCULAR HEMOGLOBIN 28.7 pg (27.0-31.0); MEAN CORPUSCULAR HGB CONC 31.6 g/dL (32.0-36.0); MEAN CORPUSCULAR VOLUME 90.8 fL (81.0-99.0); MEAN PLATELET VOLUME 11.8 fL (7.9-10.8); MONOCYTES # (AUTO) 0.5 10^3/uL (0.0-1.0); MONOCYTES % (AUTO) 6.2 %; NEUTROPHILS # (AUTO) 4.9 10^3/uL (1.5-6.6); NEUTROPHILS % (AUTO) 59.6 %; PLT - PLATELET COUNT 314 10^3/uL (130-450); RED BLOOD COUNT 4.57 10^6/uL (4.20-5.40); RED CELL DISTRIBUTION WIDTH 16.3 % (12.0-15.0); WHITE BLOOD COUNT 8.3 x10^3/uL (4.8-10.8)
[2023-06-18 17:08] LABS: ALBUMIN 4.2 g/dL (3.2-5.5); ALBUMIN/GLOBULIN RATIO 1.4 (1.0-2.2); ALKALINE PHOSPHATASE 48 IU/L (42-121); ALT ALANINE AMINOTRANSFERASE 17 IU/L (10-60); AST ASPARTATE AMINOTRANSFERASE 12 IU/L (10-42); BILIRUBIN,TOTAL 0.4 mg/dL (0.2-1.0); BUN - BLOOD UREA NITROGEN 23 mg/dL (6-20); CALCIUM 9.6 mg/dL (8.5-10.3); CARBON DIOXIDE - CO2 28 mmol/L (21-32); CHLORIDE 103 mmol/L (101-111); CREATININE 0.6 mg/dL (0.6-1.3); GFR - MDRD 102 (>89); GLUCOSE 86 mg/dL (74-104); LIPASE 82 U/L (11-82); SODIUM 136 mmol/L (135-145); TOTAL PROTEIN 7.1 g/dL (6.4-8.9)
[2023-06-18 17:10] LABS: TROPONIN I HIGH SENSITIVITY < 2.3 ng/L (2.3-14.8)
[2023-06-18] MEDS: fentaNYL 100 MCG/2 ML VIAL IVP STA (18:03)
[2023-06-18 19:39] VITALS: BP 99/63
[2023-06-18 19:57] VITALS: O2SAT 95
== END 2023-06-18 19:50 | disposition home or self-care (01) ==
LOC: ED 15:20
DX: R07.9 Chest pain, unspecified (principal); E78.00 Pure hypercholesterolemia, unspecified; I25.10 Atherosclerotic heart disease of native coronary artery without angina pectoris; I69.359 Hemiplegia and hemiparesis following cerebral infarction affecting unspecified side; I25.2 Old myocardial infarction; Z79.82 Long term (current) use of aspirin; Z79.02 Long term (current) use of antithrombotics/antiplatelets; Z79.899 Other long term (current) drug therapy
CPT/HCPCS: 36415; 80053; 83690; 84484; 85025; 93005; 96374; 99284

== ENCOUNTER 2023-07-19 17:51 | Emergency (ER) | payer MEDICARE, OTHER ==
--- NOTE | 2023-07-19 19:10 | XRAY Report ---
PROCEDURE: Chest 1V INDICATIONS: Chest Pain TECHNIQUE: One view of the chest was acquired. COMPARISON: 06/18/2023 FINDINGS: Surgical changes and devices: None. Lungs and pleura: Low lung volumes. No consolidation or pleural effusion. Mediastinum: Normal heart size Bones and chest wall: Degenerative changes IMPRESSION: No consolidation or pleural effusion on this limited single view portable radiograph. Reviewed by: Sandro Hogue MD on 07/19/2023 7:09 PM PDT Approved by: Sandro Hogue MD on 07/19/2023 7:09 PM PDT Station ID: [id number]
[2023-07-19 19:11] LABS: BASOPHILS % (AUTO) 0.6 %; EOSINOPHILS # (AUTO) 0.1 10^3/uL (0.0-0.7); EOSINOPHILS % (AUTO) 1.7 %; HCT - HEMATOCRIT 39.5 % (37.0-47.0); HGB - HEMOGLOBIN 12.3 g/dL (12.0-16.0); LYMPHOCYTES # (AUTO) 2.5 10^3/uL (1.5-3.5); LYMPHOCYTES % (AUTO) 34.8 %; MEAN CORPUSCULAR HEMOGLOBIN 28.6 pg (27.0-31.0); MEAN CORPUSCULAR HGB CONC 31.1 g/dL (32.0-36.0); MEAN CORPUSCULAR VOLUME 91.9 fL (81.0-99.0); MEAN PLATELET VOLUME 11.9 fL (7.9-10.8); MONOCYTES # (AUTO) 0.7 10^3/uL (0.0-1.0); MONOCYTES % (AUTO) 10.2 %; NEUTROPHILS # (AUTO) 3.8 10^3/uL (1.5-6.6); NEUTROPHILS % (AUTO) 52.4 %; PLT - PLATELET COUNT 258 10^3/uL (130-450); RED CELL DISTRIBUTION WIDTH 14.6 % (12.0-15.0); WHITE BLOOD COUNT 7.2 x10^3/uL (4.8-10.8)
[2023-07-19 19:30] LABS: ALBUMIN 3.9 g/dL (3.2-5.5); ALBUMIN/GLOBULIN RATIO 1.6 (1.0-2.2); BILIRUBIN,TOTAL 0.5 mg/dL (0.2-1.0); CALCIUM 9.5 mg/dL (8.5-10.3); CREATININE 0.7 mg/dL (0.6-1.3); POTASSIUM 4.4 mmol/L (3.5-4.5); TOTAL PROTEIN 6.3 g/dL (6.4-8.9)
[2023-07-19 19:32] LABS: TROPONIN I HIGH SENSITIVITY 3.2 ng/L (2.3-14.8)
[2023-07-19] MEDS: fentaNYL 100 MCG/2 ML VIAL IVP STA (19:50)
--- NOTE | 2023-07-19 19:52 | ED Physician Documentation ---
PD HPI CHEST PAIN - Stated complaint Stated Complaint: CHEST PX - Chief complaint Chief Complaint: Cardiac - History obtained from History obtained from: Patient, EMS - History of Present Illness Quality: Sharp Location: Substernal Radiation: Right upper extremity. No: Jaw, Neck, Back, Abdominal, Left upper extremity Improved by: Nothing Worsened by: Other (nothing) Associated symptoms: No: Shortness of air, Diaphoresis, Nausea, Vomiting, Feeling faint / dizzy, General Weakness, Palpitations, Cough - Additional information Additional information: Patient is a 58-year-old female who presents to the emergency department with sharp substernal chest pain. She states that this started about 3 hours ago. She states that last for 1 to 2 minutes at a time and then goes away. She states that it is similar to the last time she had a heart attack about 8 years ago. She states that she sees cardiology in [place]. She states that she has had 8 cardiac stents placed in the past. She states occasionally her right arm will hurt when this occurs. Nothing makes it better or worse. She states fentanyl usually helps. She took nitroglycerin without relief. 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 Psych: None Musculoskeletal: Hemiplegia Derm: None - Past Surgical History Past Surgical History: Yes General: Other Cardiovascular: Coronary stent Neuro: Craniotomy - Present Medications Home Medications: Ambulatory Orders Medication Instructions Recorded Confirmed Aspirin 81 mg PO DAILY 12/26/17 07/19/23 Acetaminophen [Tylenol] 650 mg PO Q4H PRN 01/20/18 07/19/23 Nitroglycerin [Nitrostat] 0.4 mg SL Q5MIN PRN 01/20/18 07/19/23 Amitriptyline [Elavil] 25 mg PO QPM 04/30/20 07/19/23 Atorvastatin Calcium [Lipitor] 80 mg PO DAILY 04/30/20 07/19/23 Clopidogrel [Plavix] 75 mg PO DAILY 04/30/20 07/19/23 Levothyroxine Sodium [Synthroid] 75 mcg PO DAILY 04/30/20 07/19/23 Mirtazapine [Remeron] 15 mg PO DAILY 04/30/20 07/19/23 Pantoprazole [Protonix] 40 mg PO DAILY 04/30/20 07/19/23 Metoprolol Succinate [Toprol Xl] 12.5 mg PO DAILY 04/13/21 07/19/23 Cetirizine [ZyrTEC] 10 mg PO DAILY 12/22/22 07/19/23 Gabapentin [Neurontin] 900 mg PO HS 12/22/22 07/19/23 Spironolactone [Aldactone] 25 mg PO DAILY 12/22/22 07/19/23 Lisinopril [Zestril] 2.5 mg PO DAILY 12/23/22 07/19/23 Levetiracetam [Keppra] 500 mg PO BID #60 tablet 12/24/22 07/19/23 Benzonatate [Tessalon] 200 mg PO TID PRN #10 cap 02/09/23 07/19/23 Doxycycline [Vibramycin] 100 mg PO BID #14 tablet 02/09/23 07/19/23 guaiFENesin/CODEINE [Robitussin AC] 5 - 10 ml PO Q6H PRN #120 ml 02/12/23 07/19/23 - Allergies Allergies/Adverse Reactions: Allergies Allergy/AdvReac Type Severity Reaction Status Date / Time Iodinated Contrast Media Allergy Rash Verified 07/19/23 18:19 [Iodinated Contrast- Oral and IV Dye] morphine Allergy Rash Verified 07/19/23 18:19 - Social History Does the pt smoke?: No Smoking Status: Never smoker Does the pt drink ETOH?: No Does the pt have substance abuse?: No - Immunizations Immunizations are current?: Yes - POLST Patient has POLST: No PD ED PE NORMAL - Vitals Vital signs reviewed: Yes - General General: Alert and oriented X 3, No acute distress, Well developed/nourished - HEENT HEENT: Moist mucous membranes - Neck Neck: Supple, no meningeal sign - Cardiac Cardiac: RRR, No murmur, Strong equal pulses - Respiratory Respiratory: No respiratory distress, Clear bilaterally - Abdomen Abdomen: Soft, Non tender, Non distended - Derm Derm: Warm and dry - Extremities Extremities: No edema, No calf tenderness / cord - Neuro Neuro: Alert and oriented X 3 - Psych Psych: Normal mood, Normal affect Results - Vitals Vitals: Vital Signs - 24 hr 07/19/23 07/19/23 07/19/23 18:10 20:30 22:13 Temperature 36.3 C L Heart Rate 50 L 50 L 75 Respiratory 18 16 18 Rate Blood Pressure 99/49 L 99/55 L 96/61 O2 Saturation 98 98 99 Oxygen O2 Source Room air - EKG (time done) 1833 EKG releavant findings:: EKG personally interpreted by author of this note. Relevant findings are: Rate: Rate (enter#) (50) Rhythm: NSR [place]: Normal Intervals: Normal [place] QRS: Normal Ischemia: Normal ST segments, Q waves (III, aVF) - Labs Labs: Laboratory Tests 07/19/23 07/19/23 07/19/23 19:06 19:06 21:18 WBC 7.2 RBC 4.30 Hgb 12.3 Hct 39.5 MCV 91.9 MCH 28.6 MCHC 31.1 L RDW 14.6 Plt Count 258 MPV 11.9 H Neut # (Auto) 3.8 Lymph # (Auto) 2.5 [place] # (Auto) 0.7 Eos # (Auto) 0.1 Baso # (Auto) 0.0 Absolute Nucleated RBC 0.00 Nucleated RBC % 0.0 Sodium 139 Potassium 4.4 Chloride 105 Carbon Dioxide 31 Anion Gap 3.0 L BUN 26 H Creatinine 0.7 Estimated GFR (MDRD) 85 L Glucose 97 Calcium 9.5 Total Bilirubin 0.5 AST 14 ALT 17 Alkaline Phosphatase 44 Troponin I High Sens 3.2 2.8 Total Protein 6.3 L Albumin 3.9 Globulin 2.4 Albumin/Globulin Ratio 1.6 Lipase 62 - Rads (name of study) cxr Relevant Findings:: Final report received, See rad report PD Medical Decision Making - ED course Complexity details: reviewed results, re-evaluated patient, considered differential, d/w patient ED course: Symptoms resolved in the emergency department. Patient with atypical sounding chest pain. Chest x-ray does not show any acute abnormalities. Negative high sensitive troponin x 2. No acute ST changes on EKG. Symptoms do not sound concerning for ACS. No change with inspiration, exertion. No calf tenderness or pain. No evidence of PE. No hypoxia, tachycardia. As she is asymptomatic here and has her negative high sensitive troponins, neg EKG and cxr, with an atypical history, recommend she follow-up closely with her doctor for further care. Patient counseled regarding signs and symptoms for which I believe and urgent re-evaluation would be necessary. Patient with good understanding of and agreement to plan and is comfortable going home at this time This document was made in part using voice recognition software. While efforts are made to proofread this document, sound alike and grammatical errors may occur. Departure - Departure Disposition: 01 Home, Self Care Clinical Impression: Atypical chest pain Condition: Good Instructions: ED Chest Pain Atypical Unkn Cause Follow-Up: JAVID PORTER DO [Primary Care Provider] - Within 1 week Comments: The cause of your chest pain is unclear today. Your EKG, chest x-ray and laboratory testing did not show any acute abnormalities. Please follow-up with your doctor for further care. Please return if you worsen. Forms: PCP List Discharge Date/Time: 07/19/23 22:13
[2023-07-19] MEDS: ONDANSETRON 4 MG/2 ML VIAL IVP STA (20:21)
[2023-07-19 22:16] VITALS: BP 96/61; O2SAT 99
== END 2023-07-19 22:13 | disposition home or self-care (01) ==
LOC: ED 17:51
DX: R07.9 Chest pain, unspecified (principal); I25.10 Atherosclerotic heart disease of native coronary artery without angina pectoris; I25.2 Old myocardial infarction; E78.00 Pure hypercholesterolemia, unspecified; Z86.73 Personal history of transient ischemic attack (TIA), and cerebral infarction without residual deficits; G81.90 Hemiplegia, unspecified affecting unspecified side; Z79.02 Long term (current) use of antithrombotics/antiplatelets; Z79.899 Other long term (current) drug therapy; Z95.828 Presence of other vascular implants and grafts
CPT/HCPCS: 36415; 80053; 83690; 84484; 85025; 93005; 96374; 96375; 99283

== ENCOUNTER 2023-08-07 17:23 | Outpatient (CLI) | payer MEDICARE, OTHER | END 2023-08-07 23:59 | disposition critical access hospital (66) | LOC: EMS 17:23 | DX: R47.01 Aphasia (principal); Z79.02 Long term (current) use of antithrombotics/antiplatelets; I69.354 Hemiplegia and hemiparesis following cerebral infarction affecting left non-dominant side | CPT/HCPCS: A0425; A0429 ==

== ENCOUNTER 2023-08-07 17:34 | Inpatient (IN) | payer MEDICARE, OTHER ==
--- NOTE | 2023-08-07 17:37 | ED Physician Documentation ---
PD HPI FOCAL NEURO - Stated complaint Stated Complaint: CODE STROKE - History obtained from History obtained from: EMS - Additional information Additional information: 58-year-old with history of stroke causing left hemiplegia in 2018. There was a right MCA stroke and required surgical brain decompression due to resultant edema. She also has dysphagia and seizure disorder related to same. Other comorbidities include hypertension, hyperlipidemia, coronary disease. At baseline she can walk with a hemiwalker but does not really use the left side much. She was sitting and talking to family today at 1645 and became aphasic. She is able to follow commands. Prehospital her blood sugar was 99 and blood pressure was unremarkable. She is able to answer simple questions only with shaking and nodding of the head. She denies headache. 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 Psych: None Musculoskeletal: Hemiplegia Derm: None - Past Surgical History Past Surgical History: Yes General: Other Cardiovascular: Coronary stent Neuro: Craniotomy - Present Medications Home Medications: Ambulatory Orders Medication Instructions Recorded Confirmed Aspirin 81 mg PO DAILY 12/26/17 07/19/23 Acetaminophen [Tylenol] 650 mg PO Q4H PRN 01/20/18 07/19/23 Nitroglycerin [Nitrostat] 0.4 mg SL Q5MIN PRN 01/20/18 07/19/23 Amitriptyline [Elavil] 25 mg PO QPM 04/30/20 07/19/23 Atorvastatin Calcium [Lipitor] 80 mg PO DAILY 04/30/20 07/19/23 Clopidogrel [Plavix] 75 mg PO DAILY 04/30/20 07/19/23 Levothyroxine Sodium [Synthroid] 75 mcg PO DAILY 04/30/20 07/19/23 Mirtazapine [Remeron] 15 mg PO DAILY 04/30/20 07/19/23 Pantoprazole [Protonix] 40 mg PO DAILY 04/30/20 07/19/23 Metoprolol Succinate [Toprol Xl] 12.5 mg PO DAILY 04/13/21 07/19/23 Cetirizine [ZyrTEC] 10 mg PO DAILY 12/22/22 07/19/23 Gabapentin [Neurontin] 900 mg PO HS 12/22/22 07/19/23 Spironolactone [Aldactone] 25 mg PO DAILY 12/22/22 07/19/23 Lisinopril [Zestril] 2.5 mg PO DAILY 12/23/22 07/19/23 Levetiracetam [Keppra] 500 mg PO BID #60 tablet 12/24/22 07/19/23 Benzonatate [Tessalon] 200 mg PO TID PRN #10 cap 02/09/23 07/19/23 Doxycycline [Vibramycin] 100 mg PO BID #14 tablet 02/09/23 07/19/23 guaiFENesin/CODEINE [Robitussin AC] 5 - 10 ml PO Q6H PRN #120 ml 02/12/23 07/19/23 - Allergies Allergies/Adverse Reactions: Allergies Allergy/AdvReac Type Severity Reaction Status Date / Time Iodinated Contrast Media Allergy Rash Verified 07/19/23 18:19 [Iodinated Contrast- Oral and IV Dye] morphine Allergy Rash Verified 07/19/23 18:19 - Social History Does the pt smoke?: No Smoking Status: Never smoker Does the pt drink ETOH?: No Does the pt have substance abuse?: No - Immunizations Immunizations are current?: Yes - POLST Patient has POLST: No PD ED PE NORMAL - Vitals Vital signs reviewed: Yes - General General: Other (She is alert but nonverbal, she does follow questions.) - HEENT HEENT: PERRL, EOMI - Neck Neck: Supple, no meningeal sign, No bony TTP - Cardiac Cardiac: RRR, No murmur - Respiratory Respiratory: No respiratory distress, Clear bilaterally - Abdomen Abdomen: Non tender - Neuro Eye Opening: Spontaneous Motor: Obeys Commands Verbal: None GCS Score: 11 NIHSS - Time Time: 17:35 - Level of Consciousness Level of consciousness: (0) Alert, Keenly responsive LOC Questions: (2) Answers neither correct LOC Commands: (0) Performs both correctly - Gaze Best Gaze: (0) Normal - Visual Visual: (0) No loss - Facial Palsy Facial Palsy: (0) Normal, symmetrical movement (I marking her as 0 but she is not following commands on this 1 so hard to say.) - Motor Arms (both separate) Motor Arm (right): (0) No drift Motor Arm (left): (3) No effort against gravity - Motor Legs (both separate) Motor Leg (right): (0) No drift Motor Leg (left): (2) Some effort against gravity - Limb Ataxia Limb Ataxia: (0) Absent - Sensory Sensory: (1) Bimc-nb-bamityac loss - Best Language Best Language: (3) Mute, global aphasia - Dysarthria Dysarthria: (0) Normal - Extinction and Inattention (formally neg Extinction and inattention: (0) No abnormality - Total Score/Results Total Score/Result: 11 Results - Vitals Vitals: Vital Signs - 24 hr 08/07/23 17:49 Temperature 37.4 C Heart Rate 81 Respiratory 12 Rate Blood Pressure 121/60 O2 Saturation 90 L Oxygen O2 Source Room air - EKG (time done) 1755 EKG releavant findings:: EKG personally interpreted by author of this note. Relevant findings are: Rate: Rate (enter#) (72) Rhythm: NSR [place]: Normal Intervals: Normal [place] QRS: Normal Ischemia: Normal ST segments, Q waves (inferior) Computer interpretation: Agree with computer - Rads (name of study) CT Head- Large right hemisphere encephalomalacia with postsurgical changes, nothing acute appearing and no blood. Relevant Findings:: Final report received, Discussed with rads, EMP independent interpretation of test PD Medical Decision Making - ED course ED course: She presents with strokelike symptoms, she has had the history of the right MCA stroke causing left hemiplegia but now is aphasic. I am not seeing any other new findings on her examination on the right presuming that her left is her dominant/language hemisphere. She went directly over to CT and subsequently I discussed the case by phone with the stroke neurologist at 5:49 PM who is examining the patient. Subsequently on around 6 PM the neurologist was evaluating the patient and she started talking back to normal again and she was at her baseline. Still of course with the significant but chronic left-sided deficits. The neurologist notes that she is already on DAPT chronically and recommends observation mostly for cardiac monitoring and MRI tomorrow. I will call the hospitalist for observation after 7 PM as we are approaching shift change. Departure - Departure Disposition: ED Place in Observation Clinical Impression: TIA (transient ischemic attack) Condition: Stable
[2023-08-07] MEDS ORDERED: iohexoL-300 100 ML VIAL ONE (17:49)
[2023-08-07] MEDS: iohexoL-300 100 ML VIAL IVP ONE (17:50)
--- NOTE | 2023-08-07 17:59 | CT Report ---
PROCEDURE: Head W/O Stroke Protocol INDICATIONS: Neuro deficit, acute, stroke suspected TECHNIQUE: Noncontrast 4.5 mm thick angled axial sections acquired from the foramen magnum to the vertex, with c oronal reformats. For radiation dose reduction, the following was used: automated exposure control, adjustment of mA and/or kV according to patient size. COMPARISON: CT head, 12/21/2022, 04/13/2021. FINDINGS: Image quality: Excellent. CSF spaces: Basal cisterns are patent. No extra-axial fluid collections. Ventricles are normal in size and shape. Brain: Large right MCA infarct with encephalomalacia. Generalized cerebral volume loss. Mild periven tricular white matter chronic small vessel ischemic changes. No midline shift. No intracranial ia s or hemorrhage. Skull and face: Right frontoparietal craniotomy. Calvarium and visualized facial bones are intact, w ithout suspicious lesions. Sinuses: Visualized sinuses and mastoids are clear. IMPRESSION: 1. No acute intracranial abnormality. 2. Large old MCA infarct within several menisci. 3. Cerebral volume loss and periventricular white matter chronic small vessel ischemic changes. The result was discussed with Dr. Mehta in ER prior to dictation. This study fulfills neurological imaging criteria for inclusion or exclusion of acute stroke therapie s based on available published neurological imaging guidelines. Reviewed by: Forest Juarez MD on 08/07/2023 5:58 PM PDT Approved by: Forest Juarez MD on 08/07/2023 5:58 PM PDT Station ID: [id number]
[2023-08-07 18:05] LABS: BASOPHILS # (AUTO) 0.1 10^3/uL (0.0-0.1); BASOPHILS % (AUTO) 0.4 %; EOSINOPHILS # (AUTO) 0.1 10^3/uL (0.0-0.7); EOSINOPHILS % (AUTO) 0.5 %; HCT - HEMATOCRIT 36.2 % (37.0-47.0); HGB - HEMOGLOBIN 11.3 g/dL (12.0-16.0); LYMPHOCYTES # (AUTO) 2.2 10^3/uL (1.5-3.5); LYMPHOCYTES % (AUTO) 16.6 %; MEAN CORPUSCULAR HEMOGLOBIN 29.4 pg (27.0-31.0); MEAN CORPUSCULAR HGB CONC 31.2 g/dL (32.0-36.0); MEAN CORPUSCULAR VOLUME 94.3 fL (81.0-99.0); MEAN PLATELET VOLUME 11.8 fL (7.9-10.8); MONOCYTES # (AUTO) 1.1 10^3/uL (0.0-1.0); MONOCYTES % (AUTO) 8.2 %; NEUTROPHILS # (AUTO) 9.8 10^3/uL (1.5-6.6); PLT - PLATELET COUNT 273 10^3/uL (130-450); RED BLOOD COUNT 3.84 10^6/uL (4.20-5.40); RED CELL DISTRIBUTION WIDTH 13.9 % (12.0-15.0); WHITE BLOOD COUNT 13.2 x10^3/uL (4.8-10.8)
[2023-08-07 18:47] LABS: INR 1.1 (0.8-1.2); PT - PROTHROMBIN TIME 12.2 secs (9.9-12.6)
[2023-08-07 18:53] LABS: ALBUMIN 4.2 g/dL (3.2-5.5); ALBUMIN/GLOBULIN RATIO 1.3 (1.0-2.2); BILIRUBIN,TOTAL 0.7 mg/dL (0.2-1.0); CALCIUM 9.3 mg/dL (8.5-10.3); CREATININE 0.7 mg/dL (0.6-1.3); TOTAL PROTEIN 7.4 g/dL (6.4-8.9)
[2023-08-07] MEDS ORDERED: ONDANSETRON 4 MG/2 ML VIAL IVP PRN (19:38)
[2023-08-07] MEDS ORDERED: SODIUM CHLORIDE FLUSH 0.9% 10 ML SYRINGE IVP PRN (19:38)
--- NOTE | 2023-08-07 20:03 | HISTORY & PHYSICAL EXAMINATION ---
Chief Complaint - Chief Complaint Chief Complaint: Aphasia History of Present Illness - History of Present Illness HPI Comment/Other: 58 y old female with PMH HTN, hyperlipidemia, CAD, CVA, right MCA stroke , left hemiplegia, hypothyroidism presented to the ER with c/o difficulty speaking which started at 4;45 pm and lasted until 6 pm. Pt usually walk with walker. Pt is able to talk at this time. Denies VAZQUEZ, chest pain, SOB, Nusea, vomiting, diarrhea constipation, G symptoms CT Head showed no acute abnormalities As per ER physician, he consulted tele neurology who recommended MRI brain Pt is admitted due to Aphasia likely due to TIA History - Past Medical History Cardiovascular: reports: High cholesterol, Coronary artery disease, [place] Respiratory: reports: None Neuro: reports: CVA, Seizure disorder Endocrine/Autoimmune: reports: None GI: reports: GERD [employer]: reports: None : reports: None Psych: reports: None Musculoskeletal: reports: Hemiplegia Derm: reports: None MRSA Hx?: No - Past Surgical History General: reports: Other Cardiovascular: reports: Coronary stent Neuro: reports: Craniotomy - Family & Social History Family History: Mother: , CAD, Father: , CAD, Sister: Alive and Well, Brother: Alive and Well - Substance History Use: Uses substance without health or social issues: Tobacco (was smoking few cigerettes a day previous to indecember admit) - POLST Patient has POLST: No Meds/Allgy - Home Medications Home Medications: Ambulatory Orders Medication Instructions Recorded Confirmed Aspirin 81 mg PO DAILY 12/26/17 07/19/23 Acetaminophen [Tylenol] 650 mg PO Q4H PRN 01/20/18 07/19/23 Nitroglycerin [Nitrostat] 0.4 mg SL Q5MIN PRN 01/20/18 07/19/23 Amitriptyline [Elavil] 25 mg PO QPM 04/30/20 07/19/23 Atorvastatin Calcium [Lipitor] 80 mg PO DAILY 04/30/20 07/19/23 Clopidogrel [Plavix] 75 mg PO DAILY 04/30/20 07/19/23 Levothyroxine Sodium [Synthroid] 75 mcg PO DAILY 04/30/20 07/19/23 Mirtazapine [Remeron] 15 mg PO DAILY 04/30/20 07/19/23 Pantoprazole [Protonix] 40 mg PO DAILY 04/30/20 07/19/23 Metoprolol Succinate [Toprol Xl] 12.5 mg PO DAILY 04/13/21 07/19/23 Cetirizine [ZyrTEC] 10 mg PO DAILY 12/22/22 07/19/23 Gabapentin [Neurontin] 900 mg PO HS 12/22/22 07/19/23 Spironolactone [Aldactone] 25 mg PO DAILY 12/22/22 07/19/23 Lisinopril [Zestril] 2.5 mg PO DAILY 12/23/22 07/19/23 Levetiracetam [Keppra] 500 mg PO BID #60 tablet 12/24/22 07/19/23 Benzonatate [Tessalon] 200 mg PO TID PRN #10 cap 02/09/23 07/19/23 Doxycycline [Vibramycin] 100 mg PO BID #14 tablet 02/09/23 07/19/23 guaiFENesin/CODEINE [Robitussin AC] 5 - 10 ml PO Q6H PRN #120 ml 02/12/2307/18 - Allergies Allergies/Adverse Reactions: Allergies Allergy/AdvReac Type Severity Reaction Status Date / Time Iodinated Contrast Media Allergy Rash Verified 08/07/23 18:16 [Iodinated Contrast- Oral and IV Dye] morphine Allergy Rash Verified 08/07/23 18:16 Review of Systems - Other Findings Other Findings: 10 points systems were reviewed and were neg except mentioned in HPI Exam - Vital Signs Vital Signs: Vital Signs x48h Temp Pulse Resp BP Pulse Ox 08/07/23 19:43 74 16 123/73 100 08/07/23 18:22 79 18 116/87 H 97 08/07/23 17:49 37.4 C 81 12 121/60 90 L - Physical Exam General Appearance: positive: No acute distress Eyes Bilateral: positive: Normal inspection ENT: positive: ENT inspection nml Neck: positive: Nml inspection Cardiovascular: positive: Regular rate & rhythm Abdomen: positive: Non-tender, Nml bowel sounds Skin: positive: No rash Extremities: positive: No pedal edema Neurologic/Psychiatric: positive: Oriented x3, Weakness, Other (Left hemiplegia) Conclusion/Plan - Lab Results Fish Bones: 08/07/23 17:50 08/07/23 18:30 - Other Other Results/Comments: A: TIA Aphasia H/O Right MCA stroke and left hemiplegia H/O TIA x 2 HTN Hyperlipidemia CAD Hypothyroidism Seizure Plan; Admit in tele Cont cardiac monitoring Echo Carotid doppler MRI brain WO contrast Cont aspirin 325 mg qd Plavix 75 mg po qd Cont lipitor 80 mg po qd Check fasting lipid panel NPO Neuro checks ST/PT/OT Allow permissive BP per neuro Hold metoprolol and lisinopril Cont levothyroxine Check TSH Cont keppra DVT prophylaxic: SCD Full code Pt is admitted as inpatient as more than 2 midnight stay is expected
--- NOTE | 2023-08-07 20:58 | CT Report ---
PROCEDURE: Angio Head/Neck INDICATIONS: cva sx TECHNIQUE: After the administration of intravenous contrast, 1 mm thick sections acquired from the aortic arch t hrough the [place]. 3-dimensional qwmhvol-pilebkrzy-dnzievlezd (MIP) and/or volume renderin g reformats were acquired of the central intracranial vasculature and neck separately. For radiation dose reduction, the following was used: automated exposure control, adjustment of mA and/or kV acco rding to patient size. CONTRAST: 80ml omni 300 COMPARISON: CT neck angiogram, 12/26/2017. CT head angioma, 12/26/2017. CT head without, 08/07/2023. FINDINGS: Image quality: Diagnostic. HEAD CT: CSF Spaces: Basal cisterns are patent. No extra-axial fluid collections. Ventricles are normal in size and shape. Brain: There is large right MCA infarct with severe encephalomalacia in the right hemisphere. Skull and face: Right frontoparietal craniotomy. Calvarium and visualized facial bones appear intact , without suspicious lesions. Sinuses: Visualized sinuses and mastoids are clear. HEAD CT ANGIOGRAPHY: Anterior circulation: Intracranial internal carotid arteries are normal in size and flow. The flow within the paired anterior cerebral arteries is normal and symmetric. The flow within the middle cer ebral arteries is normal and symmetric. The anterior communicating artery is seen. No aneurysms are seen. Posterior circulation: Visualized portions of the vertebral arteries demonstrate normal caliber, and join to form a normal appearing basilar artery. Flow within the posterior cerebral arteries is norm al and symmetric. No aneurysms are seen. NECK CT ANGIOGRAPHY: Carotid system: The great vessels demonstrate a conventional anatomy as they arise from the aortic a rch. The origins of the common carotid arteries appear patent. The common carotid arteries demonstr ate normal caliber and courses. The bifurcation regions are both widely patent. There is recanalizat ion of previously occluded right internal carotid artery. The internal carotid arteries demonstrate n ormal calibers and courses. Posterior circulation: The origins of the vertebral arteries both appear widely patent. The more mehta perior extracranial portions of both vertebral arteries also demonstrate normal courses and calibers. They join to form a normal appearing basilar artery. Soft tissues: Visualized neck soft tissues demonstrate no suspicious abnormalities. Bones: No suspicious bony lesions. Visualized cervical spine appears normally aligned. IMPRESSION: 1. Large old right MCA infarct. 2. No significant intracranial arterial abnormality is seen. 3. Recannulization of previously occluded right internal carotid artery. 4. No large vessel occlusion or high-grade stenosis is seen within the arteries of the neck. The estimate of stenosis included in the report of the imaging study was calculated using the NASCET method Reviewed by: Forest Juarez MD on 08/07/2023 8:56 PM PDT Approved by: Forest Juarez MD on 08/07/2023 8:56 PM PDT Station ID: [id number]
[2023-08-07] MEDS: levETIRAcetam 250 MG TABLET PO SCH (21:57)
[2023-08-07] MEDS: SODIUM CHLORIDE FLUSH 0.9% 10 ML SYRINGE IVP SCH (23:36)
--- NOTE | 2023-08-07 23:40 | Ultrasound Report ---
PROCEDURE: Carotid Doppler Complete INDICATIONS: stroke TECHNIQUE: Color and pulse Doppler interrogation was performed of both carotid systems, with image documentation and velocity measurements. COMPARISON: CT angiogram of head and neck dated 08/07/2023. FINDINGS: Right side: Brachial blood pressure: 97/61 mm Hg. Common carotid artery peak systolic velocity: 68.9 cm/sec. Internal carotid artery peak systolic velocity: 58.75 cm/sec. Internal carotid artery end diastolic velocity: 20.32 cm/sec. External carotid artery peak systolic velocity: 61.8 cm/sec. ICA/CCA peak systolic ratio: 0.9 . Cruz scale imaging description: Mild atherosclerotic plaque. Percent internal carotid artery stenosis: Less than 50 percent stenosis. Vertebral artery: Flow direction is antegrade. Left side: Brachial blood pressure: 100/67 mm Hg. Common carotid artery peak systolic velocity: 58.7 cm/sec. Internal carotid artery peak systolic velocity: 56.4 cm/sec. Internal carotid artery end diastolic velocity: 25.89 cm/sec. External carotid artery peak systolic velocity: 69.6 cm/sec. ICA/CCA peak systolic ratio: 1 . Cruz scale imaging description: Mild atherosclerotic plaque. Percent internal carotid artery stenosis: Less than 50 percent stenosis. Vertebral artery: Flow direction is antegrade. IMPRESSION: 1. In the right internal carotid artery, there is less than 50 percent stenosis based on peak systoli c velocity criteria. 2. In the left internal carotid artery, there is less than 50 percent stenosis based on peak systolic velocity criteria. 3. Antegrade blood flow within the right vertebral artery. 4. Antegrade blood flow within the left vertebral artery. The estimate of stenosis included in the report of the imaging study was calculated using the [facility]-end orsed standards of carotid artery stenosis. Reviewed by: Srinivas Enamorado MD on 08/07/2023 11:39 PM PDT Approved by: Srinivas Enamorado MD on 08/07/2023 11:39 PM PDT Station ID: [id number]
[2023-08-08 04:45] LABS: BASOPHILS # (AUTO) 0.1 10^3/uL (0.0-0.1); BASOPHILS % (AUTO) 0.3 %; EOSINOPHILS % (AUTO) 0.2 %; HCT - HEMATOCRIT 39.7 % (37.0-47.0); HGB - HEMOGLOBIN 12.8 g/dL (12.0-16.0); LYMPHOCYTES # (AUTO) 2.8 10^3/uL (1.5-3.5); LYMPHOCYTES % (AUTO) 17.2 %; MEAN CORPUSCULAR HEMOGLOBIN 29.1 pg (27.0-31.0); MEAN CORPUSCULAR HGB CONC 32.2 g/dL (32.0-36.0); MEAN CORPUSCULAR VOLUME 90.2 fL (81.0-99.0); MEAN PLATELET VOLUME 11.6 fL (7.9-10.8); MONOCYTES # (AUTO) 1.1 10^3/uL (0.0-1.0); MONOCYTES % (AUTO) 6.5 %; NEUTROPHILS # (AUTO) 12.1 10^3/uL (1.5-6.6); NEUTROPHILS % (AUTO) 75.5 %; PLT - PLATELET COUNT 279 10^3/uL (130-450); RED CELL DISTRIBUTION WIDTH 13.8 % (12.0-15.0); WHITE BLOOD COUNT 16.1 x10^3/uL (4.8-10.8)
[2023-08-08 05:05] LABS: ALBUMIN 3.8 g/dL (3.2-5.5); ALBUMIN/GLOBULIN RATIO 1.1 (1.0-2.2); ALKALINE PHOSPHATASE 58 IU/L (42-121); ALT ALANINE AMINOTRANSFERASE 34 IU/L (10-60); AST ASPARTATE AMINOTRANSFERASE 36 IU/L (10-42); BILIRUBIN,TOTAL 0.8 mg/dL (0.2-1.0); BUN - BLOOD UREA NITROGEN 14 mg/dL (6-20); CALCIUM 9.6 mg/dL (8.5-10.3); CARBON DIOXIDE - CO2 25 mmol/L (21-32); CHLORIDE 104 mmol/L (101-111); CHOL/HDL RATIO 3.2 (<4.4); CHOLESTEROL 126 mg/dL; CREATININE 0.6 mg/dL (0.6-1.3); GFR - MDRD 102 (>89); GLUCOSE 105 mg/dL (74-104); HDL CHOLESTEROL 39 mg/dL; LDL CHOLESTEROL,CALCULATED 69 mg/dL; LDL/HDL RATIO 1.8 (<4.4); POTASSIUM 3.9 mmol/L (3.5-4.5); SODIUM 136 mmol/L (135-145); TOTAL PROTEIN 7.2 g/dL (6.4-8.9); TRIGLYCERIDES 90 mg/dL (48-352); VLDL CHOLESTEROL 18 mg/dL
[2023-08-08 05:41] LABS: THYROID STIMULATING HORMONE 0.42 uIU/mL (0.34-5.60)
[2023-08-08] MEDS: LEVOTHYROXINE 75 MCG TABLET PO SCH (06:05)
[2023-08-08] MEDS: ATORVASTATIN 40 MG TABLET PO SCH (08:53)
[2023-08-08] MEDS: CLOPIDOGREL 75 MG TABLET PO SCH (08:54)
[2023-08-08] MEDS: ASPIRIN 325 MG TABLET PO SCH (08:54)
--- NOTE | 2023-08-08 12:11 | PHARMACY PROGRESS NOTE ---
- Best Possible Medication History Admit Date and Time: 08/07/231937 Processed by: Pharmacy Medications reviewed in ED?: Yes Medication History completed: Yes Secondary Source(s): Pharmacy records, Insurance records As the person ultimately responsible for medication therapy, providers are able to order a medication from an existing home medication list in [facility] via the "Reconcile Routine" prior to Confirmation of that medication by work station support specialist. Such practice is discouraged except when the physician, in their clinical judgment, deems that a medical need exists for a medication without regard to previous use.
--- NOTE | 2023-08-08 12:17 | MRI Report ---
PROCEDURE: Brain WO INDICATIONS: stroke TECHNIQUE: Noncontrast axial T1 spin echo, axial T2 fast spin echo, sagittal and axial FLAIR, coronal T2 fast sp in echo, axial gradient echo, axial diffusion and ADC through the brain. COMPARISON: CT head August 07, 2023 FINDINGS: Image quality: Excellent. CSF Spaces: Basal cisterns are patent. No extra-axial fluid collections. Ventricles are normal in size and shape. Brain: Encephalomalacia and sequela of large right MCA stroke with corresponding FLAIR/T2 signal abno rmalities and susceptibility artifact. No intracranial masses or hemorrhage. Cruz/white matter inter face is normal. Brainstem appears normal. Diffusion-weighted images demonstrate no acute ischemic i nsult. Normal intravascular flow voids are present. Skull and face: Calvarium has normal marrow signal. Orbits appear normal. Sinuses: Sinuses and mastoids are clear. IMPRESSION: No areas of restricted diffusion to suggest acute ischemia Sequela of prior right MCA stroke. Reviewed by: Mychal Pruett MD on 08/08/2023 11:15 AM GLADYS Approved by: Mychal Pruett MD on 08/08/2023 11:15 AM GLADYS Station ID: [id number]
[2023-08-08 12:22] VITALS: BP 94/63; O2SAT 94
[2023-08-08] MEDS: BACLOFEN 10 MG TABLET PO SCH (13:30)
--- NOTE | 2023-08-08 13:47 | Discharge Plan ---
Discharge Plan Problem Reviewed?: Yes Disposition: Home, Self Care Condition: Stable Diet: Cardiac Activity Restrictions: Activity as Tolerated Health Concerns: --Please follow up with your Neurologist as scheduled on 09/12. No Smoking: If you smoke, Please STOP! Call for help.
--- NOTE | 2023-08-08 14:01 | DISCHARGE SUMMARY ---
Discharge Summary Admit Date: 08/07/23 Discharge Date: 08/08/23 Discharging Provider: Eduar De León Code Status: Attempt Resuscitation Condition at Discharge: Good Discharge Disposition: 01 Home, Self Care - HPI History of Present Illness: 58 y old female with PMH HTN, hyperlipidemia, CAD, CVA, right MCA stroke , left hemiplegia, hypothyroidism presented to the ER with c/o difficulty speaking which started at 4;45 pm and lasted until 6 pm. Pt usually walk with walker. Pt is able to talk at this time. Denies VAZQUEZ, chest pain, SOB, Nusea, vomiting, diarrhea constipation, G symptoms CT Head showed no acute abnormalities As per ER physician, he consulted tele neurology who recommended MRI brain Pt is admitted due to Aphasia likely due to TIA - HOSPITAL COURSE Hospital Course: Patient is a 58-year-old female who presented to the ED with complaints of aphasia which began at 4:45 PM and lasted until 6 PM. In the ED a CT/CTA head was performed which was unremarkable. She was eval by teleneurology who recommended admission for cardiac monitoring and MRI. MRI was performed which was unremarkable. Unfortunately our facility did not have echo services until 09/09. I offered to keep the patient until 09/09 to perform an echo however she declined and wanted to go home and became quite tearful at the thought of staying. She is subsequently discharged home on her dual antiplatelet regimen. She has a follow-up with neurology on 09/12 which I instructed her to keep. Patient had no residual deficits following this episode and was given a diagnosis of a TIA. - ALLERGIES Allergies/Adverse Reactions: Allergies Allergy/AdvReac Type Severity Reaction Status Date / Time Iodinated Contrast Media Allergy Rash Verified 08/07/23 18:16 [Iodinated Contrast- Oral and IV Dye] morphine Allergy Rash Verified 08/07/23 18:16 - MEDICATIONS Home Medications: Ambulatory Orders Medication Instructions Recorded Confirmed Aspirin 81 mg PO DAILY 12/26/17 08/08/23 Acetaminophen [Tylenol] 650 mg PO Q4H PRN 01/20/18 08/08/23 Nitroglycerin [Nitrostat] 0.4 mg SL Q5MIN PRN 01/20/18 08/08/23 Amitriptyline [Elavil] 20 mg PO QPM 04/30/20 08/08/23 Atorvastatin Calcium [Lipitor] 80 mg PO DAILY 04/30/20 08/08/23 Clopidogrel [Plavix] 75 mg PO DAILY 04/30/20 08/08/23 Levothyroxine Sodium [Synthroid] 75 mcg PO DAILY 04/30/20 08/08/23 Pantoprazole [Protonix] 40 mg PO DAILY 04/30/20 08/08/23 Metoprolol Succinate [Toprol Xl] 25 mg PO DAILY 04/13/21 08/08/23 Cetirizine [ZyrTEC] 10 mg PO DAILY 12/22/22 08/08/23 Gabapentin [Neurontin] 900 mg PO HS 12/22/22 08/08/23 Spironolactone [Aldactone] 25 mg PO DAILY 12/22/22 08/08/23 Lisinopril [Zestril] 2.5 mg PO DAILY 12/23/22 08/08/23 Levetiracetam [Keppra] 500 mg PO BID #60 tablet 12/24/22 08/08/23 Baclofen [Lioresal] 10 mg PO TID 08/08/23 08/08/23 Ferrous Sulfate [Feosol] 0.5 tab PO DAILY 08/08/23 08/08/23 - PHYSICAL EXAM AT DISCHARGE General Appearance: positive: No acute distress, Alert Respiratory: positive: Chest non-tender, No respiratory distress, Breath sounds nml Cardiovascular: positive: Regular rate & rhythm, No murmur, No gallop Abdomen: positive: Non-tender, No organomegaly, Nml bowel sounds Neurologic/Psychiatric: positive: Oriented x3, CN's nml (2-12) - LABS Result Diagrams: 08/08/23 04:25 08/08/23 04:25 - FOLLOW UP Follow Up: Patient is a follow-up scheduled with neurology on 09/12. She is instructed to keep this appointment. - TIME SPENT Time Spent in Discharge (Minutes): 30
== END 2023-08-08 14:25 | disposition home or self-care (01) | DRG 69 ==
LOC: EDBD → EDUNIT# → ED 17:34 → MS2 19:38
PROVIDERS: ADMIT Internal Medicine; ATTEND Family Medicine
DX: G45.9 Transient cerebral ischemic attack, unspecified (principal); R47.01 Aphasia; I69.354 Hemiplegia and hemiparesis following cerebral infarction affecting left non-dominant side; I69.391 Dysphagia following cerebral infarction; I69.398 Other sequelae of cerebral infarction; R13.10 Dysphagia, unspecified; G40.909 Epilepsy, unspecified, not intractable, without status epilepticus; I10 Essential (primary) hypertension; I25.10 Atherosclerotic heart disease of native coronary artery without angina pectoris; E03.9 Hypothyroidism, unspecified; G93.89 Other specified disorders of brain; E78.00 Pure hypercholesterolemia, unspecified; I25.2 Old myocardial infarction; G43.909 Migraine, unspecified, not intractable, without status migrainosus; K21.9 Gastro-esophageal reflux disease without esophagitis; Z79.02 Long term (current) use of antithrombotics/antiplatelets; Z79.82 Long term (current) use of aspirin; Z79.890 Hormone replacement therapy; Z79.899 Other long term (current) drug therapy; Z82.49 Family history of ischemic heart disease and other diseases of the circulatory system; Z87.891 Personal history of nicotine dependence; Z95.5 Presence of coronary angioplasty implant and graft
CPT/HCPCS: 36415; 70450; 70496; 70498; 70551; 80053; 80061; 83690; 84443; 85025; 85610; 93005; 93880; 97162; 97530; 99285; A9270; Q9967; 83721